=== PATIENT | male | born 1945 | race Hispanic/Latino ===

== ENCOUNTER 2018-10-08 04:47 | Inpatient (IN) | payer BC, MEDICARE ==
[2018-10-08 04:49] VITALS: BMI 39.1
[2018-10-08] MEDS ORDERED: Sodium Chloride 0.9% 500 ML IV ONE ×2 (05:16→05:42)
[2018-10-08 05:29] LABS: BASO # 0.1 K/uL (0.0-0.2); BASO % 0.6 % (0.0-2.0); EOS # 0.2 K/uL (0.0-0.7); EOS % 1.3 % (0.0-4.0); LYMPH # 0.9 K/uL (1.0-4.3); LYMPH % 7.1 % (20.0-40.0); MEAN CELL VOLUME 83.9 fL (80.0-94.0); MEAN CORPUSCULAR HEMOGLOBIN 28.3 pg (27.0-31.0); MEAN CORPUSCULAR HGB CONC 33.7 g/dL (33.0-37.0); MONO # 0.9 K/uL (0.0-0.8); MONO % 7.8 % (0.0-10.0); NEUT # 10.1 K/uL (1.8-7.0); NEUT % 83.2 % (50.0-75.0); PLATELET COUNT 192 K/uL (130-400); RBC 4.66 Mil/uL (4.40-5.90); RED CELL DISTRIBUTION WIDTH 13.7 % (11.5-14.5)
[2018-10-08 05:32] LABS: HEMOGLOBIN 13.2 g/dL (12.0-18.0); WHITE BLOOD COUNT 12.1 K/uL (4.8-10.8)
[2018-10-08 05:33] LABS: ABG ALLEN TEST POS; ARTERIAL BLOOD GAS O2 SAT 96.5 % (95-98); ARTERIAL BLOOD GAS PCO2 34 mm/Hg (35-45); ARTERIAL BLOOD GAS PH 7.43 (7.35-7.45); ARTERIAL BLOOD GAS PO2 67 mm/Hg (80-100); ARTERIAL BLOOD GAS TCO2 23.6 mmol/L (22-28)
[2018-10-08 05:36] LABS: INR 1.4; PROTHROMBIN TIME 15.1 SECONDS (9.7-12.2)
[2018-10-08] MEDS ORDERED: Sodium Chloride 0.9% 1,000 ML ONE (05:42)
[2018-10-08 05:44] LABS: ALB/GLOB RATIO 1.1 (1.0-2.1); ALBUMIN 3.7 g/dL (3.5-5.0); ALT/SGPT 9 U/L (21-72); AST/SGOT 24 U/L (17-59); BLOOD UREA NITROGEN 27 mg/dL (9-20); CALCIUM 8.6 mg/dl (8.6-10.4); GFR NON-AFRICAN AMERICAN > 60
[2018-10-08 05:44] LABS: SQUAMOUS EPITHIAL < 1 /hpf (0-5); URINE BACTERIA RARE (<OCC); URINE BILIRUBIN NEGATIVE (NEGATIVE); URINE BLOOD 2+ (NEGATIVE); URINE CLARITY Clear (Clear); URINE COLOR Yellow (YELLOW); URINE GLUCOSE (UA) 3+ mg/dL (Normal); URINE PROTEIN 2+ mg/dL (NEGATIVE); URINE UROBILINOGEN NORMAL mg/dL (0.2-1.0)
[2018-10-08 05:46] LABS: URINE LEUKOCYTE ESTERASE 2+ Leu/uL (Negative)
[2018-10-08 05:54] LABS: B-TYPE NATRIURETIC PEPTIDE 1100 pg/mL (0-900)
[2018-10-08 05:54] LABS: BARBITURATES, UR NEGATIVE (NEGATIVE); BENZODIAZEPINES, UR NEGATIVE (NEGATIVE); OPIATES, UR NEGATIVE (NEGATIVE); PHENCYCLIDINE, UR NEGATIVE (NEGATIVE)
[2018-10-08] MEDS ORDERED: Magnesium Sulfate 1 gm in D5W 1 GM/100 ML BAG IVPB ONE ×2 (06:02→06:39)
[2018-10-08] MEDS ORDERED: Piperacill/Tazo 4.5gm in Dex 4.5 GM/100 ML BAG IVPB STA (06:03)
[2018-10-08] MEDS: Sodium Chloride 0.9% 1,000 ML IV SCH ×2 (06:20→17:00)
--- NOTE | 2018-10-08 06:20 | C.PDOC ---
History Of Present Illness 73 year old male with PMHx of COPD, CHF, diabetes, chronic kidney disease and Afib presents to the ED BIBA status post fall last night. States he tripped and fell down two steps. Denies any LOC or head injury. Also complains of cough "for a while". Patient is getting treated with antibiotics for URI. Denies any fever, chest pain, shortness of breath, back pain, or any other symptoms. - HPI Time Seen by Provider: 10/08/18 04:55 Chief Complaint (Nursing): Trauma History Per: Patient, EMS History/Exam Limitations: no limitations Onset/Duration Of Symptoms: Hrs - Fall Fall:Prior To Injury: Tripped Past Medical History Reviewed: Historical Data, Nursing Documentation, Vital Signs Vital Signs: Last Vital Signs Temp 100.2 F H 10/08/18 05:00 Pulse 110 H 10/08/18 05:00 Resp 18 10/08/18 05:00 BP 143/76 10/08/18 05:00 Pulse Ox 96 10/08/18 05:00 - Medical History PMH: CHF, COPD, Diabetes, HTN, Kidney Stones (HX.), Chronic Kidney Disease (stage II) [facility]age 11[facility] BLADDER WITH DRAINAGE DEVICE, VIA OPENING (10/20/15) EXCISION OF DESCENDING COLON, ENDO, DIAGN (02/07/16) EXCISION OF STOMACH, ENDO, DIAGN (02/07/16) EXTIRPATION OF MATTER FROM BLADDER, ENDO (12/22/15) INSERTION OF INFUSION DEV INTO SUP VENA CAVA, PERC APPROACH (10/20/15) MEASUREMENT OF URINARY PRESSURE, VIA OPENING (10/20/15) PLAIN RADIOGRAPHY OF BLADDER (10/20/15) REMOVAL OF INFUSION DEV FROM GREAT VESSEL, GLASS BULB MACHINE ADJUSTER APPROACH (10/20/15) RESECTION OF PROSTATE, ENDO (12/22/15) TRANSFUSE NONAUT RED BLOOD CELLS IN PERIPH VEIN, PERC (02/07/16) Family History: States: No Known Family Hx - Social History Hx Alcohol Use: No Hx Substance Use: No - Immunization History Hx Tetanus Toxoid Vaccination: No Hx Influenza Vaccination: No Hx Pneumococcal Vaccination: No Review Of Systems Except As Marked, All Systems Reviewed And Found Negative. Constitutional: Negative for: Fever, Chills Cardiovascular: Negative for: Chest Pain Respiratory: Positive for: Cough. Negative for: Shortness of Breath Gastrointestinal: Negative for: Nausea, Vomiting, Abdominal Pain, Diarrhea Musculoskeletal: Negative for: Back Pain Physical Exam - Physical Exam Appears: Non-toxic, No Acute Distress Skin: Warm, Dry, No Rash Head: Atraumatic, Normacephalic Eye(s): bilateral: Normal Inspection, PERRL, EOMI Ear(s): Bilateral: Normal Nose: Normal Oral Mucosa: Dry, Other (pink) Lips: No Lesions, Other (dried blood on lips ) Neck: Trachea Midline, Supple Chest: Symmetrical Cardiovascular: Rhythm Irregular (irregularly irregular), Other (tachycardic ) Respiratory: Rales (B/L), Rhonchi (scatterred ), No Wheezing Gastrointestinal/Abdominal: Bowel Sounds (Active and normal ), Soft, No Tenderness, No Guarding, No Rebound, Other (Obese) Extremity: Normal ROM, No Pedal Edema, No Deformity, Other (chronic venous stasis B/L ) Extremity: Bilateral: Atraumatic Neurological/Psych: Oriented x3, Normal Speech Gait: Steady ED Course And Treatment - Laboratory Results Result Diagrams: 10/08/18 05:26 10/08/18 05:26 Lab Results: Puncture Site R rad 10/08/18 05:22 pCO2 34 mm/Hg (35-45) L 10/08/18 05:22 pO2 67 mm/Hg (80-100) L 10/08/18 05:22 HCO3 24.0 mmol/L (21-28) 10/08/18 05:22 ABG pH 7.43 (7.35-7.45) 10/08/18 05:22 ABG Total CO2 23.6 mmol/L (22-28) 10/08/18 05:22 ABG O2 Saturation 96.5 % (95-98) 10/08/18 05:22 ABG Base Excess -1.1 mmol/L (-2.0-3.0) 10/08/18 05:22 Paul Test Pos 10/08/18 05:22 ABG Potassium 3.5 mmol/L (3.6-5.2) L 10/08/18 05:22 Sodium 132.0 mmol/l (132-148) 10/08/18 05:22 Chloride 101.0 mmol/L (98-107) 10/08/18 05:22 Glucose 299 mg/dl (75-110) H 10/08/18 05:22 Lactate 1.7 mmol/L (0.7-2.1) 10/08/18 05:22 Liter Flow 4.0 10/08/18 05:22 PT 15.1 SECONDS (9.7-12.2) H 10/08/18 05:26 INR 1.4 10/08/18 05:26 APTT 32 SECONDS (21-34) 10/08/18 05:26 Troponin I 0.0180 ng/mL (0.00-0.120) 10/08/18 05:26 NT-Pro-B Natriuret Pep 1100 pg/mL (0-900) H 10/08/18 05:26 Total Bilirubin 1.0 mg/dL (0.2-1.3) 10/08/18 05:26 AST 24 U/L (17-59) 10/08/18 05:26 ALT 9 U/L (21-72) L D 10/08/18 05:26 Alkaline Phosphatase 101 U/L (38-126) 10/08/18 05:26 Total Protein 7.0 g/dL (6.3-8.3) 10/08/18 05:26 Albumin 3.7 g/dL (3.5-5.0) 10/08/18 05:26 Globulin 3.3 gm/dL (2.2-3.9) 10/08/18 05:26 Albumin/Globulin Ratio 1.1 (1.0-2.1) 10/08/18 05:26 Urine Color Yellow (YELLOW) 10/08/18 05:32 Urine Clarity Clear (Clear) 10/08/18 05:32 Urine pH 5.0 (5.0-8.0) 10/08/18 05:32 Ur Specific [place] 1.018 (1.003-1.030) 10/08/18 05:32 Urine Protein 2+ mg/dL (NEGATIVE) H 10/08/18 05:32 Urine Glucose (UA) 3+ mg/dL (Normal) H 10/08/18 05:32 Urine Ketones Negative mg/dL (NEGATIVE) 10/08/18 05:32 Urine Blood 2+ (NEGATIVE) H 10/08/18 05:32 Urine Nitrate Negative (NEGATIVE) 10/08/18 05:32 Urine Bilirubin Negative (NEGATIVE) 10/08/18 05:32 Urine Urobilinogen Normal mg/dL (0.2-1.0) 10/08/18 05:32 Ur Leukocyte Esterase 2+ Tan/uL (Negative) H 10/08/18 05:32 Urine WBC (Auto) 16 /hpf (0-5) H 10/08/18 05:32 Urine RBC (Auto) 6 /hpf (0-3) H 10/08/18 05:32 Ur Squamous Epith Cells < 1 /hpf (0-5) 10/08/18 05:32 Urine Bacteria Rare (<OCC) 10/08/18 05:32 ECG: Interpreted By Me, Viewed By Me ECG Rhythm: Sinus Rhythm, Atrial Fibrillation, R BBB, PVC ECG Interpretation: Abnormal Rate From EC O2 Sat by Pulse Oximetry: 96 (RA) Pulse Ox Interpretation: Normal - CT Scan/US CT head Other Rad Studies (CT/US): Read By Radiologist, Radiology Report Reviewed CT/US Interpretation: EXAM: CT Head without Intravenous Contrast. CLINICAL HISTORY: Head injury. s/p fall. TECHNIQUE: Axial computed tomography images of the head/brain without intravenous contrast. DLP 1211.40. COMPARISON: None provided. FINDINGS: BRAIN. No acute intraparenchymal hemorrhage. No mass lesion. No CT evidence for acute territorial infarct. No midline shift or extra- axial collections. VENTRICLES: No hydrocephalus. ORBITS: The orbits are unremarkable. SINUSES AND MASTOIDS: Mucosal thickening in the left maxillary sinus and ethmoid air cells. The mastoid air cells are clear. BONES: No fracture. SOFT TISSUES: Unremarkable. IMPRESSION: No acute intracranial abnormality. Medical Decision Making Medical Decision Making: Plan - CT head - EKG - Bloodwork - Tylenol 975mg PO - Lasix 20mg IVP - Magnesium sulfate - Piperacillin/Tazobactam IVPB Disposition - Disposition Disposition: HOSPITALIZED Disposition Time: 06:32 Condition: STABLE Forms: [facility] (Maori) - Clinical Impression Clinical Impression: CHF (congestive heart failure), Pneumonia, Atrial fibrillation with RVR, Dehydration, Fall - Scribe Statement The provider has reviewed the documentation as recorded by the Scribe Benita Ruiz All medical record entries made by the Scribe were at my direction and personally dictated by me. I have reviewed the chart and agree that the record accurately reflects my personal performance of the history, physical exam, medical decision making, and the department course for this patient. I have also personally directed, reviewed, and agree with the discharge instructions and disposition.
[2018-10-08] MEDS ORDERED: Piperacillin/Tazobact 3.375 gm 100 ML IVPB ONE (06:39)
[2018-10-08 06:43] LABS: BANDS 2 % (0-2); EOSINOPHIL 1 % (0-4); LYMPHOCYTE 6 % (20-40); MONOCYTE 4 % (0-10); NEUTROPHIL 86 % (50-75); PLATELET ESTIMATE NORMAL (NORMAL); REACTIVE LYMPHOCYTES 1 % (0-0); TOTAL CELLS COUNTED 100
[2018-10-08] MEDS ORDERED: PERCOCET PO PRN (08:57)
[2018-10-08] MEDS ORDERED: guaiFENesin DM 100 mg-10 mg/5 ml UD PO SCH (09:00)
--- NOTE | 2018-10-08 09:08 | RAD ---
Date of service: 10/08/2018 HISTORY: Sepsis Patient COMPARISON: Comparison chest 03/02/2016 FINDINGS: LUNGS: Poor inspiration with low lung volumes, crowded bronchovascular markings and mild bibasilar atelectasis. PLEURA: No significant pleural effusion identified, no pneumothorax apparent. CARDIOVASCULAR: Mild aortic atherosclerotic calcification present. Cardiomegaly. OSSEOUS STRUCTURES: No significant abnormalities. VISUALIZED UPPER ABDOMEN: Normal. OTHER FINDINGS: None. IMPRESSION: Poor inspiration with low lung volumes, crowded bronchovascular markings and mild bibasilar atelectasis.
[2018-10-08] MEDS ORDERED: Piperacillin/Tazobact 3.375 GM in Sodium Chloride 100 ML IVPB SCH (09:15)
[2018-10-08] MEDS ORDERED: guaiFENesin DM 100 mg-10 mg/5 ml UD ONE (09:19)
[2018-10-08] MEDS: guaiFENesin DM 100 mg-10 mg/5 ml UD PO PRN ×2 (09:28→20:42)
[2018-10-08] MEDS: Saccharomyces Boulardi 250 mg Cap PO SCH ×2 (10:55→17:25)
[2018-10-08] MEDS: (Novolog) Insulin Aspart, Recombinant 100 u/ml 10 ml vial SC SCH ×3 (12:25→22:12)
--- NOTE | 2018-10-08 12:52 | CT ---
Date of service: 10/08/2018 PROCEDURE: CT HEAD WITHOUT CONTRAST. HISTORY: falls COMPARISON: None available. TECHNIQUE: Axial computed tomography images were obtained through the head/brain without intravenous contrast. Radiation dose: Total exam DLP = 2422.75 mGy-cm. This CT exam was performed using one or more of the following dose reduction techniques: Automated exposure control, adjustment of the mA and/or kV according to patient size, and/or use of iterative reconstruction technique. FINDINGS: HEMORRHAGE: No intracranial hemorrhage. BRAIN: No mass effect or edema. Atrophy. Chronic microvascular ischemic changes. VENTRICLES: Unremarkable. No hydrocephalus. CALVARIUM: Unremarkable. PARANASAL SINUSES: Left maxillary sinus and ethmoid air cell opacification. MASTOID AIR CELLS: Unremarkable as visualized. No inflammatory changes. OTHER FINDINGS: None. IMPRESSION: Limited evaluation due to motion artifact. No acute intracranial pathology. Age-related changes. Left maxillary sinus and ethmoid air cell sinus disease.
[2018-10-08] MEDS: Piperacillin/Tazobact 3.375 GM in Sodium Chloride 100 ML IVPB SCH ×2 (14:03→19:55)
--- NOTE | 2018-10-08 16:56 | CP.PCM.CON ---
History of Present Illness - History of Present Illness History of Present Illness: 73 year old male with PMHx of COPD, CHF, diabetes, chronic kidney disease and Afib presents to the ED BIBA status post fall last night. States he tripped and fell down two steps. Has multiple bruises on arms legs and trunk Denies LOC or chest pain ID eval requested for antibiotic management - Medical History PMH: CHF, COPD, Diabetes, HTN, Kidney Stones (HX.), Chronic Kidney Disease (stage II) Surgical History: Appendectomy (age 11) - [facility] Procedures DRAINAGE OF BLADDER WITH DRAINAGE DEVICE, VIA OPENING (10/20/15) EXCISION OF DESCENDING COLON, ENDO, DIAGN (02/07/16) EXCISION OF STOMACH, ENDO, DIAGN (02/07/16) EXTIRPATION OF MATTER FROM BLADDER, ENDO (12/22/15) INSERTION OF INFUSION DEV INTO SUP VENA CAVA, PERC APPROACH (10/20/15) MEASUREMENT OF URINARY PRESSURE, VIA OPENING (10/20/15) PLAIN RADIOGRAPHY OF BLADDER (10/20/15) REMOVAL OF INFUSION DEV FROM GREAT VESSEL, LEHR OPERATOR APPROACH (10/20/15) RESECTION OF PROSTATE, ENDO (12/22/15) TRANSFUSE NONAUT RED BLOOD CELLS IN PERIPH VEIN, PERC (02/07/16) Review of Systems - Review of Systems All systems: reviewed and no additional remarkable complaints except - Constitutional Constitutional: As Per HPI - EENT Eyes: absent: As Per HPI, Blind Spots, Blurred Vision, Change in Vision, Decreased Night Vision, Diplopia, Discharge, Dry Eye, Exophthalmos, Floaters, Irritation, Itchy Eyes, Loss of Peripheral Vision, Pain, Photophobia, Requires Corrective Lenses, Sees Flashes, Spots in Vision, Tunnel Vision, Other Visual Disturbances, Loss of Vision, Other Ears: absent: As Per HPI, Decreased Hearing, Ear Discharge, Ear Pain, Tinnitus, Abnormal Hearing, Disequilibrium, Dizziness, Other Nose/Mouth/Throat: absent: As Per HPI, Epistaxis, Nasal Congestion, Nasal Discharge, Nasal Obstruction, Nasal Trauma, Nose Pain, Post Nasal Drip, Sinus Pain, Sinus Pressure, Bleeding Gums, Change in Voice, Dental Pain, Dry Mouth, Dysphagia, Halitosis, Hoarsness, Lip Swelling, Mouth Lesions, Mouth Pain, Odynophagia, Sore Throat, Throat Swelling, Tongue Swelling, Facial Pain, Neck Pain, Neck Mass, Other - Cardiovascular Cardiovascular: As Per HPI - Respiratory Respiratory: As Per HPI, Cough, Dyspnea - Gastrointestinal Gastrointestinal: absent: As Per HPI, Abdominal Pain, Belching, Bloating, Change in Bowel Habits, Change in Stool Character, Coffee Ground Emesis, Constipation, Cramping, Diarrhea, Dyspepsia, Dysphagia, Early Satiety, Excessive Flatus, Fecal Incontinence, Heartburn, Hematemesis, Hematochezia, Loose Stools, Melena, Nausea, Odynophagia, Temesmus, Vomiting, Other - Genitourinary Genitourinary: absent: As Per HPI, Change in Urinary Stream, Difficulty Urinating, Dysuria, Flank Pain, Hematuria, Pyuria, Nocturia, Urinary Incontinence, Urinary Frequency, Urinary Hesitance, Urinary Urgency, Voiding Freq/Small Amts, Freq UTI, Hx Renal/Bladder Calculi, Hx /Renal Surgery, Bladder Distension, Other - Musculoskeletal Musculoskeletal: As Per HPI - Integumentary Integumentary: As Per HPI - Neurological Neurological: As Per HPI - Psychiatric Psychiatric: absent: As Per HPI, Abnormal Sleep Pattern, Anhedonia, Anxiety, Auditory Hallucinations, Behavioral Changes, Change in Appetite, Change in Libido, Confusion, Depression, Difficulty Concentrating, Hallucinations, Homicidal Ideation, Hopelessness, Irritability, Memory Loss, Mood Swings, Panic Attacks, Paranoia, Suicidal Ideation, Visual Hallucinations, Tactile Hallucinations, Other - Endocrine Endocrine: absent: As Per HPI, Change in Body Appearance, Change in Libido, Cold Intolorance, Deepening of Voice, Excessive Sweating, Fatigue, Flushing, Heat Intolorance, Increase in Ring/Shoe/Hat Size, Palpitations, Polydipsia, Polyphagia, Polyuria, Other - Hematologic/Lymphatic Hematologic: absent: As Per HPI, Easy Bleeding, Easy Bruising, Lymphadenopathy, Other Past Patient History - Past Medical History & Family History Past Medical History?: Yes - Past Social History Smoking Status: Former Smoker - CARDIAC Hx Atrial Fibrillation: Yes Hx Congestive Heart Failure: Yes Hx Hypertension: Yes - PULMONARY Hx Chronic Obstructive Pulmonary Disease (COPD): Yes - NEUROLOGICAL Hx Neurological Disorder: No - HEENT Hx HEENT Problems: No - RENAL Hx Chronic Kidney Disease: Yes (stage II) Hx Kidney Stones: Yes (HX.) - ENDOCRINE/METABOLIC Hx Diabetes Mellitus Type 1: Yes - HEMATOLOGICAL/ONCOLOGICAL Hx Blood Disorders: No - INTEGUMENTARY Hx Dermatological Problems: Yes Other/Comment: non healing wound to rt. axillary region bilat buttocks breakdowns - MUSCULOSKELETAL/RHEUMATOLOGICAL Hx Musculoskeletal Disorders: Yes Hx Back Pain: Yes Hx Falls: Yes Hx Osteoarthritis: Yes Hx Unsteady Gait: Yes Other/Comment: rt. knee problem - GASTROINTESTINAL Hx Gastrointestinal Disorders: Yes Hx Gastroesophageal Reflux: Yes - GENITOURINARY/GYNECOLOGICAL Hx Genitourinary Disorders: Yes Hx Hematuria: Yes Hx Incontinence: Yes Other/Comment: Unspecified Hydronephrosis. PT. FOR SURGERY 12/22/15-DX: URINARY RETENTION - PSYCHIATRIC Hx Substance Use: No - SURGICAL HISTORY Hx Appendectomy: Yes (age 11) - ANESTHESIA Hx Anesthesia: Yes Hx Anesthesia Reactions: No Hx Malignant Hyperthermia: No Meds Allergies/Adverse Reactions: Allergies Allergy/AdvReac Type Severity Reaction Status Date / Time Sulfa (Sulfonamide Allergy Verified 10/08/18 05:06 Antibiotics) - Medications Medications: Current Medications Acetaminophen (Tylenol 325mg Tab) 975 mg PO ONCE PRN PRN Reason: Fever >100.4 F Last Admin: 10/08/18 06:19 Dose: 975 mg Carvedilol (Coreg) 12.5 mg PO BID [facility] Last Admin: 10/08/18 09:28 Dose: 12.5 mg Docusate Sodium (Colace) 100 mg PO BID [facility] Last Admin: 10/08/18 09:27 Dose: 100 mg Famotidine (Pepcid) 20 mg PO DAILY [facility] Last Admin: 10/08/18 09:29 Dose: 20 mg Fenofibrate (Tricor) 48 mg PO DAILY [facility] Last Admin: 10/08/18 10:55 Dose: 48 mg Furosemide (Lasix) 20 mg PO DAILY [facility] Last Admin: 10/08/18 09:38 Dose: 20 mg Guaifenesin/Dextromethorphan (Robitussin Dm) 5 ml PO Q6H PRN PRN Reason: Cough Last Admin: 10/08/18 09:28 Dose: 5 ml Sodium Chloride (Sodium Chloride 0.9%) 1,000 mls @ 100 mls/hr IV .Q10H [facility] Last Admin: 10/08/18 06:20 Dose: 100 mls/hr Piperacillin Sod/Tazobactam (Sod 3.375 gm/ Sodium Chloride) 100 mls @ 200 mls/hr IVPB Q6H [facility]; Protocol Last Admin: 10/08/18 14:03 Dose: 200 mls/hr Insulin Aspart (Novolog) 0 unit SC ACHS [facility]; Protocol Last Admin: 10/08/18 12:25 Dose: 4 units Insulin Glargine (Lantus) 25 unit SC HS [facility] Oseltamivir Phosphate (Tamiflu Cap) 75 mg PO BID [facility]; Protocol Stop: 10/13/18 09:07 Last Admin: 10/08/18 09:38 Dose: 75 mg Oxycodone/Acetaminophen (Percocet 5/325 Mg Tab) 1 tab PO Q4 PRN PRN Reason: Pain, moderate (4-7) Rivaroxaban (Xarelto) 15 mg PO DAILY [facility] Last Admin: 10/08/18 09:39 Dose: 15 mg Saccharomyces Boulardii (Florastor) 250 mg PO BID [facility] Last Admin: 10/08/18 10:55 Dose: 250 mg Tamsulosin HCl (Flomax) 0.4 mg PO BID [facility] Last Admin: 10/08/18 09:28 Dose: 0.4 mg Physical Exam - Constitutional Appears: Non-toxic, No Acute Distress, Chronically Ill - Head Exam Head Exam: ATRAUMATIC, NORMAL INSPECTION, NORMOCEPHALIC - Eye Exam Eye Exam: absent: Scleral icterus Pupil Exam: NORMAL ACCOMODATION - ENT Exam ENT Exam: Mucous Membranes Dry, Normal External Ear Exam, Normal Oropharynx - Neck Exam Neck exam: Negative for: Lymphadenopathy, Thyromegaly - Respiratory Exam Respiratory Exam: Decreased Breath Sounds, Prolonged Expiratory Phase, Rhonchi - Cardiovascular Exam Cardiovascular Exam: REGULAR RHYTHM, +S1, +S2 - GI/Abdominal Exam GI & Abdominal Exam: Diminished Bowel Sounds, Distended, Soft. absent: Tenderness - Rectal Exam Rectal Exam: Deferred - Exam Exam: NORMAL INSPECTION - Extremities Exam Extremities exam: Positive for: pedal edema, tenderness, pedal pulses present. Negative for: calf tenderness - Back Exam Back exam: absent: CVA tenderness (L), CVA tenderness (R) - Neurological Exam Neurological exam: Alert, CN II-XII Intact, Oriented x3, Reflexes Normal - Psychiatric Exam Psychiatric exam: Depressed - Skin Skin Exam: Dry, Erythema Additional comments: stasis changes both legs/ ankles pulses diminished Results - Vital Signs Recent Vital Signs: Last Vital Signs Temp 97.9 F 10/08/18 10:40 Pulse 90 10/08/18 16:34 Resp 20 10/08/18 10:40 BP 150/77 10/08/18 10:40 Pulse Ox 96 10/08/18 10:40 - Labs Result Diagrams: 10/08/18 05:26 10/08/18 05:26 Labs: Laboratory Results - last 24 hr 10/08/18 10/08/18 10/08/18 05:22 05:26 05:26 WBC 12.1 H D RBC 4.66 Hgb 13.2 D Hct 39.1 MCV 83.9 MCH 28.3 MCHC 33.7 RDW 13.7 Plt Count 192 MPV 9.0 Neut % (Auto) 83.2 H Lymph % (Auto) 7.1 L [place] % (Auto) 7.8 Eos % (Auto) 1.3 Baso % (Auto) 0.6 Neut # (Auto) 10.1 H Lymph # (Auto) 0.9 L [place] # (Auto) 0.9 H Eos # (Auto) 0.2 Baso # (Auto) 0.1 Neutrophils % (Manual) 86 H Band Neutrophils % 2 Lymphocytes % (Manual) 6 L Reactive Lymphs % 1 H Monocytes % (Manual) 4 Eosinophils % (Manual) 1 Platelet Estimate Normal PT 15.1 H INR 1.4 APTT 32 Puncture Site R rad pCO2 34 L pO2 67 L HCO3 24.0 ABG pH 7.43 ABG Total CO2 23.6 ABG O2 Saturation 96.5 ABG Base Excess -1.1 Paul Test Pos ABG Potassium 3.5 L Sodium 132.0 Chloride 101.0 Glucose 299 H Lactate 1.7 Liter Flow 4.0 Potassium Carbon Dioxide Anion Gap BUN Creatinine Est GFR ( Amer) Est GFR (Non-Af Amer) POC Glucose (mg/dL) Random Glucose Calcium Phosphorus Magnesium Total Bilirubin AST ALT Alkaline Phosphatase Troponin I NT-Pro-B Natriuret Pep Total Protein Albumin Globulin Albumin/Globulin Ratio Arterial Blood Potassium 3.5 L Urine Color Urine Clarity Urine pH Ur Specific [place] Urine Protein Urine Glucose (UA) Urine Ketones Urine Blood Urine Nitrate Urine Bilirubin Urine Urobilinogen Ur Leukocyte Esterase Urine WBC (Auto) Urine RBC (Auto) Ur Squamous Epith Cells Urine Bacteria Urine Opiates Screen Urine Methadone Screen Ur Barbiturates Screen Ur Phencyclidine Scrn Ur Amphetamines Screen U Benzodiazepines Scrn U Oth Cocaine Metabols U Cannabinoids Screen Alcohol, Quantitative 10/08/18 10/08/18 10/08/18 05:26 05:32 05:32 WBC RBC Hgb Hct MCV MCH MCHC RDW Plt Count MPV Neut % (Auto) Lymph % (Auto) [place] % (Auto) Eos % (Auto) Baso % (Auto) Neut # (Auto) Lymph # (Auto) [place] # (Auto) Eos # (Auto) Baso # (Auto) Neutrophils % (Manual) Band Neutrophils % Lymphocytes % (Manual) Reactive Lymphs % Monocytes % (Manual) Eosinophils % (Manual) Platelet Estimate PT INR APTT Puncture Site pCO2 pO2 HCO3 ABG pH ABG Total CO2 ABG O2 Saturation ABG Base Excess Paul Test ABG Potassium Sodium 131 L Chloride 97 L Glucose Lactate Liter Flow Potassium 3.9 Carbon Dioxide 22 Anion Gap 16 BUN 27 H Creatinine 1.1 Est GFR ( Amer) > 60 Est GFR (Non-Af Amer) > 60 POC Glucose (mg/dL) Random Glucose 316 H D Calcium 8.6 Phosphorus 3.2 Magnesium 1.4 L Total Bilirubin 1.0 AST 24 ALT 9 L D Alkaline Phosphatase 101 Troponin I 0.0180 NT-Pro-B Natriuret Pep 1100 H Total Protein 7.0 Albumin 3.7 Globulin 3.3 Albumin/Globulin Ratio 1.1 Arterial Blood Potassium Urine Color Yellow Urine Clarity Clear Urine pH 5.0 Ur Specific [place] 1.018 Urine Protein 2+ H Urine Glucose (UA) 3+ H Urine Ketones Negative Urine Blood 2+ H Urine Nitrate Negative Urine Bilirubin Negative Urine Urobilinogen Normal Ur Leukocyte Esterase 2+ H Urine WBC (Auto) 16 H Urine RBC (Auto) 6 H Ur Squamous Epith Cells < 1 Urine Bacteria Rare Urine Opiates Screen Negative Urine Methadone Screen Negative Ur Barbiturates Screen Negative Ur Phencyclidine Scrn Negative Ur Amphetamines Screen Negative U Benzodiazepines Scrn Negative U Oth Cocaine Metabols Negative U Cannabinoids Screen Negative Alcohol, Quantitative < 10 10/08/18 10/08/18 11:02 16:34 WBC RBC Hgb Hct MCV MCH MCHC RDW Plt Count MPV Neut % (Auto) Lymph % (Auto) [place] % (Auto) Eos % (Auto) Baso % (Auto) Neut # (Auto) Lymph # (Auto) [place] # (Auto) Eos # (Auto) Baso # (Auto) Neutrophils % (Manual) Band Neutrophils % Lymphocytes % (Manual) Reactive Lymphs % Monocytes % (Manual) Eosinophils % (Manual) Platelet Estimate PT INR APTT Puncture Site pCO2 pO2 HCO3 ABG pH ABG Total CO2 ABG O2 Saturation ABG Base Excess Paul Test ABG Potassium Sodium Chloride Glucose Lactate Liter Flow Potassium Carbon Dioxide Anion Gap BUN Creatinine Est GFR ( Amer) Est GFR (Non-Af Amer) POC Glucose (mg/dL) 328 H 199 H Random Glucose Calcium Phosphorus Magnesium Total Bilirubin AST ALT Alkaline Phosphatase Troponin I NT-Pro-B Natriuret Pep Total Protein Albumin Globulin Albumin/Globulin Ratio Arterial Blood Potassium Urine Color Urine Clarity Urine pH Ur Specific [place] Urine Protein Urine Glucose (UA) Urine Ketones Urine Blood Urine Nitrate Urine Bilirubin Urine Urobilinogen Ur Leukocyte Esterase Urine WBC (Auto) Urine RBC (Auto) Ur Squamous Epith Cells Urine Bacteria Urine Opiates Screen Urine Methadone Screen Ur Barbiturates Screen Ur Phencyclidine Scrn Ur Amphetamines Screen U Benzodiazepines Scrn U Oth Cocaine Metabols U Cannabinoids Screen Alcohol, Quantitative Assessment & Plan (1) CHF (congestive heart failure) Status: Acute (2) Dehydration Status: Acute (3) Fall Status: Acute (4) Pneumonia Status: Acute (5) COLUMBA (acute kidney injury) Status: Acute - Assessment and Plan (Free Text) Assessment: exac copd r/o poneumonia recurrent falls with bruises stasis dermatitis/ cellulitis legs DM deconditionind UTI await cultures cont antibiotics consider neuro eval/ gait training / JAVIER
[2018-10-08] MEDS: (Lantus) Insulin Glargine, Recombinant SC SCH (20:59)
[2018-10-09] MEDS: Piperacillin/Tazobact 3.375 GM in Sodium Chloride 100 ML IVPB SCH ×4 (00:34→18:02)
[2018-10-09] MEDS: Sodium Chloride 0.9% 1,000 ML IV SCH (01:30)
[2018-10-09] MEDS: guaiFENesin DM 100 mg-10 mg/5 ml UD PO PRN ×2 (06:02→14:18)
--- NOTE | 2018-10-09 07:24 | CP.PCM.PN ---
Subjective - Date & Time of Evaluation Date of Evaluation: 10/09/18 Time of Evaluation: 07:00 - Subjective Subjective: PGY2- Progress Note for Dr. Cisneros Patient seen and examined at bedside and in no acute distress. Patient still says he has a cough. Patient has some pain from his bruising s/p fall and says his left knee is bothering him. Patient denies any fevers, shortness of breath, chest pain, abdominal pain, N/V/C/D. Objective - Vital Signs/Intake and Output Vital Signs (last 24 hours): Temp Pulse Resp BP Pulse Ox 99.1 F 91 H 20 133/68 98 10/08/18 23:15 10/09/18 03:35 10/08/18 23:15 10/08/18 23:15 10/08/18 23:15 Intake and Output: 10/09/18 10/09/18 06:59 18:59 Intake Total 800 Output Total 800 Balance 0 - Medications Medications: Current Medications Acetaminophen (Tylenol 325mg Tab) 975 mg PO ONCE PRN PRN Reason: Fever >100.4 F Last Admin: 10/08/18 06:19 Dose: 975 mg Carvedilol (Coreg) 12.5 mg PO BID ON LICENSE OF [facility] Last Admin: 10/08/18 17:24 Dose: 12.5 mg Docusate Sodium (Colace) 100 mg PO BID ON LICENSE OF [facility] Last Admin: 10/08/18 17:25 Dose: 100 mg Famotidine (Pepcid) 20 mg PO DAILY ON [facility] OF [facility] Last Admin: 10/08/18 09:29 Dose: 20 mg Fenofibrate (Tricor) 48 mg PO DAILY ON [facility] OF [facility] Last Admin: 10/08/18 10:55 Dose: 48 mg Furosemide (Lasix) 20 mg PO DAILY ON [facility] Last Admin: 10/08/18 09:38 Dose: 20 mg Guaifenesin/Dextromethorphan (Robitussin Dm) 5 ml PO Q6H PRN PRN Reason: Cough Last Admin: 10/09/18 06:02 Dose: 5 ml Sodium Chloride (Sodium Chloride 0.9%) 1,000 mls @ 100 mls/hr IV .Q10H ON LICENSE OF [facility] Last Admin: 10/09/18 01:30 Dose: Not Given Piperacillin Sod/Tazobactam (Sod 3.375 gm/ Sodium Chloride) 100 mls @ 200 mls/hr IVPB Q6H ON LICENSE OF [facility]; Protocol Last Admin: 10/09/18 06:03 Dose: 200 mls/hr Insulin Aspart (Novolog) 0 unit SC ACHS ON LICENSE OF [facility]; Protocol Last Admin: 10/08/18 22:12 Dose: Not Given Insulin Glargine (Lantus) 25 unit SC HS ON LICENSE OF [facility] Last Admin: 10/08/18 20:59 Dose: 25 units Oseltamivir Phosphate (Tamiflu Cap) 75 mg PO BID ON LICENSE OF [facility]; Protocol Stop: 10/13/18 09:07 Last Admin: 10/08/18 17:25 Dose: 75 mg Oxycodone/Acetaminophen (Percocet 5/325 Mg Tab) 1 tab PO Q4 PRN PRN Reason: Pain, moderate (4-7) Rivaroxaban (Xarelto) 15 mg PO DAILY ON [facility] OF [facility] Last Admin: 10/08/18 09:39 Dose: 15 mg Saccharomyces Boulardii (Florastor) 250 mg PO BID ON LICENSE OF [facility] Last Admin: 10/08/18 17:25 Dose: 250 mg Tamsulosin HCl (Flomax) 0.4 mg PO BID ON LICENSE OF [facility] Last Admin: 10/08/18 17:24 Dose: 0.4 mg - Labs Labs: 10/08/18 05:26 10/08/18 05:26 PT 15.1 SECONDS (9.7-12.2) H 10/08/18 05:26 INR 1.4 10/08/18 05:26 APTT 32 SECONDS (21-34) 10/08/18 05:26 - Constitutional Appears: Non-toxic, No Acute Distress - Head Exam Head Exam: ATRAUMATIC, NORMAL INSPECTION, NORMOCEPHALIC - Eye Exam Eye Exam: EOMI, Normal appearance - ENT Exam ENT Exam: Mucous Membranes Moist - Respiratory Exam Respiratory Exam: Rales, NORMAL BREATHING PATTERN - Cardiovascular Exam Cardiovascular Exam: REGULAR RHYTHM, RRR, +S1, +S2 - GI/Abdominal Exam GI & Abdominal Exam: Soft, Normal Bowel Sounds. absent: Tenderness - Extremities Exam Extremities Exam: absent: Pedal Edema - Neurological Exam Neurological Exam: Alert, Awake, Oriented x3 - Psychiatric Exam Psychiatric exam: Normal Affect, Normal Mood - Skin Additional comments: ecchymosis throughout: b/l leg, knees, left elbow and forearm, right arm, left hip Assessment and Plan - Assessment and Plan (Free Text) Assessment: S/P Fall Head CT (10/08/18): limited eval due to motion artifact. no acute intracranial pathology. age related changes. left maxillary sinus and ethmoid air cell sinus disease. f/u knee and elbow xrays Percocet 1 tab po q4 prn URI vs Pneumonia Cxray (10/08/18): poor inspiration with low long volumes, crowded bronchovascular markings and mild bibasilar atelectasis Meds: Robitussin DM 5ml po q6h prn Tamiflu 75mg po BID (started on 10/08/18) Zosyn 3.375gm q6h (started on 10/08/18) Florastor 250mg po BID A Fib Xarelto 15mg po daily Coreg increased to 25mg po bid (from 12.5mg po BID)A fib DMII ISS accuchecks ACHS Insulin Glargine 25u sc HS HgA1C: 12.8 HTN Coreg increased to 25mg po bid (from 12.5mg po BID) HLD Tricor 48mg po daily BPH Tamsulosin .4mg po daily Prophylaxis Pepcid 20mg po daily Colace 100mg po BID SCDs, on Xarelto Patient seen and discussed with Dr. Cisneros
[2018-10-09 08:05] LABS: HEMOGLOBIN 12.1 g/dL (12.0-18.0); WHITE BLOOD COUNT 9.6 K/uL (4.8-10.8)
[2018-10-09 08:13] LABS: BASO # 0.1 K/uL (0.0-0.2); BASO % 0.8 % (0.0-2.0); EOS # 0.3 K/uL (0.0-0.7); EOS % 2.8 % (0.0-4.0); LYMPH # 1.2 K/uL (1.0-4.3); LYMPH % 12.1 % (20.0-40.0); MEAN CELL VOLUME 84.6 fL (80.0-94.0); MEAN CORPUSCULAR HEMOGLOBIN 28.2 pg (27.0-31.0); MEAN CORPUSCULAR HGB CONC 33.3 g/dL (33.0-37.0); MEAN PLATELET VOLUME 8.7 fL (7.2-11.7); MONO # 0.7 K/uL (0.0-0.8); MONO % 7.6 % (0.0-10.0); NEUT # 7.3 K/uL (1.8-7.0); NEUT % 76.7 % (50.0-75.0); RBC 4.31 Mil/uL (4.40-5.90); RED CELL DISTRIBUTION WIDTH 14.3 % (11.5-14.5)
[2018-10-09 08:22] LABS: ALBUMIN 3.1 g/dL (3.5-5.0); CALCIUM 7.9 mg/dl (8.6-10.4)
--- NOTE | 2018-10-09 08:27 | HP ---
HISTORY OF PRESENT ILLNESS: A 73-year-old male now complaining of multiple falls, fever, weakness, altered mental status. The patient came to the ER, evaluated. CAT scan of the head done was negative, advised admission. The patient has congestive heart failure, atrial fibrillation, diabetes, arthritis, status post knee surgery, status post multiple foot surgeries for diabetic foot ulcers. PHYSICAL EXAMINATION: GENERAL: The patient awake, alert, oriented. VITAL SIGNS: Temperature 98, pulse is 100 and regular, blood pressure 130/80. HEENT: Within normal limit. NECK: Supple. CHEST: Symmetrical. HEART: Regular. ABDOMEN: Soft. EXTREMITIES: No edema. There is hematoma of both knees and elbows. ASSESSMENT AND PLAN: The patient had multiple falls, fever, pneumonia, flu. Placed on bedrest, supportive care, antibiotics. X-rays . Adalberto Cisneros MD
[2018-10-09] MEDS: Saccharomyces Boulardi 250 mg Cap PO SCH ×2 (09:20→17:53)
[2018-10-09] MEDS: (Novolog) Insulin Aspart, Recombinant 100 u/ml 10 ml vial SC SCH ×4 (09:20→21:32)
[2018-10-09] MEDS: Petrolatum Oint Foilpak (5 gm) TOP PRN (14:18)
--- NOTE | 2018-10-09 15:25 | RAD ---
Date of service: 10/09/2018 PROCEDURE: Bilateral Knee Radiographs. HISTORY: pain s/p fall COMPARISON: None. FINDINGS: BONES: Right Knee: No periprosthetic lucency or fracture. Left Knee: No acute fracture. JOINTS: Right Knee: Prior arthroplasty. Left knee: Tricompartmental narrowing with degenerative spurring. SOFT TISSUES: Right Knee: Prepatellar tendon soft tissue swelling Left Knee: Superficial prepatellar soft tissue calcifications JOINT EFFUSION: Right Knee: None. Left Knee: Small joint effusion OTHER FINDINGS: Diffuse vascular calcifications. IMPRESSION: Prior total right knee arthroplasty without evidence of periprosthetic lucency or fracture. At least moderate left tricompartmental arthritic changes.
--- NOTE | 2018-10-09 15:26 | RAD ---
Date of service: 10/09/2018 PROCEDURE: Bilateral Elbow Radiographs. HISTORY: s/p fall, pain COMPARISON: None. FINDINGS: BONES: Right Elbow: No acute fracture. Left Elbow: No acute fracture. JOINTS: Right Elbow: Mild joint space narrowing. Left Elbow: Mild joint space narrowing. JOINT EFFUSION: Right Elbow: None. Left Elbow: None. SOFT TISSUES: Right Elbow: Normal. Left Elbow: Normal. OTHER FINDINGS: None. IMPRESSION: No demonstrated fracture or dislocation.
--- NOTE | 2018-10-09 15:54 | CP.PCM.PN ---
Subjective - Date & Time of Evaluation Date of Evaluation: 10/09/18 Time of Evaluation: 09:00 - Subjective Subjective: cuktures so far negative less SOB' denies chest pain or vcertigo 'HAS MULTIPLE ECCHYMOSES ON LIMBS Objective - Vital Signs/Intake and Output Vital Signs (last 24 hours): Temp Pulse Resp BP Pulse Ox 98.1 F 83 20 137/72 95 10/09/18 07:00 10/09/18 08:00 10/09/18 07:00 10/09/18 13:45 10/09/18 07:00 Intake and Output: 10/09/18 10/09/18 06:59 18:59 Intake Total 800 Output Total 800 Balance 0 - Medications Medications: Current Medications Acetaminophen (Tylenol 325mg Tab) 975 mg PO ONCE PRN PRN Reason: Fever >100.4 F Last Admin: 10/08/18 06:19 Dose: 975 mg Carvedilol (Coreg) 25 mg PO BID [facility] Docusate Sodium (Colace) 100 mg PO BID [facility] Last Admin: 10/09/18 09:20 Dose: 100 mg Emollient Ointment (Vaseline Oint) 5 gm TOP Q4H PRN PRN Reason: Dry skin Last Admin: 10/09/18 14:18 Dose: 5 gm Famotidine (Pepcid) 20 mg PO DAILY [facility] Last Admin: 10/09/18 09:20 Dose: 20 mg Fenofibrate (Tricor) 48 mg PO DAILY [facility] Last Admin: 10/09/18 10:44 Dose: 48 mg Furosemide (Lasix) 20 mg PO DAILY [facility] Last Admin: 10/09/18 09:21 Dose: 20 mg Guaifenesin/Dextromethorphan (Robitussin Dm) 5 ml PO Q6H PRN PRN Reason: Cough Last Admin: 10/09/18 14:18 Dose: 5 ml Piperacillin Sod/Tazobactam (Sod 3.375 gm/ Sodium Chloride) 100 mls @ 200 mls/hr IVPB Q6H [facility]; Protocol Last Admin: 10/09/18 14:14 Dose: 200 mls/hr Influenza Virus Vaccine (Flucelvax Quad [id number] Syr) 60 mcg IM .ONCE ONE Stop: 10/10/18 12:01 Insulin Aspart (Novolog) 0 unit SC ACHS [facility]; Protocol Last Admin: 10/09/18 12:21 Dose: 3 units Insulin Glargine (Lantus) 25 unit SC HS [facility] Last Admin: 10/08/18 20:59 Dose: 25 units Oseltamivir Phosphate (Tamiflu Cap) 75 mg PO BID [facility]; Protocol Stop: 10/13/18 09:07 Last Admin: 10/09/18 10:44 Dose: 75 mg Oxycodone/Acetaminophen (Percocet 5/325 Mg Tab) 1 tab PO Q4 PRN PRN Reason: Pain, moderate (4-7) Rivaroxaban (Xarelto) 15 mg PO DAILY [facility] Last Admin: 10/09/18 10:44 Dose: 15 mg Saccharomyces Boulardii (Florastor) 250 mg PO BID [facility] Last Admin: 10/09/18 09:20 Dose: 250 mg Tamsulosin HCl (Flomax) 0.4 mg PO BID [facility] Last Admin: 10/09/18 09:20 Dose: 0.4 mg - Labs Labs: 10/09/18 08:01 10/09/18 08:01 PT 15.1 SECONDS (9.7-12.2) H 10/08/18 05:26 INR 1.4 10/08/18 05:26 APTT 32 SECONDS (21-34) 10/08/18 05:26 - Constitutional Appears: Non-toxic, Chronically Ill - Head Exam Head Exam: NORMOCEPHALIC - Eye Exam Eye Exam: absent: Scleral icterus - ENT Exam ENT Exam: Mucous Membranes Dry - Neck Exam Neck Exam: absent: Lymphadenopathy - Respiratory Exam Respiratory Exam: Decreased Breath Sounds, Prolonged Expiratory Phase, Rales - Cardiovascular Exam Cardiovascular Exam: Irregular Rhythm, +S1, +S2 - GI/Abdominal Exam GI & Abdominal Exam: Distended, Soft. absent: Tenderness - Rectal Exam Rectal Exam: Deferred - Extremities Exam Extremities Exam: Pedal Edema - Back Exam Back Exam: absent: CVA tenderness (L), CVA tenderness (R) - Neurological Exam Neurological Exam: Alert, Awake, CN II-XII Intact, Oriented x3 - Psychiatric Exam Psychiatric exam: Depressed - Skin Skin Exam: Dry Assessment and Plan (1) CHF (congestive heart failure) Status: Acute (2) Dehydration Status: Acute (3) Fall Status: Acute (4) Pneumonia Status: Acute (5) COLUMBA (acute kidney injury) Status: Acute - Assessment and Plan (Free Text) Assessment: CONSIDER NEURO EVAL PT/OT CONT IV ANTIBIOTICS 'CHECK ECHO, HOLTER, MRI Plan: IV ANTIBIOTICS
--- NOTE | 2018-10-09 20:54 | CARD ---
APPROVED REPORT Date of service: 10/08/2018 EKG Measurement Heart [id number] <Conclusion> Sinus with 1st degree AV block with APC's and VPC'S Right bundle branch block Possible Lateral infarct, age undetermined Inferior infarct, age undetermined non specific ST abnormality, Abnormal ECG
[2018-10-09] MEDS: (Lantus) Insulin Glargine, Recombinant SC SCH (21:39)
[2018-10-10] MEDS: Piperacillin/Tazobact 3.375 GM in Sodium Chloride 100 ML IVPB SCH ×4 (01:15→18:03)
[2018-10-10] MEDS: (Novolog) Insulin Aspart, Recombinant 100 u/ml 10 ml vial SC SCH ×4 (08:21→21:27)
[2018-10-10 08:29] LABS: ALBUMIN 3.3 g/dL (3.5-5.0); ALT/SGPT 15 U/L (21-72); AST/SGOT 20 U/L (17-59); BLOOD UREA NITROGEN 19 mg/dL (9-20); CALCIUM 8.2 mg/dl (8.6-10.4); GFR NON-AFRICAN AMERICAN 54
[2018-10-10 08:30] LABS: BASO # 0.1 K/uL (0.0-0.2); BASO % 0.6 % (0.0-2.0); EOS # 0.3 K/uL (0.0-0.7); EOS % 3.6 % (0.0-4.0); LYMPH # 1.1 K/uL (1.0-4.3); MEAN CORPUSCULAR HEMOGLOBIN 28.6 pg (27.0-31.0); MEAN CORPUSCULAR HGB CONC 33.6 g/dL (33.0-37.0); MEAN PLATELET VOLUME 9.1 fL (7.2-11.7); MONO # 0.8 K/uL (0.0-0.8); MONO % 8.2 % (0.0-10.0); NEUT % 75.6 % (50.0-75.0); RBC 4.19 Mil/uL (4.40-5.90); WHITE BLOOD COUNT 9.3 K/uL (4.8-10.8)
[2018-10-10 08:58] LABS: HEPATITIS B SURFACE AG Negative (NEGATIVE)
[2018-10-10 09:05] LABS: HEPATITIS A IGM NEGATIVE (NEGATIVE); HEPATITIS B CORE AB NEGATIVE (NEGATIVE)
[2018-10-10 09:15] LABS: HEPATITIS C ANTIBODY NEGATIVE (NEGATIVE)
[2018-10-10] MEDS: Saccharomyces Boulardi 250 mg Cap PO SCH ×2 (09:30→17:48)
[2018-10-10] MEDS: guaiFENesin DM 100 mg-10 mg/5 ml UD PO PRN (09:30)
[2018-10-10] MEDS ORDERED: Pneumococcal 23-Valent Vaccine IM ONE ×2 (10:00→12:00)
--- NOTE | 2018-10-10 11:49 | CP.PCM.PN ---
Subjective - Date & Time of Evaluation Date of Evaluation: 10/10/18 Time of Evaluation: 09:00 - Subjective Subjective: c/o weakness no fever + cough Objective - Vital Signs/Intake and Output Vital Signs (last 24 hours): Temp Pulse Resp BP Pulse Ox 98.5 F 82 18 134/86 96 10/10/18 07:00 10/10/18 08:24 10/10/18 07:00 10/10/18 09:31 10/10/18 07:00 Intake and Output: 10/10/18 10/10/18 06:59 18:59 Intake Total 440 Output Total 275 Balance 165 - Medications Medications: Current Medications Acetaminophen (Tylenol 325mg Tab) 975 mg PO ONCE PRN PRN Reason: Fever >100.4 F Last Admin: 10/08/18 06:19 Dose: 975 mg Carvedilol (Coreg) 25 mg PO BID [facility] Last Admin: 10/10/18 09:29 Dose: 25 mg Docusate Sodium (Colace) 100 mg PO BID [facility] Last Admin: 10/10/18 09:31 Dose: 100 mg Emollient Ointment (Vaseline Oint) 5 gm TOP Q4H PRN PRN Reason: Dry skin Last Admin: 10/09/18 14:18 Dose: 5 gm Famotidine (Pepcid) 20 mg PO DAILY [facility] Last Admin: 10/10/18 09:31 Dose: 20 mg Fenofibrate (Tricor) 48 mg PO DAILY [facility] Last Admin: 10/10/18 09:31 Dose: 48 mg Furosemide (Lasix) 20 mg PO DAILY [facility] Last Admin: 10/10/18 09:31 Dose: 20 mg Guaifenesin/Dextromethorphan (Robitussin Dm) 5 ml PO Q6H PRN PRN Reason: Cough Last Admin: 10/10/18 09:30 Dose: 5 ml Piperacillin Sod/Tazobactam (Sod 3.375 gm/ Sodium Chloride) 100 mls @ 200 mls/hr IVPB Q6H [facility]; Protocol Last Admin: 10/10/18 06:24 Dose: 200 mls/hr Influenza Virus Vaccine (Flucelvax Quad [id number] Syr) 60 mcg IM .ONCE ONE Stop: 10/10/18 12:01 Insulin Aspart (Novolog) 0 unit SC ACHS [facility]; Protocol Last Admin: 10/10/18 11:43 Dose: 5 units Insulin Glargine (Lantus) 25 unit SC HS [facility] Last Admin: 10/09/18 21:39 Dose: 25 units Oseltamivir Phosphate (Tamiflu Cap) 75 mg PO BID [facility]; Protocol Stop: 10/13/18 09:07 Last Admin: 10/10/18 09:31 Dose: 75 mg Oxycodone/Acetaminophen (Percocet 5/325 Mg Tab) 1 tab PO Q4 PRN PRN Reason: Pain, moderate (4-7) Rivaroxaban (Xarelto) 15 mg PO DAILY [facility] Last Admin: 10/10/18 09:30 Dose: 15 mg Saccharomyces Boulardii (Florastor) 250 mg PO BID [facility] Last Admin: 10/10/18 09:30 Dose: 250 mg Tamsulosin HCl (Flomax) 0.4 mg PO BID [facility] Last Admin: 10/10/18 09:30 Dose: 0.4 mg - Labs Labs: 10/10/18 08:09 10/10/18 08:09 PT 15.1 SECONDS (9.7-12.2) H 10/08/18 05:26 INR 1.4 10/08/18 05:26 APTT 32 SECONDS (21-34) 10/08/18 05:26 - Constitutional Appears: No Acute Distress, Chronically Ill - Head Exam Head Exam: NORMOCEPHALIC - Eye Exam Eye Exam: absent: Scleral icterus - ENT Exam ENT Exam: Mucous Membranes Dry, Normal External Ear Exam - Neck Exam Neck Exam: absent: Lymphadenopathy - Respiratory Exam Respiratory Exam: Decreased Breath Sounds - Cardiovascular Exam Cardiovascular Exam: REGULAR RHYTHM - GI/Abdominal Exam GI & Abdominal Exam: Distended - Rectal Exam Rectal Exam: Deferred - Exam Exam: NORMAL INSPECTION - Extremities Exam Extremities Exam: absent: Pedal Edema - Back Exam Back Exam: absent: CVA tenderness (L), CVA tenderness (R) - Neurological Exam Neurological Exam: Alert, Awake, Oriented x3 - Psychiatric Exam Psychiatric exam: Depressed - Skin Skin Exam: Dry, Intact Assessment and Plan (1) CHF (congestive heart failure) Status: Acute (2) Dehydration Status: Acute (3) Fall Status: Acute (4) Pneumonia Status: Acute (5) COLUMBA (acute kidney injury) Status: Acute - Assessment and Plan (Free Text) Assessment: cont iv rx PT/OT podiatry eval
[2018-10-10] MEDS ORDERED: Influenza Vaccine 60 mcg/0.5 mL SYR (4YR UP) IM ONE (12:00)
--- NOTE | 2018-10-10 12:11 | CP.PCM.CON ---
History of Present Illness - History of Present Illness History of Present Illness: Podiatry Consult Note - Dr. Bud Knight 73 y/o male with PMHx of COPD, CHF, DM, CKD and atrial fibrillation seen at bedside with Dr. Bud Knight for consultation on diabetic foot neuropathy. Patient states he has pain to the right foot, specifically to the toes. He states they are sore to touch. Admits to a history of diabetes with occasional tingling and numbness in the feet. He states his sugars often run as high as the 300s. Denies any other pedal complaints. Denies pain or discomfort to the left lower extremity. Denies F/C/N/V at present. Admits he still has a cough which he had on admission, but states it has improved. PSHx: appendectomy All: sulfa drugs SocHx: former cigarette smoker Past Patient History - Past Medical History & Family History Past Medical History?: Yes - Past Social History Smoking Status: Former Smoker - CARDIAC Hx Congestive Heart Failure: Yes Hx Hypertension: Yes - PULMONARY Hx Chronic Obstructive Pulmonary Disease (COPD): Yes - NEUROLOGICAL Hx Neurological Disorder: No - HEENT Hx HEENT Problems: No - RENAL Hx Chronic Kidney Disease: Yes (stage II) Hx Kidney Stones: Yes (HX.) - ENDOCRINE/METABOLIC Hx Diabetes Mellitus Type 2: Yes - HEMATOLOGICAL/ONCOLOGICAL Hx Blood Disorders: No - INTEGUMENTARY Hx Dermatological Problems: Yes Other/Comment: non healing wound to rt. axillary region bilat buttocks breakdowns - MUSCULOSKELETAL/RHEUMATOLOGICAL Hx Musculoskeletal Disorders: Yes Hx Back Pain: Yes Hx Falls: Yes Hx Osteoarthritis: Yes Hx Unsteady Gait: Yes Other/Comment: rt. knee problem - GASTROINTESTINAL Hx Gastrointestinal Disorders: Yes Hx Gastroesophageal Reflux: Yes - GENITOURINARY/GYNECOLOGICAL Hx Genitourinary Disorders: Yes Hx Hematuria: Yes Hx Incontinence: Yes Other/Comment: Unspecified Hydronephrosis. PT. FOR SURGERY 12/22/15-DX: URINARY RETENTION - PSYCHIATRIC Hx Substance Use: No - SURGICAL HISTORY Hx Appendectomy: Yes (age 11) - ANESTHESIA Hx Anesthesia: Yes Hx Anesthesia Reactions: No Hx Malignant Hyperthermia: No Meds Allergies/Adverse Reactions: Allergies Allergy/AdvReac Type Severity Reaction Status Date / Time Sulfa (Sulfonamide Allergy Verified 10/08/18 05:06 Antibiotics) - Medications Medications: Current Medications Acetaminophen (Tylenol 325mg Tab) 975 mg PO ONCE PRN PRN Reason: Fever >100.4 F Last Admin: 10/08/18 06:19 Dose: 975 mg Carvedilol (Coreg) 25 mg PO BID [facility] Last Admin: 10/10/18 09:29 Dose: 25 mg Docusate Sodium (Colace) 100 mg PO BID [facility] Last Admin: 10/10/18 09:31 Dose: 100 mg Emollient Ointment (Vaseline Oint) 5 gm TOP Q4H PRN PRN Reason: Dry skin Last Admin: 10/09/18 14:18 Dose: 5 gm Famotidine (Pepcid) 20 mg PO DAILY [facility] Last Admin: 10/10/18 09:31 Dose: 20 mg Fenofibrate (Tricor) 48 mg PO DAILY [facility] Last Admin: 10/10/18 09:31 Dose: 48 mg Furosemide (Lasix) 20 mg PO DAILY [facility] Last Admin: 10/10/18 09:31 Dose: 20 mg Guaifenesin/Dextromethorphan (Robitussin Dm) 5 ml PO Q6H PRN PRN Reason: Cough Last Admin: 10/10/18 09:30 Dose: 5 ml Piperacillin Sod/Tazobactam (Sod 3.375 gm/ Sodium Chloride) 100 mls @ 200 mls/hr IVPB Q6H [facility]; Protocol Last Admin: 10/10/18 06:24 Dose: 200 mls/hr Insulin Aspart (Novolog) 0 unit SC [facility]; Protocol Last Admin: 10/10/18 11:43 Dose: 5 units Insulin Glargine (Lantus) 25 unit SC [facility] Last Admin: 10/09/18 21:39 Dose: 25 units Oseltamivir Phosphate (Tamiflu Cap) 75 mg PO BID [facility]; Protocol Stop: 10/13/18 09:07 Last Admin: 10/10/18 09:31 Dose: 75 mg Oxycodone/Acetaminophen (Percocet 5/325 Mg Tab) 1 tab PO Q4 PRN PRN Reason: Pain, moderate (4-7) Rivaroxaban (Xarelto) 15 mg PO DAILY [facility] Last Admin: 10/10/18 09:30 Dose: 15 mg Saccharomyces Boulardii (Florastor) 250 mg PO BID [facility] Last Admin: 10/10/18 09:30 Dose: 250 mg Tamsulosin HCl (Flomax) 0.4 mg PO BID [facility] Last Admin: 10/10/18 09:30 Dose: 0.4 mg Physical Exam - Constitutional Appears: Well, Non-toxic, No Acute Distress - Extremities Exam Additional comments: Lower extremity focused exam: Vasc: DP/PT pulses palpable 2/4. Temperature gradient warm to cool. CFT < 3 sec to all digits. +1 pitting edema noted to entirety of bilateral lower extremities. Mild bluish discoloration is noted to right foot lesser digits Derm: Diffuse hyperpigmentation with hemosiderin deposits noted from middle 1/3 of leg extending distally to digits B/L, consistent with venous stasis. Mild blue discoloration to lesser digits of right foot Neuro: protective and gross sensation slightly diminished Ortho: mild-moderate tenderness to palpation of all lesser digits of right foot - Neurological Exam Neurological exam: Alert, Oriented x3 - Psychiatric Exam Psychiatric exam: Normal Affect, Normal Mood Results - Vital Signs Recent Vital Signs: Last Vital Signs Temp 98.5 F 10/10/18 07:00 Pulse 82 10/10/18 08:24 Resp 18 10/10/18 07:00 BP 134/86 10/10/18 09:31 Pulse Ox 96 10/10/18 07:00 - Labs Result Diagrams: 10/10/18 08:09 10/10/18 08:09 Labs: Laboratory Results - last 24 hr 10/09/18 10/09/18 10/10/18 16:29 21:02 06:33 WBC RBC Hgb Hct MCV MCH MCHC RDW Plt Count MPV Neut % (Auto) Lymph % (Auto) Cobb % (Auto) Eos % (Auto) Baso % (Auto) Neut # (Auto) Lymph # (Auto) Cobb # (Auto) Eos # (Auto) Baso # (Auto) Sodium Potassium Chloride Carbon Dioxide Anion Gap BUN Creatinine Est GFR ( Amer) Est GFR (Non-Af Amer) POC Glucose (mg/dL) 290 H 325 H 269 H Random Glucose Calcium Phosphorus Magnesium Total Bilirubin AST ALT Alkaline Phosphatase Total Protein Albumin Globulin Albumin/Globulin Ratio Prostate Specific Ag Vitamin B12 25-OH Vitamin D Total Hepatitis A IgM Ab Hep Bs Antigen Hep B Core IgM Ab Hepatitis C Antibody HIV 1&2 Antibody Screen 10/10/18 10/10/18 10/10/18 08:09 08:09 08:09 WBC 9.3 RBC 4.19 L Hgb 12.0 Hct 35.6 MCV 85.0 MCH 28.6 MCHC 33.6 RDW 14.0 Plt Count 206 MPV 9.1 Neut % (Auto) 75.6 H Lymph % (Auto) 12.0 L Cobb % (Auto) 8.2 Eos % (Auto) 3.6 Baso % (Auto) 0.6 Neut # (Auto) 7.0 Lymph # (Auto) 1.1 Cobb # (Auto) 0.8 Eos # (Auto) 0.3 Baso # (Auto) 0.1 Sodium 131 L Potassium 3.9 Chloride 99 Carbon Dioxide 26 Anion Gap 10 BUN 19 Creatinine 1.3 Est GFR ( Amer) > 60 Est GFR (Non-Af Amer) 54 POC Glucose (mg/dL) Random Glucose 262 H Calcium 8.2 L Phosphorus 2.6 Magnesium 1.6 Total Bilirubin 0.7 AST 20 ALT 15 L Alkaline Phosphatase 84 Total Protein 6.5 Albumin 3.3 L Globulin 3.2 Albumin/Globulin Ratio 1.0 Prostate Specific Ag 3.74 Vitamin B12 634 25-OH Vitamin D Total 20.6 L Hepatitis A IgM Ab Hep Bs Antigen Hep B Core IgM Ab Hepatitis C Antibody HIV 1&2 Antibody Screen 10/10/18 10/10/18 10/10/18 08:09 08:09 11:08 WBC RBC Hgb Hct MCV MCH MCHC RDW Plt Count MPV Neut % (Auto) Lymph % (Auto) Cobb % (Auto) Eos % (Auto) Baso % (Auto) Neut # (Auto) Lymph # (Auto) Cobb # (Auto) Eos # (Auto) Baso # (Auto) Sodium Potassium Chloride Carbon Dioxide Anion Gap BUN Creatinine Est GFR ( Amer) Est GFR (Non-Af Amer) POC Glucose (mg/dL) 306 H Random Glucose Calcium Phosphorus Magnesium Total Bilirubin AST ALT Alkaline Phosphatase Total Protein Albumin Globulin Albumin/Globulin Ratio Prostate Specific Ag Vitamin B12 25-OH Vitamin D Total Hepatitis A IgM Ab Negative Hep Bs Antigen Negative Hep B Core IgM Ab Negative Hepatitis C Antibody Negative HIV 1&2 Antibody Screen Negative Assessment & Plan - Assessment and Plan (Free Text) Assessment: 73 y/o male with right foot pain to lesser digits, likely secondary to DM with neuropathy vs microvascular disease Plan Patient seen and evaluated with Dr. Knight Right foot xrays ordered - no acute osseous findings; arterial vascular calcifications noted Arterial duplex studies of lower extremities ordered Recommended patient employ stricter glucose control as this is directly correlated with neuropathy symptoms Will continue to follow patient while in house Thank you for this consult
--- NOTE | 2018-10-10 14:11 | CP.PCM.PN ---
Subjective - Date & Time of Evaluation Date of Evaluation: 10/10/18 Time of Evaluation: 09:50 - Subjective Subjective: Progress Note for Dr. Cisneros Patient see and examined at bedside. No acute events reported overnight. Patient reports his cough is improving and it only happens when he lies down. He still complains of knee and elbow pain but controlled well with percocet. Patient has right great toe pain would like to see podiatry for it. Otherwise he denies having fever, chills, headache, shortness of breath, chest pain, nausea, vomiting, or diarrhea. Objective - Vital Signs/Intake and Output Vital Signs (last 24 hours): Temp Pulse Resp BP Pulse Ox 98.5 F 82 18 134/86 96 10/10/18 07:00 10/10/18 08:24 10/10/18 07:00 10/10/18 09:31 10/10/18 07:00 Intake and Output: 10/10/18 10/10/18 06:59 18:59 Intake Total 440 Output Total 275 Balance 165 - Medications Medications: Current Medications Acetaminophen (Tylenol 325mg Tab) 975 mg PO ONCE PRN PRN Reason: Fever >100.4 F Last Admin: 10/08/18 06:19 Dose: 975 mg Carvedilol (Coreg) 25 mg PO BID [facility] Last Admin: 10/10/18 09:29 Dose: 25 mg Docusate Sodium (Colace) 100 mg PO BID [facility] Last Admin: 10/10/18 09:31 Dose: 100 mg Emollient Ointment (Vaseline Oint) 5 gm TOP Q4H PRN PRN Reason: Dry skin Last Admin: 10/09/18 14:18 Dose: 5 gm Famotidine (Pepcid) 20 mg PO DAILY [facility] Last Admin: 10/10/18 09:31 Dose: 20 mg Fenofibrate (Tricor) 48 mg PO DAILY [facility] Last Admin: 10/10/18 09:31 Dose: 48 mg Furosemide (Lasix) 20 mg PO DAILY [facility] Last Admin: 10/10/18 09:31 Dose: 20 mg Guaifenesin/Dextromethorphan (Robitussin Dm) 5 ml PO Q6H PRN PRN Reason: Cough Last Admin: 10/10/18 09:30 Dose: 5 ml Piperacillin Sod/Tazobactam (Sod 3.375 gm/ Sodium Chloride) 100 mls @ 200 mls/hr IVPB Q6H [facility]; Protocol Last Admin: 10/10/18 06:24 Dose: 200 mls/hr Insulin Aspart (Novolog) 0 unit SC ACHS [facility]; Protocol Last Admin: 10/10/18 11:43 Dose: 5 units Insulin Glargine (Lantus) 25 unit SC HS [facility] Last Admin: 10/09/18 21:39 Dose: 25 units Oseltamivir Phosphate (Tamiflu Cap) 75 mg PO BID [facility]; Protocol Stop: 10/13/18 09:07 Last Admin: 10/10/18 09:31 Dose: 75 mg Oxycodone/Acetaminophen (Percocet 5/325 Mg Tab) 1 tab PO Q4 PRN PRN Reason: Pain, moderate (4-7) Rivaroxaban (Xarelto) 15 mg PO DAILY [facility] Last Admin: 10/10/18 09:30 Dose: 15 mg Saccharomyces Boulardii (Florastor) 250 mg PO BID [facility] Last Admin: 10/10/18 09:30 Dose: 250 mg Tamsulosin HCl (Flomax) 0.4 mg PO BID [facility] Last Admin: 10/10/18 09:30 Dose: 0.4 mg - Labs Labs: 10/10/18 08:09 10/10/18 08:09 PT 15.1 SECONDS (9.7-12.2) H 10/08/18 05:26 INR 1.4 10/08/18 05:26 APTT 32 SECONDS (21-34) 10/08/18 05:26 - Additional Findings Additional findings: - Constitutional Appears: Non-toxic, No Acute Distress - Head Exam Head Exam: ATRAUMATIC, NORMAL INSPECTION, NORMOCEPHALIC - Eye Exam Eye Exam: EOMI, Normal appearance - ENT Exam ENT Exam: Mucous Membranes Moist - Respiratory Exam Respiratory Exam: Rales, NORMAL BREATHING PATTERN - Cardiovascular Exam Cardiovascular Exam: REGULAR RHYTHM, RRR, +S1, +S2 - GI/Abdominal Exam GI & Abdominal Exam: Soft, Normal Bowel Sounds. absent: Tenderness - Extremities Exam Extremities Exam: B/L DP and PT pulses present, no obvious deformity, absent: Pedal Edema - Neurological Exam Neurological Exam: Alert, Awake, Oriented x3 - Psychiatric Exam Psychiatric exam: Normal Affect, Normal Mood - Skin Additional comments: ecchymosis throughout: b/l leg, knees, left elbow and forearm, right arm, left hip Assessment and Plan - Assessment and Plan (Free Text) Assessment: Mechanical Fall Head CT (10/08/18): limited eval due to motion artifact. no acute intracranial pathology. age related changes. left maxillary sinus and ethmoid air cell sinus disease. Knee and elbow xrays show no acute fracture or dislocation Percocet 1 tab po q4 prn URI vs Pneumonia Cxray (10/08/18): poor inspiration with low long volumes, crowded bronchovascular markings and mild bibasilar atelectasis Meds: Robitussin DM 5ml po q6h prn Tamiflu 75mg po BID (started on 10/08/18) Zosyn 3.375gm q6h (started on 10/08/18) Florastor 250mg po BID Right foot pain Likely secondary to diabetic neuropathy vs trauma sustain from the recent fall Podiatry consulted Follow up foot xray A Fib Xarelto 15mg po daily Coreg increased to 25mg po bid (from 12.5mg po BID)A fib DMII ISS accuchecks ACHS Insulin Glargine 25u sc HS HgA1C: 12.8 HTN Coreg increased to 25mg po bid (from 12.5mg po BID) HLD Tricor 48mg po daily BPH Tamsulosin .4mg po daily Prophylaxis Pepcid 20mg po daily Colace 100mg po BID SCDs, on Xarelto Patient seen and discussed with Dr. Cisneros
--- NOTE | 2018-10-10 14:50 | RAD ---
Date of service: 10/10/2018 PROCEDURE: Right Foot Radiographs. HISTORY: right foot pain to lesser digits COMPARISON: None. FINDINGS: BONES: Diffuse osteopenia. No acute fracture. JOINTS: Diffuse joint space narrowing. SOFT TISSUES: Normal. OTHER FINDINGS: Arterial vascular calcifications. IMPRESSION: No demonstrated fracture or dislocation.
[2018-10-10] MEDS: (Lantus) Insulin Glargine, Recombinant SC SCH (21:53)
[2018-10-11] MEDS: Piperacillin/Tazobact 3.375 GM in Sodium Chloride 100 ML IVPB SCH ×4 (01:00→18:20)
[2018-10-11 07:33] LABS: BASO % 0.5 % (0.0-2.0); EOS # 0.3 K/uL (0.0-0.7); EOS % 4.3 % (0.0-4.0); HEMOGLOBIN 11.7 g/dL (12.0-18.0); LYMPH % 13.9 % (20.0-40.0); MEAN CELL VOLUME 84.2 fL (80.0-94.0); MEAN CORPUSCULAR HEMOGLOBIN 28.3 pg (27.0-31.0); MEAN CORPUSCULAR HGB CONC 33.7 g/dL (33.0-37.0); MEAN PLATELET VOLUME 8.9 fL (7.2-11.7); MONO # 0.7 K/uL (0.0-0.8); MONO % 9.8 % (0.0-10.0); NEUT # 5.2 K/uL (1.8-7.0); NEUT % 71.5 % (50.0-75.0); RBC 4.12 Mil/uL (4.40-5.90); RED CELL DISTRIBUTION WIDTH 13.9 % (11.5-14.5); WHITE BLOOD COUNT 7.2 K/uL (4.8-10.8)
[2018-10-11 07:43] LABS: ALT/SGPT 15 U/L (21-72); AST/SGOT 18 U/L (17-59); BLOOD UREA NITROGEN 18 mg/dL (9-20); GFR NON-AFRICAN AMERICAN 59
[2018-10-11] MEDS: (Novolog) Insulin Aspart, Recombinant 100 u/ml 10 ml vial SC SCH ×4 (08:06→22:00)
[2018-10-11] MEDS: Saccharomyces Boulardi 250 mg Cap PO SCH ×2 (09:22→18:19)
--- NOTE | 2018-10-11 14:15 | CP.PCM.PN ---
Subjective - Date & Time of Evaluation Date of Evaluation: 10/11/18 Time of Evaluation: 14:15 - Subjective Subjective: Podiatry progress note- Dr. Bud Knight 73 y/o male seen at bedside this afternoon with Dr. Knight for right foot toe pain. He states he has been walking around more with physical therapy and is starting to feel better after the fall he suffered a few days ago. Says toes are less tender today. States he had his xray done of the foot but is awaiting the blood test studies. Denies F/C/N/V/CP/SOB Objective - Vital Signs/Intake and Output Vital Signs (last 24 hours): Temp Pulse Resp BP Pulse Ox 99.1 F 78 20 145/76 96 10/11/18 07:07 10/11/18 11:28 10/11/18 07:07 10/11/18 09:23 10/11/18 07:07 Intake and Output: 10/11/18 10/11/18 06:59 18:59 Intake Total 680 Output Total 250 Balance 430 - Medications Medications: Current Medications Acetaminophen (Tylenol 325mg Tab) 975 mg PO ONCE PRN PRN Reason: Fever >100.4 F Last Admin: 10/08/18 06:19 Dose: 975 mg Carvedilol (Coreg) 25 mg PO BID [facility] Last Admin: 10/11/18 09:22 Dose: 25 mg Docusate Sodium (Colace) 100 mg PO BID [facility] Last Admin: 10/11/18 09:04 Dose: 100 mg Emollient Ointment (Vaseline Oint) 5 gm TOP Q4H PRN PRN Reason: Dry skin Last Admin: 10/09/18 14:18 Dose: 5 gm Famotidine (Pepcid) 20 mg PO DAILY [facility] Last Admin: 10/11/18 09:04 Dose: 20 mg Fenofibrate (Tricor) 48 mg PO DAILY [facility] Last Admin: 10/11/18 09:03 Dose: 48 mg Furosemide (Lasix) 20 mg PO DAILY [facility] Last Admin: 10/11/18 09:04 Dose: 20 mg Guaifenesin/Dextromethorphan (Robitussin Dm) 5 ml PO Q6H PRN PRN Reason: Cough Last Admin: 10/10/18 09:30 Dose: 5 ml Piperacillin Sod/Tazobactam (Sod 3.375 gm/ Sodium Chloride) 100 mls @ 200 mls/hr IVPB Q6H [facility]; Protocol Last Admin: 10/11/18 12:23 Dose: 200 mls/hr Insulin Aspart (Novolog) 0 unit SC ACHS [facility]; Protocol Last Admin: 10/11/18 11:30 Dose: 2 units Insulin Glargine (Lantus) 25 unit SC HS [facility] Last Admin: 10/10/18 21:53 Dose: 25 units Oseltamivir Phosphate (Tamiflu Cap) 75 mg PO BID [facility]; Protocol Stop: 10/13/18 09:07 Last Admin: 10/11/18 09:04 Dose: 75 mg Oxycodone/Acetaminophen (Percocet 5/325 Mg Tab) 1 tab PO Q4 PRN PRN Reason: Pain, moderate (4-7) Rivaroxaban (Xarelto) 15 mg PO DAILY [facility] Last Admin: 10/11/18 09:04 Dose: 15 mg Saccharomyces Boulardii (Florastor) 250 mg PO BID [facility] Last Admin: 10/11/18 09:22 Dose: 250 mg Tamsulosin HCl (Flomax) 0.4 mg PO BID [facility] Last Admin: 10/11/18 09:03 Dose: 0.4 mg - Labs Labs: 10/11/18 07:27 10/11/18 07:23 PT 15.1 SECONDS (9.7-12.2) H 10/08/18 05:26 INR 1.4 10/08/18 05:26 APTT 32 SECONDS (21-34) 10/08/18 05:26 - Constitutional Appears: Well, Non-toxic, No Acute Distress - Extremities Exam Additional comments: Lower extremity focused exam: Vasc: DP/PT pulses palpable 2/4. Temperature gradient warm to cool. CFT < 3 sec to all digits. +1 pitting edema noted to entirety of bilateral lower extremities. Mild bluish discoloration is noted to right foot lesser digits Derm: Diffuse hyperpigmentation with hemosiderin deposits noted from middle 1/3 of leg extending distally to digits B/L, consistent with venous stasis. Mild blue discoloration to lesser digits of right foot Neuro: protective and gross sensation slightly diminished Ortho: mild-moderate tenderness to palpation of all lesser digits of right foot - Neurological Exam Neurological Exam: Alert, Awake, Oriented x3 - Psychiatric Exam Psychiatric exam: Normal Affect, Normal Mood Assessment and Plan - Assessment and Plan (Free Text) Assessment: 73 y/o male with right foot pain to lesser digits, likely secondary to DM with neuropathy vs microvascular disease Plan Patient seen and evaluated with Dr. Knight Right foot xrays ordered - no acute osseous findings; arterial vascular calcifications noted Arterial duplex studies of lower extremities ordered, pending Recommended patient continue to employ stricter glucose control as this is directly correlated with neuropathy symptoms Will continue to follow patient while in house
--- NOTE | 2018-10-11 16:23 | CP.PCM.PN ---
Subjective - Date & Time of Evaluation Date of Evaluation: 10/11/18 Time of Evaluation: 07:00 - Subjective Subjective: PGY2- Progress Note for Dr. Cisneros Patient seen and examined at bedside and in no acute distress. Patient walked with physical therapy this morning. Patient still has some right foot and toe pain. Patient admits to persistent cough. Patient denies any chest pain, shortness of breath, abdominal pain, nausea, vomiting, constipation, or diarrhea. Objective - Vital Signs/Intake and Output Vital Signs (last 24 hours): Temp Pulse Resp BP Pulse Ox 99.1 F 82 20 145/76 96 10/11/18 07:07 10/11/18 15:40 10/11/18 07:07 10/11/18 09:23 10/11/18 07:07 Intake and Output: 10/11/18 10/11/18 06:59 18:59 Intake Total 680 500 Output Total 250 Balance 430 500 - Medications Medications: Current Medications Acetaminophen (Tylenol 325mg Tab) 975 mg PO ONCE PRN PRN Reason: Fever >100.4 F Last Admin: 10/08/18 06:19 Dose: 975 mg Carvedilol (Coreg) 25 mg PO BID [facility] Last Admin: 10/11/18 09:22 Dose: 25 mg Docusate Sodium (Colace) 100 mg PO BID [facility] Last Admin: 10/11/18 09:04 Dose: 100 mg Emollient Ointment (Vaseline Oint) 5 gm TOP Q4H PRN PRN Reason: Dry skin Last Admin: 10/09/18 14:18 Dose: 5 gm Famotidine (Pepcid) 20 mg PO DAILY [facility] Last Admin: 10/11/18 09:04 Dose: 20 mg Fenofibrate (Tricor) 48 mg PO DAILY [facility] Last Admin: 10/11/18 09:03 Dose: 48 mg Furosemide (Lasix) 20 mg PO DAILY [facility] Last Admin: 10/11/18 09:04 Dose: 20 mg Guaifenesin/Dextromethorphan (Robitussin Dm) 5 ml PO Q6H PRN PRN Reason: Cough Last Admin: 10/10/18 09:30 Dose: 5 ml Piperacillin Sod/Tazobactam (Sod 3.375 gm/ Sodium Chloride) 100 mls @ 200 mls/hr IVPB Q6H [facility]; Protocol Last Admin: 10/11/18 12:23 Dose: 200 mls/hr Insulin Aspart (Novolog) 0 unit SC ACHS [facility]; Protocol Last Admin: 10/11/18 11:30 Dose: 2 units Insulin Glargine (Lantus) 25 unit SC HS [facility] Last Admin: 10/10/18 21:53 Dose: 25 units Oseltamivir Phosphate (Tamiflu Cap) 75 mg PO BID [facility]; Protocol Stop: 10/13/18 09:07 Last Admin: 10/11/18 09:04 Dose: 75 mg Oxycodone/Acetaminophen (Percocet 5/325 Mg Tab) 1 tab PO Q4 PRN PRN Reason: Pain, moderate (4-7) Rivaroxaban (Xarelto) 15 mg PO DAILY [facility] Last Admin: 10/11/18 09:04 Dose: 15 mg Saccharomyces Boulardii (Florastor) 250 mg PO BID [facility] Last Admin: 10/11/18 09:22 Dose: 250 mg Tamsulosin HCl (Flomax) 0.4 mg PO BID [facility] Last Admin: 10/11/18 09:03 Dose: 0.4 mg - Labs Labs: 10/11/18 07:27 10/11/18 07:23 PT 15.1 SECONDS (9.7-12.2) H 10/08/18 05:26 INR 1.4 10/08/18 05:26 APTT 32 SECONDS (21-34) 10/08/18 05:26 - Extremities Exam Additional comments: - Constitutional Appears: Non-toxic, No Acute Distress - Head Exam Head Exam: ATRAUMATIC, NORMAL INSPECTION, NORMOCEPHALIC - Eye Exam Eye Exam: EOMI, Normal appearance - ENT Exam ENT Exam: Mucous Membranes Moist - Respiratory Exam Respiratory Exam: Rales, NORMAL BREATHING PATTERN - Cardiovascular Exam Cardiovascular Exam: REGULAR RHYTHM, RRR, +S1, +S2 - GI/Abdominal Exam GI & Abdominal Exam: Soft, Normal Bowel Sounds. absent: Tenderness - Extremities Exam Extremities Exam: B/L DP and PT pulses present, no obvious deformity, absent: Pedal Edema - Neurological Exam Neurological Exam: Alert, Awake, Oriented x3 - Psychiatric Exam Psychiatric exam: Normal Affect, Normal Mood - Skin Additional comments: LE chronic venous stasis ecchymosis throughout: b/l leg, knees, left elbow and forearm, right arm, left hip Assessment and Plan - Assessment and Plan (Free Text) Assessment: Mechanical Fall Head CT (10/08/18): limited eval due to motion artifact. no acute intracranial pathology. age related changes. left maxillary sinus and ethmoid air cell sinus disease. Knee and elbow xrays show no acute fracture or dislocation Percocet 1 tab po q4 prn Pneumonia Cxray (10/08/18): poor inspiration with low long volumes, crowded bronchovascular markings and mild bibasilar atelectasis Meds: Robitussin DM 5ml po q6h prn Tamiflu 75mg po BID (started on 10/08/18) Zosyn 3.375gm q6h (started on 10/08/18) Florastor 250mg po BID Right foot pain Likely secondary to diabetic neuropathy vs trauma sustain from the recent fall Podiatry consulted foot xray (10/10/18)- no demonstrated fracture or dislocation LE U/S- preliminary read negative A Fib Xarelto 15mg po daily Coreg increased to 25mg po bid (from 12.5mg po BID)A fib DMII ISS accuchecks ACHS Insulin Glargine 25u sc HS HgA1C: 12.8 HTN Coreg increased to 25mg po bid (from 12.5mg po BID) HLD Tricor 48mg po daily BPH Tamsulosin .4mg po daily Prophylaxis Pepcid 20mg po daily Colace 100mg po BID SCDs, on Xarelto PT, OT Dispo: Awaiting [facility] placement. Patient seen and discussed with Dr. Cisneros
[2018-10-11] MEDS: (Lantus) Insulin Glargine, Recombinant SC SCH (22:08)
[2018-10-12] MEDS: Piperacillin/Tazobact 3.375 GM in Sodium Chloride 100 ML IVPB SCH ×2 (00:47→06:18)
[2018-10-12 07:35] LABS: BASO % 0.7 % (0.0-2.0); EOS # 0.3 K/uL (0.0-0.7); EOS % 4.1 % (0.0-4.0); HEMOGLOBIN 11.8 g/dL (12.0-18.0); LYMPH # 1.1 K/uL (1.0-4.3); LYMPH % 15.5 % (20.0-40.0); MEAN CELL VOLUME 84.4 fL (80.0-94.0); MEAN CORPUSCULAR HEMOGLOBIN 27.8 pg (27.0-31.0); MEAN CORPUSCULAR HGB CONC 32.9 g/dL (33.0-37.0); MEAN PLATELET VOLUME 9.3 fL (7.2-11.7); MONO # 0.7 K/uL (0.0-0.8); MONO % 10.3 % (0.0-10.0); NEUT # 4.7 K/uL (1.8-7.0); NEUT % 69.4 % (50.0-75.0); RBC 4.24 Mil/uL (4.40-5.90); RED CELL DISTRIBUTION WIDTH 13.8 % (11.5-14.5); WHITE BLOOD COUNT 6.8 K/uL (4.8-10.8)
[2018-10-12 07:46] LABS: ALBUMIN 3.1 g/dL (3.5-5.0); ALT/SGPT 22 U/L (21-72); AST/SGOT 18 U/L (17-59); BLOOD UREA NITROGEN 17 mg/dL (9-20); CALCIUM 8.1 mg/dl (8.6-10.4); GFR NON-AFRICAN AMERICAN 59
[2018-10-12] MEDS: (Novolog) Insulin Aspart, Recombinant 100 u/ml 10 ml vial SC SCH ×4 (08:00→22:33)
[2018-10-12] MEDS: Saccharomyces Boulardi 250 mg Cap PO SCH ×2 (09:07→17:15)
[2018-10-12] MEDS: guaiFENesin DM 100 mg-10 mg/5 ml UD PO PRN (09:09)
[2018-10-12] MEDS: Petrolatum Oint Foilpak (5 gm) TOP PRN (09:09)
--- NOTE | 2018-10-12 10:36 | CP.PCM.PN ---
Subjective - Date & Time of Evaluation Date of Evaluation: 10/12/18 Time of Evaluation: 07:00 - Subjective Subjective: PGY2- Progress Note for Dr. Cisneros Patient seen and examined at bedside and in no acute distress. Patient admits to persistent cough, but otherwise says he is feeling better. Patient denies any chest pain, shortness of breath, abdominal pain, nausea, vomiting, constipation, or diarrhea. Objective - Vital Signs/Intake and Output Vital Signs (last 24 hours): Temp Pulse Resp BP Pulse Ox 98.7 F 77 20 160/98 H 98 10/12/18 07:00 10/12/18 07:15 10/12/18 07:00 10/12/18 09:07 10/12/18 07:00 Intake and Output: 10/12/18 10/12/18 06:59 18:59 Intake Total 100 Balance 100 - Medications Medications: Current Medications Acetaminophen (Tylenol 325mg Tab) 975 mg PO ONCE PRN PRN Reason: Fever >100.4 F Last Admin: 10/08/18 06:19 Dose: 975 mg Carvedilol (Coreg) 25 mg PO BID [facility] Last Admin: 10/12/18 09:07 Dose: 25 mg Docusate Sodium (Colace) 100 mg PO BID [facility] Last Admin: 10/12/18 09:07 Dose: 100 mg Emollient Ointment (Vaseline Oint) 5 gm TOP Q4H PRN PRN Reason: Dry skin Last Admin: 10/12/18 09:09 Dose: 5 gm Famotidine (Pepcid) 20 mg PO DAILY [facility] Last Admin: 10/12/18 09:07 Dose: 20 mg Fenofibrate (Tricor) 48 mg PO DAILY [facility] Last Admin: 10/12/18 09:16 Dose: 48 mg Furosemide (Lasix) 20 mg PO DAILY [facility] Last Admin: 10/12/18 09:07 Dose: 20 mg Guaifenesin/Dextromethorphan (Robitussin Dm) 5 ml PO Q6H PRN PRN Reason: Cough Last Admin: 10/12/18 09:09 Dose: 5 ml Piperacillin Sod/Tazobactam (Sod 3.375 gm/ Sodium Chloride) 100 mls @ 200 ml s/hr IVPB Q6H [facility]; Protocol Last Admin: 10/12/18 06:18 Dose: 200 mls/hr Insulin Aspart (Novolog) 0 unit SC ACHS [facility]; Protocol Last Admin: 10/12/18 08:00 Dose: 3 units Insulin Glargine (Lantus) 25 unit SC HS [facility] Last Admin: 10/11/18 22:08 Dose: 25 units Oseltamivir Phosphate (Tamiflu Cap) 75 mg PO BID [facility]; Protocol Stop: 10/13/18 09:07 Last Admin: 10/12/18 09:12 Dose: 75 mg Oxycodone/Acetaminophen (Percocet 5/325 Mg Tab) 1 tab PO Q4 PRN PRN Reason: Pain, moderate (4-7) Rivaroxaban (Xarelto) 15 mg PO DAILY [facility] Last Admin: 10/12/18 09:08 Dose: 15 mg Saccharomyces Boulardii (Florastor) 250 mg PO BID [facility] Last Admin: 10/12/18 09:07 Dose: 250 mg Tamsulosin HCl (Flomax) 0.4 mg PO BID [facility] Last Admin: 10/12/18 09:07 Dose: 0.4 mg - Labs Labs: 10/12/18 06:30 10/12/18 06:30 PT 15.1 SECONDS (9.7-12.2) H 10/08/18 05:26 INR 1.4 10/08/18 05:26 APTT 32 SECONDS (21-34) 10/08/18 05:26 - Additional Findings Additional findings: - Constitutional Appears: Non-toxic, No Acute Distress - Head Exam Head Exam: ATRAUMATIC, NORMAL INSPECTION, NORMOCEPHALIC - Eye Exam Eye Exam: EOMI, Normal appearance - ENT Exam ENT Exam: Mucous Membranes Moist - Respiratory Exam Respiratory Exam: Rales, NORMAL BREATHING PATTERN - Cardiovascular Exam Cardiovascular Exam: REGULAR RHYTHM, RRR, +S1, +S2 - GI/Abdominal Exam GI & Abdominal Exam: Soft, Normal Bowel Sounds. absent: Tenderness - Extremities Exam Extremities Exam: B/L DP and PT pulses present, no obvious deformity, absent: Pedal Edema - Neurological Exam Neurological Exam: Alert, Awake, Oriented x3 - Psychiatric Exam Psychiatric exam: Normal Affect, Normal Mood - Skin Additional comments: LE chronic venous stasis ecchymosis throughout: b/l leg, knees, left elbow and forearm, right arm, left hip Assessment and Plan - Assessment and Plan (Free Text) Assessment: Pneumonia Cxray (1/20/19): poor inspiration with low long volumes, crowded bronchovascular markings and mild bibasilar atelectasis -blood culture (10/08/18) negative -sputum culture on 10/10/18: Klebsiella Pneumoniae, placed on respiratory isolation -repeat sputum culture Meds: Merrem 500mg iv q8h (started on 10/12/18) d/c Zosyn 3.375gm q6h (started on 10/08/18- stopped on 10/12/18) Tamiflu 75mg po BID (started on 10/08/18- last done on 10/13/18) Robitussin DM 5ml po q6h prn Florastor 250mg po BID Mechanical Fall Head CT (10/08/18): limited eval due to motion artifact. no acute intracranial pathology. age related changes. left maxillary sinus and ethmoid air cell sinus disease. Knee and elbow xrays show no acute fracture or dislocation Percocet 1 tab po q4 prn Right foot pain Likely secondary to diabetic neuropathy vs trauma sustain from the recent fall Podiatry consulted foot xray (10/10/18)- no demonstrated fracture or dislocation LE U/S- preliminary read negative A Fib Xarelto 15mg po daily Coreg increased to 25mg po bid (from 12.5mg po BID)A fib DMII ISS accuchecks ACHS Insulin Glargine 25u sc HS HgA1C: 12.8 HTN Coreg increased to 25mg po bid (from 12.5mg po BID) HLD Tricor 48mg po daily BPH Tamsulosin .4mg po daily Prophylaxis Pepcid 20mg po daily Colace 100mg po BID SCDs, on Xarelto PT, OT Dispo: Awaiting [facility] placement. Patient seen and discussed with Dr. Cisneros
--- NOTE | 2018-10-12 12:49 | VASCLAB ---
Date of service: 10/11/2018 STUDY DESCRIPTION: Lower Extremity Arterial Exam (PVR). HISTORY: discoloration of digits PRIORS: None. TECHNIQUE: Pulse volume recording waveforms and segmental pressures of bilateral lower extremities at multiple levels were obtained. Ankle Brachial Indices (ABIs) were calculated. Report prepared by SHERLEY Gil, RVT RIGHT LOWER EXTREMITY: * Brachial artery: Pressure - 145 mmHg. * High thigh: Pressure - 220 mmHg: Ratio - NC: PVR waveform - Pulsatile * Low thigh: Pressure - 220 mmHg: Ratio - NC PVR waveform: Pulsatile * Calf: Pressure - 220 mmHg: Ratio - NC PVR waveform: Pulsatile * Posterior tibial Artery: Pressure - 220 mmHg: Ratio - NC PVR waveform: Pulsatile * Dorsalis pedis Artery: Pressure - 220 mmHg: Ratio - NC PVR waveform: Pulsatile * Great toe: Pressure - mmHg: Ratio - PVR waveform: Ankle brachial index (CHANDLER): NC LEFT LOWER EXTREMITY: * Brachial artery: Pressure - 151 mmHg. * High thigh: Pressure - 220 mmHg: Ratio - NC: PVR waveform - Pulsatile * Low thigh: Pressure - 220 mmHg: Ratio - NC PVR waveform: Pulsatile * Calf: Pressure - 220 mmHg: Ratio - NC PVR waveform: Pulsatile * Posterior tibial Artery: Pressure - 220 mmHg: Ratio - NC PVR waveform: Pulsatile * Dorsalis pedis Artery: Pressure - 220 mmHg: Ratio - NC PVR waveform: Pulsatile * Great toe: Pressure - mmHg: Ratio - PVR waveform: Ankle brachial index (CHANDLER): NC OTHER FINDINGS: Right: Left: IMPRESSION: Right: The ankle pressure index of the right lower extremity is non-diagnostic due to possible arterial wall calcifications. Left: The ankle pressure index of the left lower extremity is non-diagnostic due to possible arterial wall calcifications. Recommend CT angiogram
[2018-10-12] MEDS: Meropenem 500 MG in Sodium Chloride 0.9% 100 ML IVPB SCH ×2 (12:59→21:19)
--- NOTE | 2018-10-12 14:01 | RAD ---
Date of service: 10/12/2018 HISTORY: pneumonia COMPARISON: 10/08/2018 TECHNIQUE: Chest PA and lateral FINDINGS: LUNGS: Lung volumes shallow-as before. No consolidation appreciated. PLEURA: No significant pleural effusion identified. No pneumothorax apparent. CARDIOVASCULAR: There is presence of aortic atherosclerotic calcification on x-ray. Mild cardiomegaly suspect. Mild pulmonary venous congestion also suspect-also likely accentuated per crowding-shallow lung volumes OSSEOUS STRUCTURES: Thoracic spondylosis. VISUALIZED UPPER ABDOMEN: Normal. OTHER FINDINGS: None. IMPRESSION: No consolidative infiltrate to suggest pneumonia. Shallow lung volumes. Mild cardiomegaly and mild pulmonary venous congestion suspect. This pattern similar. No interval pathology noted.
--- NOTE | 2018-10-12 16:12 | CP.PCM.PN ---
Subjective - Date & Time of Evaluation Date of Evaluation: 10/12/18 Time of Evaluation: 16:12 - Subjective Subjective: Podiatry Progress Note- Dr. Bud Knight 73 y/o male seen at bedside today for right foot pain in digits. He admits to decreased pain to overall body since his fall, including his toes. States he had the duplex studies done and awaits the results. Has no new pedal complaints. Denies F/C/N/V/CP/SOB Objective - Vital Signs/Intake and Output Vital Signs (last 24 hours): Temp Pulse Resp BP Pulse Ox 98.7 F 78 20 160/98 H 98 10/12/18 07:00 10/12/18 13:30 10/12/18 07:00 10/12/18 09:07 10/12/18 07:00 Intake and Output: 10/12/18 10/12/18 06:59 18:59 Intake Total 100 550 Balance 100 550 - Medications Medications: Current Medications Acetaminophen (Tylenol 325mg Tab) 975 mg PO ONCE PRN PRN Reason: Fever >100.4 F Last Admin: 10/08/18 06:19 Dose: 975 mg Carvedilol (Coreg) 25 mg PO BID [facility] Last Admin: 10/12/18 09:07 Dose: 25 mg Docusate Sodium (Colace) 100 mg PO BID [facility] Last Admin: 10/12/18 09:07 Dose: 100 mg Emollient Ointment (Vaseline Oint) 5 gm TOP Q4H PRN PRN Reason: Dry skin Last Admin: 10/12/18 09:09 Dose: 5 gm Famotidine (Pepcid) 20 mg PO DAILY [facility] Last Admin: 10/12/18 09:07 Dose: 20 mg Fenofibrate (Tricor) 48 mg PO DAILY [facility] Last Admin: 10/12/18 09:16 Dose: 48 mg Furosemide (Lasix) 20 mg PO DAILY [facility] Last Admin: 10/12/18 09:07 Dose: 20 mg Guaifenesin/Dextromethorphan (Robitussin Dm) 5 ml PO Q6H PRN PRN Reason: Cough Last Admin: 10/12/18 09:09 Dose: 5 ml Meropenem 500 mg/ Sodium (Chloride) 100 mls @ 100 mls/hr IVPB Q8 [facility]; Protocol Last Admin: 10/12/18 12:59 Dose: 100 mls/hr Insulin Aspart (Novolog) 0 unit SC ACHS [facility]; Protocol Last Admin: 10/12/18 12:07 Dose: 3 units Insulin Glargine (Lantus) 25 unit SC HS [facility] Last Admin: 10/11/18 22:08 Dose: 25 units Oseltamivir Phosphate (Tamiflu Cap) 75 mg PO BID [facility]; Protocol Stop: 10/13/18 09:07 Last Admin: 10/12/18 09:12 Dose: 75 mg Oxycodone/Acetaminophen (Percocet 5/325 Mg Tab) 1 tab PO Q4 PRN PRN Reason: Pain, moderate (4-7) Rivaroxaban (Xarelto) 15 mg PO DAILY [facility] Last Admin: 10/12/18 09:08 Dose: 15 mg Saccharomyces Boulardii (Florastor) 250 mg PO BID [facility] Last Admin: 10/12/18 09:07 Dose: 250 mg Tamsulosin HCl (Flomax) 0.4 mg PO BID [facility] Last Admin: 10/12/18 09:07 Dose: 0.4 mg - Labs Labs: 10/12/18 06:30 10/12/18 06:30 PT 15.1 SECONDS (9.7-12.2) H 10/08/18 05:26 INR 1.4 10/08/18 05:26 APTT 32 SECONDS (21-34) 10/08/18 05:26 - Constitutional Appears: Well, Non-toxic, No Acute Distress - Extremities Exam Additional comments: Lower extremity focused exam: Vasc: DP/PT pulses palpable 2/4. Temperature gradient warm to cool. CFT < 3 sec to all digits. +1 pitting edema noted to entirety of bilateral lower extremit ies. Mild bluish discoloration is noted to right foot lesser digits Derm: Diffuse hyperpigmentation with hemosiderin deposits noted from middle 1/3 of leg extending distally to digits B/L, consistent with venous stasis. Mild blue discoloration to lesser digits of right foot Neuro: protective and gross sensation slightly diminished Ortho: mild-moderate tenderness to palpation of all lesser digits of right foot - Neurological Exam Neurological Exam: Alert, Awake, Oriented x3 - Psychiatric Exam Psychiatric exam: Normal Affect, Normal Mood Assessment and Plan - Assessment and Plan (Free Text) Assessment: 73 y/o male with right foot pain to lesser digits, likely secondary to DM with neuropathy vs microvascular disease Plan Patient seen and evaluated at bedside Discussed plan with Dr. Knight Right foot xrays ordered - no acute osseous findings; arterial vascular calcifications noted Arterial duplex studies of lower extremities nondiagnostic due to arterial wall calcifications Recommend CT angiogram as outpatient - patient stable at present, does not require inpatient intervention Recommended patient continue to employ stricter glucose control as this is directly correlated with neuropathy symptoms Will continue to follow patient while in house
[2018-10-12] MEDS: (Lantus) Insulin Glargine, Recombinant SC SCH (21:18)
[2018-10-13] MEDS: Oxycodone/Acetaminophen 5/325 mg Tab PO PRN (02:22)
[2018-10-13] MEDS: guaiFENesin DM 100 mg-10 mg/5 ml UD PO PRN (04:07)
[2018-10-13] MEDS: Meropenem 500 MG in Sodium Chloride 0.9% 100 ML IVPB SCH ×2 (06:00→13:42)
[2018-10-13] MEDS: (Novolog) Insulin Aspart, Recombinant 100 u/ml 10 ml vial SC SCH ×4 (07:41→21:31)
[2018-10-13 08:02] LABS: BASO % 0.7 % (0.0-2.0); EOS # 0.3 K/uL (0.0-0.7); EOS % 4.7 % (0.0-4.0); LYMPH # 1.2 K/uL (1.0-4.3); LYMPH % 20.1 % (20.0-40.0); MEAN CELL VOLUME 84.5 fL (80.0-94.0); MEAN CORPUSCULAR HEMOGLOBIN 28.5 pg (27.0-31.0); MEAN CORPUSCULAR HGB CONC 33.7 g/dL (33.0-37.0); MEAN PLATELET VOLUME 8.8 fL (7.2-11.7); MONO # 0.6 K/uL (0.0-0.8); MONO % 9.9 % (0.0-10.0); NEUT # 3.9 K/uL (1.8-7.0); NEUT % 64.6 % (50.0-75.0); RBC 3.85 Mil/uL (4.40-5.90); RED CELL DISTRIBUTION WIDTH 14.1 % (11.5-14.5); WHITE BLOOD COUNT 6.1 K/uL (4.8-10.8)
[2018-10-13 08:14] LABS: ALB/GLOB RATIO 1.1 (1.0-2.1); ALBUMIN 3.1 g/dL (3.5-5.0); ALT/SGPT 13 U/L (21-72); AST/SGOT 21 U/L (17-59); BLOOD UREA NITROGEN 20 mg/dL (9-20); CALCIUM 8.2 mg/dl (8.6-10.4); GFR NON-AFRICAN AMERICAN 54
[2018-10-13] MEDS: Saccharomyces Boulardi 250 mg Cap PO SCH ×2 (09:01→17:31)
[2018-10-13] MEDS: Petrolatum Oint Foilpak (5 gm) TOP PRN (09:04)
--- NOTE | 2018-10-13 10:22 | CP.PCM.PN ---
Subjective - Date & Time of Evaluation Date of Evaluation: 10/13/18 Time of Evaluation: 10:21 - Subjective Subjective: PGY2 Medicine Note for Dr. Cisneros Patient seen and examined this morning at bedside. Patient reports having difficulty sleeping last night secondary to a headache which was relieved by percocet. He is still coughing and having difficulty laying flat. He is coughing periodically while he is sitting upright but becomes more short of breath when he lays down. Denies fevers, chills, nausea, vomiting, diarrhea or constipation. Objective - Vital Signs/Intake and Output Vital Signs (last 24 hours): Temp Pulse Resp BP Pulse Ox 98.8 F 60 20 140/64 96 10/13/18 07:29 10/13/18 07:29 10/13/18 07:29 10/13/18 09:00 10/13/18 07:29 Intake and Output: 10/13/18 10/13/18 06:59 18:59 Intake Total 300 Balance 300 - Medications Medications: Current Medications Acetaminophen (Tylenol 325mg Tab) 975 mg PO ONCE PRN PRN Reason: Fever >100.4 F Last Admin: 10/08/18 06:19 Dose: 975 mg Carvedilol (Coreg) 25 mg PO BID [facility] Last Admin: 10/13/18 09:00 Dose: 25 mg Docusate Sodium (Colace) 100 mg PO BID [facility] Last Admin: 10/13/18 08:59 Dose: 100 mg Emollient Ointment (Vaseline Oint) 5 gm TOP Q4H PRN PRN Reason: Dry skin Last Admin: 10/13/18 09:04 Dose: 5 gm Famotidine (Pepcid) 20 mg PO DAILY [facility] Last Admin: 10/13/18 09:00 Dose: 20 mg Fenofibrate (Tricor) 48 mg PO DAILY [facility] Last Admin: 10/13/18 09:00 Dose: 48 mg Furosemide (Lasix) 20 mg PO DAILY [facility] Last Admin: 10/13/18 09:00 Dose: 20 mg Guaifenesin/Dextromethorphan (Robitussin Dm) 5 ml PO Q6H PRN PRN Reason: Cough Last Admin: 10/13/18 04:07 Dose: 5 ml Meropenem 500 mg/ Sodium (Chloride) 100 mls @ 100 mls/hr IVPB Q8 [facility]; Protocol Last Admin: 10/13/18 06:00 Dose: 100 mls/hr Insulin Aspart (Novolog) 0 unit SC ACHS [facility]; Protocol Last Admin: 10/13/18 07:41 Dose: 3 units Insulin Glargine (Lantus) 25 unit SC HS [facility] Last Admin: 10/12/18 21:18 Dose: 25 units Oxycodone/Acetaminophen (Percocet 5/325 Mg Tab) 1 tab PO Q4 PRN PRN Reason: Pain, moderate (4-7) Last Admin: 10/13/18 02:22 Dose: 1 tab Rivaroxaban (Xarelto) 15 mg PO DAILY [facility] Last Admin: 10/13/18 08:59 Dose: 15 mg Saccharomyces Boulardii (Florastor) 250 mg PO BID [facility] Last Admin: 10/13/18 09:01 Dose: 250 mg Tamsulosin HCl (Flomax) 0.4 mg PO BID [facility] Last Admin: 10/13/18 09:01 Dose: 0.4 mg - Labs Labs: 10/13/18 07:48 10/13/18 07:48 PT 15.1 SECONDS (9.7-12.2) H 10/08/18 05:26 INR 1.4 10/08/18 05:26 APTT 32 SECONDS (21-34) 10/08/18 05:26 - Constitutional Appears: Non-toxic, No Acute Distress - Head Exam Head Exam: NORMOCEPHALIC - Eye Exam Eye Exam: Normal appearance - ENT Exam ENT Exam: Mucous Membranes Moist - Neck Exam Neck Exam: absent: Lymphadenopathy - Respiratory Exam Respiratory Exam: Decreased Breath Sounds (throughout), NORMAL BREATHING PATTERN. absent: Accessory Muscle Use, Rhonchi, Wheezes, Respiratory Distress - Cardiovascular Exam Cardiovascular Exam: +S1 - GI/Abdominal Exam GI & Abdominal Exam: Soft. absent: Firm, Guarding, Tenderness - Extremities Exam Extremities Exam: absent: Calf Tenderness, Pedal Edema - Neurological Exam Neurological Exam: Alert, Awake, Oriented x3 - Psychiatric Exam Psychiatric exam: Normal Affect, Normal Mood - Skin Skin Exam: Dry, Warm Assessment and Plan - Assessment and Plan (Free Text) Plan: Pneumonia Cxray (10/08/18): poor inspiration with low long volumes, crowded bronchovascular markings and mild bibasilar atelectasis -blood culture (10/08/18) negative -sputum culture on 10/10/18: Klebsiella Pneumoniae, placed on respiratory isolation -repeat sputum culture Meds: Merrem 500mg iv q8h (started on 10/12/18) d/c Zosyn 3.375gm q6h (started on 10/08/18- stopped on 10/12/18) Tamiflu 75mg po BID (started on 10/08/18- last done on 10/13/18) Robitussin DM 5ml po q6h prn Florastor 250mg po BID Duoneb INH q6h Mechanical Fall Head CT (10/08/18): limited eval due to motion artifact. no acute intracranial pathology. age related changes. left maxillary sinus and ethmoid air cell sinus disease. Knee and elbow xrays show no acute fracture or dislocation Percocet 1 tab po q4 prn Right foot pain Likely secondary to diabetic neuropathy vs trauma sustain from the recent fall Podiatry consulted foot xray (10/10/18)- no demonstrated fracture or dislocation LE U/S- preliminary read negative A Fib Xarelto 15mg po daily Coreg increased to 25mg po bid (from 12.5mg po BID)A fib Uncontrolled DMII ISS accuchecks ACHS Insulin Glargine 25u sc HS HgA1C: 12.8 HTN Coreg increased to 25mg PO BID HLD Tricor 48mg PO daily BPH Tamsulosin .4mg PO daily Prophylaxis Pepcid 20mg PO daily Colace 100mg PO BID [facility], on Xarelto PT, OT Nasal [place] Dispo: Awaiting JAVIER placement. Case discussed with Dr. Blayne Felix Catrachito PGY2
--- NOTE | 2018-10-13 15:28 | CP.PCM.PN ---
Subjective - Date & Time of Evaluation Date of Evaluation: 10/13/18 Time of Evaluation: 15:28 - Subjective Subjective: Podiatry Progress Note- Dr. Bud Knight 73 y/o male seen at bedside today for management of right foot pain. He says the pain is fine today and less overall. Agrees to follow up as outpatient for diabetic foot care. Has no new pedal complaints. Denies F/C/N/V/CP/SOB Objective - Vital Signs/Intake and Output Vital Signs (last 24 hours): Temp Pulse Resp BP Pulse Ox 98.8 F 60 20 140/64 96 10/13/18 07:29 10/13/18 07:29 10/13/18 07:29 10/13/18 09:00 10/13/18 07:29 Intake and Output: 10/13/18 10/13/18 06:59 18:59 Intake Total 300 Balance 300 - Medications Medications: Current Medications Acetaminophen (Tylenol 325mg Tab) 975 mg PO ONCE PRN PRN Reason: Fever >100.4 F Last Admin: 10/08/18 06:19 Dose: 975 mg Albuterol/Ipratropium (Duoneb 3 Mg/0.5 Mg (3 Ml) Ud) 3 ml INH RQ6 [facility] Carvedilol (Coreg) 25 mg PO BID [facility] Last Admin: 10/13/18 09:00 Dose: 25 mg Docusate Sodium (Colace) 100 mg PO BID [facility] Last Admin: 10/13/18 08:59 Dose: 100 mg Emollient Ointment (Vaseline Oint) 5 gm TOP Q4H PRN PRN Reason: Dry skin Last Admin: 10/13/18 09:04 Dose: 5 gm Famotidine (Pepcid) 20 mg PO DAILY [facility] Last Admin: 10/13/18 09:00 Dose: 20 mg Fenofibrate (Tricor) 48 mg PO DAILY [facility] Last Admin: 10/13/18 09:00 Dose: 48 mg Furosemide (Lasix) 20 mg PO DAILY [facility] Last Admin: 10/13/18 09:00 Dose: 20 mg Guaifenesin/Dextromethorphan (Robitussin Dm) 5 ml PO Q6H PRN PRN Reason: Cough Last Admin: 10/13/18 04:07 Dose: 5 ml Meropenem 500 mg/ Sodium (Chloride) 100 mls @ 100 mls/hr IVPB Q8 [facility]; Protocol Last Admin: 10/13/18 13:42 Dose: 100 mls/hr Insulin Aspart (Novolog) 0 unit SC ACHS [facility]; Protocol Last Admin: 10/13/18 12:08 Dose: 1 units Insulin Glargine (Lantus) 25 unit SC HS [facility] Last Admin: 10/12/18 21:18 Dose: 25 units Oxycodone/Acetaminophen (Percocet 5/325 Mg Tab) 1 tab PO Q4 PRN PRN Reason: Pain, moderate (4-7) Last Admin: 10/13/18 02:22 Dose: 1 tab Rivaroxaban (Xarelto) 15 mg PO DAILY [facility] Last Admin: 10/13/18 08:59 Dose: 15 mg Saccharomyces Boulardii (Florastor) 250 mg PO BID [facility] Last Admin: 10/13/18 09:01 Dose: 250 mg Sodium Chloride ([place] Baby Saline 30 Ml) 1 ml GEORGE Q1H PRN PRN Reason: congestion Tamsulosin HCl (Flomax) 0.4 mg PO BID [facility] Last Admin: 10/13/18 09:01 Dose: 0.4 mg - Labs Labs: 10/13/18 07:48 10/13/18 07:48 PT 15.1 SECONDS (9.7-12.2) H 10/08/18 05:26 INR 1.4 10/08/18 05:26 APTT 32 SECONDS (21-34) 10/08/18 05:26 - Constitutional Appears: Well, Non-toxic, No Acute Distress - Extremities Exam Additional comments: Lower extremity focused exam: Vasc: DP/PT pulses palpable 2/4. Temperature gradient warm to cool. CFT < 3 sec to all digits. +1 pitting edema noted to entirety of bilateral lower extremities. Mild bluish discoloration is noted to right foot lesser digits Derm: Diffuse hyperpigmentation with hemosiderin deposits noted from middle 1/3 of leg extending distally to digits B/L, consistent with venous stasis. Mild blue discoloration to lesser digits of right foot Neuro: protective and gross sensation slightly diminished Ortho: mild-moderate tenderness to palpation of all lesser digits of right foot - Neurological Exam Neurological Exam: Alert, Awake, Oriented x3 - Psychiatric Exam Psychiatric exam: Normal Affect, Normal Mood Assessment and Plan - Assessment and Plan (Free Text) Assessment: 73 y/o male with right foot pain, likely secondary to DM with neuropathy vs microvascular disease Plan Patient seen and evaluated at bedside Discussed plan with Dr. Knight Right foot xrays ordered - no acute osseous findings; arterial vascular calcifications noted Arterial duplex studies of lower extremities nondiagnostic due to arterial wall calcifications Recommend CT angiogram as outpatient - patient stable at present, does not require inpatient intervention Recommended patient continue to employ stricter glucose control as this is directly correlated with neuropathy symptoms patient stable from podiatry standpoint, can f/u outpatient with Dr. Knight in his office Will continue to follow patient while in house
[2018-10-13] MEDS ORDERED: Sodium Chloride Nasal 0.65% Soln (30ml) NAS PRN (15:50)
[2018-10-13] MEDS: Albuterol-Ipratrop 3 mg / 0.5 (3 ml) UD INH SCH (19:07)
--- NOTE | 2018-10-13 20:24 | CP.PCM.PN ---
Subjective - Date & Time of Evaluation Date of Evaluation: 10/13/18 Time of Evaluation: 07:00 - Subjective Subjective: MDRO sputum CXR negative slow progress Objective - Vital Signs/Intake and Output Vital Signs (last 24 hours): Temp Pulse Resp BP Pulse Ox 98.3 F 82 20 140/74 98 10/13/18 15:15 10/13/18 15:15 10/13/18 15:15 10/13/18 17:31 10/13/18 15:15 - Medications Medications: Current Medications Acetaminophen (Tylenol 325mg Tab) 975 mg PO ONCE PRN PRN Reason: Fever >100.4 F Last Admin: 10/08/18 06:19 Dose: 975 mg Albuterol/Ipratropium (Duoneb 3 Mg/0.5 Mg (3 Ml) Ud) 3 ml INH RQ6 [facility] Last Admin: 10/13/18 19:07 Dose: 3 ml Carvedilol (Coreg) 25 mg PO BID [facility] Last Admin: 10/13/18 17:31 Dose: 25 mg Docusate Sodium (Colace) 100 mg PO BID [facility] Last Admin: 10/13/18 17:31 Dose: 100 mg Emollient Ointment (Vaseline Oint) 5 gm TOP Q4H PRN PRN Reason: Dry skin Last Admin: 10/13/18 09:04 Dose: 5 gm Famotidine (Pepcid) 20 mg PO DAILY [facility] Last Admin: 10/13/18 09:00 Dose: 20 mg Fenofibrate (Tricor) 48 mg PO DAILY [facility] Last Admin: 10/13/18 09:00 Dose: 48 mg Furosemide (Lasix) 20 mg PO DAILY [facility] Last Admin: 10/13/18 09:00 Dose: 20 mg Guaifenesin/Dextromethorphan (Robitussin Dm) 5 ml PO Q6H PRN PRN Reason: Cough Last Admin: 10/13/18 04:07 Dose: 5 ml Meropenem 500 mg/ Sodium (Chloride) 100 mls @ 100 mls/hr IVPB Q8 [facility]; Protocol Last Admin: 10/13/18 13:42 Dose: 100 mls/hr Insulin Aspart (Novolog) 0 unit SC ACHS [facility]; Protocol Last Admin: 10/13/18 17:32 Dose: 3 units Insulin Glargine (Lantus) 25 unit SC HS [facility] Last Admin: 10/12/18 21:18 Dose: 25 units Oxycodone/Acetaminophen (Percocet 5/325 Mg Tab) 1 tab PO Q4 PRN PRN Reason: Pain, moderate (4-7) Last Admin: 10/13/18 02:22 Dose: 1 tab Rivaroxaban (Xarelto) 15 mg PO DAILY [facility] Last Admin: 10/13/18 08:59 Dose: 15 mg Saccharomyces Boulardii (Florastor) 250 mg PO BID [facility] Last Admin: 10/13/18 17:31 Dose: 250 mg Sodium Chloride ([place] Baby Saline 30 Ml) 1 ml GEORGE Q1H PRN PRN Reason: congestion Tamsulosin HCl (Flomax) 0.4 mg PO BID [facility] Last Admin: 10/13/18 17:31 Dose: 0.4 mg - Labs Labs: 10/13/18 07:48 10/13/18 07:48 PT 15.1 SECONDS (9.7-12.2) H 10/08/18 05:26 INR 1.4 10/08/18 05:26 APTT 32 SECONDS (21-34) 10/08/18 05:26 - Constitutional Appears: Non-toxic, Chronically Ill - Head Exam Head Exam: NORMOCEPHALIC - Eye Exam Eye Exam: absent: Scleral icterus - ENT Exam ENT Exam: Mucous Membranes Dry - Neck Exam Neck Exam: absent: Lymphadenopathy - Respiratory Exam Respiratory Exam: Decreased Breath Sounds - Cardiovascular Exam Cardiovascular Exam: REGULAR RHYTHM - GI/Abdominal Exam GI & Abdominal Exam: Distended Assessment and Plan (1) CHF (congestive heart failure) Status: Acute (2) Dehydration Status: Acute (3) Fall Status: Acute (4) Pneumonia Status: Acute (5) COLUMBA (acute kidney injury) Status: Acute - Assessment and Plan (Free Text) Assessment: add avycaz CT chest isolation
[2018-10-13] MEDS: (Lantus) Insulin Glargine, Recombinant SC SCH ×2 (22:30→22:31)
[2018-10-14] MEDS: guaiFENesin DM 100 mg-10 mg/5 ml UD PO PRN ×3 (00:05→22:02)
[2018-10-14] MEDS: Albuterol-Ipratrop 3 mg / 0.5 (3 ml) UD INH SCH ×4 (02:00→19:40)
[2018-10-14 07:25] LABS: BASO % 0.7 % (0.0-2.0); EOS # 0.3 K/uL (0.0-0.7); EOS % 4.3 % (0.0-4.0); HEMOGLOBIN 11.3 g/dL (12.0-18.0); LYMPH # 0.9 K/uL (1.0-4.3); LYMPH % 13.5 % (20.0-40.0); MEAN CELL VOLUME 84.1 fL (80.0-94.0); MEAN CORPUSCULAR HEMOGLOBIN 28.3 pg (27.0-31.0); MEAN CORPUSCULAR HGB CONC 33.6 g/dL (33.0-37.0); MONO # 0.6 K/uL (0.0-0.8); MONO % 8.9 % (0.0-10.0); NEUT % 72.6 % (50.0-75.0); RBC 3.99 Mil/uL (4.40-5.90); RED CELL DISTRIBUTION WIDTH 13.9 % (11.5-14.5); WHITE BLOOD COUNT 6.9 K/uL (4.8-10.8)
[2018-10-14 07:39] LABS: ALB/GLOB RATIO 1.1 (1.0-2.1); ALBUMIN 3.2 g/dL (3.5-5.0); ALT/SGPT 15 U/L (21-72); AST/SGOT 20 U/L (17-59); BLOOD UREA NITROGEN 19 mg/dL (9-20); CALCIUM 8.4 mg/dl (8.6-10.4); GFR NON-AFRICAN AMERICAN 59
[2018-10-14] MEDS: (Novolog) Insulin Aspart, Recombinant 100 u/ml 10 ml vial SC SCH ×4 (08:05→21:59)
[2018-10-14] MEDS: Saccharomyces Boulardi 250 mg Cap PO SCH ×2 (09:21→18:32)
[2018-10-14] MEDS: Petrolatum Oint Foilpak (5 gm) TOP PRN (11:40)
[2018-10-14] MEDS ORDERED: Iodixanol 320 MG/ML 100 ML BOTTLE IV ONE (14:09)
--- NOTE | 2018-10-14 17:45 | CT ---
CT chest HISTORY: Pneumonia. COPD. Comparison: X-ray dated 10/12/2018 Technique: Multiple contiguous axial images were performed through the chest without the use of intravenous contrast. Subsequently, sagittal and coronal reformatted images were obtained. This CT exam was performed using one or more of the following dose reduction techniques: Automated exposure control, adjustment of the mA and/or kV according to patient size, and/or use of iterative reconstruction technique. Findings: Small right and trace left pleural effusion. Right lung: Emphysematous changes. Focal consolidation with air bronchograms seen within the right lower lobe. Left: Emphysematous changes. Scattered atelectasis within the lingula. Patchy consolidative changes seen within the left lower lobe. No significant axillary adenopathy. Markedly enlarged right thyroid nodule measuring 4.2 centimeters. Correlation with thyroid biopsy would be helpful if clinically indicated. Mediastinal lymph nodes including a 1.6 centimeter precarinal lymph node. Coronary calcifications and or stenting. Prominent ascending aorta measuring up to 4 centimeters. Atherosclerotic calcification and plaque within the aorta. Prominent liver. Contracted gallbladder which appears somewhat thick-walled and edematous. Clinical correlation. Fatty infiltration of the pancreas. Small hiatal hernia. Multiple right renal low-attenuation lesions some of which may represent cysts. Correlation with renal ultrasound may be helpful if clinically indicated to better delineate these lesions alternatively correlation with multiphasic CT may be helpful. Perinephric fat stranding. Partially imaged left renal cyst. Degenerative changes in the spine. Impression: 1. Small right pleural effusion with adjacent right basilar consolidation concerning for infiltrate. Additional milder consolidative change at the left lung base. Clinical correlation. 2. Markedly enlarged right thyroid nodule measuring up to 4.3 centimeters. Correlation with thyroid biopsy may be helpful if clinically indicated. 3. Contracted gallbladder which appears somewhat thick-walled and edematous. Clinical correlation. Additional findings as above.
[2018-10-14] MEDS: Oxycodone/Acetaminophen 5/325 mg Tab PO PRN (22:02)
[2018-10-14] MEDS: (Lantus) Insulin Glargine, Recombinant SC SCH (22:03)
[2018-10-15] MEDS: Albuterol-Ipratrop 3 mg / 0.5 (3 ml) UD INH SCH ×4 (01:03→19:57)
[2018-10-15] MEDS: guaiFENesin DM 100 mg-10 mg/5 ml UD PO PRN (05:30)
--- NOTE | 2018-10-15 08:54 | CP.PCM.PN ---
Subjective - Date & Time of Evaluation Date of Evaluation: 10/15/18 Time of Evaluation: 08:52 - Subjective Subjective: Podiatry Progress Note- Dr. Bud Knight 73 y/o male seen at bedside today for management of right foot pain. He says the pain is fine today and less overall. Agrees to follow up as outpatient for diabetic foot care. Has no new pedal complaints. Denies F/C/N/V/CP/SOB Objective - Vital Signs/Intake and Output Vital Signs (last 24 hours): Temp Pulse Resp BP Pulse Ox 97.8 F 65 20 185/95 H 97 10/15/18 06:00 10/15/18 06:00 10/15/18 06:00 10/15/18 06:00 10/15/18 06:00 Intake and Output: 10/15/18 10/15/18 06:59 18:59 Intake Total 510 Output Total 600 Balance -90 - Medications Medications: Current Medications Acetaminophen (Tylenol 325mg Tab) 975 mg PO ONCE PRN PRN Reason: Fever >100.4 F Last Admin: 10/08/18 06:19 Dose: 975 mg Albuterol/Ipratropium (Duoneb 3 Mg/0.5 Mg (3 Ml) Ud) 3 ml INH RQ6 EVON Last Admin: 10/15/18 08:21 Dose: 3 ml Carvedilol (Coreg) 25 mg PO BID [facility] Last Admin: 10/14/18 17:37 Dose: 25 mg Docusate Sodium (Colace) 100 mg PO BID [facility] Last Admin: 10/14/18 17:37 Dose: 100 mg Emollient Ointment (Vaseline Oint) 5 gm TOP Q4H PRN PRN Reason: Dry skin Last Admin: 10/14/18 11:40 Dose: 5 gm Famotidine (Pepcid) 20 mg PO DAILY [facility] Last Admin: 10/14/18 09:22 Dose: 20 mg Fenofibrate (Tricor) 48 mg PO DAILY [facility] Last Admin: 10/14/18 09:23 Dose: 48 mg Furosemide (Lasix) 20 mg PO DAILY [facility] Last Admin: 10/14/18 09:22 Dose: 20 mg Guaifenesin/Dextromethorphan (Robitussin Dm) 5 ml PO Q6H PRN PRN Reason: Cough Last Admin: 10/15/18 05:30 Dose: 5 ml Ceftazidime/Avibactam 2.5 gm/ (Sodium Chloride) 100 mls @ 50 mls/hr IV Q8H [facility]; Protocol Last Admin: 10/15/18 03:43 Dose: 50 mls/hr Insulin Aspart (Novolog) 0 unit SC ACHS [facility]; Protocol Last Admin: 10/14/18 21:59 Dose: Not Given Insulin Glargine (Lantus) 25 unit SC HS [facility] Last Admin: 10/14/18 22:03 Dose: 25 units Oxycodone/Acetaminophen (Percocet 5/325 Mg Tab) 1 tab PO Q4 PRN PRN Reason: Pain, moderate (4-7) Last Admin: 10/14/18 22:02 Dose: 1 tab Rivaroxaban (Xarelto) 15 mg PO DAILY [facility] Last Admin: 10/14/18 09:23 Dose: 15 mg Saccharomyces Boulardii (Florastor) 250 mg PO BID [facility] Last Admin: 10/14/18 18:32 Dose: 250 mg Sodium Chloride ([place] Baby Saline 30 Ml) 1 ml GEORGE Q1H PRN PRN Reason: congestion Tamsulosin HCl (Flomax) 0.4 mg PO BID [facility] Last Admin: 10/14/18 17:37 Dose: 0.4 mg - Labs Labs: 10/14/18 07:06 10/14/18 07:06 PT 15.1 SECONDS (9.7-12.2) H 10/08/18 05:26 INR 1.4 10/08/18 05:26 APTT 32 SECONDS (21-34) 10/08/18 05:26 - Constitutional Appears: Well, Non-toxic, No Acute Distress - Head Exam Head Exam: ATRAUMATIC, NORMOCEPHALIC - Extremities Exam Additional comments: Lower extremity focused exam: Vasc: DP/PT pulses palpable 2/4. Temperature gradient warm to cool. CFT < 3 sec to all digits. improving +1 pitting edema noted to entirety of bilateral lower extremities. Mild bluish discoloration is noted to right foot lesser digits Derm: Diffuse hyperpigmentation with hemosiderin deposits noted from middle 1/3 of leg extending distally to digits B/L, consistent with venous stasis. Mild blue discoloration to lesser digits of right foot Neuro: protective and gross sensation slightly diminished Ortho: mild-moderate tenderness to palpation of all lesser digits of right foot - Neurological Exam Neurological Exam: Alert, Awake, Oriented x3 - Psychiatric Exam Psychiatric exam: Normal Affect, Normal Mood Assessment and Plan - Assessment and Plan (Free Text) Assessment: 73 y/o male with right foot pain, likely secondary to DM with neuropathy vs microvascular disease Plan: Patient seen and evaluated at bedside Discussed plan with Dr. Knight Right foot xrays ordered - no acute osseous findings; arterial vascular calcifications noted Arterial duplex studies of lower extremities nondiagnostic due to arterial wall calcifications Recommend CT angiogram as outpatient - patient stable at present, does not require inpatient intervention Recommended patient continue to employ stricter glucose control as this is directly correlated with neuropathy symptoms patient stable from podiatry standpoint, can f/u outpatient with Dr. Knight in his office Will continue to follow patient while in house
[2018-10-15] MEDS: (Novolog) Insulin Aspart, Recombinant 100 u/ml 10 ml vial SC SCH ×4 (09:18→21:33)
[2018-10-15] MEDS: Saccharomyces Boulardi 250 mg Cap PO SCH ×2 (09:19→17:41)
--- NOTE | 2018-10-15 16:51 | CP.PCM.PN ---
Subjective - Date & Time of Evaluation Date of Evaluation: 10/15/18 Time of Evaluation: 09:00 - Subjective Subjective: MDRO sputum + pneumonia started Avycaz Objective - Vital Signs/Intake and Output Vital Signs (last 24 hours): Temp Pulse Resp BP Pulse Ox 98.5 F 72 20 142/63 95 10/15/18 16:00 10/15/18 16:00 10/15/18 16:00 10/15/18 16:00 10/15/18 16:00 Intake and Output: 10/15/18 10/15/18 06:59 18:59 Intake Total 510 600 Output Total 600 400 Balance -90 200 - Medications Medications: Current Medications Acetaminophen (Tylenol 325mg Tab) 975 mg PO ONCE PRN PRN Reason: Fever >100.4 F Last Admin: 10/08/18 06:19 Dose: 975 mg Albuterol/Ipratropium (Duoneb 3 Mg/0.5 Mg (3 Ml) Ud) 3 ml INH RQ6 EVON Last Admin: 10/15/18 14:08 Dose: 3 ml Carvedilol (Coreg) 25 mg PO BID [facility] Last Admin: 10/15/18 09:20 Dose: 25 mg Docusate Sodium (Colace) 100 mg PO BID [facility] Last Admin: 10/15/18 09:20 Dose: 100 mg Emollient Ointment (Vaseline Oint) 5 gm TOP Q4H PRN PRN Reason: Dry skin Last Admin: 10/14/18 11:40 Dose: 5 gm Famotidine (Pepcid) 20 mg PO DAILY [facility] Last Admin: 10/15/18 09:20 Dose: 20 mg Fenofibrate (Tricor) 48 mg PO DAILY [facility] Last Admin: 10/15/18 11:00 Dose: 48 mg Furosemide (Lasix) 20 mg PO DAILY [facility] Last Admin: 10/15/18 09:20 Dose: 20 mg Guaifenesin/Dextromethorphan (Robitussin Dm) 5 ml PO Q6H PRN PRN Reason: Cough Last Admin: 10/15/18 05:30 Dose: 5 ml Ceftazidime/Avibactam 2.5 gm/ (Sodium Chloride) 100 mls @ 50 mls/hr IV Q8H [facility]; Protocol Last Admin: 10/15/18 12:05 Dose: 50 mls/hr Insulin Aspart (Novolog) 0 unit SC ACHS [facility]; Protocol Last Admin: 10/15/18 12:08 Dose: 2 unit Insulin Glargine (Lantus) 25 unit SC HS [facility] Last Admin: 10/14/18 22:03 Dose: 25 units Oxycodone/Acetaminophen (Percocet 5/325 Mg Tab) 1 tab PO Q4 PRN PRN Reason: Pain, moderate (4-7) Last Admin: 10/14/18 22:02 Dose: 1 tab Rivaroxaban (Xarelto) 15 mg PO DAILY [facility] Last Admin: 10/15/18 11:00 Dose: 15 mg Saccharomyces Boulardii (Florastor) 250 mg PO BID [facility] Last Admin: 10/15/18 09:19 Dose: 250 mg Sodium Chloride ([place] Baby Saline 30 Ml) 1 ml GEORGE Q1H PRN PRN Reason: congestion Tamsulosin HCl (Flomax) 0.4 mg PO BID [facility] Last Admin: 10/15/18 09:21 Dose: 0.4 mg - Labs Labs: 10/14/18 07:06 10/14/18 07:06 PT 15.1 SECONDS (9.7-12.2) H 10/08/18 05:26 INR 1.4 10/08/18 05:26 APTT 32 SECONDS (21-34) 10/08/18 05:26 - Constitutional Appears: Non-toxic, Cachectic, Chronically Ill - Head Exam Head Exam: NORMOCEPHALIC - Eye Exam Eye Exam: absent: Scleral icterus - ENT Exam ENT Exam: Mucous Membranes Dry - Neck Exam Neck Exam: absent: Lymphadenopathy - Respiratory Exam Respiratory Exam: Decreased Breath Sounds - Cardiovascular Exam Cardiovascular Exam: REGULAR RHYTHM - GI/Abdominal Exam GI & Abdominal Exam: Distended, Soft - Rectal Exam Rectal Exam: Deferred - Exam Exam: NORMAL INSPECTION - Extremities Exam Extremities Exam: absent: Pedal Edema - Back Exam Back Exam: absent: CVA tenderness (L), CVA tenderness (R) - Neurological Exam Neurological Exam: Alert, Awake, Oriented x3 - Psychiatric Exam Psychiatric exam: Depressed Assessment and Plan (1) CHF (congestive heart failure) Status: Acute (2) Dehydration Status: Acute (3) Fall Status: Acute (4) Pneumonia Status: Acute (5) COLUMBA (acute kidney injury) Status: Acute - Assessment and Plan (Free Text) Assessment: cont rx Avycaz follow up CXR and or CT
--- NOTE | 2018-10-15 19:24 | PN ---
DATE: 10/15/2018 SUBJECTIVE: The patient complains of cough, shortness of breath, ____ fibrillation, IV meropenem. Adalberto Cisneros MD
[2018-10-15] MEDS: (Lantus) Insulin Glargine, Recombinant SC SCH (21:34)
[2018-10-16] MEDS: Petrolatum Oint Foilpak (5 gm) TOP PRN (01:24)
[2018-10-16] MEDS: guaiFENesin DM 100 mg-10 mg/5 ml UD PO PRN ×2 (01:24→10:38)
[2018-10-16] MEDS: Albuterol-Ipratrop 3 mg / 0.5 (3 ml) UD INH SCH ×4 (01:54→19:24)
[2018-10-16] MEDS: (Novolog) Insulin Aspart, Recombinant 100 u/ml 10 ml vial SC SCH ×4 (07:57→21:11)
[2018-10-16] MEDS: Saccharomyces Boulardi 250 mg Cap PO SCH ×2 (10:36→17:37)
[2018-10-16 11:38] LABS: BASO # 0.1 K/uL (0.0-0.2); BASO % 0.8 % (0.0-2.0); EOS # 0.3 K/uL (0.0-0.7); EOS % 4.5 % (0.0-4.0); HEMOGLOBIN 12.6 g/dL (12.0-18.0); LYMPH # 1.1 K/uL (1.0-4.3); LYMPH % 15.2 % (20.0-40.0); MEAN CELL VOLUME 84.3 fL (80.0-94.0); MEAN CORPUSCULAR HEMOGLOBIN 28.5 pg (27.0-31.0); MEAN CORPUSCULAR HGB CONC 33.8 g/dL (33.0-37.0); MEAN PLATELET VOLUME 8.7 fL (7.2-11.7); MONO # 0.6 K/uL (0.0-0.8); MONO % 8.4 % (0.0-10.0); NEUT % 71.1 % (50.0-75.0); NRBC % 0.1 % (0.0-2.0); RBC 4.41 Mil/uL (4.40-5.90)
[2018-10-16 11:57] LABS: ALB/GLOB RATIO 1.1 (1.0-2.1); ALBUMIN 3.7 g/dL (3.5-5.0); ALT/SGPT 15 U/L (21-72); AST/SGOT 21 U/L (17-59); BLOOD UREA NITROGEN 23 mg/dL (9-20); CALCIUM 8.8 mg/dl (8.6-10.4); GFR NON-AFRICAN AMERICAN 59
--- NOTE | 2018-10-16 14:40 | CP.PCM.PN ---
Subjective - Date & Time of Evaluation Date of Evaluation: 10/16/18 Time of Evaluation: 07:00 - Subjective Subjective: PGY2- Progress Note for Dr. Cisneros Patient seen and examined at bedside and in no acute distress. Patient says his cough is persistent and bothering him. Patient has some mild left sided rib pain with coughing. Patient denies any chest pain, shortness of breath, abdominal pain, nausea, vomiting, constipation, or diarrhea. Objective - Vital Signs/Intake and Output Vital Signs (last 24 hours): Temp Pulse Resp BP Pulse Ox 98.0 F 74 18 171/75 H 96 10/16/18 07:00 10/16/18 07:00 10/16/18 07:00 10/16/18 10:37 10/16/18 07:00 Intake and Output: 10/16/18 10/16/18 06:59 18:59 Intake Total 510 Output Total 1000 Balance -490 - Medications Medications: Current Medications Acetaminophen (Tylenol 325mg Tab) 975 mg PO ONCE PRN PRN Reason: Fever >100.4 F Last Admin: 10/08/18 06:19 Dose: 975 mg Albuterol/Ipratropium (Duoneb 3 Mg/0.5 Mg (3 Ml) Ud) 3 ml INH RQ6 EVON Last Admin: 10/16/18 13:29 Dose: 3 ml Carvedilol (Coreg) 25 mg PO BID [facility] Last Admin: 10/16/18 10:36 Dose: 25 mg Docusate Sodium (Colace) 100 mg PO BID [facility] Last Admin: 10/16/18 10:36 Dose: 100 mg Emollient Ointment (Vaseline Oint) 5 gm TOP Q4H PRN PRN Reason: Dry skin Last Admin: 10/16/18 01:24 Dose: 5 gm Famotidine (Pepcid) 20 mg PO DAILY [facility] Last Admin: 10/16/18 10:36 Dose: 20 mg Fenofibrate (Tricor) 48 mg PO DAILY [facility] Last Admin: 10/16/18 10:37 Dose: 48 mg Furosemide (Lasix) 20 mg PO DAILY [facility] Last Admin: 10/16/18 10:37 Dose: 20 mg Guaifenesin/Dextromethorphan (Robitussin Dm) 5 ml PO Q6H PRN PRN Reason: Cough Last Admin: 10/16/18 10:38 Dose: 5 ml Ceftazidime/Avibactam 2.5 gm/ (Sodium Chloride) 100 mls @ 50 mls/hr IV Q8H [facility]; Protocol Last Admin: 10/16/18 03:30 Dose: 50 mls/hr Insulin Aspart (Novolog) 0 unit SC ACHS [facility]; Protocol Last Admin: 10/16/18 11:55 Dose: 2 unit Insulin Glargine (Lantus) 25 unit SC HS [facility] Last Admin: 10/15/18 21:34 Dose: 25 units Oxycodone/Acetaminophen (Percocet 5/325 Mg Tab) 1 tab PO Q4 PRN PRN Reason: Pain, moderate (4-7) Last Admin: 10/14/18 22:02 Dose: 1 tab Rivaroxaban (Xarelto) 15 mg PO DAILY [facility] Last Admin: 10/16/18 10:38 Dose: 15 mg Saccharomyces Boulardii (Florastor) 250 mg PO BID [facility] Last Admin: 10/16/18 10:36 Dose: 250 mg Sodium Chloride ([place] Baby Saline 30 Ml) 1 ml GEORGE Q1H PRN PRN Reason: congestion Tamsulosin HCl (Flomax) 0.4 mg PO BID [facility] Last Admin: 10/16/18 10:36 Dose: 0.4 mg - Labs Labs: 10/16/18 11:18 10/16/18 11:18 PT 15.1 SECONDS (9.7-12.2) H 10/08/18 05:26 INR 1.4 10/08/18 05:26 APTT 32 SECONDS (21-34) 10/08/18 05:26 - Constitutional Appears: Non-toxic, No Acute Distress - Head Exam Head Exam: ATRAUMATIC, NORMAL INSPECTION, NORMOCEPHALIC - Eye Exam Eye Exam: EOMI, Normal appearance - ENT Exam ENT Exam: Mucous Membranes Moist - Respiratory Exam Respiratory Exam: Rales, NORMAL BREATHING PATTERN - Cardiovascular Exam Cardiovascular Exam: REGULAR RHYTHM, RRR, +S1, +S2 - GI/Abdominal Exam GI & Abdominal Exam: Soft, Normal Bowel Sounds. absent: Tenderness - Extremities Exam Extremities Exam: absent: Pedal Edema, Tenderness Additional comments: b/l chronic venous stasis - Neurological Exam Neurological Exam: Alert, Awake, Oriented x3 - Psychiatric Exam Psychiatric exam: Normal Affect, Normal Mood - Skin Skin Exam: Intact, Normal Color, Warm Assessment and Plan - Assessment and Plan (Free Text) Assessment: Pneumonia Cxray (10/08/18): poor inspiration with low long volumes, crowded bronchovascular markings and mild bibasilar atelectasis -blood culture (10/08/18) negative Chest CT 10/14/18: small right pleural effusion with adjacent right basilar consolidation concerning for infiltrate. additional milder consolidative change at the left lung base. markedly enlarged right thyroid nodule measuring up to 4.3cm. Correlation with thyroid biopsy may be helpful if clinically indicated. Contracted gallbladder which appears somewhat thick walled and edematous. -sputum culture on 10/10/18: Klebsiella Pneumoniae, placed on respiratory isolation -repeat sputum culture 10/12/18: Klebsiella Pneumoniae Meds: Ceftazidime/Avibactam 2.5 gm q8h (started on 10/13/18) Merrem 500mg iv q8h (started on 10/12/18, d/c on 10/12/18) d/c Zosyn 3.375gm q6h (started on 10/08/18- stopped on 10/12/18) Tamiflu 75mg po BID (started on 10/08/18- last done on 10/13/18) Robitussin DM 5ml po q6h prn Florastor 250mg po BID Duoneb INH q6h Mechanical Fall Head CT (10/08/18): limited eval due to motion artifact. no acute intracranial pathology. age related changes. left maxillary sinus and ethmoid air cell sinus disease. Knee and elbow xrays show no acute fracture or dislocation Percocet 1 tab po q4 prn Right foot pain Likely secondary to diabetic neuropathy vs trauma sustain from the recent fall Podiatry consulted foot xray (10/10/18)- no demonstrated fracture or dislocation LE U/S- preliminary read negative A Fib Xarelto 15mg po daily Coreg increased to 25mg po bid (from 12.5mg po BID)A fib Uncontrolled DMII ISS accuchecks ACHS Insulin Glargine 25u sc HS HgA1C: 12.8 HTN Coreg increased to 25mg PO BID elevated bp readings in 170s/70s Losartan 25mg po daily started on 10/16/18 HLD Tricor 48mg PO daily BPH Tamsulosin .4mg PO daily Prophylaxis Pepcid 20mg PO daily Colace 100mg PO BID SCDs, on Xarelto PT, OT Nasal Saline Mary D Dispo: Awaiting JAVIER placement. Case discussed and patient seen with Dr. Cisneros
--- NOTE | 2018-10-16 19:59 | CP.PCM.PN ---
Subjective - Date & Time of Evaluation Date of Evaluation: 10/16/18 Time of Evaluation: 13:55 - Subjective Subjective: Podiatry Progress Note- Dr. Bud Knight 73 y/o male seen at bedside today for management of right foot pain. He says the pain is fine today and less overall. Denies any acute overnight events. Agrees to follow up as outpatient for diabetic foot care. Has no new pedal complaints. Denies F/C/N/V/CP/SOB Objective - Vital Signs/Intake and Output Vital Signs (last 24 hours): Temp Pulse Resp BP Pulse Ox 98.9 F 73 20 132/70 93 L 10/16/18 16:00 10/16/18 16:00 10/16/18 16:00 10/16/18 17:37 10/16/18 16:00 Intake and Output: 10/16/18 10/17/18 18:59 06:59 Intake Total 300 Balance 300 - Medications Medications: Current Medications Acetaminophen (Tylenol 325mg Tab) 975 mg PO ONCE PRN PRN Reason: Fever >100.4 F Last Admin: 10/08/18 06:19 Dose: 975 mg Albuterol/Ipratropium (Duoneb 3 Mg/0.5 Mg (3 Ml) Ud) 3 ml INH RQ6 EVON Last Admin: 10/16/18 19:24 Dose: 3 ml Carvedilol (Coreg) 25 mg PO BID [facility] Last Admin: 10/16/18 17:37 Dose: 25 mg Docusate Sodium (Colace) 100 mg PO BID [facility] Last Admin: 10/16/18 17:37 Dose: 100 mg Emollient Ointment (Vaseline Oint) 5 gm TOP Q4H PRN PRN Reason: Dry skin Last Admin: 10/16/18 01:24 Dose: 5 gm Famotidine (Pepcid) 20 mg PO DAILY [facility] Last Admin: 10/16/18 10:36 Dose: 20 mg Fenofibrate (Tricor) 48 mg PO DAILY [facility] Last Admin: 10/16/18 10:37 Dose: 48 mg Furosemide (Lasix) 20 mg PO DAILY [facility] Last Admin: 10/16/18 10:37 Dose: 20 mg Guaifenesin/Dextromethorphan (Robitussin Dm) 5 ml PO Q6H PRN PRN Reason: Cough Last Admin: 10/16/18 10:38 Dose: 5 ml Ceftazidime/Avibactam 2.5 gm/ (Sodium Chloride) 100 mls @ 50 mls/hr IV Q8H [facility]; Protocol Last Admin: 10/16/18 15:00 Dose: 50 mls/hr Insulin Aspart (Novolog) 0 unit SC ACHS [facility]; Protocol Last Admin: 10/16/18 17:36 Dose: 5 unit Insulin Glargine (Lantus) 25 unit SC HS [facility] Last Admin: 10/15/18 21:34 Dose: 25 units Losartan Potassium (Cozaar) 25 mg PO DAILY [facility] Last Admin: 10/16/18 15:09 Dose: 25 mg Oxycodone/Acetaminophen (Percocet 5/325 Mg Tab) 1 tab PO Q4 PRN PRN Reason: Pain, moderate (4-7) Last Admin: 10/14/18 22:02 Dose: 1 tab Rivaroxaban (Xarelto) 15 mg PO DAILY [facility] Last Admin: 10/16/18 10:38 Dose: 15 mg Saccharomyces Boulardii (Florastor) 250 mg PO BID [facility] Last Admin: 10/16/18 17:37 Dose: 250 mg Sodium Chloride ([place] Baby Saline 30 Ml) 1 ml GEORGE Q1H PRN PRN Reason: congestion Tamsulosin HCl (Flomax) 0.4 mg PO BID [facility] Last Admin: 10/16/18 17:37 Dose: 0.4 mg - Labs Labs: 10/16/18 11:18 10/16/18 11:18 PT 15.1 SECONDS (9.7-12.2) H 10/08/18 05:26 INR 1.4 10/08/18 05:26 APTT 32 SECONDS (21-34) 10/08/18 05:26 - Constitutional Appears: Well, Non-toxic, No Acute Distress - Extremities Exam Additional comments: Lower extremity focused exam: Vasc: DP/PT pulses palpable 2/4. Temperature gradient warm to cool. CFT < 3 sec to all digits. improving +1 pitting edema noted to entirety of bilateral lower extremities. Mild bluish discoloration is noted to right foot lesser digits Derm: Diffuse hyperpigmentation with hemosiderin deposits noted from middle 1/3 of leg extending distally to digits B/L, consistent with venous stasis. Mild blue discoloration to lesser digits of right foot Neuro: protective and gross sensation slightly diminished Ortho: mild-moderate tenderness to palpation of all lesser digits of right foot - Neurological Exam Neurological Exam: Alert, Awake, Oriented x3 - Psychiatric Exam Psychiatric exam: Normal Affect, Normal Mood Assessment and Plan - Assessment and Plan (Free Text) Assessment: 73 y/o male seen at bedside today for management of right foot pain. Plan: Patient seen and evaluated Plan discussed with Dr. nKight No dressings applied to LE No plans for surgical intervention at this time Patient stable from podiatric standpoint Podiatry will continue to follow while patient in house
[2018-10-16] MEDS: (Lantus) Insulin Glargine, Recombinant SC SCH (21:15)
[2018-10-17] MEDS: guaiFENesin DM 100 mg-10 mg/5 ml UD PO PRN ×2 (00:21→09:45)
[2018-10-17] MEDS: Albuterol-Ipratrop 3 mg / 0.5 (3 ml) UD INH SCH ×4 (01:21→19:57)
[2018-10-17] MEDS: (Novolog) Insulin Aspart, Recombinant 100 u/ml 10 ml vial SC SCH ×4 (09:36→21:28)
[2018-10-17] MEDS: Saccharomyces Boulardi 250 mg Cap PO SCH ×2 (09:43→17:47)
[2018-10-17] MEDS ORDERED: Fluticasone Nasal 50 mcg/Spray NAS PRN (11:08)
--- NOTE | 2018-10-17 16:03 | CP.PCM.PN ---
Subjective - Date & Time of Evaluation Date of Evaluation: 10/17/18 Time of Evaluation: 10:10 - Subjective Subjective: Progress note for Dr. Cisneros Patient seen and examined at bedside. No acute events overnight. Patient still complains of cough and some nasal congestion. He has rib pain when he coughs, but the pain can be managed with hugging a pillow. Patient denies fever, chills, shortness of breath, chest pain, nausea, vomiting, or diarrhea. Objective - Vital Signs/Intake and Output Vital Signs (last 24 hours): Temp Pulse Resp BP Pulse Ox 98.1 F 65 20 163/85 H 95 10/17/18 07:25 10/17/18 07:25 10/17/18 07:25 10/17/18 09:43 10/17/18 07:25 Intake and Output: 10/17/18 10/17/18 06:59 18:59 Intake Total 810 900 Output Total 1000 Balance -190 900 - Medications Medications: Current Medications Acetaminophen (Tylenol 325mg Tab) 975 mg PO ONCE PRN PRN Reason: Fever >100.4 F Last Admin: 10/08/18 06:19 Dose: 975 mg Albuterol/Ipratropium (Duoneb 3 Mg/0.5 Mg (3 Ml) Ud) 3 ml INH RQ6 [facility] [place] Last Admin: 10/17/18 13:48 Dose: 3 ml Carvedilol (Coreg) 25 mg PO BID [facility] [place] Last Admin: 10/17/18 09:43 Dose: 25 mg Docusate Sodium (Colace) 100 mg PO BID [facility] [place] Last Admin: 10/17/18 09:43 Dose: 100 mg Emollient Ointment (Vaseline Oint) 5 gm TOP Q4H PRN PRN Reason: Dry skin Last Admin: 10/16/18 01:24 Dose: 5 gm Famotidine (Pepcid) 20 mg PO DAILY [facility] [place] Last Admin: 10/17/18 09:43 Dose: 20 mg Fenofibrate (Tricor) 48 mg PO DAILY [facility] [place] Last Admin: 10/17/18 09:44 Dose: 48 mg Fluticasone Propionate (Flonase) 1 spr GEORGE BID PRN PRN Reason: Nasal congestion Furosemide (Lasix) 20 mg PO DAILY [facility] [place] Last Admin: 10/17/18 09:43 Dose: 20 mg Guaifenesin/Dextromethorphan (Robitussin Dm) 5 ml PO Q6H PRN PRN Reason: Cough Last Admin: 10/17/18 09:45 Dose: 5 ml Ceftazidime/Avibactam 2.5 gm/ (Sodium Chloride) 100 mls @ 50 mls/hr IV Q8H [facility] [place]; Protocol Last Admin: 10/17/18 12:07 Dose: 50 mls/hr Insulin Aspart (Novolog) 0 unit SC ACHS [facility] [place]; Protocol Last Admin: 10/17/18 12:06 Dose: 3 unit Insulin Glargine (Lantus) 25 unit SC HS [facility] [place] Last Admin: 10/16/18 21:15 Dose: 25 units Losartan Potassium (Cozaar) 25 mg PO DAILY [facility] [place] Last Admin: 10/17/18 09:43 Dose: 25 mg Rivaroxaban (Xarelto) 15 mg PO DAILY [facility] [place] Last Admin: 10/17/18 09:44 Dose: 15 mg Saccharomyces Boulardii (Florastor) 250 mg PO BID [facility] [place] Last Admin: 10/17/18 09:43 Dose: 250 mg Sodium Chloride ([place] Baby Saline 30 Ml) 1 ml GEORGE Q1H PRN PRN Reason: congestion Tamsulosin HCl (Flomax) 0.4 mg PO BID [facility] [place] Last Admin: 10/17/18 09:43 Dose: 0.4 mg - Labs Labs: 10/16/18 11:18 10/16/18 11:18 PT 15.1 SECONDS (9.7-12.2) H 10/08/18 05:26 INR 1.4 10/08/18 05:26 APTT 32 SECONDS (21-34) 10/08/18 05:26 - Additional Findings Additional findings: - Constitutional Appears: Non-toxic, No Acute Distress - Head Exam Head Exam: ATRAUMATIC, NORMAL INSPECTION, NORMOCEPHALIC - Eye Exam Eye Exam: EOMI, Normal appearance - ENT Exam ENT Exam: Mucous Membranes Moist - Respiratory Exam Respiratory Exam: Rales, NORMAL BREATHING PATTERN - Cardiovascular Exam Cardiovascular Exam: REGULAR RHYTHM, RRR, +S1, +S2 - GI/Abdominal Exam GI & Abdominal Exam: Soft, Normal Bowel Sounds. absent: Tenderness - Extremities Exam Extremities Exam: absent: Pedal Edema, Tenderness Additional comments: b/l chronic venous stasis - Neurological Exam Neurological Exam: Alert, Awake, Oriented x3 - Psychiatric Exam Psychiatric exam: Normal Affect, Normal Mood - Skin Skin Exam: Intact, Normal Color, Warm Assessment and Plan - Assessment and Plan (Free Text) Assessment: Pneumonia, Cxray (10/08/18): poor inspiration with low long volumes, crowded bronchovascular markings and mild bibasilar atelectasis -blood culture (10/08/18) negative Chest CT 10/14/18: small right pleural effusion with adjacent right basilar consolidation concerning for infiltrate. additional milder consolidative change at the left lung base. markedly enlarged right thyroid nodule measuring up to 4.3cm. Correlation with thyroid biopsy may be helpful if clinically indicated. Contracted gallbladder which appears somewhat thick walled and edematous. -sputum culture on 10/10/18: Klebsiella Pneumoniae, placed on respiratory isolat ion -repeat sputum culture 10/12/18: Klebsiella Pneumoniae -Follow up 3rd sputum culture ID consulted for MDRO in sputum Meds: Ceftazidime/Avibactam 2.5 gm q8h (started on 10/13/18) Merrem 500mg iv q8h (started on 10/12/18, d/c on 10/12/18) d/c Zosyn 3.375gm q6h (started on 10/08/18- stopped on 10/12/18) Tamiflu 75mg po BID (started on 10/08/18- last done on 10/13/18) Robitussin DM 5ml po q6h prn Florastor 250mg po BID Duoneb INH q6h Flonase PRN Mechanical Fall Head CT (10/08/18): limited eval due to motion artifact. no acute intracranial pathology. age related changes. left maxillary sinus and ethmoid air cell sinus disease. Knee and elbow xrays show no acute fracture or dislocation Percocet 1 tab po q4 prn Right foot pain Likely secondary to diabetic neuropathy vs trauma sustain from the recent fall Podiatry consulted foot xray (10/10/18)- no demonstrated fracture or dislocation LE U/S- preliminary read negative A Fib Xarelto 15mg po daily Coreg increased to 25mg po bid (from 12.5mg po BID)A fib Uncontrolled DMII ISS accuchecks ACHS Insulin Glargine 25u sc HS HgA1C: 12.8 HTN Coreg increased to 25mg PO BID elevated bp readings in 170s/70s Losartan 25mg po daily started on 10/16/18 HLD Tricor 48mg PO daily BPH Tamsulosin .4mg PO daily Prophylaxis Pepcid 20mg PO daily Colace 100mg PO BID SCDs, on Xarelto PT, OT Nasal Saline [place] Case discussed and patient seen with Dr. Cisneros
[2018-10-17] MEDS: (Lantus) Insulin Glargine, Recombinant SC SCH (21:39)
[2018-10-18] MEDS: Albuterol-Ipratrop 3 mg / 0.5 (3 ml) UD INH SCH ×4 (01:45→19:19)
[2018-10-18 07:14] LABS: ALB/GLOB RATIO 1.1 (1.0-2.1); ALBUMIN 3.4 g/dL (3.5-5.0); ALT/SGPT 15 U/L (21-72); AST/SGOT 19 U/L (17-59); BLOOD UREA NITROGEN 26 mg/dL (9-20); CALCIUM 8.3 mg/dl (8.6-10.4); GFR NON-AFRICAN AMERICAN 54
[2018-10-18 07:19] LABS: BASO # 0.1 K/uL (0.0-0.2); BASO % 0.9 % (0.0-2.0); EOS # 0.4 K/uL (0.0-0.7); EOS % 5.6 % (0.0-4.0); HEMOGLOBIN 11.7 g/dL (12.0-18.0); LYMPH # 1.2 K/uL (1.0-4.3); LYMPH % 16.7 % (20.0-40.0); MEAN CELL VOLUME 84.5 fL (80.0-94.0); MEAN CORPUSCULAR HEMOGLOBIN 28.5 pg (27.0-31.0); MEAN CORPUSCULAR HGB CONC 33.7 g/dL (33.0-37.0); MEAN PLATELET VOLUME 8.8 fL (7.2-11.7); MONO # 0.7 K/uL (0.0-0.8); MONO % 10.4 % (0.0-10.0); NEUT # 4.7 K/uL (1.8-7.0); NEUT % 66.4 % (50.0-75.0); NRBC % 0.2 % (0.0-2.0); RBC 4.13 Mil/uL (4.40-5.90); WHITE BLOOD COUNT 7.1 K/uL (4.8-10.8)
[2018-10-18] MEDS: (Novolog) Insulin Aspart, Recombinant 100 u/ml 10 ml vial SC SCH ×4 (08:16→22:07)
[2018-10-18] MEDS: Saccharomyces Boulardi 250 mg Cap PO SCH ×2 (09:15→17:04)
[2018-10-18] MEDS: guaiFENesin DM 100 mg-10 mg/5 ml UD PO PRN (09:17)
[2018-10-18] MEDS: Petrolatum Oint Foilpak (5 gm) TOP PRN (09:18)
--- NOTE | 2018-10-18 11:50 | CP.PCM.PN ---
Subjective - Date & Time of Evaluation Date of Evaluation: 10/18/18 Time of Evaluation: 07:00 - Subjective Subjective: Progress note for Dr. Cisneros Patient seen and examined at bedside. No acute events overnight. Patient still complains of cough and some nasal congestion. He admits to some mild rib pain when he coughs. Patient denies fever, chills, shortness of breath, chest pain, nausea, vomiting, or diarrhea. Objective - Vital Signs/Intake and Output Vital Signs (last 24 hours): Temp Pulse Resp BP Pulse Ox 98.1 F 64 18 153/76 H 96 10/18/18 08:00 10/18/18 08:00 10/18/18 08:00 10/18/18 09:16 10/18/18 08:00 - Medications Medications: Current Medications Acetaminophen (Tylenol 325mg Tab) 975 mg PO ONCE PRN PRN Reason: Fever >100.4 F Last Admin: 10/18/18 00:21 Dose: 975 mg Albuterol/Ipratropium (Duoneb 3 Mg/0.5 Mg (3 Ml) Ud) 3 ml INH RQ6 [facility] [place] Last Admin: 10/18/18 07:20 Dose: 3 ml Carvedilol (Coreg) 25 mg PO BID [facility] [place] Last Admin: 10/18/18 09:16 Dose: 25 mg Docusate Sodium (Colace) 100 mg PO BID [facility] [place] Last Admin: 10/18/18 09:16 Dose: Not Given Emollient Ointment (Vaseline Oint) 5 gm TOP Q4H PRN PRN Reason: Dry skin Last Admin: 10/18/18 09:18 Dose: 5 gm Famotidine (Pepcid) 20 mg PO DAILY [facility] [place] Last Admin: 10/18/18 09:16 Dose: 20 mg Fenofibrate (Tricor) 48 mg PO DAILY [facility] [place] Last Admin: 10/18/18 09:17 Dose: 48 mg Fluticasone Propionate (Flonase) 1 spr GEORGE BID PRN PRN Reason: Nasal congestion Furosemide (Lasix) 20 mg PO DAILY [facility] [place] Last Admin: 10/18/18 09:16 Dose: 20 mg Guaifenesin/Dextromethorphan (Robitussin Dm) 5 ml PO Q6H PRN PRN Reason: Cough Last Admin: 10/18/18 09:17 Dose: 5 ml Ceftazidime/Avibactam 2.5 gm/ (Sodium Chloride) 100 mls @ 50 mls/hr IV Q8H [facility] [place]; Protocol Last Admin: 10/18/18 11:30 Dose: 50 mls/hr Insulin Aspart (Novolog) 0 unit SC ACHS [facility] [place]; Protocol Last Admin: 10/18/18 08:16 Dose: 2 unit Insulin Glargine (Lantus) 25 unit SC HS [facility] [place] Last Admin: 10/17/18 21:39 Dose: 25 units Losartan Potassium (Cozaar) 25 mg PO DAILY [facility] [place] Last Admin: 10/18/18 09:15 Dose: 25 mg Rivaroxaban (Xarelto) 15 mg PO DAILY [facility] [place] Last Admin: 10/18/18 09:17 Dose: 15 mg Saccharomyces Boulardii (Florastor) 250 mg PO BID [facility] [place] Last Admin: 10/18/18 09:15 Dose: 250 mg Sodium Chloride ([place] Baby Saline 30 Ml) 1 ml GEORGE Q1H PRN PRN Reason: congestion Tamsulosin HCl (Flomax) 0.4 mg PO BID [facility] [place] Last Admin: 10/18/18 09:15 Dose: 0.4 mg - Labs Labs: 10/18/18 06:50 10/18/18 06:50 PT 15.1 SECONDS (9.7-12.2) H 10/08/18 05:26 INR 1.4 10/08/18 05:26 APTT 32 SECONDS (21-34) 10/08/18 05:26 - Additional Findings Additional findings: - Constitutional Appears: Non-toxic, No Acute Distress - Head Exam Head Exam: ATRAUMATIC, NORMAL INSPECTION, NORMOCEPHALIC - Eye Exam Eye Exam: EOMI, Normal appearance - ENT Exam ENT Exam: Mucous Membranes Moist - Respiratory Exam Respiratory Exam: Rales, NORMAL BREATHING PATTERN - Cardiovascular Exam Cardiovascular Exam: REGULAR RHYTHM, RRR, +S1, +S2 - GI/Abdominal Exam GI & Abdominal Exam: Soft, Normal Bowel Sounds. absent: Tenderness - Extremities Exam Extremities Exam: absent: Pedal Edema, Tenderness Additional comments: b/l chronic venous stasis - Neurological Exam Neurological Exam: Alert, Awake, Oriented x3 - Psychiatric Exam Psychiatric exam: Normal Affect, Normal Mood - Skin Skin Exam: Intact, Normal Color, Warm Assessment and Plan - Assessment and Plan (Free Text) Assessment: Pneumonia Cxray (10/08/18): poor inspiration with low long volumes, crowded bronchovascular markings and mild bibasilar atelectasis -blood culture (10/08/18) negative Chest CT 10/14/18: small right pleural effusion with adjacent right basilar c onsolidation concerning for infiltrate. additional milder consolidative change at the left lung base. markedly enlarged right thyroid nodule measuring up to 4.3cm. Correlation with thyroid biopsy may be helpful if clinically indicated. Contracted gallbladder which appears somewhat thick walled and edematous. -sputum culture on 10/10/18: Klebsiella Pneumoniae, placed on respiratory isolation -repeat sputum culture 10/12/18: Klebsiella Pneumoniae -Follow up 3rd sputum culture ID consulted for MDRO in sputum Meds: Ceftazidime/Avibactam 2.5 gm q8h (started on 10/13/18) Merrem 500mg iv q8h (started on 10/12/18, d/c on 10/12/18) d/c Zosyn 3.375gm q6h (started on 10/08/18- stopped on 10/12/18) Tamiflu 75mg po BID (started on 10/08/18- last done on 10/13/18) Robitussin DM 5ml po q6h prn Florastor 250mg po BID Duoneb INH q6h Flonase PRN Mechanical Fall Head CT (10/08/18): limited eval due to motion artifact. no acute intracranial pathology. age related changes. left maxillary sinus and ethmoid air cell sinus disease. Knee and elbow xrays show no acute fracture or dislocation Percocet 1 tab po q4 prn Right foot pain Likely secondary to diabetic neuropathy vs trauma sustain from the recent fall Podiatry consulted foot xray (10/10/18)- no demonstrated fracture or dislocation LE U/S- preliminary read negative A Fib Xarelto 15mg po daily Coreg increased to 25mg po bid (from 12.5mg po BID)A fib Uncontrolled DMII ISS accuchecks ACHS Insulin Glargine 25u sc HS HgA1C: 12.8 HTN Coreg increased to 25mg PO BID elevated bp readings in 170s/70s Losartan 25mg po daily started on 10/16/18 HLD Tricor 48mg PO daily BPH Tamsulosin .4mg PO daily Prophylaxis Pepcid 20mg PO daily Colace 100mg PO BID SCDs, on Xarelto PT, OT Nasal Saline [place] Case discussed and patient seen with Dr. Cisneros Dispo: awaiting 3rd sputum culture
[2018-10-18] MEDS: (Lantus) Insulin Glargine, Recombinant SC SCH (21:25)
[2018-10-19] MEDS: Albuterol-Ipratrop 3 mg / 0.5 (3 ml) UD INH SCH ×3 (01:30→20:01)
[2018-10-19 06:54] LABS: BASO # 0.1 K/uL (0.0-0.2); BASO % 0.9 % (0.0-2.0); EOS # 0.4 K/uL (0.0-0.7); EOS % 5.8 % (0.0-4.0); HEMOGLOBIN 12.2 g/dL (12.0-18.0); LYMPH # 1.2 K/uL (1.0-4.3); LYMPH % 16.9 % (20.0-40.0); MEAN CELL VOLUME 84.3 fL (80.0-94.0); MEAN CORPUSCULAR HEMOGLOBIN 28.5 pg (27.0-31.0); MEAN CORPUSCULAR HGB CONC 33.9 g/dL (33.0-37.0); MEAN PLATELET VOLUME 8.5 fL (7.2-11.7); MONO # 0.6 K/uL (0.0-0.8); MONO % 8.1 % (0.0-10.0); NEUT # 4.8 K/uL (1.8-7.0); NEUT % 68.3 % (50.0-75.0); RBC 4.27 Mil/uL (4.40-5.90); RED CELL DISTRIBUTION WIDTH 14.2 % (11.5-14.5)
[2018-10-19 07:11] LABS: ALB/GLOB RATIO 1.2 (1.0-2.1); ALBUMIN 3.6 g/dL (3.5-5.0); ALT/SGPT 17 U/L (21-72); AST/SGOT 25 U/L (17-59); BLOOD UREA NITROGEN 28 mg/dL (9-20); CALCIUM 8.7 mg/dl (8.6-10.4); GFR NON-AFRICAN AMERICAN 54
[2018-10-19] MEDS: (Novolog) Insulin Aspart, Recombinant 100 u/ml 10 ml vial SC SCH ×4 (07:27→22:01)
[2018-10-19] MEDS: Saccharomyces Boulardi 250 mg Cap PO SCH ×2 (10:42→18:21)
--- NOTE | 2018-10-19 12:42 | CP.PCM.PN ---
Subjective - Date & Time of Evaluation Date of Evaluation: 10/19/18 Time of Evaluation: 07:00 - Subjective Subjective: PGY2- Progress Note for Dr. Cisneros Patient seen and examined at bedside and in no acute distress. Patient says his cough is persistent and bothering him. Patient has no other complaints. Patient denies any chest pain, shortness of breath, abdominal pain, nausea, vomiting, constipation, or diarrhea. Objective - Vital Signs/Intake and Output Vital Signs (last 24 hours): Temp Pulse Resp BP Pulse Ox 97.9 F 72 20 157/81 H 96 10/19/18 07:25 10/19/18 07:25 10/19/18 07:25 10/19/18 09:26 10/19/18 07:25 Intake and Output: 10/19/18 10/19/18 06:59 18:59 Intake Total 600 Balance 600 - Medications Medications: Current Medications Acetaminophen (Tylenol 325mg Tab) 975 mg PO ONCE PRN PRN Reason: Fever >100.4 F Last Admin: 10/18/18 00:21 Dose: 975 mg Albuterol/Ipratropium (Duoneb 3 Mg/0.5 Mg (3 Ml) Ud) 3 ml INH RQ6 [facility] Last Admin: 10/19/18 08:42 Dose: 3 ml Carvedilol (Coreg) 25 mg PO BID [facility] Last Admin: 10/19/18 09:26 Dose: 25 mg Docusate Sodium (Colace) 100 mg PO BID [facility] Last Admin: 10/19/18 09:27 Dose: Not Given Emollient Ointment (Vaseline Oint) 5 gm TOP Q4H PRN PRN Reason: Dry skin Last Admin: 10/18/18 09:18 Dose: 5 gm Famotidine (Pepcid) 20 mg PO DAILY [facility] Last Admin: 10/19/18 09:26 Dose: 20 mg Fenofibrate (Tricor) 48 mg PO DAILY [facility] Last Admin: 10/19/18 09:26 Dose: 48 mg Fluticasone Propionate (Flonase) 1 spr GEORGE BID PRN PRN Reason: Nasal congestion Furosemide (Lasix) 20 mg PO DAILY [facility] Last Admin: 10/19/18 09:26 Dose: 20 mg Guaifenesin/Dextromethorphan (Robitussin Dm) 5 ml PO Q6H PRN PRN Reason: Cough Last Admin: 10/18/18 09:17 Dose: 5 ml Ceftazidime/Avibactam 2.5 gm/ (Sodium Chloride) 100 mls @ 50 mls/hr IV Q8H [facility]; Protocol Last Admin: 10/19/18 11:53 Dose: 50 mls/hr Insulin Aspart (Novolog) 0 unit SC ACHS [facility]; Protocol Last Admin: 10/19/18 11:54 Dose: 3 unit Insulin Glargine (Lantus) 25 unit SC HS [facility] Last Admin: 10/18/18 21:25 Dose: 25 units Losartan Potassium (Cozaar) 25 mg PO BID [facility] Rivaroxaban (Xarelto) 15 mg PO DAILY [facility] Last Admin: 10/19/18 09:26 Dose: 15 mg Saccharomyces Boulardii (Florastor) 250 mg PO BID [facility] Last Admin: 10/19/18 10:42 Dose: 250 mg Sodium Chloride ([place] Baby Saline 30 Ml) 1 ml GEORGE Q1H PRN PRN Reason: congestion Tamsulosin HCl (Flomax) 0.4 mg PO BID [facility] Last Admin: 10/19/18 09:26 Dose: 0.4 mg - Labs Labs: 10/19/18 06:46 10/19/18 06:46 PT 15.1 SECONDS (9.7-12.2) H 10/08/18 05:26 INR 1.4 10/08/18 05:26 APTT 32 SECONDS (21-34) 10/08/18 05:26 - Additional Findings Additional findings: - Constitutional Appears: Non-toxic, No Acute Distress - Head Exam Head Exam: ATRAUMATIC, NORMAL INSPECTION, NORMOCEPHALIC - Eye Exam Eye Exam: EOMI, Normal appearance - ENT Exam ENT Exam: Mucous Membranes Moist - Respiratory Exam Respiratory Exam: Rales, NORMAL BREATHING PATTERN - Cardiovascular Exam Cardiovascular Exam: REGULAR RHYTHM, RRR, +S1, +S2 - GI/Abdominal Exam GI & Abdominal Exam: Soft, Normal Bowel Sounds. absent: Tenderness - Extremities Exam Extremities Exam: absent: Pedal Edema, Tenderness Additional comments: b/l chronic venous stasis - Neurological Exam Neurological Exam: Alert, Awake, Oriented x3 - Psychiatric Exam Psychiatric exam: Normal Affect, Normal Mood - Skin Skin Exam: Intact, Normal Color, Warm Assessment and Plan - Assessment and Plan (Free Text) Assessment: Pneumonia Cxray (10/08/18): poor inspiration with low long volumes, crowded bronchovascular markings and mild bibasilar atelectasis -blood culture (10/08/18) negative Chest CT 10/14/18: small right pleural effusion with adjacent right basilar consolidation concerning for infiltrate. additional milder consolidative change at the left lung base. markedly enlarged right thyroid nodule measuring up to 4.3cm. Correlation with thyroid biopsy may be helpful if clinically indicated. Contracted gallbladder which appears somewhat thick walled and edematous. -sputum culture on 10/10/18: Klebsiella Pneumoniae, placed on respiratory isol ation -repeat sputum culture 10/12/18: Klebsiella Pneumoniae -pending 3rd sputum culture Meds: Ceftazidime/Avibactam 2.5 gm q8h (started on 10/13/18) Merrem 500mg iv q8h (started on 10/12/18, d/c on 10/12/18) d/c Zosyn 3.375gm q6h (started on 10/08/18- stopped on 10/12/18) Tamiflu 75mg po BID (started on 10/08/18- stopped on 10/13/18) Robitussin DM 5ml po q6h prn Florastor 250mg po BID Duoneb INH q6h Mechanical Fall Head CT (10/08/18): limited eval due to motion artifact. no acute intracranial pathology. age related changes. left maxillary sinus and ethmoid air cell sinus disease. Knee and elbow xrays show no acute fracture or dislocation Right foot pain Likely secondary to diabetic neuropathy vs trauma sustain from the recent fall Podiatry consulted foot xray (10/10/18)- no demonstrated fracture or dislocation LE U/S- negative A Fib Xarelto 15mg po daily Coreg increased to 25mg po bid (from 12.5mg po BID)A fib Uncontrolled DMII ISS accuchecks ACHS Insulin Glargine 25u sc HS HgA1C: 12.8 HTN Coreg increased to 25mg PO BID elevated bp readings in 170s/70s Losartan 25mg increased to bid from daily on 10/19/18 HLD Tricor 48mg PO daily BPH Tamsulosin .4mg PO daily Prophylaxis Pepcid 20mg PO daily Colace 100mg PO BID SCDs, on Xarelto PT, OT Nasal Saline [place] Dispo: Pending 3rd sputum culture then [facility] Case discussed and patient seen with Dr. Cisneros
[2018-10-19] MEDS: guaiFENesin DM 100 mg-10 mg/5 ml UD PO PRN (18:25)
[2018-10-19] MEDS: Petrolatum Oint Foilpak (5 gm) TOP PRN (18:25)
--- NOTE | 2018-10-19 19:38 | CP.PCM.PN ---
Subjective - Date & Time of Evaluation Date of Evaluation: 10/19/18 Time of Evaluation: 08:00 - Subjective Subjective: improving less cough less sob Objective - Vital Signs/Intake and Output Vital Signs (last 24 hours): Temp Pulse Resp BP Pulse Ox 98.0 F 68 20 150/80 94 L 10/19/18 15:36 10/19/18 15:36 10/19/18 15:36 10/19/18 18:22 10/19/18 15:36 Intake and Output: 10/19/18 10/20/18 18:59 06:59 Intake Total 500 Balance 500 - Medications Medications: Current Medications Acetaminophen (Tylenol 325mg Tab) 975 mg PO ONCE PRN PRN Reason: Fever >100.4 F Last Admin: 10/18/18 00:21 Dose: 975 mg Albuterol/Ipratropium (Duoneb 3 Mg/0.5 Mg (3 Ml) Ud) 3 ml INH RQ6 [facility] Last Admin: 10/19/18 08:42 Dose: 3 ml Carvedilol (Coreg) 25 mg PO BID [facility] Last Admin: 10/19/18 18:22 Dose: 25 mg Docusate Sodium (Colace) 100 mg PO BID [facility] Last Admin: 10/19/18 18:22 Dose: 100 mg Emollient Ointment (Vaseline Oint) 5 gm TOP Q4H PRN PRN Reason: Dry skin Last Admin: 10/19/18 18:25 Dose: 5 gm Famotidine (Pepcid) 20 mg PO DAILY [facility] Last Admin: 10/19/18 09:26 Dose: 20 mg Fenofibrate (Tricor) 48 mg PO DAILY [facility] Last Admin: 10/19/18 09:26 Dose: 48 mg Fluticasone Propionate (Flonase) 1 spr GEOREG BID PRN PRN Reason: Nasal congestion Furosemide (Lasix) 20 mg PO DAILY [facility] Last Admin: 10/19/18 09:26 Dose: 20 mg Guaifenesin/Dextromethorphan (Robitussin Dm) 5 ml PO Q6H PRN PRN Reason: Cough Last Admin: 10/19/18 18:25 Dose: 5 ml Ceftazidime/Avibactam 2.5 gm/ (Sodium Chloride) 100 mls @ 50 mls/hr IV Q8H [facility]; Protocol Last Admin: 10/19/18 11:53 Dose: 50 mls/hr Insulin Aspart (Novolog) 0 unit SC ACHS [facility]; Protocol Last Admin: 10/19/18 17:30 Dose: 2 unit Insulin Glargine (Lantus) 25 unit SC HS [facility] Last Admin: 10/18/18 21:25 Dose: 25 units Losartan Potassium (Cozaar) 25 mg PO BID [facility] Last Admin: 10/19/18 18:22 Dose: 25 mg Rivaroxaban (Xarelto) 15 mg PO DAILY [facility] Last Admin: 10/19/18 09:26 Dose: 15 mg Saccharomyces Boulardii (Florastor) 250 mg PO BID [facility] Last Admin: 10/19/18 18:21 Dose: 250 mg Sodium Chloride ([place] Baby Saline 30 Ml) 1 ml GEORGE Q1H PRN PRN Reason: congestion Tamsulosin HCl (Flomax) 0.4 mg PO BID [facility] Last Admin: 10/19/18 18:21 Dose: 0.4 mg - Labs Labs: 10/19/18 06:46 10/19/18 06:46 PT 15.1 SECONDS (9.7-12.2) H 10/08/18 05:26 INR 1.4 10/08/18 05:26 APTT 32 SECONDS (21-34) 10/08/18 05:26 - Constitutional Appears: Non-toxic, No Acute Distress, Chronically Ill - Head Exam Head Exam: ATRAUMATIC, NORMAL INSPECTION, NORMOCEPHALIC - Eye Exam Eye Exam: EOMI, Normal appearance, PERRL Pupil Exam: NORMAL ACCOMODATION, PERRL - ENT Exam ENT Exam: Mucous Membranes Moist, Normal Exam - Neck Exam Neck Exam: Full ROM, Normal Inspection. absent: Lymphadenopathy - Respiratory Exam Respiratory Exam: Clear to Ausculation Bilateral, NORMAL BREATHING PATTERN - Cardiovascular Exam Cardiovascular Exam: REGULAR RHYTHM, +S1, +S2. absent: Murmur - GI/Abdominal Exam GI & Abdominal Exam: Soft, Normal Bowel Sounds. absent: Tenderness - Rectal Exam Rectal Exam: NORMAL INSPECTION - Extremities Exam Extremities Exam: Full ROM, Normal Capillary Refill, Normal Inspection. absent: Joint Swelling, Pedal Edema - Back Exam Back Exam: NORMAL INSPECTION - Neurological Exam Neurological Exam: Alert, Awake, CN II-XII Intact, Normal Gait, Oriented x3 - Psychiatric Exam Psychiatric exam: Normal Affect, Normal Mood - Skin Skin Exam: Dry, Intact, Normal Color, Warm Assessment and Plan (1) CHF (congestive heart failure) Status: Acute (2) Dehydration Status: Acute (3) Fall Status: Acute (4) Pneumonia Status: Acute (5) COLUMBA (acute kidney injury) Status: Acute - Assessment and Plan (Free Text) Assessment: MDRO sputum + Infiltrates on CT cont IV rx follow up CXR
[2018-10-19] MEDS: (Lantus) Insulin Glargine, Recombinant SC SCH (22:04)
[2018-10-20] MEDS: Albuterol-Ipratrop 3 mg / 0.5 (3 ml) UD INH SCH ×3 (01:00→19:18)
[2018-10-20 07:00] LABS: BASO # 0.1 K/uL (0.0-0.2); BASO % 0.8 % (0.0-2.0); EOS # 0.3 K/uL (0.0-0.7); HEMOGLOBIN 11.8 g/dL (12.0-18.0); LYMPH # 1.2 K/uL (1.0-4.3); LYMPH % 17.9 % (20.0-40.0); MEAN CELL VOLUME 84.4 fL (80.0-94.0); MEAN CORPUSCULAR HEMOGLOBIN 28.6 pg (27.0-31.0); MEAN CORPUSCULAR HGB CONC 33.9 g/dL (33.0-37.0); MEAN PLATELET VOLUME 8.5 fL (7.2-11.7); MONO # 0.6 K/uL (0.0-0.8); MONO % 8.3 % (0.0-10.0); NEUT # 4.6 K/uL (1.8-7.0); RBC 4.15 Mil/uL (4.40-5.90); RED CELL DISTRIBUTION WIDTH 14.6 % (11.5-14.5); WHITE BLOOD COUNT 6.8 K/uL (4.8-10.8)
[2018-10-20] MEDS: (Novolog) Insulin Aspart, Recombinant 100 u/ml 10 ml vial SC SCH ×4 (07:47→21:32)
[2018-10-20 07:51] LABS: ALB/GLOB RATIO 1.2 (1.0-2.1); ALBUMIN 3.5 g/dL (3.5-5.0); CALCIUM 8.7 mg/dl (8.6-10.4)
[2018-10-20] MEDS: Saccharomyces Boulardi 250 mg Cap PO SCH ×2 (09:30→17:10)
--- NOTE | 2018-10-20 11:13 | CP.PCM.PN ---
Subjective - Date & Time of Evaluation Date of Evaluation: 10/20/18 Time of Evaluation: 11:10 - Subjective Subjective: PGY2 Medicine Note for Dr. Cisneros Patient seen and examined this morning at bedside. No acute events overnight. Patient is still coughing but believes it is starting to improve. He is still congested but the nasal spray at bedside is helping. Denies fevers, chills, nausea or vomiting. He has no other complaints at this time. Objective - Vital Signs/Intake and Output Vital Signs (last 24 hours): Temp Pulse Resp BP Pulse Ox 98.2 F 87 20 152/79 H 95 10/20/18 07:00 10/20/18 07:00 10/20/18 07:00 10/20/18 09:31 10/20/18 07:00 Intake and Output: 10/20/18 10/20/18 06:59 18:59 Intake Total 800 Balance 800 - Medications Medications: Current Medications Acetaminophen (Tylenol 325mg Tab) 975 mg PO ONCE PRN PRN Reason: Fever >100.4 F Last Admin: 10/18/18 00:21 Dose: 975 mg Albuterol/Ipratropium (Duoneb 3 Mg/0.5 Mg (3 Ml) Ud) 3 ml INH RQ6 [facility] Last Admin: 10/20/18 01:00 Dose: 3 ml Carvedilol (Coreg) 25 mg PO BID [facility] Last Admin: 10/20/18 09:31 Dose: 25 mg Docusate Sodium (Colace) 100 mg PO BID [facility] Last Admin: 10/20/18 09:31 Dose: Not Given Emollient Ointment (Vaseline Oint) 5 gm TOP Q4H PRN PRN Reason: Dry skin Last Admin: 10/19/18 18:25 Dose: 5 gm Famotidine (Pepcid) 20 mg PO DAILY [facility] Last Admin: 10/20/18 09:30 Dose: 20 mg Fenofibrate (Tricor) 48 mg PO DAILY [facility] Last Admin: 10/20/18 09:30 Dose: 48 mg Fluticasone Propionate (Flonase) 1 spr GEORGE BID PRN PRN Reason: Nasal congestion Furosemide (Lasix) 20 mg PO DAILY [facility] Last Admin: 10/20/18 09:31 Dose: 20 mg Guaifenesin/Dextromethorphan (Robitussin Dm) 5 ml PO Q6H PRN PRN Reason: Cough Last Admin: 10/19/18 18:25 Dose: 5 ml Ceftazidime/Avibactam 2.5 gm/ (Sodium Chloride) 100 mls @ 50 mls/hr IV Q8H [facility]; Protocol Last Admin: 10/20/18 05:03 Dose: 50 mls/hr Insulin Aspart (Novolog) 0 unit SC ACHS [facility]; Protocol Last Admin: 10/20/18 07:47 Dose: 3 unit Insulin Glargine (Lantus) 25 unit SC HS [facility] Last Admin: 10/19/18 22:04 Dose: 25 units Losartan Potassium (Cozaar) 25 mg PO BID [facility] Last Admin: 10/20/18 09:30 Dose: 25 mg Rivaroxaban (Xarelto) 15 mg PO DAILY [facility] Last Admin: 10/20/18 09:30 Dose: 15 mg Saccharomyces Boulardii (Florastor) 250 mg PO BID [facility] Last Admin: 10/20/18 09:30 Dose: 250 mg Sodium Chloride ([place] Baby Saline 30 Ml) 1 ml GEORGE Q1H PRN PRN Reason: congestion Tamsulosin HCl (Flomax) 0.4 mg PO BID [facility] Last Admin: 10/20/18 09:31 Dose: 0.4 mg - Labs Labs: 10/20/18 06:51 10/20/18 06:51 PT 15.1 SECONDS (9.7-12.2) H 10/08/18 05:26 INR 1.4 10/08/18 05:26 APTT 32 SECONDS (21-34) 10/08/18 05:26 - Additional Findings Additional findings: - Constitutional Appears: Non-toxic, No Acute Distress - Head Exam Head Exam: ATRAUMATIC, NORMAL INSPECTION, NORMOCEPHALIC - Eye Exam Eye Exam: EOMI, Normal appearance - ENT Exam ENT Exam: Mucous Membranes Moist - Respiratory Exam Respiratory Exam: Rales, NORMAL BREATHING PATTERN - Cardiovascular Exam Cardiovascular Exam: REGULAR RHYTHM, RRR, +S1, +S2 - GI/Abdominal Exam GI & Abdominal Exam: Soft, Normal Bowel Sounds. absent: Tenderness - Extremities Exam Extremities Exam: absent: Pedal Edema, Tenderness Additional comments: b/l chronic venous stasis - Neurological Exam Neurological Exam: Alert, Awake, Oriented x3 - Psychiatric Exam Psychiatric exam: Normal Affect, Normal Mood - Skin Skin Exam: Intact, Normal Color, Warm Assessment and Plan - Assessment and Plan (Free Text) Plan: Pneumonia Cxray (10/08/18): poor inspiration with low long volumes, crowded bronchovascular markings and mild bibasilar atelectasis -blood culture (10/08/18) negative Chest CT 10/14/18: small right pleural effusion with adjacent right basilar consolidation concerning for infiltrate. additional milder consolidative change at the left lung base. markedly enlarged right thyroid nodule measuring up to 4.3cm. Correlation with thyroid biopsy may be helpful if clinically indicated. Contracted gallbladder which appears somewhat thick walled and edematous. -sputum culture on 10/10/18: Klebsiella Pneumoniae, placed on respiratory isolation -repeat sputum culture 10/12/18: Klebsiella Pneumoniae -pending 3rd sputum culture Meds: Ceftazidime/Avibactam 2.5 gm q8h (started on 10/13/18) Merrem 500mg iv q8h (started on 10/12/18, d/c on 10/12/18) d/c Zosyn 3.375gm q6h (started on 10/08/18- stopped on 10/12/18) Tamiflu 75mg po BID (started on 10/08/18- stopped on 10/13/18) Robitussin DM 5ml po q6h prn Florastor 250mg po BID Duoneb INH q6h Mechanical Fall Head CT (10/08/18): limited eval due to motion artifact. no acute intracranial pathology. age related changes. left maxillary sinus and ethmoid air cell sinus disease. Knee and elbow xrays show no acute fracture or dislocation Right foot pain Likely secondary to diabetic neuropathy vs trauma sustain from the recent fall Podiatry consulted foot xray (10/10/18)- no demonstrated fracture or dislocation LE U/S- negative A Fib Xarelto 15mg po daily Coreg increased to 25mg po bid (from 12.5mg po BID)A fib Uncontrolled DMII ISS accuchecks ACHS Insulin Glargine 25u sc HS HgA1C: 12.8 HTN Coreg increased to 25mg PO BID elevated bp readings in 170s/70s Losartan 25mg increased to bid from daily on 10/19/18 HLD Tricor 48mg PO daily BPH Tamsulosin .4mg PO daily Prophylaxis Pepcid 20mg PO daily Colace 100mg PO BID SCDs, on Xarelto PT, OT Nasal Saline [place] Dispo: Pending 3rd sputum culture then [facility] Case discussed and patient seen with Dr. Cisneros
--- NOTE | 2018-10-20 21:12 | CP.PCM.PN ---
Subjective - Date & Time of Evaluation Date of Evaluation: 10/20/18 Time of Evaluation: 14:00 - Subjective Subjective: 73 y/o male seen at bedside today for management of right foot pain. He says the pain is fine today and less overall. Denies any acute overnight events. Agrees to follow up as outpatient for diabetic foot care. Has no new pedal complaints. Denies F/C/N/V/CP/SOB Objective - Vital Signs/Intake and Output Vital Signs (last 24 hours): Temp Pulse Resp BP Pulse Ox 98.8 F 76 20 152/79 H 96 10/20/18 15:00 10/20/18 15:00 10/20/18 15:00 10/20/18 17:10 10/20/18 15:00 Intake and Output: 10/20/18 10/21/18 18:59 06:59 Intake Total 500 Output Total 750 Balance -250 - Medications Medications: Current Medications Acetaminophen (Tylenol 325mg Tab) 650 mg PO Q6 PRN PRN Reason: Fever >100.4 F Last Admin: 10/20/18 11:51 Dose: 650 mg Albuterol/Ipratropium (Duoneb 3 Mg/0.5 Mg (3 Ml) Ud) 3 ml INH RQ6 [facility] Last Admin: 10/20/18 19:18 Dose: 3 ml Carvedilol (Coreg) 25 mg PO BID [facility] Last Admin: 10/20/18 17:10 Dose: 25 mg Docusate Sodium (Colace) 100 mg PO BID [facility] Last Admin: 10/20/18 17:11 Dose: Not Given Emollient Ointment (Vaseline Oint) 5 gm TOP Q4H PRN PRN Reason: Dry skin Last Admin: 10/19/18 18:25 Dose: 5 gm Famotidine (Pepcid) 20 mg PO DAILY [facility] Last Admin: 10/20/18 09:30 Dose: 20 mg Fenofibrate (Tricor) 48 mg PO DAILY [facility] Last Admin: 10/20/18 09:30 Dose: 48 mg Fluticasone Propionate (Flonase) 1 spr GEORGE BID PRN PRN Reason: Nasal congestion Furosemide (Lasix) 20 mg PO DAILY [facility] Last Admin: 10/20/18 09:31 Dose: 20 mg Guaifenesin/Dextromethorphan (Robitussin Dm) 5 ml PO Q6H PRN PRN Reason: Cough Last Admin: 10/19/18 18:25 Dose: 5 ml Ceftazidime/Avibactam 2.5 gm/ (Sodium Chloride) 100 mls @ 50 mls/hr IV Q8H [facility]; Protocol Last Admin: 10/20/18 11:50 Dose: 50 mls/hr Insulin Aspart (Novolog) 0 unit SC ACHS [facility]; Protocol Last Admin: 10/20/18 17:09 Dose: 3 unit Insulin Glargine (Lantus) 25 unit SC HS [facility] Last Admin: 10/19/18 22:04 Dose: 25 units Losartan Potassium (Cozaar) 25 mg PO BID [facility] Last Admin: 10/20/18 17:10 Dose: 25 mg Rivaroxaban (Xarelto) 15 mg PO DAILY [facility] Last Admin: 10/20/18 09:30 Dose: 15 mg Saccharomyces Boulardii (Florastor) 250 mg PO BID [facility] Last Admin: 10/20/18 17:10 Dose: 250 mg Sodium Chloride ([place] Baby Saline 30 Ml) 1 ml GEORGE Q1H PRN PRN Reason: congestion Tamsulosin HCl (Flomax) 0.4 mg PO BID [facility] Last Admin: 10/20/18 17:10 Dose: 0.4 mg - Labs Labs: 10/20/18 06:51 10/20/18 06:51 PT 15.1 SECONDS (9.7-12.2) H 10/08/18 05:26 INR 1.4 10/08/18 05:26 APTT 32 SECONDS (21-34) 10/08/18 05:26 Assessment and Plan - Assessment and Plan (Free Text) Plan: Cont PT for now. Will cont to monitor while inhouse.
[2018-10-20] MEDS: (Lantus) Insulin Glargine, Recombinant SC SCH (21:36)
[2018-10-21] MEDS: Albuterol-Ipratrop 3 mg / 0.5 (3 ml) UD INH SCH ×4 (01:00→19:38)
[2018-10-21] MEDS: (Novolog) Insulin Aspart, Recombinant 100 u/ml 10 ml vial SC SCH ×4 (08:41→21:45)
[2018-10-21] MEDS: Saccharomyces Boulardi 250 mg Cap PO SCH ×2 (09:40→17:43)
[2018-10-21] MEDS: Petrolatum Oint Foilpak (5 gm) TOP PRN (09:40)
[2018-10-21] MEDS: guaiFENesin DM 100 mg-10 mg/5 ml UD PO PRN (09:40)
[2018-10-21] MEDS: (Lantus) Insulin Glargine, Recombinant SC SCH (21:43)
[2018-10-22] MEDS: Albuterol-Ipratrop 3 mg / 0.5 (3 ml) UD INH SCH ×4 (01:30→20:01)
[2018-10-22] MEDS: guaiFENesin DM 100 mg-10 mg/5 ml UD PO PRN ×2 (04:12→09:59)
[2018-10-22] MEDS: (Novolog) Insulin Aspart, Recombinant 100 u/ml 10 ml vial SC SCH ×4 (08:44→22:29)
[2018-10-22] MEDS: Saccharomyces Boulardi 250 mg Cap PO SCH ×2 (10:02→17:52)
--- NOTE | 2018-10-22 16:42 | CP.PCM.PN ---
Subjective - Date & Time of Evaluation Date of Evaluation: 10/22/18 Time of Evaluation: 09:00 - Subjective Subjective: still with cough and congestion IV antibiotoics renewed Objective - Vital Signs/Intake and Output Vital Signs (last 24 hours): Temp Pulse Resp BP Pulse Ox 98.1 F 78 18 137/86 96 10/22/18 07:00 10/22/18 07:00 10/22/18 07:00 10/22/18 10:01 10/22/18 07:00 - Medications Medications: Current Medications Acetaminophen (Tylenol 325mg Tab) 650 mg PO Q6 PRN PRN Reason: Fever >100.4 F Last Admin: 10/20/18 11:51 Dose: 650 mg Albuterol/Ipratropium (Duoneb 3 Mg/0.5 Mg (3 Ml) Ud) 3 ml INH RQ6 [facility] Last Admin: 10/22/18 13:44 Dose: 3 ml Carvedilol (Coreg) 25 mg PO BID [facility] Last Admin: 10/22/18 10:01 Dose: 25 mg Docusate Sodium (Colace) 100 mg PO BID [facility] Last Admin: 10/22/18 09:59 Dose: 100 mg Emollient Ointment (Vaseline Oint) 5 gm TOP Q4H PRN PRN Reason: Dry skin Last Admin: 10/21/18 09:40 Dose: 5 gm Famotidine (Pepcid) 20 mg PO DAILY [facility] Last Admin: 10/22/18 09:58 Dose: 20 mg Fenofibrate (Tricor) 48 mg PO DAILY [facility] Last Admin: 10/22/18 09:59 Dose: 48 mg Fluticasone Propionate (Flonase) 1 spr GEORGE BID PRN PRN Reason: Nasal congestion Last Admin: 10/21/18 13:01 Dose: 1 spr Furosemide (Lasix) 20 mg PO DAILY [facility] Last Admin: 10/22/18 09:58 Dose: 20 mg Guaifenesin/Dextromethorphan (Robitussin Dm) 5 ml PO Q6H PRN PRN Reason: Cough Last Admin: 10/22/18 09:59 Dose: 5 ml Ceftazidime/Avibactam 2.5 gm/ (Sodium Chloride) 100 mls @ 50 mls/hr IV Q8H [facility]; Protocol Last Admin: 10/22/18 12:45 Dose: 50 mls/hr Insulin Aspart (Novolog) 0 unit SC ACHS [facility]; Protocol Last Admin: 10/22/18 11:53 Dose: 1 unit Insulin Glargine (Lantus) 25 unit SC HS [facility] Last Admin: 10/21/18 21:43 Dose: 25 units Losartan Potassium (Cozaar) 25 mg PO BID [facility] Last Admin: 10/22/18 09:59 Dose: 25 mg Rivaroxaban (Xarelto) 15 mg PO DAILY [facility] Last Admin: 10/22/18 09:59 Dose: 15 mg Saccharomyces Boulardii (Florastor) 250 mg PO BID [facility] Last Admin: 10/22/18 10:02 Dose: 250 mg Sodium Chloride ([place] Baby Saline 30 Ml) 1 ml GEORGE Q1H PRN PRN Reason: congestion Tamsulosin HCl (Flomax) 0.4 mg PO BID [facility] Last Admin: 10/22/18 09:59 Dose: 0.4 mg - Labs Labs: 10/20/18 06:51 10/20/18 06:51 PT 15.1 SECONDS (9.7-12.2) H 10/08/18 05:26 INR 1.4 10/08/18 05:26 APTT 32 SECONDS (21-34) 10/08/18 05:26 - Constitutional Appears: Well - Head Exam Head Exam: ATRAUMATIC, NORMAL INSPECTION, NORMOCEPHALIC - Eye Exam Eye Exam: EOMI, Normal appearance, PERRL Pupil Exam: NORMAL ACCOMODATION, PERRL - ENT Exam ENT Exam: Mucous Membranes Moist, Normal Exam - Neck Exam Neck Exam: Full ROM, Normal Inspection. absent: Lymphadenopathy - Respiratory Exam Respiratory Exam: Clear to Ausculation Bilateral, NORMAL BREATHING PATTERN - Cardiovascular Exam Cardiovascular Exam: REGULAR RHYTHM, +S1, +S2. absent: Murmur - GI/Abdominal Exam GI & Abdominal Exam: Soft, Normal Bowel Sounds. absent: Tenderness - Rectal Exam Rectal Exam: NORMAL INSPECTION - Extremities Exam Extremities Exam: Full ROM, Normal Capillary Refill, Normal Inspection. absent: Joint Swelling, Pedal Edema - Back Exam Back Exam: NORMAL INSPECTION - Neurological Exam Neurological Exam: Alert, Awake, CN II-XII Intact, Normal Gait, Oriented x3 - Psychiatric Exam Psychiatric exam: Normal Affect, Normal Mood - Skin Skin Exam: Dry, Intact, Normal Color, Warm Assessment and Plan (1) CHF (congestive heart failure) Status: Acute (2) Dehydration Status: Acute (3) Fall Status: Acute (4) Pneumonia Status: Acute (5) COLUMBA (acute kidney injury) Status: Acute - Assessment and Plan (Free Text) Assessment: cont rxc MDRO sputum follow up CXR
[2018-10-22] MEDS: (Lantus) Insulin Glargine, Recombinant SC SCH (22:24)
[2018-10-23] MEDS: Albuterol-Ipratrop 3 mg / 0.5 (3 ml) UD INH SCH ×4 (02:00→19:45)
[2018-10-23] MEDS: (Novolog) Insulin Aspart, Recombinant 100 u/ml 10 ml vial SC SCH ×4 (07:52→21:28)
--- NOTE | 2018-10-23 09:10 | CP.PCM.PN ---
Subjective - Date & Time of Evaluation Date of Evaluation: 10/23/18 Time of Evaluation: 07:00 - Subjective Subjective: PGY2- Progress Note for Dr. Cisneros Patient seen and examined at bedside and in no acute distress. Patient says his cough is still bothering him and he did not get good sleep because of it last night. Otherwise patient has no complaints. Patient denies any shortness of breath, chest pain, abdominal pain, nausea, vomiting, constipation, or diarrhea. Objective - Vital Signs/Intake and Output Vital Signs (last 24 hours): Temp Pulse Resp BP Pulse Ox 98.3 F 71 20 150/90 96 10/22/18 23:20 10/22/18 23:20 10/22/18 23:20 10/22/18 23:20 10/22/18 23:20 - Medications Medications: Current Medications Acetaminophen (Tylenol 325mg Tab) 650 mg PO Q6 PRN PRN Reason: Fever >100.4 F Last Admin: 10/20/18 11:51 Dose: 650 mg Albuterol/Ipratropium (Duoneb 3 Mg/0.5 Mg (3 Ml) Ud) 3 ml INH RQ6 [facility] Last Admin: 10/23/18 02:00 Dose: Not Given Carvedilol (Coreg) 25 mg PO BID [facility] Last Admin: 10/22/18 17:53 Dose: 25 mg Docusate Sodium (Colace) 100 mg PO BID [facility] Last Admin: 10/22/18 17:52 Dose: 100 mg Emollient Ointment (Vaseline Oint) 5 gm TOP Q4H PRN PRN Reason: Dry skin Last Admin: 10/21/18 09:40 Dose: 5 gm Famotidine (Pepcid) 20 mg PO DAILY [facility] Last Admin: 10/22/18 09:58 Dose: 20 mg Fenofibrate (Tricor) 48 mg PO DAILY [facility] Last Admin: 10/22/18 09:59 Dose: 48 mg Fluticasone Propionate (Flonase) 1 spr GEORGE BID PRN PRN Reason: Nasal congestion Last Admin: 10/21/18 13:01 Dose: 1 spr Furosemide (Lasix) 20 mg PO DAILY [facility] Last Admin: 10/22/18 09:58 Dose: 20 mg Guaifenesin/Dextromethorphan (Robitussin Dm) 5 ml PO Q6H PRN PRN Reason: Cough Last Admin: 10/22/18 09:59 Dose: 5 ml Ceftazidime/Avibactam 2.5 gm/ (Sodium Chloride) 100 mls @ 50 mls/hr IV Q8H [facility]; Protocol Last Admin: 10/23/18 04:09 Dose: 50 mls/hr Insulin Aspart (Novolog) 0 unit SC ACHS [facility]; Protocol Last Admin: 10/23/18 07:52 Dose: 2 unit Insulin Glargine (Lantus) 25 unit SC HS [facility] Last Admin: 10/22/18 22:24 Dose: 25 units Losartan Potassium (Cozaar) 25 mg PO BID [facility] Last Admin: 10/22/18 17:52 Dose: 25 mg Rivaroxaban (Xarelto) 15 mg PO DAILY [facility] Last Admin: 10/22/18 09:59 Dose: 15 mg Saccharomyces Boulardii (Florastor) 250 mg PO BID [facility] Last Admin: 10/22/18 17:52 Dose: 250 mg Sodium Chloride ([place] Baby Saline 30 Ml) 1 ml GEORGE Q1H PRN PRN Reason: congestion Tamsulosin HCl (Flomax) 0.4 mg PO BID [facility] Last Admin: 10/22/18 17:52 Dose: 0.4 mg - Labs Labs: 10/20/18 06:51 10/20/18 06:51 PT 15.1 SECONDS (9.7-12.2) H 10/08/18 05:26 INR 1.4 10/08/18 05:26 APTT 32 SECONDS (21-34) 10/08/18 05:26 - Constitutional Appears: Non-toxic, No Acute Distress - Head Exam Head Exam: ATRAUMATIC, NORMAL INSPECTION, NORMOCEPHALIC - ENT Exam ENT Exam: Mucous Membranes Moist - Respiratory Exam Respiratory Exam: Clear to Ausculation Bilateral, NORMAL BREATHING PATTERN. absent: Rales, Rhonchi, Wheezes, Respiratory Distress, Stridor - Cardiovascular Exam Cardiovascular Exam: REGULAR RHYTHM, RRR, +S1, +S2 - GI/Abdominal Exam GI & Abdominal Exam: Soft, Normal Bowel Sounds. absent: Tenderness - Extremities Exam Extremities Exam: absent: Pedal Edema, Tenderness Additional comments: chronic venous stasis - Neurological Exam Neurological Exam: Alert, Awake, Oriented x3 - Psychiatric Exam Psychiatric exam: Normal Affect, Normal Mood - Skin Skin Exam: Dry, Warm Additional comments: chronic venous stasis Assessment and Plan - Assessment and Plan (Free Text) Assessment: Pneumonia Cxray (10/08/18): poor inspiration with low long volumes, crowded bronchovascular markings and mild bibasilar atelectasis -blood culture (10/08/18) negative Chest CT 10/14/18: small right pleural effusion with adjacent right basilar consolidation concerning for infiltrate. additional milder consolidative change at the left lung base. markedly enlarged right thyroid nodule measuring up to 4.3cm. Correlation with thyroid biopsy may be helpful if clinically indicated. Contracted gallbladder which appears somewhat thick walled and edematous. repeat cxray on 10/23: diffuse increased interstitial lung markings which may represent interstitial infiltrate. mild to moderate venous congestion. confluent consolidative changes at the left lung base. small left pleural effusion. right hilar prominence. biapical pleural thickening with upper lobe granulomatous changes. cardiomegaly. calcification at the aortic knob. soft tissue calcifications seen within the left neck. -sputum culture on 10/10/18: Klebsiella Pneumoniae, placed on respiratory isolation -repeat sputum culture 10/12/18: Klebsiella Pneumoniae -3rd sputum culture 10/18/18: normal oral jyoti Meds: Ceftazidime/Avibactam 2.5 gm q8h (started on 10/13/18) d/c Merrem 500mg iv q8h (started on 10/12/18, d/c on 10/12/18) d/c Zosyn 3.375gm q6h (started on 10/08/18- stopped on 10/12/18) Tamiflu 75mg po BID (started on 10/08/18- stopped on 10/13/18) Robitussin DM 5ml po q6h prn Florastor 250mg po BID Duoneb INH q6h Mechanical Fall Head CT (10/08/18): limited eval due to motion artifact. no acute intracranial pathology. age related changes. left maxillary sinus and ethmoid air cell sinus disease. Knee and elbow xrays show no acute fracture or dislocation Right foot pain Likely secondary to diabetic neuropathy vs trauma sustain from the recent fall Podiatry consulted foot xray (10/10/18)- no demonstrated fracture or dislocation LE U/S- negative A Fib Xarelto 15mg po daily Coreg increased to 25mg po bid (from 12.5mg po BID)A fib Uncontrolled DMII ISS accuchecks ACHS Insulin Glargine 25u sc HS HgA1C: 12.8 HTN Coreg increased to 25mg PO BID Losartan 25mg increased to bid from daily on 10/19/18 HLD Tricor 48mg PO daily BPH Tamsulosin .4mg PO daily Prophylaxis Pepcid 20mg PO daily Colace 100mg PO BID SCDs, on Xarelto PT, OT Nasal Saline [place] Case discussed and patient seen with Dr. Cisneros
[2018-10-23] MEDS: Saccharomyces Boulardi 250 mg Cap PO SCH ×2 (09:15→17:28)
[2018-10-23] MEDS: Petrolatum Oint Foilpak (5 gm) TOP PRN (09:16)
[2018-10-23] MEDS: guaiFENesin DM 100 mg-10 mg/5 ml UD PO PRN (09:17)
--- NOTE | 2018-10-23 09:58 | RAD ---
Chest x-ray single frontal view HISTORY: Pneumonia. COMPARISON: 10/12/2018 Findings: Diffuse increased interstitial lung markings which may represent interstitial infiltrate. Mild to moderate venous congestion. Confluent consolidative changes at the left base. Small left pleural effusion. Right hilar prominence. Biapical pleural thickening with upper lobe granulomatous changes. Cardiomegaly. Calcification at the aortic knob. Soft tissue calcifications seen within the left neck. Degenerative changes in the spine and shoulders. Impression: Diffuse increased interstitial lung markings which may represent interstitial infiltrate. Mild to moderate venous congestion. Confluent consolidative changes at the left lung base. Small left pleural effusion. Right hilar prominence. Biapical pleural thickening with upper lobe granulomatous changes. Cardiomegaly. Calcification at the aortic knob. Soft tissue calcifications seen within the left neck.
[2018-10-23 11:27] LABS: BASO # 0.1 K/uL (0.0-0.2); BASO % 0.7 % (0.0-2.0); EOS # 0.4 K/uL (0.0-0.7); EOS % 4.8 % (0.0-4.0); HEMOGLOBIN 12.3 g/dL (12.0-18.0); LYMPH # 1.1 K/uL (1.0-4.3); LYMPH % 14.2 % (20.0-40.0); MEAN CELL VOLUME 84.5 fL (80.0-94.0); MEAN CORPUSCULAR HGB CONC 34.3 g/dL (33.0-37.0); MEAN PLATELET VOLUME 8.7 fL (7.2-11.7); MONO # 0.6 K/uL (0.0-0.8); NEUT # 5.3 K/uL (1.8-7.0); NEUT % 72.3 % (50.0-75.0); RBC 4.24 Mil/uL (4.40-5.90); RED CELL DISTRIBUTION WIDTH 14.7 % (11.5-14.5); WHITE BLOOD COUNT 7.4 K/uL (4.8-10.8)
[2018-10-23 11:56] LABS: ALB/GLOB RATIO 1.2 (1.0-2.1); ALBUMIN 3.9 g/dL (3.5-5.0); ALT/SGPT 16 U/L (21-72); AST/SGOT 26 U/L (17-59); BLOOD UREA NITROGEN 29 mg/dL (9-20); CALCIUM 8.8 mg/dl (8.6-10.4); GFR NON-AFRICAN AMERICAN 54
--- NOTE | 2018-10-23 11:56 | CP.PCM.PN ---
Subjective - Date & Time of Evaluation Date of Evaluation: 10/23/18 Time of Evaluation: 09:00 - Subjective Subjective: CXR with infiltrates- likely resolving afeb latest cultures neg possible d/c Objective - Vital Signs/Intake and Output Vital Signs (last 24 hours): Temp Pulse Resp BP Pulse Ox 98 F 66 20 140/90 95 10/23/18 08:00 10/23/18 08:00 10/23/18 08:00 10/23/18 09:15 10/23/18 08:00 - Medications Medications: Current Medications Acetaminophen (Tylenol 325mg Tab) 650 mg PO Q6 PRN PRN Reason: Fever >100.4 F Last Admin: 10/20/18 11:51 Dose: 650 mg Albuterol/Ipratropium (Duoneb 3 Mg/0.5 Mg (3 Ml) Ud) 3 ml INH RQ6 [facility] Last Admin: 10/23/18 02:00 Dose: Not Given Carvedilol (Coreg) 25 mg PO BID [facility] Last Admin: 10/23/18 09:15 Dose: 25 mg Docusate Sodium (Colace) 100 mg PO BID [facility] Last Admin: 10/23/18 09:15 Dose: 100 mg Emollient Ointment (Vaseline Oint) 5 gm TOP Q4H PRN PRN Reason: Dry skin Last Admin: 10/23/18 09:16 Dose: 5 gm Famotidine (Pepcid) 20 mg PO DAILY [facility] Last Admin: 10/23/18 09:15 Dose: 20 mg Fenofibrate (Tricor) 48 mg PO DAILY [facility] Last Admin: 10/22/18 09:59 Dose: 48 mg Fluticasone Propionate (Flonase) 1 spr GEORGE BID PRN PRN Reason: Nasal congestion Last Admin: 10/21/18 13:01 Dose: 1 spr Furosemide (Lasix) 20 mg PO DAILY [facility] Last Admin: 10/23/18 09:15 Dose: 20 mg Guaifenesin/Dextromethorphan (Robitussin Dm) 5 ml PO Q6H PRN PRN Reason: Cough Last Admin: 10/23/18 09:17 Dose: 5 ml Ceftazidime/Avibactam 2.5 gm/ (Sodium Chloride) 100 mls @ 50 mls/hr IV Q8H [facility]; Protocol Last Admin: 10/23/18 04:09 Dose: 50 mls/hr Insulin Aspart (Novolog) 0 unit SC ACHS [facility]; Protocol Last Admin: 10/23/18 07:52 Dose: 2 unit Insulin Glargine (Lantus) 25 unit SC HS [facility] Last Admin: 10/22/18 22:24 Dose: 25 units Losartan Potassium (Cozaar) 25 mg PO BID [facility] Last Admin: 10/23/18 09:16 Dose: 25 mg Rivaroxaban (Xarelto) 15 mg PO DAILY [facility] Last Admin: 10/23/18 09:16 Dose: 15 mg Saccharomyces Boulardii (Florastor) 250 mg PO BID [facility] Last Admin: 10/23/18 09:15 Dose: 250 mg Sodium Chloride ([place] Baby Saline 30 Ml) 1 ml GEORGE Q1H PRN PRN Reason: congestion Tamsulosin HCl (Flomax) 0.4 mg PO BID [facility] Last Admin: 10/23/18 09:15 Dose: 0.4 mg - Labs Labs: 10/23/18 11:20 10/20/18 06:51 PT 15.1 SECONDS (9.7-12.2) H 10/08/18 05:26 INR 1.4 10/08/18 05:26 APTT 32 SECONDS (21-34) 10/08/18 05:26 - Constitutional Appears: Well - Head Exam Head Exam: ATRAUMATIC, NORMAL INSPECTION, NORMOCEPHALIC - Eye Exam Eye Exam: EOMI, Normal appearance, PERRL Pupil Exam: NORMAL ACCOMODATION, PERRL - ENT Exam ENT Exam: Mucous Membranes Moist, Normal Exam - Neck Exam Neck Exam: Full ROM, Normal Inspection. absent: Lymphadenopathy - Respiratory Exam Respiratory Exam: Clear to Ausculation Bilateral, NORMAL BREATHING PATTERN - Cardiovascular Exam Cardiovascular Exam: REGULAR RHYTHM, +S1, +S2. absent: Murmur - GI/Abdominal Exam GI & Abdominal Exam: Soft, Normal Bowel Sounds. absent: Tenderness - Rectal Exam Rectal Exam: NORMAL INSPECTION - Extremities Exam Extremities Exam: Full ROM, Normal Capillary Refill, Normal Inspection. absent: Joint Swelling, Pedal Edema - Back Exam Back Exam: NORMAL INSPECTION - Neurological Exam Neurological Exam: Alert, Awake, CN II-XII Intact, Normal Gait, Oriented x3 - Psychiatric Exam Psychiatric exam: Normal Affect, Normal Mood - Skin Skin Exam: Dry, Intact, Normal Color, Warm Assessment and Plan (1) CHF (congestive heart failure) Status: Acute (2) Dehydration Status: Acute (3) Fall Status: Acute (4) Pneumonia Status: Acute (5) [place]UM[place] (acute kidney injury) Status: Acute
[2018-10-23] MEDS: (Lantus) Insulin Glargine, Recombinant SC SCH (21:36)
[2018-10-24] MEDS: guaiFENesin DM 100 mg-10 mg/5 ml UD PO PRN ×2 (00:36→09:24)
[2018-10-24] MEDS: Petrolatum Oint Foilpak (5 gm) TOP PRN (00:36)
[2018-10-24] MEDS: Albuterol-Ipratrop 3 mg / 0.5 (3 ml) UD INH SCH ×3 (01:13→13:01)
[2018-10-24 06:35] LABS: BASO # 0.1 K/uL (0.0-0.2); EOS # 0.3 K/uL (0.0-0.7); EOS % 4.6 % (0.0-4.0); HEMOGLOBIN 12.1 g/dL (12.0-18.0); LYMPH # 1.3 K/uL (1.0-4.3); LYMPH % 17.9 % (20.0-40.0); MEAN CELL VOLUME 85.1 fL (80.0-94.0); MEAN CORPUSCULAR HEMOGLOBIN 28.5 pg (27.0-31.0); MEAN CORPUSCULAR HGB CONC 33.4 g/dL (33.0-37.0); MEAN PLATELET VOLUME 8.5 fL (7.2-11.7); MONO # 0.7 K/uL (0.0-0.8); MONO % 9.7 % (0.0-10.0); NEUT # 4.9 K/uL (1.8-7.0); NEUT % 66.8 % (50.0-75.0); RBC 4.24 Mil/uL (4.40-5.90); RED CELL DISTRIBUTION WIDTH 14.8 % (11.5-14.5); WHITE BLOOD COUNT 7.4 K/uL (4.8-10.8)
[2018-10-24 06:53] LABS: ALB/GLOB RATIO 1.2 (1.0-2.1); ALBUMIN 3.4 g/dL (3.5-5.0); CALCIUM 8.6 mg/dl (8.6-10.4)
--- NOTE | 2018-10-24 07:39 | CP.PCM.PN ---
Subjective - Date & Time of Evaluation Date of Evaluation: 10/24/18 Time of Evaluation: 07:37 - Subjective Subjective: Progress Note for Dr. Cisneros Patient seen and examined at bedside. No acute events reported overnight. Patient has coughs but it is manageable with medications. Patient denies any shortness of breath, chest pain, abdominal pain, nausea, vomiting, constipation, or diarrhea. Objective - Vital Signs/Intake and Output Vital Signs (last 24 hours): Temp Pulse Resp BP Pulse Ox 98.4 F 77 20 137/72 97 10/23/18 23:20 10/23/18 23:20 10/23/18 23:20 10/23/18 23:20 10/23/18 23:20 Intake and Output: 10/24/18 10/24/18 06:59 18:59 Intake Total 400 Balance 400 - Medications Medications: Current Medications Acetaminophen (Tylenol 325mg Tab) 650 mg PO Q6 PRN PRN Reason: Fever >100.4 F Last Admin: 10/23/18 20:58 Dose: 650 mg Albuterol/Ipratropium (Duoneb 3 Mg/0.5 Mg (3 Ml) Ud) 3 ml INH RQ6 [facility] Last Admin: 10/24/18 07:27 Dose: 3 ml Carvedilol (Coreg) 25 mg PO BID [facility] Last Admin: 10/23/18 18:00 Dose: 25 mg Docusate Sodium (Colace) 100 mg PO BID [facility] Last Admin: 10/23/18 17:28 Dose: 100 mg Emollient Ointment (Vaseline Oint) 5 gm TOP Q4H PRN PRN Reason: Dry skin Last Admin: 10/24/18 00:36 Dose: 5 gm Famotidine (Pepcid) 20 mg PO DAILY [facility] Last Admin: 10/23/18 09:15 Dose: 20 mg Fenofibrate (Tricor) 48 mg PO DAILY [facility] Last Admin: 10/23/18 11:00 Dose: 48 mg Fluticasone Propionate (Flonase) 1 spr GEORGE BID PRN PRN Reason: Nasal congestion Last Admin: 10/21/18 13:01 Dose: 1 spr Furosemide (Lasix) 20 mg PO DAILY [facility] Last Admin: 10/23/18 09:15 Dose: 20 mg Guaifenesin/Dextromethorphan (Robitussin Dm) 5 ml PO Q6H PRN PRN Reason: Cough Last Admin: 10/24/18 00:36 Dose: 5 ml Ceftazidime/Avibactam 2.5 gm/ (Sodium Chloride) 100 mls @ 50 mls/hr IV Q8H [facility]; Protocol Last Admin: 10/24/18 03:46 Dose: Not Given Insulin Aspart (Novolog) 0 unit SC ACHS [facility]; Protocol Last Admin: 10/23/18 21:28 Dose: Not Given Insulin Glargine (Lantus) 25 unit SC HS [facility] Last Admin: 10/23/18 21:36 Dose: 25 units Losartan Potassium (Cozaar) 25 mg PO BID [facility] Last Admin: 10/23/18 17:00 Dose: 25 mg Rivaroxaban (Xarelto) 15 mg PO DAILY [facility] Last Admin: 10/23/18 09:16 Dose: 15 mg Saccharomyces Boulardii (Florastor) 250 mg PO BID [facility] Last Admin: 10/23/18 17:28 Dose: 250 mg Sodium Chloride ([place] Baby Saline 30 Ml) 1 ml GEORGE Q1H PRN PRN Reason: congestion Tamsulosin HCl (Flomax) 0.4 mg PO BID [facility] Last Admin: 10/23/18 17:28 Dose: 0.4 mg - Labs Labs: 10/24/18 06:24 10/24/18 06:24 PT 15.1 SECONDS (9.7-12.2) H 10/08/18 05:26 INR 1.4 10/08/18 05:26 APTT 32 SECONDS (21-34) 10/08/18 05:26 - Additional Findings Additional findings: - Constitutional Appears: Non-toxic, No Acute Distress - Head Exam Head Exam: ATRAUMATIC, NORMAL INSPECTION, NORMOCEPHALIC - ENT Exam ENT Exam: Mucous Membranes Moist - Respiratory Exam Respiratory Exam: Clear to Ausculation Bilateral, NORMAL BREATHING PATTERN. absent: Rales, Rhonchi, Wheezes, Respiratory Distress, Stridor - Cardiovascular Exam Cardiovascular Exam: REGULAR RHYTHM, RRR, +S1, +S2 - GI/Abdominal Exam GI & Abdominal Exam: Soft, Normal Bowel Sounds. absent: Tenderness - Extremities Exam Extremities Exam: absent: Pedal Edema, Tenderness Additional comments: chronic venous stasis - Neurological Exam Neurological Exam: Alert, Awake, Oriented x3 - Psychiatric Exam Psychiatric exam: Normal Affect, Normal Mood - Skin Skin Exam: Dry, Warm Additional comments: chronic venous stasis Assessment and Plan - Assessment and Plan (Free Text) Assessment: Pneumonia Cxray (10/08/18): poor inspiration with low long volumes, crowded bronchovascular markings and mild bibasilar atelectasis -blood culture (10/08/18) negative Chest CT 10/14/18: small right pleural effusion with adjacent right basilar consolidation concerning for infiltrate. additional milder consolidative change at the left lung base. markedly enlarged right thyroid nodule measuring up to 4.3cm. Correlation with thyroid biopsy may be helpful if clinically indicated. Contracted gallbladder which appears somewhat thick walled and edematous. repeat cxray on 10/23: diffuse increased interstitial lung markings which may represent interstitial infiltrate. mild to moderate venous congestion. confluent consolidative changes at the left lung base. small left pleural effusion. right hilar prominence. biapical pleural thickening with upper lobe granulomatous changes. cardiomegaly. calcification at the aortic knob. soft tissue calcifications seen within the left neck. -sputum culture on 10/10/18: Klebsiella Pneumoniae, placed on respiratory isolation -repeat sputum culture 10/12/18: Klebsiella Pneumoniae -3rd sputum culture 10/18/18: normal oral jyoti Meds: Ceftazidime/Avibactam 2.5 gm q8h (started on 10/13/18) d/c Merrem 500mg iv q8h (started on 10/12/18, d/c on 10/12/18) d/c Zosyn 3.375gm q6h (started on 10/08/18- stopped on 10/12/18) Tamiflu 75mg po BID (started on 10/08/18- stopped on 10/13/18) Robitussin DM 5ml po q6h prn Florastor 250mg po BID Duoneb INH q6h Mechanical Fall Head CT (10/08/18): limited eval due to motion artifact. no acute intracranial pathology. age related changes. left maxillary sinus and ethmoid air cell sinus disease. Knee and elbow xrays show no acute fracture or dislocation Right foot pain Likely secondary to diabetic neuropathy vs trauma sustain from the recent fall Podiatry consulted foot xray (10/10/18)- no demonstrated fracture or dislocation LE U/S- negative A Fib Xarelto 15mg po daily Coreg increased to 25mg po bid (from 12.5mg po BID)A fib Uncontrolled DMII ISS accuchecks ACHS Insulin Glargine 25u sc HS HgA1C: 12.8 HTN Coreg increased to 25mg PO BID Losartan 25mg increased to bid from daily on 10/19/18 HLD Tricor 48mg PO daily BPH Tamsulosin .4mg PO daily Prophylaxis Pepcid 20mg PO daily Colace 100mg PO BID SCDs, on Xarelto PT, OT Nasal Saline [place] Patient is medically stable to be discharged home Patient will be discharged with the following medications Coreg 25mg BID Losartan 25mg BID Case discussed and patient seen with Dr. Cisneros
[2018-10-24] MEDS: (Novolog) Insulin Aspart, Recombinant 100 u/ml 10 ml vial SC SCH ×2 (07:46→11:48)
[2018-10-24] MEDS: Saccharomyces Boulardi 250 mg Cap PO SCH ×2 (09:22→17:46)
--- NOTE | 2018-10-24 11:48 | CP.PCM.PN ---
Subjective - Date & Time of Evaluation Date of Evaluation: 10/24/18 Time of Evaluation: 05:00 - Subjective Subjective: less cough no fever Objective - Vital Signs/Intake and Output Vital Signs (last 24 hours): Temp Pulse Resp BP Pulse Ox 98.5 F 73 18 170/88 H 97 10/24/18 07:00 10/24/18 07:00 10/24/18 07:00 10/24/18 09:23 10/24/18 07:00 Intake and Output: 10/24/18 10/24/18 06:59 18:59 Intake Total 400 Balance 400 - Medications Medications: Current Medications Acetaminophen (Tylenol 325mg Tab) 650 mg PO Q6 PRN PRN Reason: Fever >100.4 F Last Admin: 10/23/18 20:58 Dose: 650 mg Albuterol/Ipratropium (Duoneb 3 Mg/0.5 Mg (3 Ml) Ud) 3 ml INH RQ6 [facility] Last Admin: 10/24/18 07:27 Dose: 3 ml Carvedilol (Coreg) 25 mg PO BID [facility] Last Admin: 10/24/18 09:23 Dose: 25 mg Docusate Sodium (Colace) 100 mg PO BID [facility] Last Admin: 10/24/18 09:22 Dose: 100 mg Emollient Ointment (Vaseline Oint) 5 gm TOP Q4H PRN PRN Reason: Dry skin Last Admin: 10/24/18 00:36 Dose: 5 gm Famotidine (Pepcid) 20 mg PO DAILY [facility] Last Admin: 10/24/18 09:22 Dose: 20 mg Fenofibrate (Tricor) 48 mg PO DAILY [facility] Last Admin: 10/24/18 09:22 Dose: 48 mg Fluticasone Propionate (Flonase) 1 spr GEORGE BID PRN PRN Reason: Nasal congestion Last Admin: 10/21/18 13:01 Dose: 1 spr Furosemide (Lasix) 20 mg PO DAILY [facility] Last Admin: 10/24/18 09:23 Dose: 20 mg Guaifenesin/Dextromethorphan (Robitussin Dm) 5 ml PO Q6H PRN PRN Reason: Cough Last Admin: 10/24/18 09:24 Dose: 5 ml Ceftazidime/Avibactam 2.5 gm/ (Sodium Chloride) 100 mls @ 50 mls/hr IV Q8H [facility]; Protocol Last Admin: 10/24/18 11:38 Dose: 50 mls/hr Insulin Aspart (Novolog) 0 unit SC ACHS [facility]; Protocol Last Admin: 10/24/18 07:46 Dose: 2 units Insulin Glargine (Lantus) 25 unit SC HS [facility] Last Admin: 10/23/18 21:36 Dose: 25 units Losartan Potassium (Cozaar) 25 mg PO BID [facility] Last Admin: 10/24/18 09:23 Dose: 25 mg Rivaroxaban (Xarelto) 15 mg PO DAILY [facility] Last Admin: 10/24/18 09:22 Dose: 15 mg Saccharomyces Boulardii (Florastor) 250 mg PO BID [facility] Last Admin: 10/24/18 09:22 Dose: 250 mg Sodium Chloride ([place] Baby Saline 30 Ml) 1 ml GEORGE Q1H PRN PRN Reason: congestion Tamsulosin HCl (Flomax) 0.4 mg PO BID [facility] Last Admin: 10/24/18 09:22 Dose: 0.4 mg - Labs Labs: 10/24/18 06:24 10/24/18 06:24 PT 15.1 SECONDS (9.7-12.2) H 10/08/18 05:26 INR 1.4 10/08/18 05:26 APTT 32 SECONDS (21-34) 10/08/18 05:26 - Constitutional Appears: Well - Head Exam Head Exam: ATRAUMATIC, NORMAL INSPECTION, NORMOCEPHALIC - Eye Exam Eye Exam: EOMI, Normal appearance, PERRL Pupil Exam: NORMAL ACCOMODATION, PERRL - ENT Exam ENT Exam: Mucous Membranes Moist, Normal Exam - Neck Exam Neck Exam: Full ROM, Normal Inspection. absent: Lymphadenopathy - Respiratory Exam Respiratory Exam: Clear to Ausculation Bilateral, NORMAL BREATHING PATTERN - Cardiovascular Exam Cardiovascular Exam: REGULAR RHYTHM, +S1, +S2. absent: Murmur - GI/Abdominal Exam GI & Abdominal Exam: Soft, Normal Bowel Sounds. absent: Tenderness - Rectal Exam Rectal Exam: NORMAL INSPECTION - Extremities Exam Extremities Exam: Full ROM, Normal Capillary Refill, Normal Inspection. absent: Joint Swelling, Pedal Edema - Back Exam Back Exam: NORMAL INSPECTION - Neurological Exam Neurological Exam: Alert, Awake, CN II-XII Intact, Normal Gait, Oriented x3 - Psychiatric Exam Psychiatric exam: Normal Affect, Normal Mood - Skin Skin Exam: Dry, Intact, Normal Color, Warm Assessment and Plan (1) CHF (congestive heart failure) Status: Acute (2) Dehydration Status: Acute (3) Fall Status: Acute (4) Pneumonia Status: Acute (5) COLUMBA (acute kidney injury) Status: Acute - Assessment and Plan (Free Text) Assessment: MDRO pneumonia improved d/c home
--- NOTE | 2018-10-24 11:57 | CP.PCM.PN ---
Subjective - Date & Time of Evaluation Date of Evaluation: 10/24/18 Time of Evaluation: 11:52 - Subjective Subjective: Podiatry Progress Note for attending Dr. Bud Knight 73 y/o male seen and evaluated at bedside today for management of right foot pain. Patient states that the pain is improving and almost disappeared. Patient states that his LE swelling improved. He states that he got pair of compressive stockings to use for his LE swelling after being discharged from the hospital. Patient denies any acute overnight events. Patient denies any new pedal complaints. He denies F/C/N/V/CP/SOB. Objective - Vital Signs/Intake and Output Vital Signs (last 24 hours): Temp Pulse Resp BP Pulse Ox 98.5 F 73 18 170/88 H 97 10/24/18 07:00 10/24/18 07:00 10/24/18 07:00 10/24/18 09:23 10/24/18 07:00 Intake and Output: 10/24/18 10/24/18 06:59 18:59 Intake Total 400 Balance 400 - Medications Medications: Current Medications Acetaminophen (Tylenol 325mg Tab) 650 mg PO Q6 PRN PRN Reason: Fever >100.4 F Last Admin: 10/23/18 20:58 Dose: 650 mg Albuterol/Ipratropium (Duoneb 3 Mg/0.5 Mg (3 Ml) Ud) 3 ml INH RQ6 [facility] Last Admin: 10/24/18 07:27 Dose: 3 ml Carvedilol (Coreg) 25 mg PO BID [facility] Last Admin: 10/24/18 09:23 Dose: 25 mg Docusate Sodium (Colace) 100 mg PO BID [facility] Last Admin: 10/24/18 09:22 Dose: 100 mg Emollient Ointment (Vaseline Oint) 5 gm TOP Q4H PRN PRN Reason: Dry skin Last Admin: 10/24/18 00:36 Dose: 5 gm Famotidine (Pepcid) 20 mg PO DAILY [facility] Last Admin: 10/24/18 09:22 Dose: 20 mg Fenofibrate (Tricor) 48 mg PO DAILY [facility] Last Admin: 10/24/18 09:22 Dose: 48 mg Fluticasone Propionate (Flonase) 1 spr GEORGE BID PRN PRN Reason: Nasal congestion Last Admin: 10/21/18 13:01 Dose: 1 spr Furosemide (Lasix) 20 mg PO DAILY [facility] Last Admin: 10/24/18 09:23 Dose: 20 mg Guaifenesin/Dextromethorphan (Robitussin Dm) 5 ml PO Q6H PRN PRN Reason: Cough Last Admin: 10/24/18 09:24 Dose: 5 ml Ceftazidime/Avibactam 2.5 gm/ (Sodium Chloride) 100 mls @ 50 mls/hr IV Q8H [facility]; Protocol Last Admin: 10/24/18 11:38 Dose: 50 mls/hr Insulin Aspart (Novolog) 0 unit SC ACHS [facility]; Protocol Last Admin: 10/24/18 11:48 Dose: 2 units Insulin Glargine (Lantus) 25 unit SC HS [facility] Last Admin: 10/23/18 21:36 Dose: 25 units Losartan Potassium (Cozaar) 25 mg PO BID [facility] Last Admin: 10/24/18 09:23 Dose: 25 mg Rivaroxaban (Xarelto) 15 mg PO DAILY [facility] Last Admin: 10/24/18 09:22 Dose: 15 mg Saccharomyces Boulardii (Florastor) 250 mg PO BID [facility] Last Admin: 10/24/18 09:22 Dose: 250 mg Sodium Chloride ([place] Baby Saline 30 Ml) 1 ml GEORGE Q1H PRN PRN Reason: congestion Tamsulosin HCl (Flomax) 0.4 mg PO BID [facility] Last Admin: 10/24/18 09:22 Dose: 0.4 mg - Labs Labs: 10/24/18 06:24 10/24/18 06:24 PT 15.1 SECONDS (9.7-12.2) H 10/08/18 05:26 INR 1.4 10/08/18 05:26 APTT 32 SECONDS (21-34) 10/08/18 05:26 - Constitutional Appears: Well, Non-toxic, No Acute Distress - Head Exam Head Exam: ATRAUMATIC, NORMOCEPHALIC - Extremities Exam Additional comments: Lower extremity focused exam: Vasc: DP/PT pulses palpable 2/4. Temperature gradient warm to cool. CFT < 3 sec to all digits. improving less than +1 pitting edema noted to entirety of bilateral lower extremities. Mild bluish discoloration is noted to right foot lesser digits. Neuro: protective and gross sensation slightly diminished Derm: Diffuse hyperpigmentation with hemosiderin deposits noted from middle 1/3 of leg extending distally to digits B/L, consistent with venous stasis. Mild blue discoloration to lesser digits of right foot MSK: No tenderness to palpation of the foot b/l. Muscle power intact 5/5 to all groups - Neurological Exam Neurological Exam: Alert, Awake, Oriented x3 - Psychiatric Exam Psychiatric exam: Normal Affect, Normal Mood Assessment and Plan - Assessment and Plan (Free Text) Assessment: 73 y/o male seen at bedside for management of right foot pain. Plan: Patient seen and evaluated at the bedside. Plan discussed with Dr. Knight. Charts, labs and vitals reviewed; Afebrile, No leukocytosis. No dressings applied to LE. No plans for surgical intervention at this time. Patient stable from podiatric standpoint. Podiatry will continue to follow while patient in house.
[2018-10-24 16:54] VITALS: BP 147/78; PULSE 72; RESP 20; TEMP 98.2; O2SAT 94
--- NOTE | 2018-10-27 06:52 | DS ---
HISTORY OF PRESENT ILLNESS: Mr. Santana admitted to the hospital with chief complaint of cough, shortness of breath, wheezing, fatigue, and tiredness. The patient has a viral infection before admission became cough, fever. PHYSICAL EXAMINATION: GENERAL: The patient is awake, alert, and oriented. VITAL SIGNS: Temperature is 98, pulse 90. HEENT: Within normal limits. NECK: Supple. CHEST: Symmetrical. HEART: Regular. ABDOMEN: Soft. EXTREMITIES: No edema. The patient was placed on IV antibiotics, supportive care, bronchodilators. Patient sputum, started on meropenem. showed gradual improvement. Discharged to be followed as outpatient. FINAL DIAGNOSIS: pneumonia, syncopal episode, congestive heart failure, arthritis. Adalberto Cisneros MD
== END 2018-10-24 18:19 | disposition home or self-care (01) | DRG 291 ==
LOC: C.ER 04:47 → C.9E 06:35 → C.5S 09:39 → C.6T 22:07
PROVIDERS: ADMIT Internal Medicine Pulmonary Disease; ATTEND Internal Medicine Pulmonary Disease
DX: I13.0 Hypertensive heart and chronic kidney disease with heart failure and stage 1 through stage 4 chronic kidney disease, or unspecified chronic kidney disease (principal); J18.9 Pneumonia, unspecified organism; J98.11 Atelectasis; J44.0 Chronic obstructive pulmonary disease with (acute) lower respiratory infection; J44.1 Chronic obstructive pulmonary disease with (acute) exacerbation; N17.9 Acute kidney failure, unspecified; N39.0 Urinary tract infection, site not specified; L03.116 Cellulitis of left lower limb; L03.115 Cellulitis of right lower limb; E10.41 Type 1 diabetes mellitus with diabetic mononeuropathy; E78.5 Hyperlipidemia, unspecified; E86.0 Dehydration; I48.91 Unspecified atrial fibrillation; I50.9 Heart failure, unspecified; I87.2 Venous insufficiency (chronic) (peripheral); K21.9 Gastro-esophageal reflux disease without esophagitis; N18.2 Chronic kidney disease, stage 2 (mild); N40.0 Benign prostatic hyperplasia without lower urinary tract symptoms; R29.6 Repeated falls; Z79.4 Long term (current) use of insulin; Z87.891 Personal history of nicotine dependence; M19.90 Unspecified osteoarthritis, unspecified site; E10.22 Type 1 diabetes mellitus with diabetic chronic kidney disease

== ENCOUNTER 2018-11-02 10:42 | Observation (INO) | payer MEDICARE ==
[2018-11-02 10:44] VITALS: BMI 31.1
--- NOTE | 2018-11-02 10:58 | C.PDOC ---
History Of Present Illness 73 year old male presents to the ED for evaluation of dizziness which began upon waking up this morning. Patient reports recurrent dizziness, similar to an episode he had last month. 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 He states he feels unsteady. Otherwise, he denies fever, chills, nausea, vomiting, extremity numbness/weakness. Time Seen by Provider: 11/02/18 10:54 Chief Complaint (Nursing): Weakness/Neurological Deficit History Per: Patient History/Exam Limitations: no limitations Onset/Duration Of Symptoms: Hrs Current Symptoms Are (Timing): Still Present Past Medical History Reviewed: Historical Data, Nursing Documentation, Vital Signs Vital Signs: Last Vital Signs Temp Pulse 84 11/02/18 10:45 Resp 20 11/02/18 10:45 BP 130/84 11/02/18 10:45 Pulse Ox 96 11/02/18 10:45 - Medical History PMH: Atrial Fibrillation, CHF, COPD, Diabetes, HTN, Kidney Stones (HX.), Chronic Kidney Disease (stage II) Surgical History: Appendectomy (age 11) - [facility] Procedures DRAINAGE OF BLADDER WITH DRAINAGE DEVICE, VIA OPENING (10/20/15) EXCISION OF DESCENDING COLON, ENDO, DIAGN (02/07/16) EXCISION OF STOMACH, ENDO, DIAGN (02/07/16) EXTIRPATION OF MATTER FROM BLADDER, ENDO (12/22/15) INSERTION OF INFUSION DEV INTO SUP VENA CAVA, PERC APPROACH (10/20/15) MEASUREMENT OF URINARY PRESSURE, VIA OPENING (10/20/15) PLAIN RADIOGRAPHY OF BLADDER (10/20/15) REMOVAL OF INFUSION DEV FROM GREAT VESSEL, COMPLIANCE VICE PRESIDENT APPROACH (10/20/15) RESECTION OF PROSTATE, ENDO (12/22/15) TRANSFUSE NONAUT RED BLOOD CELLS IN PERIPH VEIN, PERC (02/07/16) Family History: States: Unknown Family Hx - Social History Hx Alcohol Use: No Hx Substance Use: No - Immunization History Hx Tetanus Toxoid Vaccination: No Hx Influenza Vaccination: No Hx Pneumococcal Vaccination: No Review Of Systems Cardiovascular: Negative for: Chest Pain Gastrointestinal: Negative for: Nausea, Vomiting Neurological: Positive for: Dizziness. Negative for: Weakness, Numbness Physical Exam - Physical Exam Appears: Non-toxic, No Acute Distress Skin: Normal Color, Warm, Dry Head: Atraumatic, Normacephalic Eye(s): right: Other (eye patch in place), left: Normal Inspection Oral Mucosa: Moist Neck: Supple Chest: Symmetrical, No Deformity, No Tenderness Cardiovascular: Rhythm Regular, No Murmur Respiratory: Normal Breath Sounds, No Rales, No Rhonchi, No Wheezing Extremity: Normal ROM, Capillary Refill (less than 2 seconds ) Neurological/Psych: Other (see NIH) ED Course And Treatment - Laboratory Results Result Diagrams: 11/02/18 11:07 11/02/18 11:08 ECG: Interpreted By Me, Viewed By Me ECG Rhythm: Atrial Fibrillation Rate From EC O2 Sat by Pulse Oximetry: 96 Progress Note: Bloodwork, urinalysis, CXR, CT Head, and EKG ordered and reviewed. IV Fluids given. NIHSS Stroke Scale 2 - Date/Time Evaluation Performed Date Performed: 11/02/18 Time Performed: 10:55 When Was NIHSS Performed: Code Stroke Re-evaluation - How Severe is the Stroke Level of Consciousness: 0=Alert LOC to Questions: 0=Both comments correct LOC to commands: 0=Obeys both correctly Best Gaze: 0=Normal Visual: 0=No visual loss (LIMITED DUE TO OPTHO CONDITION) Facial: 0=Normal Motor Arm - Left: 0=No drift Motor Arm - Right: 0=No drift Motor Leg - Left: 0=No drift Motor Leg - Right: 0=No drift Limb Ataxia: 0=Absent Sensory: 0=Normal Best Language: 0=No aphasia Dysarthia: 1=Mild to moderate slurring Extinction & Inattention (Neglect): 0=Normal, no object Score: 1 Progress - Re-Evaluation Re-evaluation Note: 11/02/18 11:11 D/W DR NUGENT, CT HEAD NEG UNCH PRIOR 11/02/18 12:11 PER PMD, IS AWAY AND TO ADMIT TO HOSP 11/02/18 12:35 D/W DR SHAY C/F PMD - Data Reviewed Data Reviewed: Lab, Diagnostic imaging, EKG, Old records rTPA Inclusion/Exclusion - Refusal of Treatment Patient Refused Treatment: No - Inclusion Criteria for Altepase Patient is 18 years or Older: Yes The Clinical Diagnosis of Ischemic Stroke That is Causing a Potentially Disa ani Neurological Deficit: Yes Time of Onset is Well Established to be Less Than 270 Minute Before Treatment Would Begin: No Risk/Benefit Discussed With Patient/Family Member Present: No - Exclusion Criteria for Altepase Uncontrolled Hypertension at Time of Treatment (Systolic BP above 185 or Diastolic BP above 110 mmHg): No Less Than 3 Months Had a Recent: Stroke Active Internal Bleeding: No Known Bleeding Diathesis Including but Not Limited to: Platelets Below 100,000/mm,PTT Above 40 sec After Heparin Use, Current Use of Oral Anitcoagulant With INR Greater Than 1.7 or PT Greater Than 15 secs: No Evidence of an Intracranial Hemorrhage: No Evidence of Major Acute Infarct With Signs Greater Than 1/3 MCA Territory: No Suspicion of Subarachnoid Hemorrhage on Pretreatment Evaluation Even if CT Head Negative For Hemorrhage: No - Warning to TPA With Conditions Following Conditions Weighed Against Anticipated Benefit: No Condition: Stroke Serevity Too Mild, Care Team Unable to Determine Eligibilty Disposition Counseled Patient/Family Regarding: Diagnosis - Disposition Disposition: HOSPITALIZED Disposition Time: 12:36 Condition: STABLE Forms: [facility] (Uzbek) - POA Present On Arrival: Falls Or Trauma - Clinical Impression Clinical Impression: Vertigo, Difficulty walking - Scribe Statement The provider has reviewed the documentation as recorded by the Scribe (Lili Jasmine) Provider Attestation: All medical record entries made by the Scribe were at my direction and personally dictated by me. I have reviewed the chart and agree that the record accurately reflects my personal performance of the history, physical exam, medical decision making, and the department course for this patient. I have also personally directed, reviewed, and agree with the discharge instructions and disposition. NIHSS Stroke Scale - Date/Time Evaluation Performed Date Performed: 11/02/18 Time Performed: 10:55 When Was NIHSS Performed: Code Stroke - How Severe is the Stroke Level of Consciousness: 0=Alert LOC to Questions: 0=Both comments correct LOC to commands: 0=Obeys both correctly Best Gaze: 0=Normal Visual: 0=No visual loss (LIMITED DUE TO OPTHO CONDITION) Facial: 0=Normal Motor Arm - Left: 0=No drift Motor Arm - Right: 0=No drift Motor Leg - Left: 0=No drift Motor Leg - Right: 0=No drift Limb Ataxia: 0=Absent Sensory: 0=Normal Best Language: 0=No aphasia Dysarthia: 1=Mild to moderate slurring Extinction & Inattention (Neglect): 0=Normal, no object Score: 1
[2018-11-02 11:07] LABS: BASO % 0.5 % (0.0-2.0); EOS # 0.1 K/uL (0.0-0.7); EOS % 1.1 % (0.0-4.0); LYMPH # 0.8 K/uL (1.0-4.3); LYMPH % 9.7 % (20.0-40.0); MEAN CELL VOLUME 85.6 fL (80.0-94.0); MEAN CORPUSCULAR HEMOGLOBIN 28.3 pg (27.0-31.0); MEAN PLATELET VOLUME 8.7 fL (7.2-11.7); MONO # 0.4 K/uL (0.0-0.8); MONO % 5.4 % (0.0-10.0); NEUT # 6.4 K/uL (1.8-7.0); NEUT % 83.3 % (50.0-75.0); NRBC % 0.2 % (0.0-2.0); PLATELET COUNT 198 K/uL (130-400); RBC 5.13 Mil/uL (4.40-5.90); RED CELL DISTRIBUTION WIDTH 15.5 % (11.5-14.5); WHITE BLOOD COUNT 7.8 K/uL (4.8-10.8)
[2018-11-02 11:08] LABS: HEMOGLOBIN 14.5 g/dL (12.0-18.0)
[2018-11-02 11:16] LABS: INR 1.2; PROTHROMBIN TIME 13.6 SECONDS (9.7-12.2)
--- NOTE | 2018-11-02 11:16 | CT ---
Date of service: 11/02/2018 PROCEDURE: CT HEAD WITHOUT CONTRAST. HISTORY: Code Stroke, possible CVA. COMPARISON: 10/08/2018. TECHNIQUE: Axial computed tomography images were obtained through the head/brain without intravenous contrast. Supplemental Coronal and Sagittal projections created and reviewed. Radiation dose: Total exam DLP = 1154.16 mGy-cm. This CT exam was performed using one or more of the following dose reduction techniques: Automated exposure control, adjustment of the mA and/or kV according to patient size, and/or use of iterative reconstruction technique. FINDINGS: HEMORRHAGE: No intracranial hemorrhage. BRAIN: No mass effect or edema. Cortical and cerebellar atrophy, periventricular small vessel disease. VENTRICLES: Unremarkable. No hydrocephalus. CALVARIUM: Unremarkable. PARANASAL SINUSES: Stable/chronic sinusitis. MASTOID AIR CELLS: Unremarkable as visualized. No inflammatory changes. OTHER FINDINGS: None. IMPRESSION: No acute intracranial abnormalities. No significant findings to account for the clinical presentation. No significant interval change compared to the prior examination(s). Code stroke protocol: Study completed 11:03 Radiologist notified 11:05 Results conveyed verbally at 11:09 Interpretation finalized and available for review 11:12.
[2018-11-02 11:30] LABS: ALB/GLOB RATIO 1.1 (1.0-2.1); ALBUMIN 4.2 g/dL (3.5-5.0); ALT/SGPT 10 U/L (21-72); AST/SGOT 25 U/L (17-59); BLOOD UREA NITROGEN 30 mg/dL (9-20); CALCIUM 8.8 mg/dl (8.6-10.4); GFR NON-AFRICAN AMERICAN > 60; HDL CHOLESTEROL 34 mg/dL (30-70)
[2018-11-02 11:38] LABS: LDL CHOLESTEROL 106 mg/dL (0-129)
[2018-11-02 11:49] LABS: BANDS 2 % (0-2); EOSINOPHIL 1 % (0-4); LYMPHOCYTE 8 % (20-40); MONOCYTE 5 % (0-10); NEUTROPHIL 84 % (50-75); TOTAL CELLS COUNTED 100
[2018-11-02 11:50] LABS: ANISOCYTOSIS SLIGHT; PLATELET ESTIMATE NORMAL (NORMAL)
[2018-11-02] MEDS: Sodium Chloride 0.9% 1,000 ML IV SCH ×2 (11:57→21:16)
[2018-11-02] MEDS ORDERED: Sodium Chloride 0.9% 1,000 ML ONE (11:58)
--- NOTE | 2018-11-02 13:10 | CP.PCM.CON ---
<Namita Jaimes - Last Filed: 11/02/18 14:23> History of Present Illness - History of Present Illness History of Present Illness: Neuro Consult Note for Dr. Pierson Patient is a 73 year old male with PMHx of COPD, CHF, CKD, a fib, and DMII who presents to the ER today for lightheadedness and slurred speech his noticed at 9:30am when he woke up. Patient had no weakness, numbness, or tingling. Currently patient is feeling better. He feels his speech and light headedness have improved. Of note patient just had cataract surgery of his left eye yesterday and has blurry vision out of that eye. PMD: Dr. Cisneros All: sulfa PMHx: COPD, CHF, CKD, a fib, and DMII Psurg: appendectomy, left eye cataract surgery (11/01/18) social: denies famhx: sister had MA in 60s Review of Systems - Constitutional Constitutional: absent: Chills, Fever - EENT Eyes: Blurred Vision (s/p left eye cataract surgery yesterday) - Cardiovascular Cardiovascular: absent: Chest Pain, Dyspnea, Pedal Edema - Respiratory Respiratory: absent: Wheezing - Gastrointestinal Gastrointestinal: absent: Abdominal Pain, Constipation, Diarrhea, Nausea, Vomiting - Genitourinary Genitourinary: absent: Dysuria - Musculoskeletal Musculoskeletal: absent: Numbness, Tingling - Integumentary Integumentary: absent: Rash - Neurological Neurological: Dizziness. absent: Numbness, Focal Weakness, Paresthesias, Tingling, Weakness Past Patient History - Past Medical History & Family History Past Medical History?: Yes - Past Social History Smoking Status: Former Smoker - CARDIAC Hx Atrial Fibrillation: Yes Hx Congestive Heart Failure: Yes Hx Hypertension: Yes - PULMONARY Hx Chronic Obstructive Pulmonary Disease (COPD): Yes - NEUROLOGICAL Hx Neurological Disorder: No - HEENT Hx HEENT Problems: No - RENAL Hx Chronic Kidney Disease: Yes (stage II) Hx Kidney Stones: Yes (HX.) - ENDOCRINE/METABOLIC Hx Diabetes Mellitus Type 2: Yes - HEMATOLOGICAL/ONCOLOGICAL Hx Blood Disorders: No - INTEGUMENTARY Hx Dermatological Problems: Yes Other/Comment: non healing wound to rt. axillary region bilat buttocks breakdowns - MUSCULOSKELETAL/RHEUMATOLOGICAL Hx Musculoskeletal Disorders: Yes Hx Back Pain: Yes Hx Falls: Yes Hx Osteoarthritis: Yes Hx Unsteady Gait: Yes Other/Comment: rt. knee problem - GASTROINTESTINAL Hx Gastrointestinal Disorders: Yes Hx Gastroesophageal Reflux: Yes - GENITOURINARY/GYNECOLOGICAL Hx Genitourinary Disorders: Yes Hx Hematuria: Yes Hx Incontinence: Yes Other/Comment: Unspecified Hydronephrosis. PT. FOR SURGERY 12/22/15-DX: URINARY RETENTION - PSYCHIATRIC Hx Substance Use: No - SURGICAL HISTORY Hx Appendectomy: Yes (age 11) - ANESTHESIA Hx Anesthesia: Yes Hx Anesthesia Reactions: No Hx Malignant Hyperthermia: No Meds Allergies/Adverse Reactions: Allergies Allergy/AdvReac Type Severity Reaction Status Date / Time Sulfa (Sulfonamide Allergy Verified 11/02/18 10:55 Antibiotics) - Medications Medications: Current Medications Sodium Chloride (Sodium Chloride 0.9%) 1,000 mls @ 100 mls/hr IV .Q10H EVON Last Admin: 11/02/18 11:57 Dose: 100 mls/hr Physical Exam - Constitutional Appears: Non-toxic, No Acute Distress - Head Exam Head Exam: ATRAUMATIC, NORMAL INSPECTION, NORMOCEPHALIC - Eye Exam Additional comments: left eye with patch s/p cataract surgery - ENT Exam ENT Exam: Mucous Membranes Moist - Respiratory Exam Respiratory Exam: Clear to Auscultation Bilateral, NORMAL BREATHING PATTERN - Cardiovascular Exam Cardiovascular Exam: Irregular Rhythm, +S1, +S2 - GI/Abdominal Exam GI & Abdominal Exam: Normal Bowel Sounds, Soft. absent: Tenderness - Extremities Exam Extremities exam: Negative for: tenderness Additional comments: chronic venous stasis changes. - Back Exam Back exam: NORMAL INSPECTION - Neurological Exam Neurological exam: Alert, CN II-XII Intact, Oriented x3 - Expanded Neurological Exam Expanded Patient oriented to: person, place, time Neuro motor strength exam: Left Upper Extremity: 5, Right Upper Extremity: 5, Left Lower Extremity: 5, Right Lower Extremity: 5 - Psychiatric Exam Psychiatric exam: Normal Affect, Normal Mood - Skin Skin Exam: Intact, Normal Color, Warm Results - Vital Signs Recent Vital Signs: Last Vital Signs Temp Pulse 89 11/02/18 11:58 Resp 20 11/02/18 11:58 BP 149/85 11/02/18 11:58 Pulse Ox 96 11/02/18 12:36 - Labs Result Diagrams: 11/02/18 11:07 11/02/18 11:08 Labs: Laboratory Results - last 24 hr 11/02/18 11/02/18 11/02/18 10:44 11:07 11:08 WBC 7.8 RBC 5.13 Hgb 14.5 D Hct 43.9 MCV 85.6 MCH 28.3 MCHC 33.0 RDW 15.5 H Plt Count 198 MPV 8.7 Neut % (Auto) 83.3 H Lymph % (Auto) 9.7 L [place] % (Auto) 5.4 Eos % (Auto) 1.1 Baso % (Auto) 0.5 Neut # (Auto) 6.4 Lymph # (Auto) 0.8 L [place] # (Auto) 0.4 Eos # (Auto) 0.1 Baso # (Auto) 0.0 Neutrophils % (Manual) 84 H Band Neutrophils % 2 Lymphocytes % (Manual) 8 L Monocytes % (Manual) 5 Eosinophils % (Manual) 1 Platelet Estimate Normal Anisocytosis (manual) Slight PT 13.6 H INR 1.2 APTT 36 H Sodium Potassium Chloride Carbon Dioxide Anion Gap BUN Creatinine Est GFR ( Amer) Est GFR (Non-Af Amer) POC Glucose (mg/dL) 87 Random Glucose Hemoglobin A1c Calcium Total Bilirubin AST ALT Alkaline Phosphatase Troponin I Total Protein Albumin Globulin Albumin/Globulin Ratio Triglycerides Cholesterol LDL Cholesterol Direct HDL Cholesterol Blood Type Antibody Screen 11/02/18 11/02/18 11/02/18 11:08 11:08 11:08 WBC RBC Hgb Hct MCV MCH MCHC RDW Plt Count MPV Neut % (Auto) Lymph % (Auto) Cloud % (Auto) Eos % (Auto) Baso % (Auto) Neut # (Auto) Lymph # (Auto) Cloud # (Auto) Eos # (Auto) Baso # (Auto) Neutrophils % (Manual) Band Neutrophils % Lymphocytes % (Manual) Monocytes % (Manual) Eosinophils % (Manual) Platelet Estimate Anisocytosis (manual) PT INR APTT Sodium 138 Potassium 4.4 Chloride 103 Carbon Dioxide 26 Anion Gap 14 BUN 30 H Creatinine 1.1 Est GFR ( Amer) > 60 Est GFR (Non-Af Amer) > 60 POC Glucose (mg/dL) Random Glucose 99 D Hemoglobin A1c 10.9 H Calcium 8.8 Total Bilirubin 1.2 AST 25 ALT 10 L Alkaline Phosphatase 101 Troponin I < 0.0120 Total Protein 8.0 Albumin 4.2 Globulin 3.8 Albumin/Globulin Ratio 1.1 Triglycerides 73 Cholesterol 161 LDL Cholesterol Direct 106 HDL Cholesterol 34 Blood Type O POSITIVE Antibody Screen Negative Assessment & Plan - Assessment and Plan (Free Text) Assessment: TIA vs CVA light headedness and slurred speech resolved upon admission NIHSS: 0 CT head (11/02/18): no acute intracranial abnormalities. No significant findings to account for the clinical presentation. No significant interval change compared to the prior exams f/u MRI, MRA head and neck f/u echo f/u HgA1C, lipid panel patient on xarelto--switch to Eliquis 5mg po q12h Please notify neuro of any acute changes in pt's condition or mental status Discussed with Dr. Dangelo Jaimes, PGY2 NIHSS Stroke Scale - Date/Time Evaluation Performed Date Performed: 11/02/18 Time Performed: 11:30 - How Severe is the Stoke Level of Consciousness: 0=Alert LOC to Questions: 0=Both comments correct LOC to commands: 0=Obeys both correctly Best Gaze: 0=Normal Visual: 0=No visual loss (LIMITED DUE TO OPTHO CONDITION) Facial: 0=Normal Motor Arm - Left: 0=No drift Motor Arm - Right: 0=No drift Motor Leg - Left: 0=No drift Motor Leg - Right: 0=No drift Limb Ataxia: 0=Absent Sensory: 0=Normal Best Language: 0=No aphasia Dysarthia: 0=Normal articulation Extinction & Inattention (Neglect): 0=Normal, no object Score: 0 <Pio Pierson - Last Filed: 11/06/18 15:50> Results - Vital Signs Recent Vital Signs: Last Vital Signs Temp 98.0 F 11/03/18 16:00 Pulse 70 11/03/18 16:00 Resp 20 11/03/18 16:00 BP 144/76 11/03/18 17:46 Pulse Ox 94 L 11/03/18 16:00 - Labs Result Diagrams: 11/03/18 07:23 11/03/18 07:23 Attending/Attestation - Attestation I have personally seen and examined this patient.: Yes I have fully participated in the care of the patient.: Yes I have reviewed all pertinent clinical information: Yes Notes (Text): I agree with the assessment and plan. Will continue TIA work-up and management.
--- NOTE | 2018-11-02 13:12 | CP.PCM.HP ---
<Merari EllerJosé - Last Filed: 11/02/18 15:58> History of Present Illness - History of Present Illness History of Present Illness: Patient is a 73 year old male with a past medical history of HTN, HLD, a fib, DMII, BPH, CHF who presents to the ER for slurred speech and feeling "woozy". The patient states his woke him up this morning at 9:30am and noticed he has slurred speech. The patient got out of bed to walk and that shwen the wooziness started. He says he only feels woozy when walking or with changes in position. He currently denies feeling woozy, dizzy, lighheaded or having slurred speech. He also denies weakness, numbness, and tingling. Of note patient just had cataract surgery of his left eye yesterday and has blurry vision out of that eye. He has not taken any of his medications since the night before his surgery on 10/31/18. PMD: Dr. Cisneros PMHx: HTN, HLD, a fib, DMII, BPH, CHF Surghx: appendectomy and tonsillectomy in childhood; left eye cataract surgery (11/01/18) SocialHx: denies tobacco, alcohol, and drug use; lives with (Geri) in . Retired. Famhx: sister- JEFFRY (in her 60s) Allergies: Sulfa (hives) Medications: Insulin 40units daily, Xarelto 15mg PO daily, Lasix 40mg PO daily, Tamsulosin 0.4mg PO daily, Coreg 25mg PO BID Present on Admission - Present on Admission Any Indicators Present on Admission: Yes History of DVT/PE: No History of Uncontrolled Diabetes: Yes Review of Systems - Constitutional Constitutional: absent: Headache, Weakness - EENT Eyes: Blurred Vision (left eye s/p cataract surgery ) Ears: absent: Dizziness Nose/Mouth/Throat: Post Nasal Drip - Cardiovascular Cardiovascular: Lightheadedness. absent: Chest Pain, Dyspnea, Leg Edema, Palpitations - Respiratory Respiratory: Cough. absent: Dyspnea - Gastrointestinal Gastrointestinal: absent: Abdominal Pain, Constipation, Diarrhea, Nausea, Vomiting - Genitourinary Genitourinary: absent: Change in Urinary Stream, Dysuria, Hematuria - Musculoskeletal Musculoskeletal: absent: Numbness, Tingling - Integumentary Integumentary: absent: Swelling - Neurological Neurological: absent: Dizziness ("woozy", lightheadedness), Headaches, Pare sthesias, Tingling, Weakness - Endocrine Endocrine: absent: Palpitations Past Patient History - Past Medical History & Family History Past Medical History?: Yes - Past Social History Smoking Status: Former Smoker - CARDIAC Hx Atrial Fibrillation: Yes Hx Congestive Heart Failure: Yes Hx Hypertension: Yes - PULMONARY Hx Chronic Obstructive Pulmonary Disease (COPD): Yes - NEUROLOGICAL Hx Neurological Disorder: No - HEENT Hx HEENT Problems: No - RENAL Hx Chronic Kidney Disease: Yes (stage II) Hx Kidney Stones: Yes (HX.) - ENDOCRINE/METABOLIC Hx Diabetes Mellitus Type 2: Yes - HEMATOLOGICAL/ONCOLOGICAL Hx Blood Disorders: No - INTEGUMENTARY Hx Dermatological Problems: Yes Other/Comment: non healing wound to rt. axillary region bilat buttocks breakdowns - MUSCULOSKELETAL/RHEUMATOLOGICAL Hx Musculoskeletal Disorders: Yes Hx Back Pain: Yes Hx Falls: Yes Hx Osteoarthritis: Yes Hx Unsteady Gait: Yes Other/Comment: rt. knee problem - GASTROINTESTINAL Hx Gastrointestinal Disorders: Yes Hx Gastroesophageal Reflux: Yes - GENITOURINARY/GYNECOLOGICAL Hx Genitourinary Disorders: Yes Hx Hematuria: Yes Hx Incontinence: Yes Other/Comment: Unspecified Hydronephrosis. PT. FOR SURGERY 12/22/15-DX: URINARY RETENTION - PSYCHIATRIC Hx Substance Use: No - SURGICAL HISTORY Hx Appendectomy: Yes (age 11) - ANESTHESIA Hx Anesthesia: Yes Hx Anesthesia Reactions: No Hx Malignant Hyperthermia: No Meds Allergies/Adverse Reactions: Allergies Allergy/AdvReac Type Severity Reaction Status Date / Time Sulfa (Sulfonamide Allergy Verified 11/02/18 10:55 Antibiotics) Physical Exam - Constitutional Appears: No Acute Distress - Head Exam Head Exam: NORMAL INSPECTION - Eye Exam Eye Exam: EOMI, Normal appearance (Right eye; left eye s/p cataract surgery) - ENT Exam ENT Exam: Mucous Membranes Moist - Respiratory Exam Respiratory Exam: NORMAL BREATHING PATTERN. absent: Accessory Muscle Use, Rales, Wheezes, Respiratory Distress - Cardiovascular Exam Cardiovascular Exam: Irregular Rhythm, +S1, +S2 - GI/Abdominal Exam GI & Abdominal Exam: Normal Bowel Sounds, Soft. absent: Distended, Firm, Guarding, Tenderness - Extremities Exam Extremities exam: Positive for: pedal pulses present. 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/l - Psychiatric Exam Psychiatric exam: Normal Affect, Normal Mood - Skin Skin Exam: Dry, Intact, Normal Color Results - Vital Signs Recent Vital Signs: Last Vital Signs Temp Pulse 89 11/02/18 11:58 Resp 20 11/02/18 11:58 BP 149/85 11/02/18 11:58 Pulse Ox 96 11/02/18 12:36 - Labs Result Diagrams: 11/02/18 11:07 11/02/18 11:08 Labs: Laboratory Results - last 24 hr 11/02/18 11/02/18 11/02/18 10:44 11:07 11:08 WBC 7.8 RBC 5.13 Hgb 14.5 D Hct 43.9 MCV 85.6 MCH 28.3 MCHC 33.0 RDW 15.5 H Plt Count 198 MPV 8.7 Neut % (Auto) 83.3 H Lymph % (Auto) 9.7 L [place] % (Auto) 5.4 Eos % (Auto) 1.1 Baso % (Auto) 0.5 Neut # (Auto) 6.4 Lymph # (Auto) 0.8 L [place] # (Auto) 0.4 Eos # (Auto) 0.1 Baso # (Auto) 0.0 Neutrophils % (Manual) 84 H Band Neutrophils % 2 Lymphocytes % (Manual) 8 L Monocytes % (Manual) 5 Eosinophils % (Manual) 1 Platelet Estimate Normal Anisocytosis (manual) Slight PT 13.6 H INR 1.2 APTT 36 H Sodium Potassium Chloride Carbon Dioxide Anion Gap BUN Creatinine Est GFR ( Amer) Est GFR (Non-Af Amer) POC Glucose (mg/dL) 87 Random Glucose Hemoglobin A1c Calcium Total Bilirubin AST ALT Alkaline Phosphatase Troponin I Total Protein Albumin Globulin Albumin/Globulin Ratio Triglycerides Cholesterol LDL Cholesterol Direct HDL Cholesterol Blood Type Antibody Screen 11/02/18 11/02/18 11/02/18 11:08 11:08 11:08 WBC RBC Hgb Hct MCV MCH MCHC RDW Plt Count MPV Neut % (Auto) Lymph % (Auto) [place] % (Auto) Eos % (Auto) Baso % (Auto) Neut # (Auto) Lymph # (Auto) [place] # (Auto) Eos # (Auto) Baso # (Auto) Neutrophils % (Manual) Band Neutrophils % Lymphocytes % (Manual) Monocytes % (Manual) Eosinophils % (Manual) Platelet Estimate Anisocytosis (manual) PT INR APTT Sodium 138 Potassium 4.4 Chloride 103 Carbon Dioxide 26 Anion Gap 14 BUN 30 H Creatinine 1.1 Est GFR ( Amer) > 60 Est GFR (Non-Af Amer) > 60 POC Glucose (mg/dL) Random Glucose 99 D Hemoglobin A1c 10.9 H Calcium 8.8 Total Bilirubin 1.2 AST 25 ALT 10 L Alkaline Phosphatase 101 Troponin I < 0.0120 Total Protein 8.0 Albumin 4.2 Globulin 3.8 Albumin/Globulin Ratio 1.1 Triglycerides 73 Cholesterol 161 LDL Cholesterol Direct 106 HDL Cholesterol 34 Blood Type O POSITIVE Antibody Screen Negative Assessment & Plan - Assessment and Plan (Free Text) Plan: 73 year old male with a past medical history of HTN, HLD, a fib, DMII, BPH, CHF who presents to the ER for slurred speech and feeling "woozy". TIA vs CVA - Symptoms resolved upon admission - Neuro consulted- Dr. Pierson - NIHSS 0 per neuro team - Neuro checks A4h - Per neuro team, Discontinued Xarelto and switched to Eliquis 5mg PO Q12h - Started Crestor 20mg PO HS Imaging: * CT head (11/02/18): no acute intracranial abnormalities. No significant findings to account for the clinical presentation. No significant interval change compared to the prior exams * Brain MRI: f/u * MRA head and neck: f/u * Echo: f/u Uncontrolled DMII - Accuchecks - Hypoglycemic protocol - ISS (medium) - A1c(11/02/18): 10.9 (A1c on 10/09/18- 12.8) HTN - Continue to monitor - Will start Losartan 25mg PO BID after imaging is complete (patient was discharged oin September 2018 with new RX Losartan 25mg PO BID, but never started it) - Will restart Coreg 25mg PO BID after imaging is complete HLD - Started Crestor 20mg PO HS - Lipid panel: TG 73, Chol 161, LDL 106, HDL 34 CHF - Continue home medication: Lasix 20mg PO daily - Started Crestor 20mg PO HS - Will start Losartan 25mg PO BID after imaging is complete (patient was d ischarged oin September 2018 with new RX Losartan 25mg PO BID, but never started it) - Will restart Coreg 25mg PO BID after imaging is complete AFib - Admitted to telemetry floor - EKG: afib, 82bpm - Per neuro, discontinued Xarelto and started Eliquis 5mg PO Q12h BPH - Continue home medication: Tamsulosin 0.4mg PO daily Prophylaxis - DVT: SCDs - GI: no indicated at this time - Heart healthy, low carb, low Na diet - Fall precautions - O2 via NC prn Case discussed with and patient seen with Dr. Haas (covering for Dr. Cisneros) Merari Bhagat, PGY2 <Bear Haas - Last Filed: 11/02/18 16:21> Results - Vital Signs Recent Vital Signs: Last Vital Signs Temp 96 F L 11/02/18 14:30 Pulse 92 H 11/02/18 14:30 Resp 22 11/02/18 14:30 BP 138/96 H 11/02/18 14:30 Pulse Ox 96 11/02/18 14:30 - Labs Result Diagrams: 11/02/18 11:07 11/02/18 11:08 Labs: Laboratory Results - last 24 hr 11/02/18 11/02/18 11/02/18 10:44 11:07 11:08 WBC 7.8 RBC 5.13 Hgb 14.5 D Hct 43.9 MCV 85.6 MCH 28.3 MCHC 33.0 RDW 15.5 H Plt Count 198 MPV 8.7 Neut % (Auto) 83.3 H Lymph % (Auto) 9.7 L [place] % (Auto) 5.4 Eos % (Auto) 1.1 Baso % (Auto) 0.5 Neut # (Auto) 6.4 Lymph # (Auto) 0.8 L [place] # (Auto) 0.4 Eos # (Auto) 0.1 Baso # (Auto) 0.0 Neutrophils % (Manual) 84 H Band Neutrophils % 2 Lymphocytes % (Manual) 8 L Monocytes % (Manual) 5 Eosinophils % (Manual) 1 Platelet Estimate Normal Anisocytosis (manual) Slight PT 13.6 H INR 1.2 APTT 36 H Sodium Potassium Chloride Carbon Dioxide Anion Gap BUN Creatinine Est GFR ( Amer) Est GFR (Non-Af Amer) POC Glucose (mg/dL) 87 Random Glucose Hemoglobin A1c Calcium Total Bilirubin AST ALT Alkaline Phosphatase Troponin I Total Protein Albumin Globulin Albumin/Globulin Ratio Triglycerides Cholesterol LDL Cholesterol Direct HDL Cholesterol Blood Type Antibody Screen 11/02/18 11/02/18 11/02/18 11:08 11:08 11:08 WBC RBC Hgb Hct MCV MCH MCHC RDW Plt Count MPV Neut % (Auto) Lymph % (Auto) [place] % (Auto) Eos % (Auto) Baso % (Auto) Neut # (Auto) Lymph # (Auto) [place] # (Auto) Eos # (Auto) Baso # (Auto) Neutrophils % (Manual) Band Neutrophils % Lymphocytes % (Manual) Monocytes % (Manual) Eosinophils % (Manual) Platelet Estimate Anisocytosis (manual) PT INR APTT Sodium 138 Potassium 4.4 Chloride 103 Carbon Dioxide 26 Anion Gap 14 BUN 30 H Creatinine 1.1 Est GFR ( Amer) > 60 Est GFR (Non-Af Amer) > 60 POC Glucose (mg/dL) Random Glucose 99 D Hemoglobin A1c 10.9 H Calcium 8.8 Total Bilirubin 1.2 AST 25 ALT 10 L Alkaline Phosphatase 101 Troponin I < 0.0120 Total Protein 8.0 Albumin 4.2 Globulin 3.8 Albumin/Globulin Ratio 1.1 Triglycerides 73 Cholesterol 161 LDL Cholesterol Direct 106 HDL Cholesterol 34 Blood Type O POSITIVE Antibody Screen Negative Attending/Attestation - Attestation I have personally seen and examined this patient.: Yes I have fully participated in the care of the patient.: Yes I have reviewed all pertinent clinical information: Yes
--- NOTE | 2018-11-02 13:31 | RAD ---
Date of service: 11/02/2018 HISTORY: Code Stroke COMPARISON: 10/23/2018. FINDINGS: LUNGS: No active pulmonary disease. PLEURA: No significant pleural effusion identified, no pneumothorax apparent. CARDIOVASCULAR: No atherosclerotic calcification present Cardiomegaly. No evidence of acute, significant cardiovascular disease. OSSEOUS STRUCTURES: No significant abnormalities. VISUALIZED UPPER ABDOMEN: Normal. OTHER FINDINGS: None. IMPRESSION: No active disease. No significant interval change compared to the prior examination(s).
--- NOTE | 2018-11-02 15:39 | MRI ---
Date of service: 11/02/2018 PROCEDURE: MR Angiography of the neck without contrast HISTORY: code stroke COMPARISON: None available. TECHNIQUE: 3D [id number] angiography of the neck was performed. Rotating maximum intensity projection images of the cervical carotid and vertebral arteries were generated. The origins of the common carotid arteries were not visualized, which is a limitation inherent to the non-contrast time of flight technique. The study is degraded by motion artifact. FINDINGS: RIGHT CAROTID ARTERIES: The right common carotid is not well visualized. However the internal carotid is patent and normal in appearance. There is motion artifact on the study LEFT CAROTID ARTERIES: Unremarkable VERTEBRAL ARTERIES: Right Vertebral Artery: Normal. Left Vertebral Artery: Normal. OTHER FINDINGS: None. IMPRESSION: Limited study. No evidence of occlusion or severe stenosis
--- NOTE | 2018-11-02 16:28 | MRI ---
Date of service: 11/02/2018 PROCEDURE: MRI BRAIN WITHOUT CONTRAST HISTORY: r/o CVA COMPARISON: None available. TECHNIQUE: Multiplanar, multisequence MR images of the brain were obtained without intravenous contrast enhancement. FINDINGS: Exam somewhat limited by motion artifact across most sequences. HEMORRHAGE: None DWI: No evidence of an acute or early subacute infarction. BRAIN PARENCHYMA: Good corticomedullary differentiation is seen. Reiterated diffuse cerebral atrophy and chronic microangiopathy. No suspicious extra-axial fluid collection is identified and the midline brain anatomy appears grossly nonfocal as imaged. No mass effect identified. VENTRICLES: Unremarkable. No hydrocephalus. CRANIUM: Unremarkable. ORBITS: Grossly unremarkable. PARANASAL SINUSES/MASTOIDS: Likely chronic left sinusitis reiterated with multifocal ethmoid sinusitis as well. Diffuse left mastoid effusion noted moderately. Limited right mastoid effusion in question as well. VASCULAR SYSTEM: Skull base flow voids intact. OTHER FINDINGS: None. IMPRESSION: Age-appropriate neuro degenerative findings are identified are reiterated grossly without acute changes. Motion artifacts limit the exam somewhat.
--- NOTE | 2018-11-02 16:32 | MRI ---
Date of service: 11/02/2018 PROCEDURE: Magnetic Resonance Angiography Brain HISTORY: code stroke COMPARISON: None available. TECHNIQUE: 3D time of flight MR angiography of the intracranial arteries was performed. Rotating maximum intensity projection images were generated. FINDINGS: INTERNAL CAROTID ARTERIES: Note is made of mild atherosclerosis of the bilateral cavernous internal carotid artery segments without significant stenosis. The skull base, petrous, and supraclinoid segments are bilaterally widely patent. ANTERIOR CEREBRAL ARTERIES: Unremarkable. A1 and A2 segments are widely patent. Smaller distal branches poorly characterized potentially due to motion artifacts. MIDDLE CEREBRAL ARTERIES: Unremarkable. M1 and M2 segments are widely patent. Smaller distal branches poorly characterized potentially due to motion artifacts. POSTERIOR CIRCULATION: Basilar Artery: Unremarkable. Distal Vertebral Arteries: Balance vertebrobasilar circulation. Posterior Cerebral Arteries: Unremarkable. Posterior Inferior Cerebellar Arteries: Unremarkable. ANEURYSM/ VASCULAR MALFORMATIONS: None. OTHER FINDINGS: None. IMPRESSION: Limited exam due to motion artifacts. Primary and secondary branches of the main [id number] arterial anatomy appear widely patent with tertiary branches limited due to motion artifact in part at least. Symmetric blood flows appreciated in the visualized [id number] anatomy. Limited bilateral cavernous ICA atherosclerosis. No significant stenosis appreciate the visualized internal carotid artery segments bilaterally. Widely patent vertebrobasilar circulation.
[2018-11-02 16:35] VITALS: RESP 20
[2018-11-02] MEDS: (Novolin R) Insulin Human Regular 100 units/ml vial SC SCH ×2 (17:17→21:16)
[2018-11-03 01:19] LABS: SQUAMOUS EPITHIAL < 1 /hpf (0-5); URINE BILIRUBIN NEGATIVE (NEGATIVE); URINE BLOOD 1+ (NEGATIVE); URINE CLARITY Hazy (Clear); URINE COLOR Yellow (YELLOW); URINE GLUCOSE (UA) 1+ mg/dL (Normal); URINE PROTEIN 2+ mg/dL (NEGATIVE); URINE UROBILINOGEN NORMAL mg/dL (0.2-1.0)
[2018-11-03 01:32] LABS: URINE LEUKOCYTE ESTERASE TRACE Leu/uL (Negative)
[2018-11-03] MEDS: Sodium Chloride 0.9% 1,000 ML IV SCH ×2 (03:35→08:19)
[2018-11-03 07:41] LABS: BASO % 0.6 % (0.0-2.0); EOS # 0.3 K/uL (0.0-0.7); LYMPH # 1.3 K/uL (1.0-4.3); LYMPH % 19.3 % (20.0-40.0); MEAN CELL VOLUME 84.2 fL (80.0-94.0); MEAN CORPUSCULAR HGB CONC 33.3 g/dL (33.0-37.0); MEAN PLATELET VOLUME 8.5 fL (7.2-11.7); MONO # 0.6 K/uL (0.0-0.8); NEUT # 4.5 K/uL (1.8-7.0); NEUT % 66.1 % (50.0-75.0); NRBC % 0.2 % (0.0-2.0); RBC 4.43 Mil/uL (4.40-5.90); RED CELL DISTRIBUTION WIDTH 15.3 % (11.5-14.5); WHITE BLOOD COUNT 6.8 K/uL (4.8-10.8)
[2018-11-03 07:42] LABS: HEMOGLOBIN 12.4 g/dL (12.0-18.0)
--- NOTE | 2018-11-03 07:45 | CP.PCM.PN ---
Subjective - Date & Time of Evaluation Date of Evaluation: 11/03/18 Time of Evaluation: 07:34 - Subjective Subjective: Progress note for Dr. Haas (Covering for Dr. Cisneros) Objective - Vital Signs/Intake and Output Vital Signs (last 24 hours): Temp Pulse Resp BP Pulse Ox 98.5 F 80 20 135/72 95 11/02/18 23:10 11/03/18 05:00 11/02/18 23:10 11/02/18 23:10 11/02/18 23:10 - Medications Medications: Current Medications Apixaban (Eliquis) 5 mg PO Q12H [facility] Last Admin: 11/02/18 21:32 Dose: 5 mg Sodium Chloride (Sodium Chloride 0.9%) 1,000 mls @ 100 mls/hr IV .Q10H [facility] Last Admin: 11/03/18 03:35 Dose: 100 mls/hr Influenza Virus Vaccine (Flucelvax Quad [id number] Syr) 60 mcg IM .ONCE ONE Stop: 11/04/18 10:01 Insulin Human Regular (Novolin R) 0 unit [facility]; Protocol Last Admin: 11/02/18 21:16 Dose: Not Given Pneumococcal Polyvalent Vaccine (Pneumovax 23 Vaccine) 0.5 ml IM .ONCE ONE Stop: 11/04/18 10:01 Rosuvastatin Calcium (Crestor) 20 mg PO [facility] Last Admin: 11/02/18 21:31 Dose: 20 mg - Labs Labs: 11/02/18 11:07 11/02/18 11:08 PT 13.6 SECONDS (9.7-12.2) H 11/02/18 11:08 INR 1.2 11/02/18 11:08 APTT 36 SECONDS (21-34) H 11/02/18 11:08 - Additional Findings Additional findings: - Constitutional Appears: No Acute Distress - Head Exam Head Exam: NORMAL INSPECTION - Eye Exam Eye Exam: EOMI, Normal appearance (Right eye; left eye s/p cataract surgery) - ENT Exam ENT Exam: Mucous Membranes Moist - Respiratory Exam Respiratory Exam: NORMAL BREATHING PATTERN. absent: Accessory Muscle Use, Rales, Wheezes, Respiratory Distress - Cardiovascular Exam Cardiovascular Exam: Irregular Rhythm, +S1, +S2 - GI/Abdominal Exam GI & Abdominal Exam: Normal Bowel Sounds, Soft. absent: Distended, Firm, Guarding, Tenderness - Extremities Exam Extremities exam: Positive for: pedal pulses present. Negative for: calf tende rness, pedal edema, tenderness Additional comments: Dry skin b/l LE - Neurological Exam Neurological exam: Alert, CN II-XII Intact, Oriented x3 Additional comments: 5/5 strength in room attendant, UE and LE b/l - Psychiatric Exam Psychiatric exam: Normal Affect, Normal Mood - Skin Skin Exam: Dry, Intact, Normal Color Assessment and Plan - Assessment and Plan (Free Text) Plan: 73 year old male with a past medical history of HTN, HLD, a fib, DMII, BPH, CHF who presents to the ER for slurred speech and feeling "woozy". TIA vs CVA - Symptoms resolved upon admission - Neuro consulted- Dr. Pierson - NIHSS 0 per neuro team - Neuro checks A4h - Per neuro team, Discontinued Xarelto and switched to Eliquis 5mg PO Q12h - Started Crestor 20mg PO HS Imaging: * CT head (11/02/18): no acute intracranial abnormalities. No significant findings to account for the clinical presentation. No significant interval change compared to the prior exams * Brain MRI: age appropriate neurodegenertive findings; no acute changes. * MRA head: limited b/l cavernous ICA atherosclerosis; no significant stenosis in internal carotids arteries b/l; [place] patent vertebrobasilar circulation; [place] widely patent * MRA neck: no evidence of occlusion or severe stenosis * Echo: f/u Uncontrolled DMII - Accuchecks - Hypoglycemic protocol - ISS (medium) - A1c(11/02/18): 10.9 (A1c on 10/09/18- 12.8) HTN - Continue to monitor - Started Losartan 25mg PO BID (patient was discharged in September 2018 with new RX Losartan 25mg PO BID, but never started it) - Continue Coreg 25mg PO BID HLD - Started Crestor 20mg PO HS - Lipid panel: TG 73, Chol 161, LDL 106, HDL 34 CHF - Continue home medication: Lasix 20mg PO daily - Started Crestor 20mg PO HS - Started Losartan 25mg PO BID (patient was discharged in September 2018 with new RX Losartan 25mg PO BID, but never started it) - Continue Coreg 25mg PO BID AFib - Admitted to telemetry floor - EKG: afib, 82bpm - Per neuro, discontinued Xarelto and started Eliquis 5mg PO Q12h BPH - Continue home medication: Tamsulosin 0.4mg PO daily Prophylaxis - DVT: SCDs - GI: no indicated at this time - Heart healthy, low carb, low Na diet - Fall precautions - O2 via NC prn Case discussed with and patient seen with Dr. Haas (covering for Dr. Cisneros) Merari Bhagat, PGY2
[2018-11-03 07:50] LABS: ALBUMIN 3.3 g/dL (3.5-5.0); ALT/SGPT 13 U/L (21-72); AST/SGOT 21 U/L (17-59); BLOOD UREA NITROGEN 32 mg/dL (9-20); CALCIUM 8.1 mg/dl (8.6-10.4); GFR NON-AFRICAN AMERICAN 54
[2018-11-03] MEDS: (Novolin R) Insulin Human Regular 100 units/ml vial SC SCH ×2 (08:07→12:22)
[2018-11-03] MEDS ORDERED: guaiFENesin 100 mg/5 ml Syrup UD PO PRN (09:38)
--- NOTE | 2018-11-03 10:48 | CARD ---
APPROVED REPORT Date of service: 11/02/2018 EKG Measurement Heart [id number] <Conclusion> Atrial fibrillation Right bundle branch block Abnormal ECG
--- NOTE | 2018-11-03 11:54 | CARD ---
APPROVED REPORT Date of service: 11/03/2018 EXAM: Two-dimensional and M-mode echocardiogram with Doppler and color Doppler. Other Information Quality : GoodRhythm : RISK FACTORS Hypertension Hyperlipidemia Diabetes 2D DIMENSIONS IVSd0.9 (0.7-1.1cm)LVDd4.8 (3.9-5.9cm) PWd1.0 (0.7-1.1cm)LA Yijiff47 (18-58mL) LVDs3.4 (2.5-4.0cm)FS (%) 28.5 % LVEF (%)54.9 (>50%)LVEF (Hardin's)51.12 % M-Mode DIMENSIONS Left Atrium (MM)4.45 (2.5-4.0cm)IVSd1.08 (0.7-1.1cm) Aortic Root3.91 (2.2-3.7cm)LVDd6.40 (4.0-5.6cm) Aortic Cusp Exc.2.33 (1.5-2.0cm)PWd0.83 (0.7-1.1cm) FS (%) 33 %LVDs4.27 (2.0-3.8cm) LVEF (%)61 (>50%) Mitral Valve MV E Fzeyiucb58.8cm/sMV A Jxdyasev43.5cm/sE/A ratio1.1 TDI Lateral E' Peak V8.09cm/sMedial E' Peak V6.42cm/sE/Lateral E'10.4 E/Medial E'13.1 Tricuspid Valve TR Peak Dicdhzqv068ho/sTR Peak Gr.[id number] LEFT VENTRICLE The Left Ventricle is moderately dilated. There is normal left ventricular wall thickness. The Ejection Fraction is 50-55%. There is normal LV segmental wall motion. Transmitral Doppler flow pattern is normal for age. RIGHT VENTRICLE The right ventricle is normal size. The right ventricular systolic function is normal. ATRIA The left atrium is moderately dilated. The right atrium size is normal. The interatrial septum is intact with no evidence for an atrial septal defect. AORTIC VALVE The aortic valve is mildly sclerotic. The aortic valve is trileaflet. No aortic regurgitation is present. MITRAL VALVE Mitral annular calcification is moderate. Mitral regurgitation is mild. TRICUSPID VALVE The tricuspid valve is normal in structure. There is mild tricuspid regurgitation. Right ventricular systolic pressure is estimated at 37 mmHg. There is mild pulmonary hypertension. PULMONIC VALVE The pulmonary valve is normal in structure. GREAT VESSELS The aortic root is normal size. The aortic root displays mild sclerocalcific changes of the aortic root. The IVC is mildly dilated.2.3 cm. PERICARDIAL EFFUSION There is no pericardial effusion. <Conclusion> The Left Ventricle is moderately dilated. The Ejection Fraction is 50-55%. Transmitral Doppler flow pattern is normal for age. The left atrium is moderately dilated. Mitral annular calcification is moderate. Mitral regurgitation is mild. There is mild tricuspid regurgitation. Right ventricular systolic pressure is estimated at 37 mmHg. There is mild pulmonary hypertension. The aortic root is normal size. The aortic root displays mild sclerocalcific changes of the aortic root. The IVC is mildly dilated.2.3 cm. There is no pericardial effusion.
--- NOTE | 2018-11-03 13:25 | CP.PCM.DIS ---
<Merari Eller - Last Filed: 11/03/18 13:42> Provider - Provider Date of Admission: 11/02/18 12:36 Attending physician: Larisa Sotelo DO Primary care physician: Dr. Cisneros Consults: 11/02/18 10:59 Stroke Team Consult Stat Comment: Consulting Provider: Neurohospitalist Consulting Physician: NEUROHOSP Neurohospitalist for Consult: Pio Pierson Neurohospitalist for Consult: Jose Rafael Tipton Reason for Consult: VERTIGO DIZZY Time Spent in preparation of Discharge (in minutes): 45 Hospital Course - Lab Results Lab Results: Most Recent Lab Values WBC 6.8 K/uL (4.8-10.8) 11/03/18 07:23 RBC 4.43 Mil/uL (4.40-5.90) 11/03/18 07:23 Hgb 12.4 g/dL (12.0-18.0) D 11/03/18 07:23 Hct 37.3 % (35.0-51.0) 11/03/18 07:23 MCV 84.2 fL (80.0-94.0) 11/03/18 07:23 MCH 28.0 pg (27.0-31.0) 11/03/18 07:23 MCHC 33.3 g/dL (33.0-37.0) 11/03/18 07:23 RDW 15.3 % (11.5-14.5) H 11/03/18 07:23 Plt Count 176 K/uL (130-400) 11/03/18 07:23 MPV 8.5 fL (7.2-11.7) 11/03/18 07:23 Neut % (Auto) 66.1 % (50.0-75.0) 11/03/18 07:23 Lymph % (Auto) 19.3 % (20.0-40.0) L 11/03/18 07:23 [place] % (Auto) 9.0 % (0.0-10.0) 11/03/18 07:23 Eos % (Auto) 5.0 % (0.0-4.0) H 11/03/18 07:23 Baso % (Auto) 0.6 % (0.0-2.0) 11/03/18 07:23 Neut # (Auto) 4.5 K/uL (1.8-7.0) 11/03/18 07:23 Lymph # (Auto) 1.3 K/uL (1.0-4.3) 11/03/18 07:23 [place] # (Auto) 0.6 K/uL (0.0-0.8) 11/03/18 07:23 Eos # (Auto) 0.3 K/uL (0.0-0.7) 11/03/18 07:23 Baso # (Auto) 0.0 K/uL (0.0-0.2) 11/03/18 07:23 Neutrophils % (Manual) 84 % (50-75) H 11/02/18 11:07 Band Neutrophils % 2 % (0-2) 11/02/18 11:07 Lymphocytes % (Manual) 8 % (20-40) L 11/02/18 11:07 Monocytes % (Manual) 5 % (0-10) 11/02/18 11:07 Eosinophils % (Manual) 1 % (0-4) 11/02/18 11:07 Platelet Estimate Normal (NORMAL) 11/02/18 11:07 Anisocytosis (manual) Slight 11/02/18 11:07 PT 13.6 SECONDS (9.7-12.2) H 11/02/18 11:08 INR 1.2 11/02/18 11:08 APTT 36 SECONDS (21-34) H 11/02/18 11:08 Sodium 135 mmol/L (132-148) 11/03/18 07:23 Potassium 3.8 mmol/L (3.6-5.2) 11/03/18 07:23 Chloride 102 mmol/L (98-107) 11/03/18 07:23 Carbon Dioxide 24 mmol/L (22-30) 11/03/18 07:23 Anion Gap 13 (10-20) 11/03/18 07:23 BUN 32 mg/dL (9-20) H 11/03/18 07:23 Creatinine 1.3 mg/dL (0.8-1.5) 11/03/18 07:23 Est GFR ( Amer) > 60 11/03/18 07:23 Est GFR (Non-Af Amer) 54 11/03/18 07:23 POC Glucose (mg/dL) 213 mg/dL (65-110) H 11/03/18 06:35 Random Glucose 193 mg/dL (75-110) H D 11/03/18 07:23 Hemoglobin A1c 10.9 % (4.2-6.5) H 11/02/18 11:08 Calcium 8.1 mg/dl (8.6-10.4) L 11/03/18 07:23 Total Bilirubin 0.9 mg/dL (0.2-1.3) 11/03/18 07:23 AST 21 U/L (17-59) 11/03/18 07:23 ALT 13 U/L (21-72) L D 11/03/18 07:23 Alkaline Phosphatase 79 U/L (38-126) 11/03/18 07:23 Troponin I < 0.0120 ng/mL (0.00-0.120) 11/02/18 11:08 Total Protein 6.5 g/dL (6.3-8.3) 11/03/18 07:23 Albumin 3.3 g/dL (3.5-5.0) L D 11/03/18 07:23 Globulin 3.2 gm/dL (2.2-3.9) 11/03/18 07:23 Albumin/Globulin Ratio 1.0 (1.0-2.1) 11/03/18 07:23 Triglycerides 73 mg/dL (0-149) 11/02/18 11:08 Cholesterol 161 mg/dL (0-199) 11/02/18 11:08 LDL Cholesterol Direct 106 mg/dL (0-129) 11/02/18 11:08 HDL Cholesterol 34 mg/dL (30-70) 11/02/18 11:08 Urine Color Yellow (YELLOW) 11/03/18 00:44 Urine Clarity Hazy (Clear) 11/03/18 00:44 Urine pH 5.0 (5.0-8.0) 11/03/18 00:44 Ur Specific [place] 1.017 (1.003-1.030) 11/03/18 00:44 Urine Protein 2+ mg/dL (NEGATIVE) H 11/03/18 00:44 Urine Glucose (UA) 1+ mg/dL (Normal) H 11/03/18 00:44 Urine Ketones Negative mg/dL (NEGATIVE) 11/03/18 00:44 Urine Blood 1+ (NEGATIVE) H 11/03/18 00:44 Urine Nitrate Negative (NEGATIVE) 11/03/18 00:44 Urine Bilirubin Negative (NEGATIVE) 11/03/18 00:44 Urine Urobilinogen Normal mg/dL (0.2-1.0) 11/03/18 00:44 Ur Leukocyte Esterase Trace Tan/uL (Negative) H 11/03/18 00:44 Urine WBC (Auto) 10 /hpf (0-5) H 11/03/18 00:44 Urine RBC (Auto) 1 /hpf (0-3) 11/03/18 00:44 Ur Squamous Epith Cells < 1 /hpf (0-5) 11/03/18 00:44 Blood Type O POSITIVE 11/02/18 11:08 Antibody Screen Negative 11/02/18 11:08 - Hospital Course Hospital Course: HPI: Patient is a 73 year old male with a past medical history of HTN, HLD, a fib, DMII, BPH, CHF who presents to the ER for slurred speech and feeling "woozy". The patient states his woke him up this morning at 9:30am and noticed he has slurred speech. The patient got out of bed to walk and thats when the wooziness started. He says he only feels woozy when walking or with changes in position. He currently denies feeling woozy, dizzy, lightheaded or having slurred speech. He also denies weakness, numbness, and tingling. Of note patient just had cataract surgery of his left eye yesterday and has blurry vision out of that eye. He has not taken any of his medications since the night before his surgery on 10/31/18. Hospital course: Patient was admitted on 11/02/18 for TIA vs vertigo. Code stroke was called. ER physician performed NIH stroke scale (score of 1). Neurologist, Dr Pierson, was consulted and saw the patient. Neurologists NIHSS was 0. Patient had a head CT done which was negative for acute abnormalities. Patient was asymptomatic while in the ER and throughout hospital course. Patient then had a brain MRI, MRA of the head and neck which were all negative for acute changes. Echocardiogram was performed to rule out clots/thrombi, which there were none noted on the echo. The patient's hypertension medications were adjusted. Patient was started on aspirin and crestor. Per neurology, xarelto was discontinued and patient was started on Eliquis 5mg PO BID. Patient is stable for discharge to home. Patient must take all medications as instructed both verbally and in disch arge instructions (medications were discussed at length with the patient and the patient understood). Patient must followup with PMD Dr Cisneros within one week of discharge. Imaging: * CT head (11/02/18): no acute intracranial abnormalities. No significant findings to account for the clinical presentation. No significant interval change compared to the prior exams * Brain MRI: age appropriate neurodegenertive findings; no acute changes. * MRA head: limited b/l cavernous ICA atherosclerosis; no significant stenosis in internal carotids arteries b/l; widely patent vertebrobasilar circulation; [place] widely patent * MRA neck: no evidence of occlusion or severe stenosis * Echo: EF 50-55%, LV/LA moderately dilated, mitral annular calcification is moderate; mild TR, mild pulm htn, aortic root displays mild sclerocalcific changed; IVC is mildly dilated 2.3cm; no pericardial effusion. Discharge instructions: Patient must continue the following medications: - Coreg 12.5mg PO BID- take 1 tablet every 12 hours (morning and evening) - Losartan 25mg PO daily- take 1 tablet in the morning - Aspirin 81mg PO daily- take 1 tablet in the morning - Crestor 20mg PO HS- take 1 tablet in the evening - Eliquis 5mg PO BID- take 1 tablet every 12 hours (morning and evening) - Lasix 20mg PO daily - Tamsulosin 0.4mg PO daily - Continue taking your Insulin as your PMD prescribed * Discontinue taking xarelto- you are now taking Eliquis instead of Xarelto. * Please take Coreg 12.5mg twice a day- not 25mg twice a day. Please make an appointment with your PMD, Dr. Cisneros, within one week of discharge. If symptoms worsen or reoccur, patient should return to the nearest ER. This is a brief summary of the hospital course. Please see EMR for more details. Discharge Exam - Additional Findings Additional findings: - Constitutional Appears: No Acute Distress - Head Exam Head Exam: NORMAL INSPECTION - Eye Exam Eye Exam: EOMI, Normal appearance (Right eye; left eye s/p cataract surgery) - ENT Exam ENT Exam: Mucous Membranes Moist - Respiratory Exam Respiratory Exam: NORMAL BREATHING PATTERN. absent: Accessory Muscle Use, Rales, Wheezes, Respiratory Distress - Cardiovascular Exam Cardiovascular Exam: Irregular Rhythm, +S1, +S2 - GI/Abdominal Exam GI & Abdominal Exam: Normal Bowel Sounds, Soft. absent: Distended, Firm, Guarding, Tenderness - Extremities Exam Extremities exam: Positive for: pedal pulses present. Negative for: calf tenderness, pedal edema, tenderness Additional comments: Dry skin b/l LE - Neurological Exam Neurological exam: Alert, CN II-XII Intact, Oriented x3 Additional comments: 5/5 strength in spot remover, UE and LE b/l - Psychiatric Exam Psychiatric exam: Normal Affect, Normal Mood - Skin Skin Exam: Dry, Intact, Normal Color Discharge Plan - Discharge Medications Prescriptions: RX: Apixaban [Eliquis] 5 mg PO Q12H #60 tab RX: Aspirin [Aspirin Chewable] 81 mg PO DAILY #30 chew Carvedilol [Coreg] 12.5 mg PO BID #60 tab RX: Furosemide [Lasix] 20 mg PO DAILY #30 tab RX: Losartan [Cozaar] 25 mg PO DAILY #30 tab RX: Rosuvastatin Calcium [Crestor] 20 mg PO HS #30 tab - Follow Up Plan Condition: STABLE Disposition: HOME/ ROUTINE Instructions: Heart Healthy Diet, Heart Failure, Adult (DC), Transient Ischemic Attack (DC), Dizziness, Nonvertigo, (DC), Apixaban, Carvedilol, Losartan, Rosuvastatin Additional Instructions: Patient is stable for discharge to home per Dr. Haas and Dr. Pierson. Patient must continue the following medications: - Coreg 12.5mg PO BID- take 1 tablet every 12 hours (morning and evening) - Losartan 25mg PO daily- take 1 tablet in the morning - Aspirin 81mg PO daily- take 1 tablet in the morning - Crestor 20mg PO HS- take 1 tablet in the evening - Eliquis 5mg PO BID- take 1 tablet every 12 hours (morning and evening) - Lasix 20mg PO daily - Tamsulosin 0.4mg PO daily - Continue taking your Insulin as your PMD prescribed * Discontinue taking xarelto- you are now taking Eliquis instead of Xarelto. * Please take COreg 12.5mg twice a day- not 25mg twice a day. Please make an appointment with your PMD, Dr. Cisneros, within one week of discharge. If symptoms worsen or reoccur, patient should return to the nearest ER. Referrals: Adalberto Cisneros MD [Staff Provider] - <Bear Haas - Last Filed: 11/03/18 17:22> Provider - Provider Date of Admission: 11/02/18 12:36 Attending physician: Larisa Sotelo DO Consults: 11/02/18 10:59 Stroke Team Consult Stat Comment: Consulting Provider: Neurohospitalist Consulting Physician: NEUROHOSP Neurohospitalist for Consult: Pio Pierson Neurohospitalist for Consult: Jose Rafael Tipton Reason for Consult: VERTIGO DIZZY 11/03/18 15:16 Case Management Referral Routine Comment: Physician Instructions: Reason For Exam: Reason for Referral: [facility] Course - Lab Results Lab Results: Most Recent Lab Values WBC 6.8 K/uL (4.8-10.8) 11/03/18 07:23 RBC 4.43 Mil/uL (4.40-5.90) 11/03/18 07:23 Hgb 12.4 g/dL (12.0-18.0) D 11/03/18 07:23 Hct 37.3 % (35.0-51.0) 11/03/18 07:23 MCV 84.2 fL (80.0-94.0) 11/03/18 07:23 MCH 28.0 pg (27.0-31.0) 11/03/18 07:23 MCHC 33.3 g/dL (33.0-37.0) 11/03/18 07:23 RDW 15.3 % (11.5-14.5) H 11/03/18 07:23 Plt Count 176 K/uL (130-400) 11/03/18 07:23 MPV 8.5 fL (7.2-11.7) 11/03/18 07:23 Neut % (Auto) 66.1 % (50.0-75.0) 11/03/18 07:23 Lymph % (Auto) 19.3 % (20.0-40.0) L 11/03/18 07:23 [place] % (Auto) 9.0 % (0.0-10.0) 11/03/18 07:23 Eos % (Auto) 5.0 % (0.0-4.0) H 11/03/18 07:23 Baso % (Auto) 0.6 % (0.0-2.0) 11/03/18 07:23 Neut # (Auto) 4.5 K/uL (1.8-7.0) 11/03/18 07:23 Lymph # (Auto) 1.3 K/uL (1.0-4.3) 11/03/18 07:23 [place] # (Auto) 0.6 K/uL (0.0-0.8) 11/03/18 07: Eos # (Auto) 0.3 K/uL (0.0-0.7) 11/03/18 07:23 Baso # (Auto) 0.0 K/uL (0.0-0.2) 11/03/18 07:23 Neutrophils % (Manual) 84 % (50-75) H 11/02/18 11:07 Band Neutrophils % 2 % (0-2) 11/02/18 11:07 Lymphocytes % (Manual) 8 % (20-40) L 11/02/18 11:07 Monocytes % (Manual) 5 % (0-10) 11/02/18 11:07 Eosinophils % (Manual) 1 % (0-4) 11/02/18 11:07 Platelet Estimate Normal (NORMAL) 11/02/18 11:07 Anisocytosis (manual) Slight 11/02/18 11:07 PT 13.6 SECONDS (9.7-12.2) H 11/02/18 11:08 INR 1.2 11/02/18 11:08 APTT 36 SECONDS (21-34) H 11/02/18 11:08 Sodium 135 mmol/L (132-148) 11/03/18 07:23 Potassium 3.8 mmol/L (3.6-5.2) 11/03/18 07:23 Chloride 102 mmol/L (98-107) 11/03/18 07:23 Carbon Dioxide 24 mmol/L (22-30) 11/03/18 07:23 Anion Gap 13 (10-20) 11/03/18 07:23 BUN 32 mg/dL (9-20) H 11/03/18 07:23 Creatinine 1.3 mg/dL (0.8-1.5) 11/03/18 07:23 Est GFR ( Amer) > 60 11/03/18 07:23 Est GFR (Non-Af Amer) 54 11/03/18 07:23 POC Glucose (mg/dL) 213 mg/dL (65-110) H 11/03/18 06:35 Random Glucose 193 mg/dL (75-110) H D 11/03/18 07:23 Hemoglobin A1c 10.9 % (4.2-6.5) H 11/02/18 11:08 Calcium 8.1 mg/dl (8.6-10.4) L 11/03/18 07:23 Total Bilirubin 0.9 mg/dL (0.2-1.3) 11/03/18 07:23 AST 21 U/L (17-59) 11/03/18 07:23 ALT 13 U/L (21-72) L D 11/03/18 07:23 Alkaline Phosphatase 79 U/L (38-126) 11/03/18 07:23 Troponin I < 0.0120 ng/mL (0.00-0.120) 11/02/18 11:08 Total Protein 6.5 g/dL (6.3-8.3) 11/03/18 07:23 Albumin 3.3 g/dL (3.5-5.0) L D 11/03/18 07:23 Globulin 3.2 gm/dL (2.2-3.9) 11/03/18 07:23 Albumin/Globulin Ratio 1.0 (1.0-2.1) 11/03/18 07:23 Triglycerides 73 mg/dL (0-149) 11/02/18 11:08 Cholesterol 161 mg/dL (0-199) 11/02/18 11:08 LDL Cholesterol Direct 106 mg/dL (0-129) 11/02/18 11:08 HDL Cholesterol 34 mg/dL (30-70) 11/02/18 11:08 Urine Color Yellow (YELLOW) 11/03/18 00:44 Urine Clarity Hazy (Clear) 11/03/18 00:44 Urine pH 5.0 (5.0-8.0) 11/03/18 00:44 Ur Specific [place] 1.017 (1.003-1.030) 11/03/18 00:44 Urine Protein 2+ mg/dL (NEGATIVE) H 11/03/18 00:44 Urine Glucose (UA) 1+ mg/dL (Normal) H 11/03/18 00:44 Urine Ketones Negative mg/dL (NEGATIVE) 11/03/18 00:44 Urine Blood 1+ (NEGATIVE) H 11/03/18 00:44 Urine Nitrate Negative (NEGATIVE) 11/03/18 00:44 Urine Bilirubin Negative (NEGATIVE) 11/03/18 00:44 Urine Urobilinogen Normal mg/dL (0.2-1.0) 11/03/18 00:44 Ur Leukocyte Esterase Trace Tan/uL (Negative) H 11/03/18 00:44 Urine WBC (Auto) 10 /hpf (0-5) H 11/03/18 00:44 Urine RBC (Auto) 1 /hpf (0-3) 11/03/18 00:44 Ur Squamous Epith Cells < 1 /hpf (0-5) 11/03/18 00:44 Blood Type O POSITIVE 11/02/18 11:08 Antibody Screen Negative 11/02/18 11:08 Attending/Attestation - Attestation I have personally seen and examined this patient.: Yes I have fully participated in the care of the patient.: Yes I have reviewed all pertinent clinical information, including history, physical exam and plan: Yes
[2018-11-03] MEDS ORDERED: Influenza Vaccine 60 mcg/0.5 mL SYR (4YR UP) IM ONE (14:04)
--- NOTE | 2018-11-03 14:57 | CP.PCM.PN ---
<Namita Jaimes - Last Filed: 11/03/18 14:52> Subjective - Date & Time of Evaluation Date of Evaluation: 11/03/18 Time of Evaluation: 11:00 - Subjective Subjective: PGY2- Neuro Progress Note for Dr. Pierson Patient seen and examined at bedside. Patient has no complaints. Patient denies any headache, dizziness, chest pain, shortness of breath, nausea, vomiting, constipation, or diarrhea. Objective - Vital Signs/Intake and Output Vital Signs (last 24 hours): Temp Pulse Resp BP Pulse Ox 98.3 F 92 H 20 143/75 95 11/03/18 07:00 11/03/18 07:36 11/03/18 07:00 11/03/18 10:08 11/03/18 08:44 - Medications Medications: Current Medications Apixaban (Eliquis) 5 mg PO Q12H [facility] Last Admin: 11/03/18 10:08 Dose: 5 mg Aspirin (Aspirin Chewable) 81 mg PO DAILY [facility] Carvedilol (Coreg) 25 mg PO BID [facility] Last Admin: 11/03/18 10:08 Dose: 25 mg Furosemide (Lasix) 20 mg PO DAILY [facility] Last Admin: 11/03/18 10:08 Dose: 20 mg Guaifenesin (Robitussin) 100 mg PO Q4H PRN PRN Reason: Cough Last Admin: 11/03/18 10:08 Dose: 100 mg Sodium Chloride (Sodium Chloride 0.9%) 1,000 mls @ 100 mls/hr IV .Q10H [facility] Last Admin: 11/03/18 08:19 Dose: Not Given Insulin Human Regular (Novolin R) 0 unit SC [facility]; Protocol Last Admin: 11/03/18 12:22 Dose: 3 u Pneumococcal Polyvalent Vaccine (Pneumovax 23 Vaccine) 0.5 ml IM .ONCE ONE Stop: 11/04/18 10:01 Rosuvastatin Calcium (Crestor) 20 mg PO [facility] Last Admin: 11/02/18 21:31 Dose: 20 mg - Labs Labs: 11/03/18 07:23 11/03/18 07:23 PT 13.6 SECONDS (9.7-12.2) H 11/02/18 11:08 INR 1.2 11/02/18 11:08 APTT 36 SECONDS (21-34) H 11/02/18 11:08 - Additional Findings Additional findings: - Constitutional Appears: Non-toxic, No Acute Distress - Head Exam Head Exam: ATRAUMATIC, NORMAL INSPECTION, NORMOCEPHALIC - Eye Exam Additional comments: left eye with patch s/p cataract surgery - ENT Exam ENT Exam: Mucous Membranes Moist - Respiratory Exam Respiratory Exam: Clear to Auscultation Bilateral, NORMAL BREATHING PATTERN - Cardiovascular Exam Cardiovascular Exam: Irregular Rhythm, +S1, +S2 - GI/Abdominal Exam GI & Abdominal Exam: Normal Bowel Sounds, Soft. absent: Tenderness - Extremities Exam Extremities exam: Negative for: tenderness Additional comments: chronic venous stasis changes. - Back Exam Back exam: NORMAL INSPECTION - Neurological Exam Neurological exam: Alert, CN II-XII Intact, Oriented x3 - Expanded Neurological Exam Expanded Patient oriented to: person, place, time Neuro motor strength exam: Left Upper Extremity: 5, Right Upper Extremity: 5, Left Lower Extremity: 5, Right Lower Extremity: 5 - Psychiatric Exam Psychiatric exam: Normal Affect, Normal Mood - Skin Skin Exam: Intact, Normal Color, Warm Assessment and Plan - Assessment and Plan (Free Text) Assessment: TIA vs Vertigo light headedness and slurred speech resolved upon admission NIHSS: 0 CT head (11/02/18): no acute intracranial abnormalities. No significant findings to account for the clinical presentation. No significant interval change compared to the prior exams brain MRI (11/02/18): age appropriate neuro degenerative findings are identified are reiterated grossly without acute changes. motion artifacts limit exam somewhat head MRA (11/02/18): limited exam due to motion artifacts. primary and secondary branches of the main [facility] arterial anatomy appear widely patent with tertiary branches limited due to motion artifact in part at least. symmetric blood flows appreciated in the visualized [facility] anatomy. limited bilateral cavernous ICA atherosclerosis. No significant stenosis appreciate the visualized internal carotid artery segments bilaterally. Widely patent verteb robasilar circulation. neck MRA (11/02/18):limited study. no evidence of occlusion or severe stenosis. echo (11/02/18) EF 50-55%, Left Ventricle is moderately dilated. mitral regurg is mild, mild tricuspid regurg. mild pulm htn, ivc is mildly dilated 2.3cm. no pericardial effusion. HgA1C: 10.9 lipid panel: Triglycerides: 73, Cholesterol 161, LDL 106, HDL 34 patient on xarelto--switch to Eliquis 5mg po q12h Please re-consult neuro of any acute changes in pt's condition or mental status Discussed with Dr. Dangelo Jaimes, PGY2 <Pio Pierson - Last Filed: 11/06/18 14:14> Objective - Vital Signs/Intake and Output Vital Signs (last 24 hours): Temp Pulse Resp BP Pulse Ox 98.0 F 70 20 144/76 94 L 11/03/18 16:00 11/03/18 16:00 11/03/18 16:00 11/03/18 17:46 11/03/18 16:00 - Labs Labs: 11/03/18 07:23 11/03/18 07:23 PT 13.6 SECONDS (9.7-12.2) H 11/02/18 11:08 INR 1.2 11/02/18 11:08 APTT 36 SECONDS (21-34) H 11/02/18 11:08 Attending/Attestation - Attestation I have personally seen and examined this patient.: Yes I have fully participated in the care of the patient.: Yes I have reviewed all pertinent clinical information, including history, physical exam and plan: Yes Notes (Text): I agree with the assessment and plan. The patient was symptomatic on Xarelto, will switch to Eliquis.
[2018-11-03 17:46] VITALS: BP 144/76
[2018-11-03 18:08] VITALS: PULSE 70; TEMP 98; O2SAT 94
[2018-11-04] MEDS ORDERED: Influenza Vaccine 60 mcg/0.5 mL SYR (4YR UP) IM ONE (10:00)
[2018-11-04] MEDS ORDERED: Pneumococcal 23-Valent Vaccine IM ONE (10:00)
== END 2018-11-03 21:13 | disposition home or self-care (01) ==
LOC: C.ER 10:42 → C.9E 12:36 → C.6T 12:57
PROVIDERS: ADMIT Hospitalist; ATTEND Hospitalist
DX: R53.1 Weakness (principal); E78.5 Hyperlipidemia, unspecified; I13.0 Hypertensive heart and chronic kidney disease with heart failure and stage 1 through stage 4 chronic kidney disease, or unspecified chronic kidney disease; I48.91 Unspecified atrial fibrillation; I50.9 Heart failure, unspecified; J44.9 Chronic obstructive pulmonary disease, unspecified; N18.2 Chronic kidney disease, stage 2 (mild); R29.701 NIHSS score 1; Z87.891 Personal history of nicotine dependence; I27.20 Pulmonary hypertension, unspecified; E11.22 Type 2 diabetes mellitus with diabetic chronic kidney disease
CPT/HCPCS: 36415; 70450; 70544; 70547; 70551; 71045; 80053; 80061; 81001; 82948; 83036; 84484; 85025; 85610; 85730; 86850; 86900; 90674; 93005; 93306; 97116; 97162; 97165; 97530; 99285; G0008; G0378; G8978; G8979; G8987; G8988; G8989; J7030

== ENCOUNTER 2018-11-22 18:16 | Observation (INO) | payer MEDICARE ==
[2018-11-22 18:16] VITALS: BMI 31.1
--- NOTE | 2018-11-22 18:39 | C.PDOC ---
History Of Present Illness 73 year old male brought to ED by EMS following a syncopal episode. Patient was at his doctors office for pain management after having a fall with complaint of lower back pain and lightheadedness. Patient's suddenly passed out. He was found to have a blood sugar of 46 and was given oral glucose. Patient' s heart rhythm was noted to be in the 40s. When EMS arrived they put him on the monitor and found he had a first degree heart block. Multiple EKG's were performed and the patient fluctuated from left axis deviation to a right axis deviation. Patient's heart rhythm is now in the 60s. Patient was previously admitted last month for possible TIA. He had a complete neuro evaluation and had no stroke or TIA. CT and MRI of the head and neck unremarkable. Patient denies chest pain, SOB, and lightheadedness. Time Seen by Provider: 11/22/18 18:23 Chief Complaint (Nursing): Syncope History Per: Patient, EMS History/Exam Limitations: no limitations Onset/Duration Of Symptoms: Hrs Current Symptoms Are (Timing): Still Present Activity At Onset Of Symptoms: Standing Associated Symptoms Preceding Syncopal Episode: Lightheadedness Seizure Or Post-ictal Symptoms: None Fall Associated With With Symptoms: No Severity: None Past Medical History Reviewed: Historical Data, Nursing Documentation, Vital Signs Vital Signs: Last Vital Signs Temp Pulse 56 L 11/22/18 18:19 Resp 20 11/22/18 18:19 BP 181/88 H 11/22/18 18:19 Pulse Ox 99 11/22/18 18:19 - Medical History PMH: Atrial Fibrillation, CHF, COPD, Diabetes, HTN, Kidney Stones (HX.), Chronic Kidney Disease (stage II) Surgical History: Appendectomy (age 11) - [facility] Procedures DRAINAGE OF BLADDER WITH DRAINAGE DEVICE, VIA OPENING (10/20/15) EXCISION OF DESCENDING COLON, ENDO, DIAGN (02/07/16) EXCISION OF STOMACH, ENDO, DIAGN (02/07/16) EXTIRPATION OF MATTER FROM BLADDER, ENDO (12/22/15) INSERTION OF INFUSION DEV INTO SUP VENA CAVA, PERC APPROACH (10/20/15) MEASUREMENT OF URINARY PRESSURE, VIA OPENING (10/20/15) PLAIN RADIOGRAPHY OF BLADDER (10/20/15) REMOVAL OF INFUSION DEV FROM GREAT VESSEL, 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 OPERATOR APPROACH (10/20/15) RESECTION OF PROSTATE, ENDO (12/22/15) TRANSFUSE NONAUT RED BLOOD CELLS IN PERIPH VEIN, PERC (02/07/16) Family History: States: Unknown Family Hx - Social History Hx Alcohol Use: No Hx Substance Use: No - Immunization History Hx Tetanus Toxoid Vaccination: No Hx Influenza Vaccination: No Hx Pneumococcal Vaccination: No Review Of Systems Constitutional: Negative for: Fever, Chills, Weakness Cardiovascular: Negative for: Chest Pain, Palpitations Respiratory: Negative for: Shortness of Breath Gastrointestinal: Negative for: Nausea, Vomiting Neurological: Negative for: Weakness, Numbness, Dizziness Physical Exam - Physical Exam Appears: Non-toxic, No Acute Distress Skin: Normal Color, Warm, Dry Head: Atraumatic, Normacephalic Neck: Normal ROM, Supple Chest: Symmetrical, No Deformity Cardiovascular: Other (Bradycardic) Respiratory: No Rales, Rhonchi (bilaterally at the base, more prominant in the left than the right), No Wheezing Gastrointestinal/Abdominal: Soft, No Tenderness Extremity: Capillary Refill (<2 seconds) Neurological/Psych: Oriented x3, Normal Speech, Normal Cognition ED Course And Treatment - Laboratory Results Result Diagrams: 11/22/18 18:41 11/22/18 18:41 Lab Interpretation: Abnormal (BUN 26, K+ 3.4, glucose 51.) ECG: Interpreted By Me ECG Rhythm: Sinus Bradycardia, 1st Degree HB, R BBB O2 Sat by Pulse Oximetry: 99 (in RA) Pulse Ox Interpretation: Normal - Radiology CXR: Interpreted by Me CXR Interpretation: Yes: Cardiomegaly (with vascular congestion) - Physician Consult Information Outcome Of Conversation: Case discussed with Dr Cisneros. He knows the patient well and will admit for observation. Medical Decision Making Medical Decision Making: Impression: 73 year old male following syncopal episode Plan: EKG and CXR ordered for patient Labs ordered with troponin and UA 1850: Spoke with Dr. Cisneros regarding case. Agreed to admission. Disposition - Disposition Disposition: HOSPITALIZED Disposition Time: 00:31 Condition: STABLE - Clinical Impression Clinical Impression: Hypoglycemia, Syncope, Bradycardia - Scribe Statement The provider has reviewed the documentation as recorded by the Scribe (Renea Giron) All medical record entries made by the Scribe were at my direction and personally dictated by me. I have reviewed the chart and agree that the record accurately reflects my personal performance of the history, physical exam, medical decision making, and the department course for this patient. I have also personally directed, reviewed, and agree with the discharge instructions and disposition.
[2018-11-22 18:46] LABS: BASO # 0.1 K/uL (0.0-0.2); BASO % 0.9 % (0.0-2.0); EOS # 0.5 K/uL (0.0-0.7); EOS % 4.4 % (0.0-4.0); HEMOGLOBIN 13.3 g/dL (12.0-18.0); LYMPH # 1.1 K/uL (1.0-4.3); LYMPH % 10.3 % (20.0-40.0); MEAN CORPUSCULAR HEMOGLOBIN 27.6 pg (27.0-31.0); MEAN CORPUSCULAR HGB CONC 33.3 g/dL (33.0-37.0); MEAN PLATELET VOLUME 8.1 fL (7.2-11.7); MONO # 0.7 K/uL (0.0-0.8); MONO % 6.6 % (0.0-10.0); NEUT # 8.3 K/uL (1.8-7.0); NEUT % 77.8 % (50.0-75.0); RBC 4.8 Mil/uL (4.40-5.90); RED CELL DISTRIBUTION WIDTH 15.3 % (11.5-14.5); WHITE BLOOD COUNT 10.6 K/uL (4.8-10.8)
[2018-11-22 18:54] LABS: INR 1.9; PROTHROMBIN TIME 20.8 SECONDS (9.7-12.2)
[2018-11-22 18:59] LABS: ALB/GLOB RATIO 1.2 (1.0-2.1); ALBUMIN 3.9 g/dL (3.5-5.0); ALT/SGPT 15 U/L (21-72); AST/SGOT 22 U/L (17-59); BLOOD UREA NITROGEN 26 mg/dL (9-20); CALCIUM 8.7 mg/dl (8.6-10.4); GFR NON-AFRICAN AMERICAN > 60
[2018-11-22 20:11] LABS: SQUAMOUS EPITHIAL < 1 /hpf (0-5); URINE BILIRUBIN NEGATIVE (NEGATIVE); URINE BLOOD 1+ (NEGATIVE); URINE CLARITY Clear (Clear); URINE COLOR Yellow (YELLOW); URINE GLUCOSE (UA) NORMAL (Normal); URINE HYALINE CAST 0-2 /lpf (0-2); URINE LEUKOCYTE ESTERASE NEG Leu/uL (Negative); URINE PROTEIN 2+ mg/dL (NEGATIVE); URINE UROBILINOGEN NORMAL mg/dL (0.2-1.0)
[2018-11-22] MEDS ORDERED: Dextrose 50% SYRINGE Inj (50 ml) IV PRN (20:13)
[2018-11-22] MEDS ORDERED: Glucagon Recombinant 1 mg Inj IM PRN (20:13)
[2018-11-22] MEDS: (Novolog) Insulin Aspart, Recombinant 100 u/ml 10 ml vial SC SCH (21:55)
[2018-11-23 00:38] VITALS: RESP 20
[2018-11-23 04:53] LABS: BLOOD UREA NITROGEN 27 mg/dL (9-20)
[2018-11-23 04:54] LABS: GFR NON-AFRICAN AMERICAN > 60
[2018-11-23 04:55] LABS: CALCIUM 8.2 mg/dl (8.6-10.4); CK-MB 2.89 ng/mL (0.0-3.38)
--- NOTE | 2018-11-23 07:23 | RAD ---
Date of service: 11/22/2018 PROCEDURE: CHEST RADIOGRAPH, 1 VIEW HISTORY: AMS COMPARISON: 11/02/2018 FINDINGS: LUNGS: Lung volumes slightly shallow. No consolidation appreciated PLEURA: No pneumothorax. Probable small left pleural effusion. CARDIOVASCULAR: No aortic atherosclerotic calcification present. Mild cardiomegaly. OSSEOUS STRUCTURES: No significant abnormalities. VISUALIZED UPPER ABDOMEN: Normal. OTHER FINDINGS: Prominent right paratracheal soft tissue fullness stable appearance likely thyroid related. No tracheal airway compression IMPRESSION: Small left pleural effusion probable. No consolidation noted. Lung volumes shallow accentuating pulmonary vasculature. Prominent right paratracheal soft tissues-enlarged thyroid lobe inferred stable appearing
--- NOTE | 2018-11-23 07:50 | CP.PCM.PN ---
Subjective - Date & Time of Evaluation Date of Evaluation: 11/23/18 Time of Evaluation: 07:50 - Subjective Subjective: Progress note for Dr. Cisneros Patient is a 73 year old male with a past medical history of HTN, HLD, a fib, DMII, BPH, CHF who presents to the hospital due to hypoglycemia. The patient woke up yesterday morning, injected his insulin, ate a brownie, and then went to his pain management doctor's office for an appointment. He says he arrived there, sat down, and passed out. The next thing he remembers was EMS surrounding him. The patient's glucose was checked on the field and was 36. The patient was seen and examined at bedside today in no acute distress. The patient states he fell down 4 stairs on Tuesday and hurt his lower back. He also complains of a chronic cough and post nasal drip. He denies having chest pain, palpitations, dyspnea, nausea, vomiting, fevers, diarrhea, constipation, dysuria, headaches, vision, changes, dizziness. PMD: Dr. Cisneros PMHx: HTN, HLD, a fib, DMII, BPH, CHF Surghx: appendectomy and tonsillectomy in childhood; left eye cataract surgery (11/01/18) SocialHx: denies tobacco, alcohol, and drug use; lives with (Geri) in . Retired. Famhx: sister- [place] (in her 60s) Allergies: Sulfa (hives) Medications: Insulin 40units daily, Xarelto 15mg PO daily, Lasix 40mg PO daily, Tamsulosin 0.4mg PO daily, Coreg 25mg PO BID Objective - Vital Signs/Intake and Output Vital Signs (last 24 hours): Temp Pulse Resp BP Pulse Ox 97.6 F 76 20 154/67 H 95 11/22/18 23:10 11/23/18 05:54 11/23/18 05:54 11/23/18 05:54 11/23/18 05:54 Intake and Output: 11/23/18 11/23/18 06:59 18:59 Intake Total 480 Output Total 800 Balance -320 - Medications Medications: Current Medications Apixaban (Eliquis) 5 mg PO Q12H [facility] Last Admin: 11/22/18 21:54 Dose: 5 mg Aspirin (Aspirin Chewable) 81 mg PO DAILY [facility] Dextrose (Dextrose 50% Inj) 0 ml IV STAT PRN; Protocol PRN Reason: Hypoglycemia Protocol Dextrose (Glutose 15) 0 gm PO ONCE PRN; Protocol PRN Reason: Hypoglycemia Protocol Furosemide (Lasix) 20 mg PO DAILY [facility] Glucagon (Glucagen Diagnostic Kit) 0 mg IM STAT PRN; Protocol PRN Reason: Hypoglycemia Protocol Dextrose (Dextrose 5% In Water 1000 Ml) 1,000 mls @ 60 mls/hr IV .[id number] [facility] Stop: 11/25/18 20:16 Last Admin: 11/22/18 22:04 Dose: 60 mls/hr Dextrose (Dextrose 5% In Water 1000 Ml) 1,000 mls @ 0 mls/hr IV .Q0M PRN; Protocol PRN Reason: Hypoglycemia Protocol Insulin Aspart (Novolog) 0 unit SC ACHS [facility]; Protocol Last Admin: 11/22/18 21:55 Dose: Not Given Losartan Potassium (Cozaar) 25 mg PO DAILY [facility] Oxycodone/Acetaminophen (Percocet 5/325 Mg Tab) 1 tab PO Q6H PRN PRN Reason: pain Stop: 11/25/18 20:22 Rosuvastatin Calcium (Crestor) 20 mg PO HS [facility] Last Admin: 11/22/18 21:54 Dose: 20 mg Tamsulosin HCl (Flomax) 0.4 mg PO BID [facility] - Labs Labs: 11/22/18 18:41 11/23/18 03:14 PT 20.8 SECONDS (9.7-12.2) H 11/22/18 18:41 INR 1.9 11/22/18 18:41 APTT 40 SECONDS (21-34) H 11/22/18 18:41 - Constitutional Appears: No Acute Distress - Head Exam Head Exam: ATRAUMATIC, NORMAL INSPECTION - Eye Exam Eye Exam: EOMI - ENT Exam ENT Exam: Mucous Membranes Moist - Respiratory Exam Respiratory Exam: Clear to Ausculation Bilateral, NORMAL BREATHING PATTERN. absent: Rales, Rhonchi, Wheezes, Respiratory Distress - Cardiovascular Exam Cardiovascular Exam: +S1, +S2 - GI/Abdominal Exam GI & Abdominal Exam: Soft, Normal Bowel Sounds. absent: Distended, Firm, Guarding, Tenderness - Extremities Exam Extremities Exam: absent: Pedal Edema, Tenderness Additional comments: chronic skin changes due to venous insufficiency - Back Exam Additional comments: Tenderness to palpation of the lumbar region, no ecchymosis, erythema, lacerations, or abrasions noted - Neurological Exam Neurological Exam: Alert, Awake, Oriented x3 - Psychiatric Exam Psychiatric exam: Normal Affect, Normal Mood - Skin Skin Exam: Dry, Normal Color, Warm Assessment and Plan - Assessment and Plan (Free Text) Plan: 73 year old male with a past medical history of HTN, HLD, a fib, DMII, BPH, CHF who presents to the hospital due to hypoglycemia. Hypoglycemia Uncontrolled DMII - Hypoglycemia resolved, will continue to monitor - Due to taking insulin without eating all day - Accuchecks, hypoglycemic protocol prn - ISS (medium) - A1c (11/02/18): 10.9 (A1c on 10/09/18- 12.8) - When restarting home medication, will decrease Lantus to 35units daily and Novolog to 5 units with meals Abnormal EKG - EKG (11/22/18): sinus eugenia (58bpm) w/first degree av block with PVCs; RBBB - Previous admissions: EKG (11/02/18): Afib, RBBB; EKG (10/08/18): sinus w/1st degree AV block w/ APCs, VPCs; RBBB - Hold Coreg due to bradycardia - Cardiology consulted, Dr. Dykes. help appreciated AFib - Admitted to telemetry floor, continue to monitor - EKG (11/22/18): sinus eugenia (58bpm) w/first degree av block with PVCs; RBBB - Continue home medication: Eliquis 5mg PO Q12h Back Pain s/p fall - patient states he fell at home on Tuesday (slid down 4 stairs) - Ordered lumbar spine xray: f/u HTN - Continue to monitor - Continue home medication: Lasix 20mg PO daily, Losartan 25mg PO Daily, Crestor 20mg PO HS HLD - Continue home medication: Crestor 20mg PO HS - Lipid panel: TG 73, Chol 161, LDL 106, HDL 34 CHF - Continue home medication: Lasix 20mg PO daily - Continue home medication: Losartan 25mg PO Daily, Crestor 20mg PO HS BPH - Continue home medication: Tamsulosin 0.4mg PO daily Chronic cough/ PND - Continue Nasocort Prophylaxis - DVT: SCDs - GI: no indicated at this time - Low carb diet - O2 via NC prn Case discussed with and patient seen with Dr. Cisneros. Merari Bhagat, PGY2
[2018-11-23] MEDS: (Novolog) Insulin Aspart, Recombinant 100 u/ml 10 ml vial SC SCH ×4 (08:19→21:32)
[2018-11-23] MEDS: Oxycodone/Acetaminophen 5/325 mg Tab PO PRN ×2 (08:22→17:34)
[2018-11-23 11:57] LABS: CK-MB 1.88 ng/mL (0.0-3.38)
[2018-11-23 15:07] LABS: CK-MB 1.55 ng/mL (0.0-3.38)
--- NOTE | 2018-11-23 18:43 | CP.PCM.CON ---
History of Present Illness - History of Present Illness History of Present Illness: I was asked to see patient by Dr Cisneros. Patient seen 11/23/181838 Patient is a 73 year old male with HTN, DM, PAF on Eliquis who presents with near syncope. Pativiri felt dizzy in the am, and was found a FS 30. he was brought to [facility] and found to have bradyardia with irregularity. His heart rate has improved without management. Review of Systems - Constitutional Constitutional: absent: As Per HPI, Anorexia, Chills, Daytime Sleepiness, Excessive Sweating, Fatigue, Fever, Frequent Falls, Headache, Increased Appetite, Lethargy, Malaise, Night Sweats, Snoring, Sleep Apnea, Weight Gain, Weight Loss, Weakness, Other - EENT Eyes: absent: As Per HPI, Blind Spots, Blurred Vision, Change in Vision, Decreased Night Vision, Diplopia, Discharge, Dry Eye, Exophthalmos, Floaters, Irritation, Itchy Eyes, Loss of Peripheral Vision, Pain, Photophobia, Requires Corrective Lenses, Sees Flashes, Spots in Vision, Tunnel Vision, Other Visual Disturbances, Loss of Vision, Other Ears: absent: As Per HPI, Decreased Hearing, Ear Discharge, Ear Pain, Tinnitus, Abnormal Hearing, Disequilibrium, Dizziness, Other Nose/Mouth/Throat: absent: As Per HPI, Epistaxis, Nasal Congestion, Nasal Discharge, Nasal Obstruction, Nasal Trauma, Nose Pain, Post Nasal Drip, Sinus Pain, Sinus Pressure, Bleeding Gums, Change in Voice, Dental Pain, Dry Mouth, Dysphagia, Halitosis, Hoarsness, Lip Swelling, Mouth Lesions, Mouth Pain, Odynophagia, Sore Throat, Throat Swelling, Tongue Swelling, Facial Pain, Neck Pain, Neck Mass, Other - Cardiovascular Cardiovascular: Slow Heart Rate, Syncope - Respiratory Respiratory: absent: As Per HPI, Cough, Dyspnea, Hemoptysis, Dyspnea on Exertion, Wheezing, Snoring, Stridor, Pain on Inspiration, Chest Congestion, Excessive Mucous Production, Change in Mucous Color, Pain with Coughing, Other - Gastrointestinal Gastrointestinal: absent: As Per HPI, Abdominal Pain, Belching, Bloating, Change in Bowel Habits, Change in Stool Character, Coffee Ground Emesis, Constipation, Cramping, Diarrhea, Dyspepsia, Dysphagia, Early Satiety, Excessive Flatus, Fecal Incontinence, Heartburn, Hematemesis, Hematochezia, Loose Stools, Melena, Nausea , Odynophagia, Temesmus, Vomiting, Other - Genitourinary Genitourinary: absent: As Per HPI, Change in Urinary Stream, Difficulty Urinating, Dysuria, Flank Pain, Hematuria, Pyuria, Nocturia, Urinary Incontinence, Urinary Frequency, Urinary Hesitance, Urinary Urgency, Voiding Freq/Small Amts, Freq UTI, Hx Renal/Bladder Calculi, Hx /Renal Surgery, Bladder Distension, Other - Musculoskeletal Musculoskeletal: absent: As Per HPI, Abnormal Gait, Arthralgias, Atrophy, Back Pain, Deformity, Joint Swelling, Limited Range of Motion, Loss of Height, Muscle Cramps, Muscle Weakness, Myalgias, Neck Pain, Numbness, Radiating Pain into Limb, Stiffness, Tingling, Other - Integumentary Integumentary: absent: As Per HPI, Acne, Alopecia, Bleeding Lesions, Change in Hair, Change in Nails, Change in Pigmentation, Changing Lesions, Dry Skin, Erythema, Furuncle, Hirsutism, Lesions, New Lesions, Non-Healing Lesions, Photosensitivity, Pruritus, Rash, Skin Pain, Skin Ulcer, Sores, Striae, Swell ing, Unusual Bruising, Wounds, Jaundice, Other - Neurological Neurological: absent: As Per HPI, Abnormal Gait, Abnormal Hearing, Abnormal Movements, Abnormal Speech, Behavioral Changes, Burning Sensations, Confusion, Convulsions, Disequilibrium, Dizziness, Numbness, Focal Weakness, Frequent Falls, Headaches, Lack of Coordination, Loss of Vision, Memory Loss, Paresthesias, Radicular Pain, Restless Legs, Sensory Deficit, Syncope, Tingling, Tremor, Vertigo, Weakness, Other Visual Disturbances, Other - Psychiatric Psychiatric: absent: As Per HPI, Abnormal Sleep Pattern, Anhedonia, Anxiety, Auditory Hallucinations, Behavioral Changes, Change in Appetite, Change in Libido, Confusion, Depression, Difficulty Concentrating, Hallucinations, Homicidal Ideation, Hopelessness, Irritability, Memory Loss, Mood Swings, Panic Attacks, Paranoia, Suicidal Ideation, Visual Hallucinations, Tactile Hallucinations, Other - Endocrine Endocrine: absent: As Per HPI, Change in Body Appearance, Change in Libido, Cold Intolorance, Deepening of Voice, Excessive Sweating, Fatigue, Flushing, Heat I ntolorance, Increase in Ring/Shoe/Hat Size, Palpitations, Polydipsia, Polyphagia, Polyuria, Other - Hematologic/Lymphatic Hematologic: absent: As Per HPI, Easy Bleeding, Easy Bruising, Lymphadenopathy, Other Past Patient History - Past Medical History & Family History Past Medical History?: Yes - Past Social History Smoking Status: Former Smoker - CARDIAC Hx Congestive Heart Failure: Yes Hx Hypertension: Yes - PULMONARY Hx Chronic Obstructive Pulmonary Disease (COPD): Yes - NEUROLOGICAL Hx Neurological Disorder: No - HEENT Hx HEENT Problems: No - RENAL Hx Chronic Kidney Disease: Yes (stage II) Hx Kidney Stones: Yes (HX.) - ENDOCRINE/METABOLIC Hx Diabetes Mellitus Type 2: Yes - HEMATOLOGICAL/ONCOLOGICAL Hx Blood Disorders: No - INTEGUMENTARY Hx Dermatological Problems: Yes Other/Comment: non healing wound to rt. axillary region bilat buttocks breakdowns - MUSCULOSKELETAL/RHEUMATOLOGICAL Hx Musculoskeletal Disorders: Yes Hx Back Pain: Yes Hx Falls: Yes Hx Osteoarthritis: Yes Hx Unsteady Gait: Yes Other/Comment: rt. knee problem - GASTROINTESTINAL Hx Gastrointestinal Disorders: Yes Hx Gastroesophageal Reflux: Yes - GENITOURINARY/GYNECOLOGICAL Hx Genitourinary Disorders: Yes Hx Hematuria: Yes Hx Incontinence: Yes Other/Comment: Unspecified Hydronephrosis. PT. FOR SURGERY 12/22/15-DX: URINARY RETENTION - PSYCHIATRIC Hx Substance Use: No - SURGICAL HISTORY Hx Appendectomy: Yes (age 11) - ANESTHESIA Hx Anesthesia: Yes Hx Anesthesia Reactions: No Hx Malignant Hyperthermia: No Meds Home Medications: Home Medication List Medication Instructions Recorded Confirmed Type Carvedilol [Coreg] 12.5 mg PO DAILY #60 tab 11/23/18 11/22/18 Rx Insulin Aspart, Recombinant 5 unit SC TID #0 11/23/18 11/22/18 Rx [Novolog] Insulin Glargine, Recombina 35 unit SC DAILY #0 11/23/18 11/22/18 Rx [Lantus] Allergies/Adverse Reactions: Allergies Allergy/AdvReac Type Severity Reaction Status Date / Time Sulfa (Sulfonamide Allergy Verified 11/02/18 10:55 Antibiotics) - Medications Medications: Current Medications Apixaban (Eliquis) 5 mg PO Q12H [facility] Last Admin: 11/23/18 08:20 Dose: 5 mg Aspirin (Aspirin Chewable) 81 mg PO DAILY [facility] Last Admin: 11/23/18 09:41 Dose: 81 mg Dextrose (Dextrose 50% Inj) 0 ml IV STAT PRN; Protocol PRN Reason: Hypoglycemia Protocol Dextrose (Glutose 15) 0 gm PO ONCE PRN; Protocol PRN Reason: Hypoglycemia Protocol Fluticasone Propionate (Flonase) 1 spr GEORGE RQD [facility] Furosemide (Lasix) 20 mg PO DAILY [facility] Last Admin: 11/23/18 09:40 Dose: 20 mg Glucagon (Glucagen Diagnostic Kit) 0 mg IM STAT PRN; Protocol PRN Reason: Hypoglycemia Protocol Dextrose (Dextrose 5% In Water 1000 Ml) 1,000 mls @ 60 mls/hr IV .[id number] [facility] Stop: 11/25/18 20:16 Last Admin: 11/22/18 22:04 Dose: 60 mls/hr Dextrose (Dextrose 5% In Water 1000 Ml) 1,000 mls @ 0 mls/hr IV .Q0M PRN; P rotocol PRN Reason: Hypoglycemia Protocol Insulin Aspart (Novolog) 0 unit SC ACHS [facility]; Protocol Last Admin: 11/23/18 18:14 Dose: 2 u Losartan Potassium (Cozaar) 25 mg PO DAILY [facility] Last Admin: 11/23/18 09:40 Dose: 25 mg Oxycodone/Acetaminophen (Percocet 5/325 Mg Tab) 1 tab PO Q6H PRN PRN Reason: pain Stop: 11/25/18 20:22 Last Admin: 11/23/18 17:34 Dose: 1 tab Rosuvastatin Calcium (Crestor) 20 mg PO HS [facility] Last Admin: 11/22/18 21:54 Dose: 20 mg Tamsulosin HCl (Flomax) 0.4 mg PO BID [facility] Last Admin: 11/23/18 17:34 Dose: 0.4 mg Physical Exam - Head Exam Head Exam: NORMAL INSPECTION - Eye Exam Eye Exam: Normal appearance - ENT Exam ENT Exam: Mucous Membranes Moist - Neck Exam Neck exam: Positive for: Full Rom - Respiratory Exam Respiratory Exam: Decreased Breath Sounds - Cardiovascular Exam Cardiovascular Exam: REGULAR RHYTHM - GI/Abdominal Exam GI & Abdominal Exam: Normal Bowel Sounds - Rectal Exam Rectal Exam: Deferred - Extremities Exam Extremities exam: Positive for: pedal edema - Back Exam Back exam: NORMAL INSPECTION - Neurological Exam Neurological exam: Alert, Oriented x3 - Psychiatric Exam Psychiatric exam: Normal Affect - Skin Skin Exam: Normal Color Results - Vital Signs Recent Vital Signs: Last Vital Signs Temp 99.1 F 11/23/18 15:05 Pulse 71 11/23/18 15:05 Resp 20 11/23/18 15:05 BP 147/87 11/23/18 15:05 Pulse Ox 94 L 11/23/18 15:05 - Labs Result Diagrams: 11/22/18 18:41 11/23/18 03:14 Labs: Laboratory Results - last 24 hr 11/22/18 11/22/18 11/22/18 18:22 18:41 18:41 WBC 10.6 D RBC 4.80 Hgb 13.3 Hct 39.9 MCV 83.0 MCH 27.6 MCHC 33.3 RDW 15.3 H Plt Count 165 MPV 8.1 Neut % (Auto) 77.8 H Lymph % (Auto) 10.3 L Osborne % (Auto) 6.6 Eos % (Auto) 4.4 H Baso % (Auto) 0.9 Neut # (Auto) 8.3 H Lymph # (Auto) 1.1 Osborne # (Auto) 0.7 Eos # (Auto) 0.5 Baso # (Auto) 0.1 PT 20.8 H INR 1.9 APTT 40 H Sodium Potassium Chloride Carbon Dioxide Anion Gap BUN Creatinine Est GFR ( Amer) Est GFR (Non-Af Amer) POC Glucose (mg/dL) 63 L Random Glucose Calcium Total Bilirubin AST ALT Alkaline Phosphatase Total Creatine Kinase CK-MB (Mass) Troponin I Total Protein Albumin Globulin Albumin/Globulin Ratio Urine Color Urine Clarity Urine pH Ur Specific Marlow Urine Protein Urine Glucose (UA) Urine Ketones Urine Blood Urine Nitrate Urine Bilirubin Urine Urobilinogen Ur Leukocyte Esterase Urine WBC (Auto) Urine RBC (Auto) Ur Squamous Epith Cells Hyaline Casts 11/22/18 11/22/18 11/22/18 18:41 19:40 19:47 WBC RBC Hgb Hct MCV MCH MCHC RDW Plt Count MPV Neut % (Auto) Lymph % (Auto) Osborne % (Auto) Eos % (Auto) Baso % (Auto) Neut # (Auto) Lymph # (Auto) Osborne # (Auto) Eos # (Auto) Baso # (Auto) PT INR APTT Sodium 136 Potassium 3.4 L Chloride 104 Carbon Dioxide 25 Anion Gap 10 BUN 26 H Creatinine 1.0 Est GFR ( Amer) > 60 Est GFR (Non-Af Amer) > 60 POC Glucose (mg/dL) 85 Random Glucose 51 L D Calcium 8.7 Total Bilirubin 1.0 AST 22 ALT 15 L Alkaline Phosphatase 93 Total Creatine Kinase CK-MB (Mass) Troponin I < 0.0120 Total Protein 7.2 Albumin 3.9 Globulin 3.3 Albumin/Globulin Ratio 1.2 Urine Color Yellow Urine Clarity Clear Urine pH 6.0 Ur Specific Marlow 1.011 Urine Protein 2+ H Urine Glucose (UA) Normal Urine Ketones Negative Urine Blood 1+ H Urine Nitrate Negative Urine Bilirubin Negative Urine Urobilinogen Normal Ur Leukocyte Esterase Neg Urine WBC (Auto) 2 Urine RBC (Auto) 4 H Ur Squamous Epith Cells < 1 Hyaline Casts 0-2 11/22/18 11/23/18 11/23/18 21:01 02:15 03:14 WBC RBC Hgb Hct MCV MCH MCHC RDW Plt Count MPV Neut % (Auto) Lymph % (Auto) Osborne % (Auto) Eos % (Auto) Baso % (Auto) Neut # (Auto) Lymph # (Auto) Osborne # (Auto) Eos # (Auto) Baso # (Auto) PT INR APTT Sodium 135 Potassium 4.0 Chloride 101 Carbon Dioxide 26 Anion Gap 12 BUN 27 H Creatinine 1.0 Est GFR ( Amer) > 60 Est GFR (Non-Af Amer) > 60 POC Glucose (mg/dL) 129 H 213 H Random Glucose 212 H D Calcium 8.2 L Total Bilirubin AST ALT Alkaline Phosphatase Total Creatine Kinase 53 L CK-MB (Mass) 2.89 Troponin I < 0.0120 Total Protein Albumin Globulin Albumin/Globulin Ratio Urine Color Urine Clarity Urine pH Ur Specific Marlow Urine Protein Urine Glucose (UA) Urine Ketones Urine Blood Urine Nitrate Urine Bilirubin Urine Urobilinogen Ur Leukocyte Esterase Urine WBC (Auto) Urine RBC (Auto) Ur Squamous Epith Cells Hyaline Casts 11/23/18 11/23/18 11/23/18 06:20 11:19 14:01 WBC RBC Hgb Hct MCV MCH MCHC RDW Plt Count MPV Neut % (Auto) Lymph % (Auto) Osborne % (Auto) Eos % (Auto) Baso % (Auto) Neut # (Auto) Lymph # (Auto) Osborne # (Auto) Eos # (Auto) Baso # (Auto) PT INR APTT Sodium Potassium Chloride Carbon Dioxide Anion Gap BUN Creatinine Est GFR ( Amer) Est GFR (Non-Af Amer) POC Glucose (mg/dL) 227 H Random Glucose Calcium Total Bilirubin AST ALT Alkaline Phosphatase Total Creatine Kinase 42 L 46 L CK-MB (Mass) 1.88 1.55 Troponin I < 0.0120 < 0.0120 Total Protein Albumin Globulin Albumin/Globulin Ratio Urine Color Urine Clarity Urine pH Ur Specific Marlow Urine Protein Urine Glucose (UA) Urine Ketones Urine Blood Urine Nitrate Urine Bilirubin Urine Urobilinogen Ur Leukocyte Esterase Urine WBC (Auto) Urine RBC (Auto) Ur Squamous Epith Cells Hyaline Casts - EKG Data EKG Interpreted by: Myself Assessment & Plan (1) Syncope Assessment and Plan: likely due to hypoglycemia. will cont current mgmt. can place outpatinet holter monitor. Status: Acute (2) Atrial fibrillation Assessment and Plan: rate controlled. continue Eliquis Status: Acute (3) Diabetes mellitus Assessment and Plan: glucose control Status: Acute
--- NOTE | 2018-11-23 18:53 | RAD ---
Date of service: 11/23/2018 PROCEDURE: Radiographs of the Lumbar Spine. HISTORY: pain, s/p fall COMPARISON: None available. FINDINGS: Mild scoliosis. Diffuse osseous demineralization limits evaluation for acute fracture lines. Extensive multilevel degenerative changes including osteophyte formation, intervertebral disc space narrowing, and vacuum disc phenomenon at multiple levels. Facet hypertrophy. No acute displaced fracture or subluxation identified. IMPRESSION: Osseous demineralization. Extensive degenerative changes. Mild scoliosis. If high clinical index of suspicion for acute fracture, recommend further evaluation with MRI.
[2018-11-23] MEDS: Fluticasone Nasal 50 mcg/Spray NAS SCH (19:38)
--- NOTE | 2018-11-23 19:44 | CARD ---
APPROVED REPORT Date of service: 11/22/2018 EKG Measurement Heart [id number] <Conclusion> Sinus bradycardia with 1st degree AV block with premature supraventricular complexes and with occasional premature ventricula Right bundle branch block Abnormal ECG
[2018-11-24] MEDS: Oxycodone/Acetaminophen 5/325 mg Tab PO PRN ×2 (00:17→16:27)
[2018-11-24] MEDS ORDERED: Oxymetazoline 0.05% Nasal Spray (30 ml) NS ONE (00:46)
[2018-11-24 06:55] LABS: BASO # 0.1 K/uL (0.0-0.2); BASO % 0.9 % (0.0-2.0); EOS # 0.4 K/uL (0.0-0.7); EOS % 5.6 % (0.0-4.0); HEMOGLOBIN 11.3 g/dL (12.0-18.0); LYMPH # 1.3 K/uL (1.0-4.3); MEAN CELL VOLUME 82.8 fL (80.0-94.0); MEAN CORPUSCULAR HEMOGLOBIN 27.5 pg (27.0-31.0); MEAN CORPUSCULAR HGB CONC 33.2 g/dL (33.0-37.0); MEAN PLATELET VOLUME 7.9 fL (7.2-11.7); MONO # 0.6 K/uL (0.0-0.8); MONO % 9.2 % (0.0-10.0); NEUT # 4.3 K/uL (1.8-7.0); NEUT % 65.3 % (50.0-75.0); RBC 4.11 Mil/uL (4.40-5.90); RED CELL DISTRIBUTION WIDTH 15.5 % (11.5-14.5); WHITE BLOOD COUNT 6.7 K/uL (4.8-10.8)
--- NOTE | 2018-11-24 07:25 | CP.PCM.PN ---
Subjective - Date & Time of Evaluation Date of Evaluation: 11/24/18 Time of Evaluation: 07:23 - Subjective Subjective: Progress note for Dr. Cisneros Patient was seen and examined at bedside in no acute distress. Patient still complains of a chronic cough and post nasal drip. He denies having chest pain, palpitations, dyspnea, nausea, vomiting, fevers, diarrhea, constipation, dysuria, headaches, vision, changes, dizziness. Objective - Vital Signs/Intake and Output Vital Signs (last 24 hours): Temp Pulse Resp BP Pulse Ox 98.9 F 80 20 139/84 96 11/23/18 23:05 11/24/18 03:55 11/23/18 23:05 11/23/18 23:05 11/23/18 23:05 Intake and Output: 11/24/18 11/24/18 06:59 18:59 Intake Total 450 Output Total 500 Balance -50 - Medications Medications: Current Medications Apixaban (Eliquis) 5 mg PO Q12H [facility] Last Admin: 11/23/18 20:30 Dose: 5 mg Aspirin (Aspirin Chewable) 81 mg PO DAILY [facility] Last Admin: 11/23/18 09:41 Dose: 81 mg Dextrose (Dextrose 50% Inj) 0 ml IV STAT PRN; Protocol PRN Reason: Hypoglycemia Protocol Dextrose (Glutose 15) 0 gm PO ONCE PRN; Protocol PRN Reason: Hypoglycemia Protocol Fluticasone Propionate (Flonase) 1 spr GEORGE RQD [facility] Last Admin: 11/23/18 19:38 Dose: 1 spr Furosemide (Lasix) 20 mg PO DAILY [facility] Last Admin: 11/23/18 09:40 Dose: 20 mg Glucagon (Glucagen Diagnostic Kit) 0 mg IM STAT PRN; Protocol PRN Reason: Hypoglycemia Protocol Dextrose (Dextrose 5% In Water 1000 Ml) 1,000 mls @ 60 mls/hr IV .[id number] [facility] Stop: 11/25/18 20:16 Last Admin: 11/22/18 22:04 Dose: 60 mls/hr Dextrose (Dextrose 5% In Water 1000 Ml) 1,000 mls @ 0 mls/hr IV .Q0M PRN; Protocol PRN Reason: Hypoglycemia Protocol Insulin Aspart (Novolog) 0 unit SC ACHS [facility]; Protocol Last Admin: 11/23/18 21:32 Dose: Not Given Losartan Potassium (Cozaar) 25 mg PO DAILY [facility] Last Admin: 11/23/18 09:40 Dose: 25 mg Oxycodone/Acetaminophen (Percocet 5/325 Mg Tab) 1 tab PO Q6H PRN PRN Reason: pain Stop: 11/25/18 20:22 Last Admin: 11/24/18 00:17 Dose: 1 tab Rosuvastatin Calcium (Crestor) 20 mg PO HS [facility] Last Admin: 11/23/18 21:36 Dose: 20 mg Tamsulosin HCl (Flomax) 0.4 mg PO BID [facility] Last Admin: 11/23/18 17:34 Dose: 0.4 mg - Labs Labs: 11/24/18 06:48 11/23/18 03:14 PT 20.8 SECONDS (9.7-12.2) H 11/22/18 18:41 INR 1.9 11/22/18 18:41 APTT 40 SECONDS (21-34) H 11/22/18 18:41 - Additional Findings Additional findings: - Constitutional Appears: No Acute Distress - Head Exam Head Exam: ATRAUMATIC, NORMAL INSPECTION - Eye Exam Eye Exam: EOMI - ENT Exam ENT Exam: Mucous Membranes Moist - Respiratory Exam Respiratory Exam: Clear to Ausculation Bilateral, NORMAL BREATHING PATTERN. a bsent: Rales, Rhonchi, Wheezes, Respiratory Distress - Cardiovascular Exam Cardiovascular Exam: +S1, +S2 - GI/Abdominal Exam GI & Abdominal Exam: Soft, Normal Bowel Sounds. absent: Distended, Firm, Guarding, Tenderness - Extremities Exam Extremities Exam: absent: Pedal Edema, Tenderness Additional comments: chronic skin changes due to venous insufficiency - Back Exam Additional comments: Tenderness to palpation of the lumbar region, no ecchymosis, erythema, lacerations, or abrasions noted - Neurological Exam Neurological Exam: Alert, Awake, Oriented x3 - Psychiatric Exam Psychiatric exam: Normal Affect, Normal Mood - Skin Skin Exam: Dry, Normal Color, Warm Assessment and Plan - Assessment and Plan (Free Text) Plan: 73 year old male with a past medical history of HTN, HLD, a fib, DMII, BPH, CHF who presents to the hospital due to hypoglycemia. Hypoglycemia Uncontrolled DMII - Hypoglycemia resolved, will continue to monitor - Due to taking insulin without eating all day - Accuchecks, hypoglycemic protocol prn - ISS (medium) - A1c (11/02/18): 10.9 (A1c on 10/09/18- 12.8) - When restarting home medication, will decrease Lantus to 35units daily and Novolog to 5 units with meals Abnormal EKG - EKG (11/22/18): sinus eugenia (58bpm) w/first degree av block with PVCs; RBBB - Previous admissions: EKG (11/02/18): Afib, RBBB; EKG (10/08/18): sinus w/1st degree AV block w/ APCs, VPCs; RBBB - Hold Coreg due to bradycardia - Cardiology consulted, Dr. Dykes. help appreciated AFib - Admitted to telemetry floor, continue to monitor - EKG (11/22/18): sinus eugenia (58bpm) w/first degree av block with PVCs; RBBB - Continue home medication: Eliquis 5mg PO Q12h Back Pain s/p fall - patient states he fell at home on Tuesday (slid down 4 stairs) - Lumbar spine xray: Osseous demineralization. Extensive degenerative changes. Mild scoliosis. No fractures. HTN - Continue to monitor - Continue home medication: Lasix 20mg PO daily, Losartan 25mg PO Daily, Crestor 20mg PO HS HLD - Continue home medication: Crestor 20mg PO HS - Lipid panel: TG 73, Chol 161, LDL 106, HDL 34 CHF - Continue home medication: Lasix 20mg PO daily - Continue home medication: Losartan 25mg PO Daily, Crestor 20mg PO HS BPH - Continue home medication: Tamsulosin 0.4mg PO daily Chronic cough/ PND - Continue Nasocort Prophylaxis - DVT: SCDs - GI: no indicated at this time - Low carb diet - O2 via NC prn Patient is stable for discharge to home per Dr. Cisneros and Dr. Dykes. Patient must follow up with PMD, Dr. Cisneros, within 1 week of discharge. Patient must also follow up with cotton ginner helper, Dr. Dykes within 1-2 wees of discharge. Patient must continue all home medications. Please decreased your Lantus to 35units daily and Novolog to 5 units with meals and take Coreg 12.5mg ONCE a day until you follow up with Dr. Cisneros. Please eat when taking insulin and check blood sugar at home three times a day. If symptoms reoccur or worsen, patient should return to the nearest emergency room. Case discussed with and patient seen with Dr. Cisneros. Merari Bhagat, PGY2
[2018-11-24 07:48] LABS: ALB/GLOB RATIO 1.1 (1.0-2.1); ALT/SGPT 18 U/L (21-72); AST/SGOT 17 U/L (17-59); BLOOD UREA NITROGEN 24 mg/dL (9-20); CALCIUM 7.9 mg/dl (8.6-10.4); GFR NON-AFRICAN AMERICAN 59
[2018-11-24] MEDS: (Novolog) Insulin Aspart, Recombinant 100 u/ml 10 ml vial SC SCH ×3 (07:56→17:11)
--- NOTE | 2018-11-24 07:57 | HP ---
HISTORY OF PRESENT ILLNESS: The patient is a 33-year-old male with chief complaint of syncopal episode. The patient is found to be hypoglycemic. The patient had taken insulin eating enough breakfast . PHYSICAL EXAMINATION: GENERAL: The patient is awake, alert, oriented. VITAL SIGNS: Temperature 98, pulse 90. HEENT: Within normal limits. NECK: Supple. CHEST: Symmetrical. HEART: Regular. ABDOMEN: Soft. EXTREMITIES: No edema. IMPRESSION AND PLAN: The patient with syncopal episode, hypoglycemia. The patient is to get blood sugar monitoring, diabetic education. Adalberto Cisneros MD
[2018-11-24 08:16] VITALS: TEMP 98.1
[2018-11-24 08:32] VITALS: PULSE 85
[2018-11-24] MEDS: Fluticasone Nasal 50 mcg/Spray NAS SCH (08:44)
[2018-11-24] MEDS ORDERED: Pneumococcal 23-Valent Vaccine IM ONE (10:00)
[2018-11-24 11:12] VITALS: O2SAT 96
[2018-11-24] MEDS ORDERED: Benzocaine/Menthol (Cepacol) Lozenge MT PRN (13:47)
[2018-11-24 17:06] VITALS: BP 161/85
== END 2018-11-24 19:05 | disposition home or self-care (01) ==
LOC: C.ER 18:16 → C.6T 18:50
PROVIDERS: ADMIT Internal Medicine Pulmonary Disease; ATTEND Internal Medicine Pulmonary Disease
DX: R55 Syncope and collapse (principal); E11.649 Type 2 diabetes mellitus with hypoglycemia without coma; I13.0 Hypertensive heart and chronic kidney disease with heart failure and stage 1 through stage 4 chronic kidney disease, or unspecified chronic kidney disease; E11.22 Type 2 diabetes mellitus with diabetic chronic kidney disease; I50.9 Heart failure, unspecified; I48.0 Paroxysmal atrial fibrillation; J44.9 Chronic obstructive pulmonary disease, unspecified; E78.5 Hyperlipidemia, unspecified; K21.9 Gastro-esophageal reflux disease without esophagitis; I44.0 Atrioventricular block, first degree; N18.2 Chronic kidney disease, stage 2 (mild); N40.0 Benign prostatic hyperplasia without lower urinary tract symptoms; Z79.01 Long term (current) use of anticoagulants; Z79.899 Other long term (current) drug therapy; Z87.442 Personal history of urinary calculi; Z87.891 Personal history of nicotine dependence; Z90.49 Acquired absence of other specified parts of digestive tract
CPT/HCPCS: 36415; 71045; 72100; 80048; 80053; 81001; 82948; 84484; 85025; 85610; 85730; 93005; 97116; 97162; 99285; G0378; G8978; G8979; J7070

== ENCOUNTER 2018-12-01 05:41 | Inpatient (IN) | payer MEDICARE ==
[2018-12-01 05:41] VITALS: BMI 31.1
--- NOTE | 2018-12-01 06:25 | C.PDOC ---
History Of Present Illness 73 year old male presents to the ED for evaluation after sustaining a fall. Patient reports he trip and feel going to the bathroom, hurt his left great toe with partial nail avulsion. Patient also c/o back pain which he says it is nothing new. Patient was recently admitted on 11/22 for a syncopal episodes. Patient denies LOC, headache, visual changes, nausea, vomit, weakness, numbness. Time Seen by Provider: 12/01/18 06:24 Chief Complaint (Nursing): Back Pain History Per: Patient History/Exam Limitations: no limitations Onset/Duration Of Symptoms: Hrs Current Symptoms Are (Timing): Still Present Quality Of Discomfort: "Pain" Previous Symptoms: Back Pain Recent travel outside of the [place]: No Additional History Per: Patient Past Medical History Reviewed: Historical Data, Nursing Documentation, Vital Signs Vital Signs: Last Vital Signs Temp 102.3 F H 12/01/18 05:54 Pulse 116 H 12/01/18 05:54 Resp 20 12/01/18 05:54 BP 148/80 12/01/18 05:54 Pulse Ox 92 L 12/01/18 05:54 - Medical History PMH: Atrial Fibrillation, CHF, COPD, Diabetes, HTN, Kidney Stones (HX.), Chronic Kidney Disease (stage II) Surgical History: Appendectomy (age 11) - [facility] Procedures DRAINAGE OF BLADDER WITH DRAINAGE DEVICE, VIA OPENING (10/20/15) EXCISION OF DESCENDING COLON, ENDO, DIAGN (02/07/16) EXCISION OF STOMACH, ENDO, DIAGN (02/07/16) EXTIRPATION OF MATTER FROM BLADDER, ENDO (12/22/15) INSERTION OF INFUSION DEV INTO SUP VENA CAVA, PERC APPROACH (10/20/15) MEASUREMENT OF URINARY PRESSURE, VIA OPENING (10/20/15) PLAIN RADIOGRAPHY OF BLADDER (10/20/15) REMOVAL OF INFUSION DEV FROM GREAT VESSEL, PRICING/SIGNAGE TEAM MEMBER APPROACH (10/20/15) RESECTION OF PROSTATE, ENDO (12/22/15) TRANSFUSE NONAUT RED BLOOD CELLS IN PERIPH VEIN, PERC (02/07/16) Family History: States: Unknown Family Hx - Social History Hx Alcohol Use: No Hx Substance Use: No - Immunization History Hx Tetanus Toxoid Vaccination: No Hx Influenza Vaccination: No Hx Pneumococcal Vaccination: No Review Of Systems Constitutional: Negative for: Fever, Chills Eyes: Negative for: Vision Change Cardiovascular: Negative for: Chest Pain Respiratory: Negative for: Shortness of Breath Gastrointestinal: Negative for: Nausea, Vomiting, Abdominal Pain Musculoskeletal: Positive for: Back Pain, Leg Pain Skin: Negative for: Rash Neurological: Negative for: Weakness, Numbness, Headache, Dizziness Physical Exam - Physical Exam Appears: Non-toxic, No Acute Distress Skin: Warm, Dry Head: Normacephalic Eye(s): bilateral: Normal Inspection, PERRL, EOMI Oral Mucosa: Moist Neck: Supple Chest: Symmetrical Cardiovascular: Rhythm Regular Respiratory: No Rales, Rhonchi (Right > left), No Wheezing Gastrointestinal/Abdominal: Soft, No Tenderness, No Guarding, No Rebound, Other (morbidly obese) Back: No Vertebral Tenderness, Paraspinal Tenderness Extremity: Capillary Refill (< 2 seconds) Extremity: Left: Other (great toe nail partially avulsed, no active bleeding), B ilateral: Atraumatic, Normal Color And Temperature, Normal ROM Pulses: Left Dorsalis Pedis: Normal, Right Dorsalis Pedis: Normal Neurological/Psych: Oriented x3, Normal Speech, Normal Cognition Gait: Steady ED Course And Treatment O2 Sat by Pulse Oximetry: 92 Progress Note: Plan: - VBG. - Labs. - CXR. - Left foot X-Ray. - IV fluids. - Blood culture. - UA Disposition Counseled Patient/Family Regarding: Studies Performed, Diagnosis - Disposition Disposition Time: 06:25 Condition: FAIR Forms: [facility] (Chinese) - Clinical Impression Clinical Impression: Low back pain, Fever, Fall, Nail avulsion of toe - Scribe Statement The provider has reviewed the documentation as recorded by the Scribstacey Rios All medical record entries made by the Scribe were at my direction and personally dictated by me. I have reviewed the chart and agree that the record accurately reflects my personal performance of the history, physical exam, medical decision making, and the department course for this patient. I have also personally directed, reviewed, and agree with the discharge instructions and disposition. Physician Patient Turnover Patient Signed Over To: Lizet Ham Handoff Comments: Pendindg X-Rays, labs and dispo
[2018-12-01 06:46] LABS: BASO % 0.3 % (0.0-2.0); EOS # 0.4 K/uL (0.0-0.7); EOS % 2.9 % (0.0-4.0); LYMPH # 0.6 K/uL (1.0-4.3); LYMPH % 4.5 % (20.0-40.0); MEAN CELL VOLUME 83.7 fL (80.0-94.0); MEAN CORPUSCULAR HEMOGLOBIN 27.1 pg (27.0-31.0); MEAN CORPUSCULAR HGB CONC 32.4 g/dL (33.0-37.0); MEAN PLATELET VOLUME 8.8 fL (7.2-11.7); MONO # 0.7 K/uL (0.0-0.8); MONO % 5.9 % (0.0-10.0); NEUT # 10.6 K/uL (1.8-7.0); NEUT % 86.4 % (50.0-75.0); PLATELET COUNT 188 K/uL (130-400); RBC 4.41 Mil/uL (4.40-5.90); RED CELL DISTRIBUTION WIDTH 15.8 % (11.5-14.5); WHITE BLOOD COUNT 12.3 K/uL (4.8-10.8)
[2018-12-01 06:56] LABS: VENOUS BLOOD GAS PCO2 37 mmHg (40-60); VENOUS BLOOD GAS PO2 29 mm/Hg (30-55); VENOUS BLOOD PH 7.31 (7.32-7.43)
[2018-12-01 06:57] LABS: INR 1.8; PROTHROMBIN TIME 19.5 SECONDS (9.7-12.2)
[2018-12-01] MEDS ORDERED: Piperacill/Tazo 3.375gm in Dex 3.375 GM/50 ML BAG IVPB STA (07:29)
[2018-12-01] MEDS ORDERED: Sodium Chloride 0.9% 1,000 ML IV ONE (07:37)
[2018-12-01 07:46] LABS: ALB/GLOB RATIO 1.1 (1.0-2.1); ALBUMIN 3.9 g/dL (3.5-5.0)
[2018-12-01 07:53] LABS: EOSINOPHIL 1 % (0-4); LYMPHOCYTE 9 % (20-40); MONOCYTE 7 % (0-10); NEUTROPHIL 83 % (50-75); TOTAL CELLS COUNTED 100
[2018-12-01 07:55] LABS: PLATELET ESTIMATE NORMAL (NORMAL)
[2018-12-01 08:37] LABS: SQUAMOUS EPITHIAL < 1 /hpf (0-5); URINE BILIRUBIN NEGATIVE (NEGATIVE); URINE BLOOD 2+ (NEGATIVE); URINE CLARITY Clear (Clear); URINE COLOR Yellow (YELLOW); URINE GLUCOSE (UA) NORMAL (Normal); URINE LEUKOCYTE ESTERASE NEG Leu/uL (Negative); URINE PROTEIN 2+ mg/dL (NEGATIVE); URINE UROBILINOGEN NORMAL mg/dL (0.2-1.0)
--- NOTE | 2018-12-01 08:38 | RAD ---
Chest x-ray single frontal view HISTORY: Shortness of breath. COMPARISON: 11/22/2018 Findings: Mild venous congestion. Confluent increased markings in the right infrahilar region and lung base. Right hilar prominence. Cardiomegaly. Right central venous catheter tip extending to the cavoatrial junction. Degenerative changes in the spine and shoulders. Impression: Mild venous congestion. Confluent increased markings in the right infrahilar region and lung base. Right hilar prominence. Cardiomegaly. Right central venous catheter tip extending to the cavoatrial junction. Degenerative changes in the spine and shoulders.
--- NOTE | 2018-12-01 08:46 | RAD ---
Chest x-ray single frontal view HISTORY: Sepsis. COMPARISON: 12/01/2018 Findings: Moderate venous congestion. Patchy consolidative opacification at the left lung base with small left pleural effusion. Patchy consolidative opacification in the right infrahilar region. Cardiomegaly. Degenerative changes in the spine and shoulders. Impression: Moderate venous congestion. Patchy consolidative opacification at the left lung base with small left pleural effusion. Patchy consolidative opacification in the right infrahilar region. Cardiomegaly.
[2018-12-01 09:16] LABS: VENOUS BLOOD GAS BASE EXCESS -3.8 mmol/L (0.0-2.0); VENOUS BLOOD GAS PCO2 39 mmHg (40-60); VENOUS BLOOD GAS PO2 48 mm/Hg (30-55); VENOUS BLOOD PH 7.35 (7.32-7.43)
--- NOTE | 2018-12-01 11:27 | CP.PCM.CON ---
Past Patient History - Past Medical History & Family History Past Medical History?: Yes - Past Social History Smoking Status: Former Smoker - CARDIAC Hx Atrial Fibrillation: Yes Hx Congestive Heart Failure: Yes Hx Hypertension: Yes - PULMONARY Hx Chronic Obstructive Pulmonary Disease (COPD): Yes - NEUROLOGICAL Hx Neurological Disorder: No - HEENT Hx HEENT Problems: No - RENAL Hx Chronic Kidney Disease: Yes (stage II) Hx Kidney Stones: Yes (HX.) - ENDOCRINE/METABOLIC Hx Diabetes Mellitus Type 2: Yes - HEMATOLOGICAL/ONCOLOGICAL Hx Blood Disorders: No - INTEGUMENTARY Hx Dermatological Problems: Yes Other/Comment: non healing wound to rt. axillary region bilat buttocks breakdowns - MUSCULOSKELETAL/RHEUMATOLOGICAL Hx Musculoskeletal Disorders: Yes Hx Back Pain: Yes Hx Falls: Yes Hx Osteoarthritis: Yes Hx Unsteady Gait: Yes Other/Comment: rt. knee problem - GASTROINTESTINAL Hx Gastrointestinal Disorders: Yes Hx Gastroesophageal Reflux: Yes - GENITOURINARY/GYNECOLOGICAL Hx Genitourinary Disorders: Yes Hx Hematuria: Yes Hx Incontinence: Yes Other/Comment: Unspecified Hydronephrosis. PT. FOR SURGERY 12/22/15-DX: URINARY RETENTION - PSYCHIATRIC Hx Substance Use: No - SURGICAL HISTORY Hx Appendectomy: Yes (age 11) - ANESTHESIA Hx Anesthesia: Yes Hx Anesthesia Reactions: No Hx Malignant Hyperthermia: No Meds Allergies/Adverse Reactions: Allergies Allergy/AdvReac Type Severity Reaction Status Date / Time Sulfa (Sulfonamide Allergy Verified 11/02/18 10:55 Antibiotics) - Medications Medications: Current Medications Sodium Chloride (Sodium Chloride 0.9%) 1,000 mls @ 100 mls/hr IV .Q10H EVON Results - Vital Signs Recent Vital Signs: Last Vital Signs Temp 100.8 F H 12/01/18 09:18 Pulse 105 H 12/01/18 09:18 Resp 16 12/01/18 09:18 BP 123/69 12/01/18 09:18 Pulse Ox 94 L 12/01/18 09:18 - Labs Result Diagrams: 12/01/18 06:43 12/01/18 06:43 Labs: Laboratory Results - last 24 hr 12/01/18 12/01/18 12/01/18 06:43 06:43 06:43 WBC 12.3 H D RBC 4.41 Hgb 12.0 Hct 36.9 MCV 83.7 MCH 27.1 MCHC 32.4 L RDW 15.8 H Plt Count 188 MPV 8.8 Neut % (Auto) 86.4 H Lymph % (Auto) 4.5 L [place] % (Auto) 5.9 Eos % (Auto) 2.9 Baso % (Auto) 0.3 Neut # (Auto) 10.6 H Lymph # (Auto) 0.6 L [place] # (Auto) 0.7 Eos # (Auto) 0.4 Baso # (Auto) 0.0 Neutrophils % (Manual) 83 H Lymphocytes % (Manual) 9 L Monocytes % (Manual) 7 Eosinophils % (Manual) 1 Platelet Estimate Normal RBC Morphology Normal PT 19.5 H INR 1.8 APTT 36 H pO2 VBG pH VBG pCO2 VBG HCO3 VBG Total CO2 VBG O2 Sat (Calc) VBG Base Excess VBG Potassium Glucose Lactate Crit Value Called To Crit Value Called By Crit Value Read Back Blood Gas Notified Time Sodium 134 Potassium 5.0 Chloride 100 Carbon Dioxide 21 L Anion Gap 18 BUN 28 H Creatinine 1.5 Est GFR ( Amer) 55 Est GFR (Non-Af Amer) 46 Random Glucose 169 H D Calcium 9.0 Phosphorus 3.3 Magnesium 1.6 Total Bilirubin 1.9 H AST 23 ALT 19 L Alkaline Phosphatase 111 NT-Pro-B Natriuret Pep 529 Total Protein 7.5 Albumin 3.9 Globulin 3.5 Albumin/Globulin Ratio 1.1 Venous Blood Potassium Urine Color Urine Clarity Urine pH Ur Specific [place] Urine Protein Urine Glucose (UA) Urine Ketones Urine Blood Urine Nitrate Urine Bilirubin Urine Urobilinogen Ur Leukocyte Esterase Urine WBC (Auto) Urine RBC (Auto) Ur Squamous Epith Cells 12/01/18 12/01/18 12/01/18 06:50 08:22 09:13 WBC RBC Hgb Hct MCV MCH MCHC RDW Plt Count MPV Neut % (Auto) Lymph % (Auto) [place] % (Auto) Eos % (Auto) Baso % (Auto) Neut # (Auto) Lymph # (Auto) [place] # (Auto) Eos # (Auto) Baso # (Auto) Neutrophils % (Manual) Lymphocytes % (Manual) Monocytes % (Manual) Eosinophils % (Manual) Platelet Estimate RBC Morphology PT INR APTT pO2 29 L 48 VBG pH 7.31 L 7.35 VBG pCO2 37 L 39 L VBG HCO3 18.1 21.5 VBG Total CO2 19.7 L 22.7 VBG O2 Sat (Calc) 87.3 H VBG Base Excess -7.0 L -3.8 L VBG Potassium 5.2 3.9 Glucose 160 H 194 H Lactate 5.0 H* 1.0 Crit Value Called To Dr jara Crit Value Called By Joe victor/rt Crit Value Read Back Y Blood Gas Notified Time 700 Sodium 136.0 137.0 Potassium Chloride 97.0 L 106.0 Carbon Dioxide Anion Gap BUN Creatinine Est GFR ( Amer) Est GFR (Non-Af Amer) Random Glucose Calcium Phosphorus Magnesium Total Bilirubin AST ALT Alkaline Phosphatase NT-Pro-B Natriuret Pep Total Protein Albumin Globulin Albumin/Globulin Ratio Venous Blood Potassium 5.2 3.9 Urine Color Yellow Urine Clarity Clear Urine pH 5.0 Ur Specific [place] 1.017 Urine Protein 2+ H Urine Glucose (UA) Normal Urine Ketones Negative Urine Blood 2+ H Urine Nitrate Negative Urine Bilirubin Negative Urine Urobilinogen Normal Ur Leukocyte Esterase Neg Urine WBC (Auto) 5 Urine RBC (Auto) 13 H Ur Squamous Epith Cells < 1
[2018-12-01] MEDS ORDERED: Albuterol-Ipratrop 3 mg / 0.5 (3 ml) UD INH PRN (12:06)
--- NOTE | 2018-12-01 12:11 | CP.PCM.PN ---
"Subjective - Date & Time of Evaluation Date of Evaluation: 12/01/18 Time of Evaluation: 11:45 - Subjective Subjective: H&P For Dr. Cisneros's Medicine Service. Mr. Santana is a 73 year old male with a PMHx HTN, HLD, A-fib (ON xarelto), DMII, chronic low back pain and BPH who presented to the E.D for evaluation of a left toe injury after a mechanical fall. Patient states he tripped and fell while going to the bathroom and injured is left 1st toe. Patient denies any head trauma but states he did hit his left knee as well. He denies any dizziness, lightheadedness, or loss of consciousness. In the E.R patient was found to have a fever with elevated lactate and WBC. Patient denies feeling a fever or short of breath. He also denies any headache, chest pain, abdominal pain, nausea, vomiting, or changes in bowel habits. He does have urinary freq uency which he states is a result of his medication. He denies any dysuria. ROS also positive for back pain that is chronic ROS: As stated above PMHx: As stated above, but patient denies CHF history PSHx: Appendectomy, Tonsillectomy, Left eye Cataract Surgery, Right Knee Surgery Allergies: Sulf SocialHx: Denies tobacco, EtoH, or illicit Drug Use Hos: 10/2018 for Dizzines (TIA vs Vertigo vs Hypoglycemia) FamHx: Sister (Alive) - IN Meds: Per NOV. Objective - Vital Signs/Intake and Output Vital Signs (last 24 hours): Temp Pulse Resp BP Pulse Ox 99.4 F 95 H 19 128/68 93 L 12/01/18 11:30 12/01/18 11:30 12/01/18 11:30 12/01/18 11:30 12/01/18 11:30 - Medications Medications: Current Medications Sodium Chloride (Sodium Chloride 0.9%) 1,000 mls @ 100 mls/hr IV .Q10H EVON - Labs Labs: 12/01/18 06:43 12/01/18 06:43 PT 19.5 SECONDS (9.7-12.2) H 12/01/18 06:43 INR 1.8 12/01/18 06:43 APTT 36 SECONDS (21-34) H 12/01/18 06:43 - Constitutional Appears: Well, Non-toxic, No Acute Distress - Head Exam Head Exam: ATRAUMATIC, NORMAL INSPECTION, NORMOCEPHALIC - Eye Exam Eye Exam: EOMI, Normal appearance - ENT Exam ENT Exam: Mucous Membranes Moist - Neck Exam Neck Exam: Lymphadenopathy (Anterior CErvical (Non-Tender) ) - Respiratory Exam Respiratory Exam: Clear to Ausculation Bilateral, NORMAL BREATHING PATTERN. absent: Accessory Muscle Use, Rales, Rhonchi, Wheezes, Respiratory Distress, Stridor - Cardiovascular Exam Cardiovascular Exam: Tachycardia, +S1, +S2. absent: JVD, Murmur - GI/Abdominal Exam GI & Abdominal Exam: Soft, Normal Bowel Sounds. absent: Tenderness - Extremities Exam Extremities Exam: Normal Capillary Refill. absent: Pedal Edema Additional comments: Avulsed Left Great Big Toe w/ bleeding Hyperpigmentation on b/l ankles Hyperpigmentation on Left midfoot Tinea Pedis Onchymycosis B/L. Dry - Neurological Exam Neurological Exam: Alert, Awake, Oriented x3 - Psychiatric Exam Psychiatric exam: Normal Affect, Normal Mood - Skin Skin Exam: Dry, Warm Assessment and Plan - Assessment and Plan (Free Text) Assessment: 73 year old male with a PMHx HTN, HLD, A-fib (ON xarelto), DMII, chronic low back pain and BPH who presented to the E.D for evaluation of a left toe injury after a mechanical fall. Patient found to meet SIRS criteria. Patient was febrile with elevated lactate/WBC. Repeat lactate was normal. Patient admitted for evaluation and treatment of Sepsis (Unknown Source), and L great toe nail admission. Plan: SIRS Source Unknown: Pulmonary vs Urinary Lactate elevated at 5, repeat WNL @1, Elevated White Count, Tachycardic, Febrile Blood Culture (Adm) - PENDING | Urine Culture (Adm): - PENDING| Urine Culture (Adm): - PENDING CXR (Admission): Moderate venous congestion. Patchy consolidative opacification at the left lung base with small left pleural effusion. Patchy consolidative opacification in the right infrahilar region. Cardiomegaly. --Will Consider Cardiology Consult Mgmt: Zosyn 3.376 Q6H EVON (Started on Admission) Home Methenamine 1gram Daily (UTI proph) Tylenol PRN NS @ 100mls/hr Robitussin DM PRN for cough w/ productive sputum DuoNEb PRN for SOB. L Great Toe Nail Avulsion (Acute) Consults: Podiatry (Dr. Knight), Recs Appreciated, Nursing Wound Care Mgmt: Tylenol PRN for Pain Hx of A-fib | Abnormal EKG w/ changes: EKG (Admission): Sinus tachycardia, Pulmonary disease pattern, Right bundle branch block, Left anterior fascicular block, Consults: Cardiology (Dr. Dykes), Recs Appreciated. --Will Repeat EKG in the AM Mgmt: Home Coreg 12.5mg PO BID Home ASA 81mg PO Daily Home Eliquis 5mg PO BID Elevated T.Bili --Will Monitor --Direct Bilirubin Ordered Hypertension (Chronic) Consults: Cardiology (Dr. Dykes), Recs Appreciated. Mgmt: Home Losartan 25mg PO Daily Home Lasix 20mg PO Daily HLD (Chronic) Mgmt: Home Crestor 20 HS DM II (Chronic) Mgmt: Home Lantus 35 Units SC HS Home Novolog 5 Units TID (Held) Regular Insulin Sliding Scale (medium) Hypoglycemia Protocol BPH (Chronic) Mgmt: Home Flomax 0.4mg PO Daily Proph SCD No indication for GI Proph Eliquis NS @ 100 | Heart Healthy Diet. Patient discussed with Attending Galindo Kelly, PGY-2"
--- NOTE | 2018-12-01 12:13 | RAD ---
Date of service: 12/01/2018 PROCEDURE: Left Foot Radiographs. HISTORY: Fall COMPARISON: None. FINDINGS: BONES: There is an acute transverse nondisplaced fracture at the base of the distal phalanx of the great toe. There is diffuse bone demineralization. Bone alignment is normal. JOINTS: The joint spaces are preserved. SOFT TISSUES: There is severe dorsal soft tissue swelling. OTHER FINDINGS: There are atherosclerotic vascular calcifications. IMPRESSION: Acute transverse nondisplaced fracture at the base of the distal phalanx of the great toe and severe dorsal soft tissue swelling.
--- NOTE | 2018-12-01 13:05 | PCM.SEPTIC ---
Sepsis Progress Note - Reassessment Type Date of Evaluation: 12/01/18 Time of Evaluation: 13:03 Reassessment Type: Non-invasive reassessment - Non Invasive Reassessment Were the most recent vital sign reviewed: Yes Vital Sign (Latest): Temp Pulse Resp BP Pulse Ox 99.4 F 95 H 19 128/68 93 L 12/01/18 11:30 12/01/18 11:30 12/01/18 11:30 12/01/18 11:30 12/01/18 11:30 Cardiovascular: Yes: Tachycardia. No: Chest Non Tender, Murmur, Bradycardia Respiratory: Yes: Normal Breath Sounds Capillary Refill: Normal (Less than 2 sec) Pulses: Normal Radial, Normal Dorsalis Pedis, Normal Posterior Tibialis Skin: Normal Color, Warm
[2018-12-01] MEDS: Piperacillin/Tazobact 3.375 GM in Sodium Chloride 100 ML IVPB SCH ×2 (14:23→19:14)
[2018-12-01] MEDS ORDERED: Piperacillin/Tazobact 3.375 gm 100 ML IVPB ONE (14:24)
[2018-12-01] MEDS ORDERED: Dextrose 50% SYRINGE Inj (50 ml) IV PRN (14:28)
[2018-12-01] MEDS ORDERED: (Novolog) Insulin Aspart, Recombinant 100 u/ml 10 ml vial SC SCH (16:30)
[2018-12-01] MEDS: (Novolin R) Insulin Human Regular 100 units/ml vial SC SCH ×2 (17:30→22:19)
[2018-12-01] MEDS: Sodium Chloride 0.9% 1,000 ML IV SCH (18:21)
[2018-12-01] MEDS: (Lantus) Insulin Glargine, Recombinant SC SCH (22:18)
[2018-12-02] MEDS: Piperacillin/Tazobact 3.375 GM in Sodium Chloride 100 ML IVPB SCH ×4 (02:19→19:04)
[2018-12-02] MEDS: guaiFENesin DM 200 mg-20 mg/10 ml UD PO PRN ×2 (06:06→12:17)
[2018-12-02] MEDS: Sodium Chloride 0.9% 1,000 ML IV SCH ×2 (06:07→06:08)
[2018-12-02 08:39] LABS: BASO % 0.5 % (0.0-2.0); EOS # 0.4 K/uL (0.0-0.7); EOS % 4.7 % (0.0-4.0); HEMOGLOBIN 10.6 g/dL (12.0-18.0); LYMPH # 0.9 K/uL (1.0-4.3); LYMPH % 11.2 % (20.0-40.0); MEAN CELL VOLUME 83.1 fL (80.0-94.0); MEAN CORPUSCULAR HEMOGLOBIN 28.6 pg (27.0-31.0); MEAN CORPUSCULAR HGB CONC 34.5 g/dL (33.0-37.0); MEAN PLATELET VOLUME 8.4 fL (7.2-11.7); MONO # 0.6 K/uL (0.0-0.8); MONO % 7.6 % (0.0-10.0); NEUT # 5.9 K/uL (1.8-7.0); RBC 3.71 Mil/uL (4.40-5.90); RED CELL DISTRIBUTION WIDTH 15.9 % (11.5-14.5); WHITE BLOOD COUNT 7.8 K/uL (4.8-10.8)
[2018-12-02] MEDS: (Novolin R) Insulin Human Regular 100 units/ml vial SC SCH ×3 (08:46→16:30)
[2018-12-02 08:52] LABS: ALB/GLOB RATIO 1.1 (1.0-2.1); CALCIUM 8.3 mg/dl (8.6-10.4)
--- NOTE | 2018-12-02 11:31 | CP.PCM.CON ---
Past Patient History - Past Medical History & Family History Past Medical History?: Yes - Past Social History Smoking Status: Never Smoked - CARDIAC Hx Atrial Fibrillation: Yes Hx Congestive Heart Failure: Yes Hx Hypertension: Yes - PULMONARY Hx Chronic Obstructive Pulmonary Disease (COPD): Yes - NEUROLOGICAL Hx Neurological Disorder: No - HEENT Hx HEENT Problems: No - RENAL Hx Chronic Kidney Disease: Yes (stage II) Hx Kidney Stones: Yes (HX.) - ENDOCRINE/METABOLIC Hx Diabetes Mellitus Type 2: Yes - HEMATOLOGICAL/ONCOLOGICAL Hx Blood Disorders: No - INTEGUMENTARY Hx Dermatological Problems: Yes Other/Comment: non healing wound to rt. axillary region bilat buttocks breakdowns - MUSCULOSKELETAL/RHEUMATOLOGICAL Hx Musculoskeletal Disorders: Yes Hx Back Pain: Yes Hx Falls: No Hx Osteoarthritis: Yes Hx Unsteady Gait: Yes Other/Comment: rt. knee problem - GASTROINTESTINAL Hx Gastrointestinal Disorders: Yes Hx Gastroesophageal Reflux: Yes - GENITOURINARY/GYNECOLOGICAL Hx Genitourinary Disorders: Yes Hx Hematuria: Yes Hx Incontinence: Yes Other/Comment: Unspecified Hydronephrosis. PT. FOR SURGERY 12/22/15-DX: URINARY RETENTION - PSYCHIATRIC Hx Substance Use: No - SURGICAL HISTORY Hx Appendectomy: Yes (age 11) - ANESTHESIA Hx Anesthesia: Yes Hx Anesthesia Reactions: No Hx Malignant Hyperthermia: No Has any member of the family had a problem w/ anesthesia?: No Meds Allergies/Adverse Reactions: Allergies Allergy/AdvReac Type Severity Reaction Status Date / Time Sulfa (Sulfonamide Allergy Verified 11/02/18 10:55 Antibiotics) - Medications Medications: Current Medications Acetaminophen (Tylenol 325mg Tab) 650 mg PO Q6 PRN PRN Reason: Fever >100.4 F or Pain (1-10) Last Admin: 12/02/18 06:00 Dose: 650 mg Albuterol/Ipratropium (Duoneb 3 Mg/0.5 Mg (3 Ml) Ud) 3 ml INH RQ6 PRN PRN Reason: Shortness of Breath Apixaban (Eliquis) 5 mg PO Q12H [facility] Last Admin: 12/02/18 00:14 Dose: 5 mg Aspirin (Aspirin Chewable) 81 mg PO DAILY [facility] Last Admin: 12/02/18 11:00 Dose: 81 mg Carvedilol (Coreg) 12.5 mg PO BID [facility] Last Admin: 12/02/18 11:00 Dose: 12.5 mg Dextrose (Dextrose 50% Inj) 0 ml IV STAT PRN; Protocol PRN Reason: Hypoglycemia Protocol Dextrose (Glutose 15) 0 gm PO ONCE PRN; Protocol PRN Reason: Hypoglycemia Protocol Furosemide (Lasix) 20 mg PO DAILY [facility] Last Admin: 12/02/18 11:00 Dose: 20 mg Guaifenesin/Dextromethorphan (Robitussin Dm) 10 ml PO Q4H PRN PRN Reason: Cough and congestion Last Admin: 12/02/18 06:06 Dose: 10 ml Sodium Chloride (Sodium Chloride 0.9%) 1,000 mls @ 100 mls/hr IV .Q10H EVON Last Admin: 12/02/18 06:08 Dose: Not Given Piperacillin Sod/Tazobactam (Sod 3.375 gm/ Sodium Chloride) 100 mls @ 200 mls/hr IVPB Q6H EVON; Protocol Last Admin: 12/02/18 09:00 Dose: 200 mls/hr Insulin Glargine (Lantus) 35 unit SC [facility] Last Admin: 12/01/18 22:18 Dose: 35 units Insulin Human Regular (Novolin R) 0 unit SC [facility]; Protocol Last Admin: 12/02/18 08:46 Dose: Not Given Losartan Potassium (Cozaar) 25 mg PO DAILY [facility] Last Admin: 12/02/18 11:00 Dose: 25 mg Methenamine Hippurate (Hiprex) 1 gm PO DAILY [facility]; Protocol Last Admin: 12/02/18 11:00 Dose: 1 gm Rosuvastatin Calcium (Crestor) 20 mg PO [facility] Last Admin: 12/01/18 22:18 Dose: 20 mg Tamsulosin HCl (Flomax) 0.4 mg PO DAILY [facility] Last Admin: 12/02/18 11:00 Dose: 0.4 mg Results - Vital Signs Recent Vital Signs: Last Vital Signs Temp 99.4 F 12/02/18 07:52 Pulse 76 12/02/18 11:00 Resp 20 12/02/18 07:52 BP 168/74 H 12/02/18 11:00 Pulse Ox 94 L 12/02/18 07:52 - Labs Result Diagrams: 12/02/18 08:26 12/02/18 08:26 Labs: Laboratory Results - last 24 hr 12/01/18 12/01/18 12/02/18 17:34 17:52 08:26 WBC 7.8 RBC 3.71 L Hgb 10.6 L Hct 30.9 L MCV 83.1 MCH 28.6 MCHC 34.5 RDW 15.9 H Plt Count 166 MPV 8.4 Neut % (Auto) 76.0 H Lymph % (Auto) 11.2 L [place] % (Auto) 7.6 Eos % (Auto) 4.7 H Baso % (Auto) 0.5 Neut # (Auto) 5.9 Lymph # (Auto) 0.9 L [place] # (Auto) 0.6 Eos # (Auto) 0.4 Baso # (Auto) 0.0 Sodium Potassium Chloride Carbon Dioxide Anion Gap BUN Creatinine Est GFR ( Amer) Est GFR (Non-Af Amer) POC Glucose (mg/dL) 183 H Random Glucose Calcium Total Bilirubin Direct Bilirubin 0.2 AST ALT Alkaline Phosphatase Total Protein Albumin Globulin Albumin/Globulin Ratio 12/02/18 08:26 WBC RBC Hgb Hct MCV MCH MCHC RDW Plt Count MPV Neut % (Auto) Lymph % (Auto) [place] % (Auto) Eos % (Auto) Baso % (Auto) Neut # (Auto) Lymph # (Auto) [place] # (Auto) Eos # (Auto) Baso # (Auto) Sodium 135 Potassium 3.9 Chloride 105 Carbon Dioxide 24 Anion Gap 10 BUN 23 H Creatinine 1.5 Est GFR ( Amer) 55 Est GFR (Non-Af Amer) 46 POC Glucose (mg/dL) Random Glucose 117 H D Calcium 8.3 L Total Bilirubin 1.2 Direct Bilirubin AST 100 H D ALT 19 L Alkaline Phosphatase 87 Total Protein 5.9 L Albumin 3.0 L D Globulin 2.9 Albumin/Globulin Ratio 1.1
--- NOTE | 2018-12-02 11:33 | CP.PCM.PN ---
Subjective - Date & Time of Evaluation Date of Evaluation: 12/02/18 Time of Evaluation: 14:20 - Subjective Subjective: Podiatry Consult Note - Dr. Bud Knight 73 y/o male with PMHx of COPD, CHF, DM, CKD and atrial fibrillation seen at bedside with Dr. Bud Knight for left nail avulsion, s/p 1 day. Patient states he fell yesterday and came to the ED due to right knee pain. Secondarily patient avulsed his left nail. Patient's nail was removed in the ED yesterday. patient complains of minimal pain at this time. Patient seen ambulating to heel with physical therapy Strike through noted to the dressing Objective - Vital Signs/Intake and Output Vital Signs (last 24 hours): Temp Pulse Resp BP Pulse Ox 99.4 F 76 20 168/74 H 94 L 12/02/18 07:52 12/02/18 11:00 12/02/18 07:52 12/02/18 11:00 12/02/18 07:52 Intake and Output: 12/02/18 12/02/18 06:59 18:59 Intake Total 900 Balance 900 - Medications Medications: Current Medications Acetaminophen (Tylenol 325mg Tab) 650 mg PO Q6 PRN PRN Reason: Fever >100.4 F or Pain (1-10) Last Admin: 12/02/18 06:00 Dose: 650 mg Albuterol/Ipratropium (Duoneb 3 Mg/0.5 Mg (3 Ml) Ud) 3 ml INH RQ6 PRN PRN Reason: Shortness of Breath Apixaban (Eliquis) 5 mg PO Q12H [facility] Last Admin: 12/02/18 00:14 Dose: 5 mg Aspirin (Aspirin Chewable) 81 mg PO DAILY [facility] Last Admin: 12/02/18 11:00 Dose: 81 mg Carvedilol (Coreg) 12.5 mg PO BID [facility] Last Admin: 12/02/18 11:00 Dose: 12.5 mg Dextrose (Dextrose 50% Inj) 0 ml IV STAT PRN; Protocol PRN Reason: Hypoglycemia Protocol Dextrose (Glutose 15) 0 gm PO ONCE PRN; Protocol PRN Reason: Hypoglycemia Protocol Furosemide (Lasix) 20 mg PO DAILY [facility] Last Admin: 12/02/18 11:00 Dose: 20 mg Guaifenesin/Dextromethorphan (Robitussin Dm) 10 ml PO Q4H PRN PRN Reason: Cough and congestion Last Admin: 12/02/18 06:06 Dose: 10 ml Sodium Chloride (Sodium Chloride 0.9%) 1,000 mls @ 100 mls/hr IV .Q10H [facility] Last Admin: 12/02/18 06:08 Dose: Not Given Piperacillin Sod/Tazobactam (Sod 3.375 gm/ Sodium Chloride) 100 mls @ 200 mls/hr IVPB Q6H [facility]; Protocol Last Admin: 12/02/18 09:00 Dose: 200 mls/hr Insulin Glargine (Lantus) 35 unit SC [facility] Last Admin: 12/01/18 22:18 Dose: 35 units Insulin Human Regular (Novolin R) 0 unit SC [facility]; Protocol Last Admin: 12/02/18 08:46 Dose: Not Given Losartan Potassium (Cozaar) 25 mg PO DAILY [facility] Last Admin: 12/02/18 11:00 Dose: 25 mg Methenamine Hippurate (Hiprex) 1 gm PO DAILY [facility]; Protocol Last Admin: 12/02/18 11:00 Dose: 1 gm Rosuvastatin Calcium (Crestor) 20 mg PO [facility] Last Admin: 12/01/18 22:18 Dose: 20 mg Tamsulosin HCl (Flomax) 0.4 mg PO DAILY [facility] Last Admin: 12/02/18 11:00 Dose: 0.4 mg - Labs Labs: 12/02/18 08:26 12/02/18 08:26 PT 19.5 SECONDS (9.7-12.2) H 12/01/18 06:43 INR 1.8 12/01/18 06:43 APTT 36 SECONDS (21-34) H 12/01/18 06:43 - Constitutional Appears: Well, Non-toxic, No Acute Distress - Head Exam Head Exam: ATRAUMATIC, NORMOCEPHALIC - Extremities Exam Additional comments: Lower extremity focused exam: Vasc: DP/PT pulses palpable 2/4. Temperature gradient warm to cool. CFT < 3 sec to all digits. improving +1 pitting edema noted to entirety of bilateral lower extremities. Mild bluish discoloration is noted to right foot lesser digits Derm: nail bed with positive bleeding noted to the left hallux, no malodor, minimal edema and erythema, no signs of infection Neuro: protective and gross sensation diminished Ortho: mild-moderate tenderness to palpation of all lesser digits of right foot - Neurological Exam Neurological Exam: Alert, Awake, Oriented x3 - Psychiatric Exam Psychiatric exam: Normal Affect, Normal Mood Assessment and Plan - Assessment and Plan (Free Text) Assessment: 73 y/o male with s/p left nail avulsion Plan: Patient seen and evaluated at bedside with dr. Knight Discussed plan with Dr. Knight Left foot xrays ordered - as per report, non-displaced fracture of the proximal phalanx Left Hallux dressed with xerform, DSD Bactroban ordered for future dressing changes patient stable from podiatry standpoint, can f/u outpatient with Dr. Knight in his office Will continue to follow patient while in house
--- NOTE | 2018-12-02 14:23 | CP.PCM.CON ---
History of Present Illness - History of Present Illness History of Present Illness: I was asked to evaluate patient by Blayne Patient was seen 12/02/18 [id number] Patient is a 73 year old male with HTn, CAD, paroxysmal atrail fibrillation who presents with fall. Patent states he was at home when he fell on his knee. he has pain and swelling of the right knee. He denies chest pain or dyspnea. Review of Systems - Constitutional Constitutional: absent: As Per HPI, Anorexia, Chills, Daytime Sleepiness, Excessive Sweating, Fatigue, Fever, Frequent Falls, Headache, Increased Appetite, Lethargy, Malaise, Night Sweats, Snoring, Sleep Apnea, Weight Gain, W eight Loss, Weakness, Other - EENT Eyes: absent: As Per HPI, Blind Spots, Blurred Vision, Change in Vision, Decreased Night Vision, Diplopia, Discharge, Dry Eye, Exophthalmos, Floaters, Irritation, Itchy Eyes, Loss of Peripheral Vision, Pain, Photophobia, Requires Corrective Lenses, Sees Flashes, Spots in Vision, Tunnel Vision, Other Visual Disturbances, Loss of Vision, Other Ears: absent: As Per HPI, Decreased Hearing, Ear Discharge, Ear Pain, Tinnitus, Abnormal Hearing, Disequilibrium, Dizziness, Other Nose/Mouth/Throat: absent: As Per HPI, Epistaxis, Nasal Congestion, Nasal Discharge, Nasal Obstruction, Nasal Trauma, Nose Pain, Post Nasal Drip, Sinus Pain, Sinus Pressure, Bleeding Gums, Change in Voice, Dental Pain, Dry Mouth, Dysphagia, Halitosis, Hoarsness, Lip Swelling, Mouth Lesions, Mouth Pain, Odynophagia, Sore Throat, Throat Swelling, Tongue Swelling, Facial Pain, Neck Pain, Neck Mass, Other - Cardiovascular Cardiovascular: absent: As Per HPI, Acrocyanosis, Chest Pain, Chest Pain at Rest, Chest Pain with Activity, Claudication, Diaphoresis, Dyspnea, Dyspnea on Exertion, Edema, Irregular Heart Rhythm, Pain Radiating to Arm/Neck/Jaw, Leg Edema, Leg Ulcers, Lightheadedness, Orthopnea, Palpitations, Paroxysmal Nocturnal Dyspnea, Pedal Edema, Radiating Pain, Rapid Heart Rate, Slow Heart Rate, Syncope, Other - Respiratory Respiratory: absent: As Per HPI, Cough, Dyspnea, Hemoptysis, Dyspnea on Exertion, Wheezing, Snoring, Stridor, Pain on Inspiration, Chest Congestion, Excessive Mucous Production, Change in Mucous Color, Pain with Coughing, Other - Gastrointestinal Gastrointestinal: absent: As Per HPI, Abdominal Pain, Belching, Bloating, Change in Bowel Habits, Change in Stool Character, Coffee Ground Emesis, Constipation, Cramping, Diarrhea, Dyspepsia, Dysphagia, Early Satiety, Excessive Flatus, Fecal Incontinence, Heartburn, Hematemesis, Hematochezia, Loose Stools, Melena, Nausea, Odynophagia, Temesmus, Vomiting, Other - Genitourinary Genitourinary: absent: As Per HPI, Change in Urinary Stream, Difficulty Urinating, Dysuria, Flank Pain, Hematuria, Pyuria, Nocturia, Urinary Incontinence, Urinary Frequency, Urinary Hesitance, Urinary Urgency, Voiding Freq/Small Amts, Freq UTI, Hx Renal/Bladder Calculi, Hx /Renal Surgery, Bladder Distension, Other - Musculoskeletal Musculoskeletal: Limited Range of Motion - Integumentary Integumentary: absent: As Per HPI, Acne, Alopecia, Bleeding Lesions, Change in Hair, Change in Nails, Change in Pigmentation, Changing Lesions, Dry Skin, Erythema, Furuncle, Hirsutism, Lesions, New Lesions, Non-Healing Lesions, Photosensitivity, Pruritus, Rash, Skin Pain, Skin Ulcer, Sores, Striae, Swelling, Unusual Bruising, Wounds, Jaundice, Other - Neurological Neurological: absent: As Per HPI, Abnormal Gait, Abnormal Hearing, Abnormal Movements, Abnormal Speech, Behavioral Changes, Burning Sensations, Confusion, Convulsions, Disequilibrium, Dizziness, Numbness, Focal Weakness, Frequent Falls, Headaches, Lack of Coordination, Loss of Vision, Memory Loss, Pares thesias, Radicular Pain, Restless Legs, Sensory Deficit, Syncope, Tingling, Tremor, Vertigo, Weakness, Other Visual Disturbances, Other - Psychiatric Psychiatric: absent: As Per HPI, Abnormal Sleep Pattern, Anhedonia, Anxiety, Auditory Hallucinations, Behavioral Changes, Change in Appetite, Change in Libido, Confusion, Depression, Difficulty Concentrating, Hallucinations, Homicidal Ideation, Hopelessness, Irritability, Memory Loss, Mood Swings, Panic Attacks, Paranoia, Suicidal Ideation, Visual Hallucinations, Tactile Hallucinations, Other - Endocrine Endocrine: absent: As Per HPI, Change in Body Appearance, Change in Libido, Cold Intolorance, Deepening of Voice, Excessive Sweating, Fatigue, Flushing, Heat Intolorance, Increase in Ring/Shoe/Hat Size, Palpitations, Polydipsia, Polyphagia, Polyuria, Other - Hematologic/Lymphatic Hematologic: absent: As Per HPI, Easy Bleeding, Easy Bruising, Lymphadenopathy, Other Past Patient History - Past Medical History & Family History Past Medical History?: Yes - Past Social History Smoking Status: Never Smoked - CARDIAC Hx Atrial Fibrillation: Yes Hx Congestive Heart Failure: Yes Hx Hypertension: Yes - PULMONARY Hx Chronic Obstructive Pulmonary Disease (COPD): Yes - NEUROLOGICAL Hx Neurological Disorder: No - HEENT Hx HEENT Problems: No - RENAL Hx Chronic Kidney Disease: Yes (stage II) Hx Kidney Stones: Yes (HX.) - ENDOCRINE/METABOLIC Hx Diabetes Mellitus Type 2: Yes - HEMATOLOGICAL/ONCOLOGICAL Hx Blood Disorders: No - INTEGUMENTARY Hx Dermatological Problems: Yes Other/Comment: non healing wound to rt. axillary region bilat buttocks breakdowns - MUSCULOSKELETAL/RHEUMATOLOGICAL Hx Musculoskeletal Disorders: Yes Hx Back Pain: Yes Hx Falls: Yes Hx Osteoarthritis: Yes Hx Unsteady Gait: Yes Other/Comment: rt. knee problem - GASTROINTESTINAL Hx Gastrointestinal Disorders: Yes Hx Gastroesophageal Reflux: Yes - GENITOURINARY/GYNECOLOGICAL Hx Genitourinary Disorders: Yes Hx Hematuria: Yes Hx Incontinence: Yes Other/Comment: Unspecified Hydronephrosis. PT. FOR SURGERY 12/22/15-DX: URINARY RETENTION - PSYCHIATRIC Hx Substance Use: No - SURGICAL HISTORY Hx Appendectomy: Yes (age 11) - ANESTHESIA Hx Anesthesia: Yes Hx Anesthesia Reactions: No Hx Malignant Hyperthermia: No Has any member of the family had a problem w/ anesthesia?: No Meds Allergies/Adverse Reactions: Allergies Allergy/AdvReac Type Severity Reaction Status Date / Time Sulfa (Sulfonamide Allergy Verified 11/02/18 10:55 Antibiotics) - Medications Medications: Current Medications Acetaminophen (Tylenol 325mg Tab) 650 mg PO Q6 PRN PRN Reason: Fever >100.4 F or Pain (1-10) Last Admin: 12/02/18 12:16 Dose: 650 mg Albuterol/Ipratropium (Duoneb 3 Mg/0.5 Mg (3 Ml) Ud) 3 ml INH RQ6 PRN PRN Reason: Shortness of Breath Apixaban (Eliquis) 5 mg PO Q12H [facility] Last Admin: 12/02/18 12:17 Dose: 5 mg Aspirin (Aspirin Chewable) 81 mg PO DAILY [facility] Last Admin: 12/02/18 11:00 Dose: 81 mg Benzocaine/Menthol (Cepacol Sore Throat) 1 philip MT Q6 PRN PRN Reason: Sore Throat Carvedilol (Coreg) 12.5 mg PO BID [facility] Last Admin: 12/02/18 11:00 Dose: 12.5 mg Dextrose (Dextrose 50% Inj) 0 ml IV STAT PRN; Protocol PRN Reason: Hypoglycemia Protocol Dextrose (Glutose 15) 0 gm PO ONCE PRN; Protocol PRN Reason: Hypoglycemia Protocol Furosemide (Lasix) 20 mg PO DAILY [facility] Last Admin: 12/02/18 11:00 Dose: 20 mg Guaifenesin/Dextromethorphan (Robitussin Dm) 10 ml PO Q4H PRN PRN Reason: Cough and congestion Last Admin: 12/02/18 12:17 Dose: 10 ml Piperacillin Sod/Tazobactam (Sod 3.375 gm/ Sodium Chloride) 100 mls @ 200 mls/hr IVPB Q6H [facility]; Protocol Last Admin: 12/02/18 09:00 Dose: 200 mls/hr Insulin Glargine (Lantus) 35 unit SC [facility] Last Admin: 12/01/18 22:18 Dose: 35 units Insulin Human Regular (Novolin R) 0 unit SC [facility]; Protocol Last Admin: 12/02/18 12:17 Dose: 2 units Losartan Potassium (Cozaar) 25 mg PO DAILY [facility] Last Admin: 12/02/18 11:00 Dose: 25 mg Methenamine Hippurate (Hiprex) 1 gm PO DAILY [facility]; Protocol Last Admin: 12/02/18 11:00 Dose: 1 gm Mupirocin (Bactroban Ointment) 0 gm TOP DAILY [facility] Rosuvastatin Calcium (Crestor) 20 mg PO HS [facility] Last Admin: 12/01/18 22:18 Dose: 20 mg Tamsulosin HCl (Flomax) 0.4 mg PO DAILY [facility] Last Admin: 12/02/18 11:00 Dose: 0.4 mg Physical Exam - Constitutional Appears: Non-toxic - Head Exam Head Exam: NORMAL INSPECTION - Eye Exam Eye Exam: Normal appearance - ENT Exam ENT Exam: Mucous Membranes Moist - Neck Exam Neck exam: Positive for: Normal Inspection. Negative for: Lymphadenopathy, Tenderness, Thyromegaly - Respiratory Exam Respiratory Exam: Clear to Auscultation Bilateral, NORMAL BREATHING PATTERN. absent: Rales, Rhonchi, Wheezes - Cardiovascular Exam Cardiovascular Exam: REGULAR RHYTHM - GI/Abdominal Exam GI & Abdominal Exam: Normal Bowel Sounds, Soft. absent: Organomegaly, Rebound - Rectal Exam Rectal Exam: Deferred - Extremities Exam Extremities exam: Positive for: normal inspection, pedal pulses present. Negative for: pedal edema, tenderness - Back Exam Back exam: NORMAL INSPECTION - Neurological Exam Neurological exam: Alert, Oriented x3 - Psychiatric Exam Psychiatric exam: Normal Affect - Skin Skin Exam: Normal Color Results - Vital Signs Recent Vital Signs: Last Vital Signs Temp 99.4 F 12/02/18 07:52 Pulse 76 12/02/18 11:00 Resp 20 12/02/18 07:52 BP 168/74 H 12/02/18 11:00 Pulse Ox 94 L 12/02/18 07:52 - Labs Result Diagrams: 12/02/18 08:26 12/02/18 08:26 Labs: Laboratory Results - last 24 hr 12/01/18 12/01/18 12/02/18 17:34 17:52 08:26 WBC 7.8 RBC 3.71 L Hgb 10.6 L Hct 30.9 L MCV 83.1 MCH 28.6 MCHC 34.5 RDW 15.9 H Plt Count 166 MPV 8.4 Neut % (Auto) 76.0 H Lymph % (Auto) 11.2 L [place] % (Auto) 7.6 Eos % (Auto) 4.7 H Baso % (Auto) 0.5 Neut # (Auto) 5.9 Lymph # (Auto) 0.9 L [place] # (Auto) 0.6 Eos # (Auto) 0.4 Baso # (Auto) 0.0 Sodium Potassium Chloride Carbon Dioxide Anion Gap BUN Creatinine Est GFR ( Amer) Est GFR (Non-Af Amer) POC Glucose (mg/dL) 183 H Random Glucose Calcium Total Bilirubin Direct Bilirubin 0.2 AST ALT Alkaline Phosphatase Total Protein Albumin Globulin Albumin/Globulin Ratio 12/02/18 08:26 WBC RBC Hgb Hct MCV MCH MCHC RDW Plt Count MPV Neut % (Auto) Lymph % (Auto) [place] % (Auto) Eos % (Auto) Baso % (Auto) Neut # (Auto) Lymph # (Auto) [place] # (Auto) Eos # (Auto) Baso # (Auto) Sodium 135 Potassium 3.9 Chloride 105 Carbon Dioxide 24 Anion Gap 10 BUN 23 H Creatinine 1.5 Est GFR ( Amer) 55 Est GFR (Non-Af Amer) 46 POC Glucose (mg/dL) Random Glucose 117 H D Calcium 8.3 L Total Bilirubin 1.2 Direct Bilirubin AST 100 H D ALT 19 L Alkaline Phosphatase 87 Total Protein 5.9 L Albumin 3.0 L D Globulin 2.9 Albumin/Globulin Ratio 1.1 - EKG Data EKG Interpreted by: Myself EKG shows normal: Sinus rhythm Assessment & Plan - Assessment and Plan (Free Text) Assessment: HTN medical therapy CAD no current angina atrial fibrillation paroxysmal. currently in sinus rhythm. ideally would benefit from anticoagulation but will have to weigh the risks and benefits.
[2018-12-02] MEDS: Benzocaine/Menthol (Cepacol) Lozenge MT PRN ×2 (14:35→21:57)
[2018-12-02] MEDS: (Lantus) Insulin Glargine, Recombinant SC SCH (21:50)
[2018-12-03] MEDS: Piperacillin/Tazobact 3.375 GM in Sodium Chloride 100 ML IVPB SCH ×4 (01:11→21:00)
[2018-12-03] MEDS: (Novolin R) Insulin Human Regular 100 units/ml vial SC SCH ×4 (07:06→21:16)
[2018-12-03] MEDS: guaiFENesin DM 200 mg-20 mg/10 ml UD PO PRN ×3 (07:29→23:56)
[2018-12-03] MEDS: Benzocaine/Menthol (Cepacol) Lozenge MT PRN ×3 (07:38→23:55)
--- NOTE | 2018-12-03 08:50 | CP.PCM.PN ---
Subjective - Date & Time of Evaluation Date of Evaluation: 12/03/18 Time of Evaluation: 08:00 - Subjective Subjective: no new chest pain or dyspnea Objective - Vital Signs/Intake and Output Vital Signs (last 24 hours): Temp Pulse Resp BP Pulse Ox 98.8 F 82 20 176/91 H 95 12/03/18 00:05 12/03/18 08:00 12/03/18 00:05 12/03/18 01:16 12/03/18 00:05 Intake and Output: 12/03/18 12/03/18 06:59 18:59 Intake Total 500 Output Total 1300 Balance -800 - Medications Medications: Current Medications Acetaminophen (Tylenol 325mg Tab) 650 mg PO Q6 PRN PRN Reason: Fever >100.4 F or Pain (1-10) Last Admin: 12/03/18 07:25 Dose: 650 mg Albuterol/Ipratropium (Duoneb 3 Mg/0.5 Mg (3 Ml) Ud) 3 ml INH RQ6 PRN PRN Reason: Shortness of Breath Apixaban (Eliquis) 5 mg PO Q12H [facility] Last Admin: 12/03/18 03:39 Dose: 5 mg Aspirin (Aspirin Chewable) 81 mg PO DAILY [facility] Last Admin: 12/02/18 11:00 Dose: 81 mg Benzocaine/Menthol (Cepacol Sore Throat) 1 philip MT Q6 PRN PRN Reason: Sore Throat Last Admin: 12/03/18 07:38 Dose: 1 philip Carvedilol (Coreg) 12.5 mg PO BID [facility] Last Admin: 12/02/18 17:08 Dose: 12.5 mg Dextrose (Dextrose 50% Inj) 0 ml IV STAT PRN; Protocol PRN Reason: Hypoglycemia Protocol Dextrose (Glutose 15) 0 gm PO ONCE PRN; Protocol PRN Reason: Hypoglycemia Protocol Furosemide (Lasix) 20 mg PO DAILY [facility] Last Admin: 12/02/18 11:00 Dose: 20 mg Guaifenesin/Dextromethorphan (Robitussin Dm) 10 ml PO Q4H PRN PRN Reason: Cough and congestion Last Admin: 12/03/18 07:29 Dose: 10 ml Piperacillin Sod/Tazobactam (Sod 3.375 gm/ Sodium Chloride) 100 mls @ 200 mls /hr IVPB Q6H [facility]; Protocol Last Admin: 12/03/18 07:38 Dose: 200 mls/hr Insulin Glargine (Lantus) 35 unit SC HS [facility] Last Admin: 12/02/18 21:50 Dose: 35 units Insulin Human Regular (Novolin R) [address] [facility]; Protocol Last Admin: 12/03/18 07:06 Dose: Not Given Losartan Potassium (Cozaar) 25 mg PO DAILY [facility] Last Admin: 12/02/18 11:00 Dose: 25 mg Methenamine Hippurate (Hiprex) 1 gm PO DAILY [facility]; Protocol Last Admin: 12/02/18 11:00 Dose: 1 gm Mupirocin (Bactroban Ointment) 0 gm TOP DAILY [facility] Rosuvastatin Calcium (Crestor) 20 mg PO HS [facility] Last Admin: 12/02/18 21:51 Dose: 20 mg Tamsulosin HCl (Flomax) 0.4 mg PO DAILY [facility] Last Admin: 12/02/18 11:00 Dose: 0.4 mg - Labs Labs: 12/02/18 08:26 12/02/18 08:26 PT 19.5 SECONDS (9.7-12.2) H 12/01/18 06:43 INR 1.8 12/01/18 06:43 APTT 36 SECONDS (21-34) H 12/01/18 06:43 - Constitutional Appears: Non-toxic - Head Exam Head Exam: NORMAL INSPECTION - Eye Exam Eye Exam: Normal appearance - ENT Exam ENT Exam: Mucous Membranes Moist - Neck Exam Neck Exam: Full ROM - Respiratory Exam Respiratory Exam: NORMAL BREATHING PATTERN. absent: Rales, Respiratory Distress - Cardiovascular Exam Cardiovascular Exam: REGULAR RHYTHM - GI/Abdominal Exam GI & Abdominal Exam: Normal Bowel Sounds - Rectal Exam Rectal Exam: Deferred - Extremities Exam Extremities Exam: absent: Pedal Edema - Back Exam Back Exam: NORMAL INSPECTION - Neurological Exam Neurological Exam: Alert - Psychiatric Exam Psychiatric exam: Normal Affect - Skin Skin Exam: Normal Color Assessment and Plan (1) Atrial fibrillation Assessment & Plan: rate controlled conitnue Eliquis Status: Acute (2) Hypertension Assessment & Plan: increase Coreg Status: Acute
[2018-12-03 09:18] LABS: HEMOGLOBIN 10.9 g/dL (12.0-18.0); MEAN CELL VOLUME 82.6 fL (80.0-94.0); MEAN CORPUSCULAR HEMOGLOBIN 28.4 pg (27.0-31.0); MEAN CORPUSCULAR HGB CONC 34.4 g/dL (33.0-37.0); MEAN PLATELET VOLUME 8.6 fL (7.2-11.7); RBC 3.85 Mil/uL (4.40-5.90); RED CELL DISTRIBUTION WIDTH 15.6 % (11.5-14.5); WHITE BLOOD COUNT 7.2 K/uL (4.8-10.8)
[2018-12-03 09:38] LABS: ALBUMIN 3.1 g/dL (3.5-5.0); ALT/SGPT 23 U/L (21-72); AST/SGOT 95 U/L (17-59); BLOOD UREA NITROGEN 16 mg/dL (9-20); CALCIUM 8.4 mg/dl (8.6-10.4); GFR NON-AFRICAN AMERICAN 59
--- NOTE | 2018-12-03 11:00 | CP.PCM.PN ---
Subjective - Date & Time of Evaluation Date of Evaluation: 12/03/18 Time of Evaluation: 10:58 - Subjective Subjective: Podiatry Consult Note - Dr. Bud Knight 73 y/o male with PMHx of COPD, CHF, DM, CKD and atrial fibrillation seen at bedside for left nail avulsion, s/p 2 days. Patient states he fell yesterday and came to the ED due to right knee pain. Secondarily patient avulsed his left nail. Patient's nail was removed in the ED yesterday. patient complains of minimal pain at this time. Patient seen ambulating to heel with physical therapy Strike through noted to the dressing Objective - Vital Signs/Intake and Output Vital Signs (last 24 hours): Temp Pulse Resp BP Pulse Ox 98.4 F 82 20 180/66 H 95 12/03/18 07:10 12/03/18 08:00 12/03/18 07:10 12/03/18 09:54 12/03/18 07:10 Intake and Output: 12/03/18 12/03/18 06:59 18:59 Intake Total 500 Output Total 1300 Balance -800 - Medications Medications: Current Medications Acetaminophen (Tylenol 325mg Tab) 650 mg PO Q6 PRN PRN Reason: Fever >100.4 F or Pain (1-10) Last Admin: 12/03/18 07:25 Dose: 650 mg Albuterol/Ipratropium (Duoneb 3 Mg/0.5 Mg (3 Ml) Ud) 3 ml INH RQ6 PRN PRN Reason: Shortness of Breath Apixaban (Eliquis) 5 mg PO Q12H [facility] Last Admin: 12/03/18 03:39 Dose: 5 mg Aspirin (Aspirin Chewable) 81 mg PO DAILY [facility] Last Admin: 12/03/18 09:51 Dose: 81 mg Benzocaine/Menthol (Cepacol Sore Throat) 1 philip MT Q6 PRN PRN Reason: Sore Throat Last Admin: 12/03/18 07:38 Dose: 1 philip Carvedilol (Coreg) 25 mg PO BID [facility] Last Admin: 12/03/18 09:54 Dose: 25 mg Dextrose (Dextrose 50% Inj) 0 ml IV STAT PRN; Protocol PRN Reason: Hypoglycemia Protocol Dextrose (Glutose 15) 0 gm PO ONCE PRN; Protocol PRN Reason: Hypoglycemia Protocol Furosemide (Lasix) 20 mg PO DAILY [facility] Last Admin: 12/03/18 09:51 Dose: 20 mg Guaifenesin/Dextromethorphan (Robitussin Dm) 10 ml PO Q4H PRN PRN Reason: Cough and congestion Last Admin: 12/03/18 07:29 Dose: 10 ml Piperacillin Sod/Tazobactam (Sod 3.375 gm/ Sodium Chloride) 100 mls @ 200 mls/hr IVPB Q6H [facility]; Protocol Last Admin: 12/03/18 07:38 Dose: 200 mls/hr Insulin Glargine (Lantus) 35 unit SC HS [facility] Last Admin: 12/02/18 21:50 Dose: 35 units Insulin Human Regular (Novolin R) 0 unit SC [facility]; Protocol Last Admin: 12/03/18 07:06 Dose: Not Given Losartan Potassium (Cozaar) 25 mg PO DAILY [facility] Last Admin: 12/03/18 09:51 Dose: 25 mg Mupirocin (Bactroban Ointment) 0 gm TOP DAILY [facility] Rosuvastatin Calcium (Crestor) 20 mg PO HS [facility] Last Admin: 12/02/18 21:51 Dose: 20 mg Tamsulosin HCl (Flomax) 0.4 mg PO DAILY [facility] Last Admin: 12/03/18 09:51 Dose: 0.4 mg - Labs Labs: 12/03/18 09:08 12/03/18 09:08 PT 19.5 SECONDS (9.7-12.2) H 12/01/18 06:43 INR 1.8 12/01/18 06:43 APTT 36 SECONDS (21-34) H 12/01/18 06:43 - Constitutional Appears: Well, Non-toxic, No Acute Distress - Head Exam Head Exam: ATRAUMATIC, NORMOCEPHALIC - Extremities Exam Additional comments: Lower extremity focused exam: Vasc: DP/PT pulses palpable 2/4. Temperature gradient warm to cool. CFT < 3 sec to all digits. improving +1 pitting edema noted to entirety of bilateral lower extremities. Mild bluish discoloration is noted to right foot lesser digits Derm: nail bed with positive bleeding noted to the left hallux, no malodor, minimal edema and erythema, no signs of infection Neuro: protective and gross sensation diminished Ortho: mild-moderate tenderness to palpation of all lesser digits of right foot - Neurological Exam Neurological Exam: Alert, Awake, Normal Gait, Oriented x3 - Psychiatric Exam Psychiatric exam: Normal Affect, Normal Mood Assessment and Plan - Assessment and Plan (Free Text) Assessment: 73 y/o male with s/p left nail avulsion Plan: Patient seen and evaluated at bedside Discussed plan with Dr. Knight Left foot xrays ordered - as per report, non-displaced fracture of the proximal phalanx Left Hallux dressed with xeroform, DSD Bactroban ordered for future dressing changes patient stable from podiatry standpoint, can f/u outpatient with Dr. Knight in his office Will continue to follow patient while in house
[2018-12-03 11:47] LABS: BASO # 0.1 K/uL (0.0-0.2); EOS # 0.7 K/uL (0.0-0.7); LYMPH # 0.7 K/uL (1.0-4.3); MONO # 0.6 K/uL (0.0-0.8); NEUT # 5.1 K/uL (1.8-7.0)
[2018-12-03] MEDS: (Lantus) Insulin Glargine, Recombinant SC SCH (21:41)
[2018-12-04] MEDS: Piperacillin/Tazobact 3.375 GM in Sodium Chloride 100 ML IVPB SCH ×3 (04:20→13:47)
--- NOTE | 2018-12-04 06:49 | HP ---
HISTORY OF PRESENT ILLNESS: A 73 year-old male, chief complaint weakness, hypertension and COPD, admitted to hospital with complaint of weakness, fatigue, tiredness. Patient found to have pneumonia ____. The patient came to the ER, advised admission. PHYSICAL EXAMINATION: GENERAL: The patient is awake, weak. VITAL SIGNS: Temperature 98, pulse 90. HEENT: Within normal limits. NECK: Supple. CHEST: Symmetrical. HEART: Regular. ABDOMEN: Soft. EXTREMITIES: There is traumatic injury to the left foot, partial avulsion of toe. IMPRESSION: The patient suffers from pneumonia, sepsis. Patient getting IV antibiotics, supportive care. Adalberto Cisneros MD
[2018-12-04 07:41] LABS: BASO % 0.6 % (0.0-2.0); EOS # 0.4 K/uL (0.0-0.7); EOS % 6.3 % (0.0-4.0); HEMOGLOBIN 10.7 g/dL (12.0-18.0); LYMPH # 1.1 K/uL (1.0-4.3); LYMPH % 16.2 % (20.0-40.0); MEAN CELL VOLUME 82.7 fL (80.0-94.0); MEAN CORPUSCULAR HEMOGLOBIN 28.7 pg (27.0-31.0); MEAN CORPUSCULAR HGB CONC 34.7 g/dL (33.0-37.0); MEAN PLATELET VOLUME 8.9 fL (7.2-11.7); MONO # 0.6 K/uL (0.0-0.8); MONO % 9.1 % (0.0-10.0); NEUT # 4.4 K/uL (1.8-7.0); NEUT % 67.8 % (50.0-75.0); RBC 3.74 Mil/uL (4.40-5.90); RED CELL DISTRIBUTION WIDTH 15.6 % (11.5-14.5); WHITE BLOOD COUNT 6.5 K/uL (4.8-10.8)
[2018-12-04 08:19] LABS: ALBUMIN 3.2 g/dL (3.5-5.0); CALCIUM 8.4 mg/dl (8.6-10.4)
[2018-12-04] MEDS: (Novolin R) Insulin Human Regular 100 units/ml vial SC SCH ×4 (08:33→22:47)
--- NOTE | 2018-12-04 14:40 | CP.PCM.PN ---
"Subjective - Date & Time of Evaluation Date of Evaluation: 12/04/18 Time of Evaluation: 14:37 - Subjective Subjective: Medicine Progress Note - Dr Cisneros's service Patient seen and examined at bedside. Per nursing no acute events overnight. Patient reports having pain is the low back. Requesting pain medication. He states that he has difficulty with transferring and ambulation. He would like a walker at the bedside. Offers no other complaints at this time. Objective - Vital Signs/Intake and Output Vital Signs (last 24 hours): Temp Pulse Resp BP Pulse Ox 99 F 72 20 156/70 H 95 12/03/18 23:10 12/04/18 07:00 12/03/18 23:10 12/04/18 11:06 12/03/18 23:10 - Medications Medications: Current Medications Acetaminophen (Tylenol 325mg Tab) 650 mg PO Q6 PRN PRN Reason: Fever >100.4 F or Pain (1-10) Last Admin: 12/04/18 11:05 Dose: 650 mg Albuterol/Ipratropium (Duoneb 3 Mg/0.5 Mg (3 Ml) Ud) 3 ml INH RQ6 PRN PRN Reason: Shortness of Breath Apixaban (Eliquis) 5 mg PO Q12H [facility] Last Admin: 12/04/18 12:57 Dose: 5 mg Aspirin (Aspirin Chewable) 81 mg PO DAILY [facility] Last Admin: 12/04/18 10:58 Dose: 81 mg Benzocaine/Menthol (Cepacol Sore Throat) 1 philip MT Q6 PRN PRN Reason: Sore Throat Last Admin: 12/03/18 23:55 Dose: 1 philip Carvedilol (Coreg) 25 mg PO BID [facility] Last Admin: 12/04/18 11:06 Dose: 25 mg Dextrose (Dextrose 50% Inj) 0 ml IV STAT PRN; Protocol PRN Reason: Hypoglycemia Protocol Dextrose (Glutose 15) 0 gm PO ONCE PRN; Protocol PRN Reason: Hypoglycemia Protocol Fluticasone Propionate (Flonase) 2 spr GEORGE BID [facility] Furosemide (Lasix) 20 mg PO DAILY [facility] Last Admin: 12/04/18 10:58 Dose: 20 mg Guaifenesin/Dextromethorphan (Robitussin Dm) 10 ml PO Q4H PRN PRN Reason: Cough and congestion Last Admin: 12/03/18 23:56 Dose: 10 ml Insulin Glargine (Lantus) 35 unit SC [facility] Last Admin: 12/03/18 21:41 Dose: 35 units Insulin Human Regular (Novolin R) 0 unit SC [facility]; Protocol Last Admin: 12/04/18 12:57 Dose: 4 units Losartan Potassium (Cozaar) 50 mg PO DAILY [facility] Mupirocin (Bactroban Ointment) 0 gm TOP DAILY [facility] Last Admin: 12/04/18 11:00 Dose: Not Given Rosuvastatin Calcium (Crestor) 20 mg PO HS [facility] Last Admin: 12/03/18 21:55 Dose: 20 mg Tamsulosin HCl (Flomax) 0.4 mg PO DAILY [facility] Last Admin: 12/04/18 10:58 Dose: 0.4 mg - Labs Labs: 12/04/18 07:26 12/04/18 07:26 PT 19.5 SECONDS (9.7-12.2) H 12/01/18 06:43 INR 1.8 12/01/18 06:43 APTT 36 SECONDS (21-34) H 12/01/18 06:43 - Constitutional Appears: Non-toxic, No Acute Distress, Older Than Stated Age, Chronically Ill - Head Exam Head Exam: ATRAUMATIC, NORMAL INSPECTION, NORMOCEPHALIC - Eye Exam Eye Exam: EOMI, Normal appearance - ENT Exam ENT Exam: Mucous Membranes Moist - Respiratory Exam Respiratory Exam: Decreased Breath Sounds, NORMAL BREATHING PATTERN. absent: Rales, Rhonchi, Wheezes - Cardiovascular Exam Cardiovascular Exam: Irregular Rhythm, +S1, +S2 - GI/Abdominal Exam GI & Abdominal Exam: Soft. absent: Guarding, Rigid, Tenderness - Extremities Exam Extremities Exam: absent: Calf Tenderness Additional comments: +ortho shoe on the left foot Venous stasis skin changes bilaterally Pedal pulses intact bilaterally - Back Exam Additional comments: Ecchymosis over the left hip Assessment and Plan - Assessment and Plan (Free Text) Assessment: 73 year old male with a PMHx HTN, HLD, A-fib (ON xarelto), DMII, chronic low back pain and BPH who presented to the E.D for evaluation of a left toe injury after a mechanical fall. Patient found to meet SIRS criteria. Patient was febrile with elevated lactate/WBC. Repeat lactate was normal. Patient admitted for evaluation and treatment of Sepsis (Unknown Source), and L great toe nail admission. Plan: SIRS (resolved) -Stable, afebrile, leukocytosis resolved -Antibiotics: Zosyn 3.376 Q6H EVON (discontinued) -CXR showed Moderate venous congestion. Patchy consolidative opacification at the left lung base with small left pleural effusion. Patchy consolidative opacification in the right infrahilar region. Cardiomegaly. -Urine cultures, blood cultures negative to date; sputum cultures are pending -Lactate normalized -Robitussin DM PRN for cough w/ productive sputum -Duonebs prn shortness of breath L Great Toe Nail Avulsion (Acute) -Tylenol prn pain -Foot x ray: Acute transverse nondisplaced fracture at the base of the distal phalanx of the great toe and severe dorsal soft tissue swelling -Podiatry on consult, Dr. Knight, help Appreciated, -Nursing Wound Care Hx of A-fib | Abnormal EKG w/ change -EKG on admission showed Sinus tachycardia, Pulmonary disease pattern, Right bundle branch block, Left anterior fascicular block, -Cardiology (Dr. Dykes), Recs Appreciated. -Coreg increased to 25mg PO BID -Continue Home ASA 81mg PO Daily, Home Eliquis 5mg PO BID Elevated T.Bili (resolved) -Will Monitor Hypertension (Chronic) -Blood pressure readings have been elevated -Increased Losartan to 50mg PO daily -Cardiology (Dr. Dykes), help appreciated Appreciated. -Continue home Lasix 20mg PO Daily Hyperlipidemia -Home Crestor 20 HS Diabetes Mellitus Type II (Chronic) -Continue Lantus 35 Units SC HS -Regular Insulin Sliding Scale (medium) -Hypoglycemia Protocol BPH (Chronic) -Home Flomax 0.4mg PO Daily GI/DVT ppx: SCD Eliquis 5mg PO Q12H Plan discussed with Dr Blayne Ackerman DO PGY-2"
[2018-12-04 17:13] VITALS: RESP 20
--- NOTE | 2018-12-04 17:25 | CARD ---
APPROVED REPORT Date of service: 12/02/2018 EKG Measurement Heart [id number] <Conclusion> Sinus rhythm with 1st degree AV block with premature atrial complexes Left axis deviation Right bundle branch block Abnormal ECG
--- NOTE | 2018-12-04 21:20 | CP.PCM.PN ---
Subjective - Date & Time of Evaluation Date of Evaluation: 12/04/18 Time of Evaluation: 09:00 - Subjective Subjective: Podiatry Progress- Dr. Bud Knight 73 y/o male with PMHx of COPD, CHF, DM, CKD and atrial fibrillation seen at bedside for 3 days s/p left nail avulsion and left 2nd digit ulceration secondary to trauma. Patient reports substained at fall which caused the injury. Patient reports no pain to the left foot. Reports has been walking well with surgical shoe. Reprots has noticed some bleeding through the dressing. Patient denies nausea, fever, shortness of breath, chest pains or chills. No other pedal complaints. Objective - Vital Signs/Intake and Output Vital Signs (last 24 hours): Temp Pulse Resp BP Pulse Ox 98.0 F 66 20 162/91 H 95 12/04/18 16:00 12/04/18 16:00 12/04/18 16:00 12/04/18 18:17 12/04/18 16:00 - Medications Medications: Current Medications Acetaminophen (Tylenol 325mg Tab) 650 mg PO Q6 PRN PRN Reason: Fever >100.4 F or Pain (1-10) Last Admin: 12/04/18 11:05 Dose: 650 mg Albuterol/Ipratropium (Duoneb 3 Mg/0.5 Mg (3 Ml) Ud) 3 ml INH RQ6 PRN PRN Reason: Shortness of Breath Apixaban (Eliquis) 5 mg PO Q12H [facility] Last Admin: 12/04/18 12:57 Dose: 5 mg Aspirin (Aspirin Chewable) 81 mg PO DAILY [facility] Last Admin: 12/04/18 10:58 Dose: 81 mg Benzocaine/Menthol (Cepacol Sore Throat) 1 philip MT Q6 PRN PRN Reason: Sore Throat Last Admin: 12/03/18 23:55 Dose: 1 philip Carvedilol (Coreg) 25 mg PO BID [facility] Last Admin: 12/04/18 18:17 Dose: 25 mg Dextrose (Dextrose 50% Inj) 0 ml IV STAT PRN; Protocol PRN Reason: Hypoglycemia Protocol Dextrose (Glutose 15) 0 gm PO ONCE PRN; Protocol PRN Reason: Hypoglycemia Protocol Fluticasone Propionate (Flonase) 2 spr GEORGE BID [facility] Furosemide (Lasix) 20 mg PO DAILY [facility] Last Admin: 12/04/18 10:58 Dose: 20 mg Guaifenesin/Dextromethorphan (Robitussin Dm) 10 ml PO Q4H PRN PRN Reason: Cough and congestion Last Admin: 12/03/18 23:56 Dose: 10 ml Insulin Glargine (Lantus) 35 unit SC [facility] Last Admin: 12/03/18 21:41 Dose: 35 units Insulin Human Regular (Novolin R) 0 unit SC [facility]; Protocol Last Admin: 12/04/18 18:14 Dose: 3 units Losartan Potassium (Cozaar) 50 mg PO DAILY [facility] Last Admin: 12/04/18 15:11 Dose: 50 mg Mupirocin (Bactroban Ointment) 0 gm TOP DAILY [facility] Last Admin: 12/04/18 11:00 Dose: Not Given Rosuvastatin Calcium (Crestor) 20 mg PO HS [facility] Last Admin: 12/03/18 21:55 Dose: 20 mg Tamsulosin HCl (Flomax) 0.4 mg PO DAILY [facility] Last Admin: 12/04/18 10:58 Dose: 0.4 mg - Labs Labs: 12/04/18 07:26 12/04/18 07:26 PT 19.5 SECONDS (9.7-12.2) H 12/01/18 06:43 INR 1.8 12/01/18 06:43 APTT 36 SECONDS (21-34) H 12/01/18 06:43 - Constitutional Appears: Well, Non-toxic, No Acute Distress - Extremities Exam Additional comments: Lower extremity focused exam: Vasc: DP/PT pulses palpable 2/4. Temperature gradient warm to cool. CFT < 3 sec to all digits. improving +1 pitting edema noted to entirety of bilateral lower extremities. Mild bluish discoloration is noted to right foot lesser digits Derm: nail bed with positive bleeding noted to the left hallux, maceration noted to the proximal nail folds of the hallux, no malodor, minimal edema and erythema, no signs of infection. superfical ulceration noted to the dorsal medial aspect of the 2nd digit at the level of the PIPJ. No clinical signs of infection Neuro: protective and gross sensation diminished Ortho: mild-moderate tenderness to palpation of all lesser digits of right foot - Neurological Exam Neurological Exam: Alert, Awake - Psychiatric Exam Psychiatric exam: Normal Affect, Normal Mood Assessment and Plan - Assessment and Plan (Free Text) Assessment: 73 y/o male with s/p left nail avulsion secondary to trauma and left superficial 2nd digit ulceration- stable Plan: Patient seen and evaluated at bedside Discussed plan with Dr. Knight Left foot xrays ordered - as per report, non-displaced fracture of the proximal phalanx Left Hallux dressed with xeroform, DSD Can change to bactroban in next encounter May WBAT in surgical shoe patient stable from podiatry standpoint, can f/u outpatient with Dr. Knight in his office Will continue to follow patient while in house
[2018-12-04] MEDS: (Lantus) Insulin Glargine, Recombinant SC SCH (22:49)
[2018-12-04] MEDS: Fluticasone Nasal 50 mcg/Spray NAS SCH (22:50)
[2018-12-05] MEDS: guaiFENesin DM 200 mg-20 mg/10 ml UD PO PRN ×3 (00:05→22:23)
[2018-12-05] MEDS: Benzocaine/Menthol (Cepacol) Lozenge MT PRN ×2 (00:50→06:12)
[2018-12-05 07:05] LABS: BASO % 0.6 % (0.0-2.0); EOS # 0.4 K/uL (0.0-0.7); EOS % 6.1 % (0.0-4.0); LYMPH # 1.1 K/uL (1.0-4.3); LYMPH % 17.8 % (20.0-40.0); MEAN CELL VOLUME 82.5 fL (80.0-94.0); MEAN CORPUSCULAR HEMOGLOBIN 27.9 pg (27.0-31.0); MEAN CORPUSCULAR HGB CONC 33.8 g/dL (33.0-37.0); MEAN PLATELET VOLUME 8.5 fL (7.2-11.7); MONO # 0.5 K/uL (0.0-0.8); MONO % 8.8 % (0.0-10.0); NEUT # 4.1 K/uL (1.8-7.0); NEUT % 66.7 % (50.0-75.0); NRBC % 0.1 % (0.0-2.0); RBC 3.93 Mil/uL (4.40-5.90); RED CELL DISTRIBUTION WIDTH 15.4 % (11.5-14.5); WHITE BLOOD COUNT 6.1 K/uL (4.8-10.8)
[2018-12-05 08:11] LABS: ALB/GLOB RATIO 1.1 (1.0-2.1); ALBUMIN 3.4 g/dL (3.5-5.0); ALT/SGPT 23 U/L (21-72); AST/SGOT 55 U/L (17-59); BLOOD UREA NITROGEN 13 mg/dL (9-20); CALCIUM 8.6 mg/dl (8.6-10.4); GFR NON-AFRICAN AMERICAN 59
[2018-12-05] MEDS: (Novolin R) Insulin Human Regular 100 units/ml vial SC SCH ×4 (08:45→21:56)
[2018-12-05] MEDS: (Novolog) Insulin Aspart, Recombinant 100 u/ml 10 ml vial SC SCH ×3 (08:52→18:00)
--- NOTE | 2018-12-05 09:11 | CP.PCM.PN ---
"Subjective - Date & Time of Evaluation Date of Evaluation: 12/05/18 Time of Evaluation: 09:11 - Subjective Subjective: Medicine Progress Note - Dr Cisneros's service Patient seen and evaluated at bedside. Per nursing no acute events overnight. Patient reports having left sided chest discomfort that is constant. Denies any headaches, dizziness, palpitations, sob, abdominal pain. Objective - Vital Signs/Intake and Output Vital Signs (last 24 hours): Temp Pulse Resp BP Pulse Ox 98.9 F 70 20 162/77 H 95 12/05/18 07:00 12/05/18 07:00 12/05/18 07:00 12/05/18 07:00 12/05/18 07:00 Intake and Output: 12/05/18 12/05/18 06:59 18:59 Intake Total 400 Output Total 400 Balance 0 - Medications Medications: Current Medications Acetaminophen (Tylenol 325mg Tab) 650 mg PO Q6 PRN PRN Reason: Fever >100.4 F or Pain (1-10) Last Admin: 12/05/18 06:11 Dose: 650 mg Albuterol/Ipratropium (Duoneb 3 Mg/0.5 Mg (3 Ml) Ud) 3 ml INH RQ6 PRN PRN Reason: Shortness of Breath Apixaban (Eliquis) 5 mg PO Q12H [facility] Last Admin: 12/05/18 00:04 Dose: 5 mg Aspirin (Aspirin Chewable) 81 mg PO DAILY [facility] Last Admin: 12/04/18 10:58 Dose: 81 mg Benzocaine/Menthol (Cepacol Sore Throat) 1 philip MT Q6 PRN PRN Reason: Sore Throat Last Admin: 12/05/18 06:12 Dose: 1 philip Carvedilol (Coreg) 25 mg PO BID [facility] Last Admin: 12/04/18 18:17 Dose: 25 mg Dextrose (Dextrose 50% Inj) 0 ml IV STAT PRN; Protocol PRN Reason: Hypoglycemia Protocol Dextrose (Glutose 15) 0 gm PO ONCE PRN; Protocol PRN Reason: Hypoglycemia Protocol Fluticasone Propionate (Flonase) 2 spr GEORGE BID [facility] Last Admin: 12/04/18 22:50 Dose: 2 spray Furosemide (Lasix) 20 mg PO DAILY [facility] Last Admin: 12/04/18 10:58 Dose: 20 mg Guaifenesin/Dextromethorphan (Robitussin Dm) 10 ml PO Q4H PRN PRN Reason: Cough and congestion Last Admin: 12/05/18 06:11 Dose: 10 ml Insulin Aspart (Novolog) 5 unit SC TIDCC [facility] Last Admin: 12/05/18 08:52 Dose: 5 units Insulin Glargine (Lantus) 35 unit SC HS [facility] Last Admin: 12/04/18 22:49 Dose: 35 units Insulin Human Regular (Novolin R) 0 unit SC [facility]; Protocol Last Admin: 12/05/18 08:45 Dose: 3 units Losartan Potassium (Cozaar) 50 mg PO DAILY [facility] Mupirocin (Bactroban Ointment) 0 gm TOP DAILY [facility] Last Admin: 12/04/18 11:00 Dose: Not Given Rosuvastatin Calcium (Crestor) 20 mg PO HS [facility] Last Admin: 12/04/18 22:50 Dose: 20 mg Tamsulosin HCl (Flomax) 0.4 mg PO DAILY [facility] Last Admin: 12/04/18 10:58 Dose: 0.4 mg - Labs Labs: 12/05/18 06:58 12/05/18 06:58 PT 19.5 SECONDS (9.7-12.2) H 12/01/18 06:43 INR 1.8 12/01/18 06:43 APTT 36 SECONDS (21-34) H 12/01/18 06:43 - Additional Findings Additional findings: - Constitutional Appears: Non-toxic, No Acute Distress, Older Than Stated Age, Chronically Ill - Head Exam Head Exam: ATRAUMATIC, NORMAL INSPECTION, NORMOCEPHALIC - Eye Exam Eye Exam: EOMI, Normal appearance - ENT Exam ENT Exam: Mucous Membranes Moist - Respiratory Exam Respiratory Exam: Decreased Breath Sounds, NORMAL BREATHING PATTERN. absent: Rales, Rhonchi, Wheezes - Cardiovascular Exam Cardiovascular Exam: Irregular Rhythm, +S1, +S2, chest discomfort non- reproducible on palpation - GI/Abdominal Exam GI & Abdominal Exam: Soft. absent: Guarding, Rigid, Tenderness - Extremities Exam Extremities Exam: absent: Calf Tenderness Additional comments: +ortho shoe on the left foot Venous stasis skin changes bilaterally Pedal pulses intact bilaterally - Back Exam Additional comments: Ecchymosis over the left hip Assessment and Plan - Assessment and Plan (Free Text) Assessment: 73 year old male with a PMHx HTN, HLD, A-fib (ON xarelto), DMII, chronic low back pain and BPH who presented to the E.D for evaluation of a left toe injury after a mechanical fall. Patient found to meet SIRS criteria. Patient was febrile with elevated lactate/WBC. Repeat lactate was normal. Patient admitted for evaluation and treatment of Sepsis (Unknown Source), and L great toe nail admission. Plan: SIRS (resolved) -Stable, afebrile, leukocytosis resolved -Antibiotics: Zosyn 3.376 Q6H EVON (discontinued) -CXR showed Moderate venous congestion. Patchy consolidative opacification at the left lung base with small left pleural effusion. Patchy consolidative opacification in the right infrahilar region. Cardiomegaly. -Urine cultures, blood cultures negative to date; sputum cultures are negative -Lactate normalized -Robitussin DM PRN for cough w/ productive sputum -Duonebs prn shortness of breath L Great Toe Nail Avulsion (Acute) -Tylenol prn pain -Foot x ray: Acute transverse nondisplaced fracture at the base of the distal phalanx of the great toe and severe dorsal soft tissue swelling -Podiatry on consult, Dr. Knight, help Appreciated, -Nursing Wound Care Hx of A-fib | Abnormal EKG w/ change -STA EKG ordered -EKG on admission showed Sinus tachycardia, Pulmonary disease pattern, Right bundle branch block, Left anterior fascicular block, -Cardiology (Dr. Dykes), Recs Appreciated. -Coreg increased to 25mg PO BID -Continue Home ASA 81mg PO Daily, Home Eliquis 5mg PO BID Elevated T.Bili (resolved) -Will Monitor Hypertension (Chronic) -Blood pressure readings have been elevated, SBP range 162-184 -Increased Losartan to 100mg PO daily -Cardiology (Dr. Dykes), help appreciated Appreciated. -Continue home Lasix 20mg PO Daily Hyperlipidemia -Home Crestor 20 HS Diabetes Mellitus Type II (Chronic) -Continue Lantus 35 Units SC HS -Regular Insulin Sliding Scale (medium) -Hypoglycemia Protocol BPH (Chronic) -Home Flomax 0.4mg PO Daily GI/DVT ppx: SCD Eliquis 5mg PO Q12H Plan discussed with Dr Blayne Ackerman DO PGY-2"
[2018-12-05] MEDS: Fluticasone Nasal 50 mcg/Spray NAS SCH ×2 (09:32→18:34)
[2018-12-05] MEDS ORDERED: Calcium Carbonate 500 mg Chewable Antacid Tab PO ONE (14:19)
[2018-12-05] MEDS: Oxycodone/Acetaminophen 5/325 mg Tab PO PRN ×2 (14:52→22:23)
--- NOTE | 2018-12-05 18:18 | CP.PCM.PN ---
Subjective - Date & Time of Evaluation Date of Evaluation: 12/05/18 Time of Evaluation: 15:00 - Subjective Subjective: Podiatry Progress- Dr. Bud Knight 73 y/o male with PMHx of COPD, CHF, DM, CKD and atrial fibrillation seen at bedside for 4 days s/p left nail avulsion and left 2nd digit ulceration secondary to trauma. Patient reports no pain to the left foot. Reports has been walking well with surgical shoe. Denies noticing bleeding through dressing . Patient denies nausea, fever, shortness of breath, chest pains or chills. No other pedal complaints. Objective - Vital Signs/Intake and Output Vital Signs (last 24 hours): Temp Pulse Resp BP Pulse Ox 99.1 F 73 20 159/76 H 95 12/05/18 15:18 12/05/18 15:18 12/05/18 15:18 12/05/18 15:18 12/05/18 15:18 Intake and Output: 12/05/18 12/05/18 06:59 18:59 Intake Total 400 300 Output Total 400 0 Balance 0 300 - Medications Medications: Current Medications Acetaminophen (Tylenol 325mg Tab) 650 mg PO Q6 PRN PRN Reason: Fever >100.4 F or Pain (1-10) Last Admin: 12/05/18 06:11 Dose: 650 mg Albuterol/Ipratropium (Duoneb 3 Mg/0.5 Mg (3 Ml) Ud) 3 ml INH RQ6 PRN PRN Reason: Shortness of Breath Apixaban (Eliquis) 5 mg PO Q12H [facility] Last Admin: 12/05/18 12:41 Dose: 5 mg Aspirin (Aspirin Chewable) 81 mg PO DAILY [facility] Last Admin: 12/05/18 09:32 Dose: 81 mg Benzocaine/Menthol (Cepacol Sore Throat) 1 philip MT Q6 PRN PRN Reason: Sore Throat Last Admin: 12/05/18 06:12 Dose: 1 philip Carvedilol (Coreg) 25 mg PO BID [facility] Last Admin: 12/05/18 09:31 Dose: 25 mg Dextrose (Dextrose 50% Inj) 0 ml IV STAT PRN; Protocol PRN Reason: Hypoglycemia Protocol Dextrose (Glutose 15) 0 gm PO ONCE PRN; Protocol PRN Reason: Hypoglycemia Protocol Fluticasone Propionate (Flonase) 2 spr GEORGE BID [facility] Last Admin: 12/05/18 09:32 Dose: 1 spray Furosemide (Lasix) 20 mg PO DAILY [facility] Last Admin: 12/05/18 09:32 Dose: 20 mg Guaifenesin/Dextromethorphan (Robitussin Dm) 10 ml PO Q4H PRN PRN Reason: Cough and congestion Last Admin: 12/05/18 06:11 Dose: 10 ml Insulin Aspart (Novolog) 5 unit SC TIDCC [facility] Last Admin: 12/05/18 12:42 Dose: 5 units Insulin Glargine (Lantus) 35 unit SC [facility] Last Admin: 12/04/18 22:49 Dose: 35 units Insulin Human Regular (Novolin R) 0 unit SC [facility]; Protocol Last Admin: 12/05/18 16:44 Dose: Not Given Losartan Potassium (Cozaar) 100 mg PO DAILY [facility] Last Admin: 12/05/18 12:45 Dose: Not Given Mupirocin (Bactroban Ointment) 0 gm TOP DAILY [facility] Last Admin: 12/05/18 09:35 Dose: Not Given Mupirocin (Bactroban Ointment) 1 gm TOP DAILY [facility] Oxycodone/Acetaminophen (Percocet 5/325 Mg Tab) 2 tab PO Q6H PRN PRN Reason: Pain, severe (8-10) Stop: 12/08/18 09:36 Last Admin: 12/05/18 14:52 Dose: 2 tab Rosuvastatin Calcium (Crestor) 20 mg PO [facility] Last Admin: 12/04/18 22:50 Dose: 20 mg Tamsulosin HCl (Flomax) 0.4 mg PO DAILY [facility] Last Admin: 12/05/18 09:31 Dose: 0.4 mg - Labs Labs: 12/05/18 06:58 12/05/18 06:58 PT 19.5 SECONDS (9.7-12.2) H 12/01/18 06:43 INR 1.8 12/01/18 06:43 APTT 36 SECONDS (21-34) H 12/01/18 06:43 - Constitutional Appears: Well, Non-toxic, No Acute Distress - Extremities Exam Extremities Exam: absent: Calf Tenderness Additional comments: 73 y/o male with s/p left nail avulsion secondary to trauma and left superficial 2nd digit ulceration- stableLower extremity focused exam: Vasc: DP/PT pulses palpable 2/4. Temperature gradient warm to cool. CFT < 3 sec to all digits. improving +1 pitting edema noted to entirety of bilateral lower extremities. Mild bluish discoloration is noted to right foot lesser digits Derm: nail bed with resolved bleeding noted to the left hallux, maceration noted to the proximal nail folds of the hallux (less macerated today) , no malodor, minimal edema and erythema, no signs of infection. superficial ulceration noted to the dorsal medial aspect of the 2nd digit at the level of the PIPJ. No clinical signs of infection Neuro: protective and gross sensation diminished Ortho: mild-moderate tenderness to palpation of all lesser digits of right foot - Neurological Exam Neurological Exam: Alert, Awake, Oriented x3 - Psychiatric Exam Psychiatric exam: Normal Affect, Normal Mood Assessment and Plan - Assessment and Plan (Free Text) Assessment: 73 y/o male with s/p left nail avulsion secondary to trauma and left superficial 2nd digit ulceration- stable Plan: Patient seen and evaluated at bedside Afebrile, absent leukocytosis Discussed plan with Dr. Knight Left foot xrays ordered - as per report, non-displaced fracture of the proximal phalanx Nursing communication ordered for today- to cleanse left foot with saline solution and put a dry dsd and cling Podiatry will order Bactroban. To be applied in the next encounter by podiatry May WBAT in surgical shoe No surgical intervention Patient stable from podiatry standpoint Will continue to follow patient while in house for local wound care Patient to f/u outpatient with Dr. Knight in his office within 1 week Discharge instructions from podiatry: Patient to cleanse site daily with soap and water, pat dry, and apply thin layer of Bactroban to big toe and 2nd toe Cover big toe and 2nd toe with gauze and cling Keep dressing clean, dry and intact Follow up with Dr. Knight in his office within 1 week Call his office for an appointment
[2018-12-05] MEDS: (Lantus) Insulin Glargine, Recombinant SC SCH (22:24)
[2018-12-06 04:50] VITALS: TEMP 97.8; O2SAT 97
--- NOTE | 2018-12-06 07:17 | CP.PCM.PN ---
"Subjective - Date & Time of Evaluation Date of Evaluation: 12/06/18 Time of Evaluation: 07:17 - Subjective Subjective: Medicine Progress Note - Dr Cisneros's service Patient seen and examined at bedside. Per nursing no acute events overnight. Patient noted to have elevated blood pressure readings this morning. Given Cozaar and Coreg early. He is comfortable and ambulating with Physical therapy. Offers no other complaints at this time. Objective - Vital Signs/Intake and Output Vital Signs (last 24 hours): Temp Pulse Resp BP Pulse Ox 97.8 F 60 20 174/96 H 97 12/06/18 04:50 12/06/18 04:50 12/06/18 04:50 12/06/18 04:50 12/06/18 04:50 Intake and Output: 12/06/18 12/06/18 06:59 18:59 Intake Total 400 Balance 400 - Medications Medications: Current Medications Acetaminophen (Tylenol 325mg Tab) 650 mg PO Q6 PRN PRN Reason: Fever >100.4 F or Pain (1-10) Last Admin: 12/05/18 06:11 Dose: 650 mg Albuterol/Ipratropium (Duoneb 3 Mg/0.5 Mg (3 Ml) Ud) 3 ml INH RQ6 PRN PRN Reason: Shortness of Breath Apixaban (Eliquis) 5 mg PO Q12H [facility] Last Admin: 12/06/18 00:27 Dose: 5 mg Aspirin (Aspirin Chewable) 81 mg PO DAILY [facility] Last Admin: 12/05/18 09:32 Dose: 81 mg Benzocaine/Menthol (Cepacol Sore Throat) 1 philip MT Q6 PRN PRN Reason: Sore Throat Last Admin: 12/05/18 06:12 Dose: 1 philip Carvedilol (Coreg) 25 mg PO BID [facility] Last Admin: 12/05/18 18:30 Dose: 25 mg Dextrose (Dextrose 50% Inj) 0 ml IV STAT PRN; Protocol PRN Reason: Hypoglycemia Protocol Dextrose (Glutose 15) 0 gm PO ONCE PRN; Protocol PRN Reason: Hypoglycemia Protocol Fluticasone Propionate (Flonase) 2 spr GEORGE BID [facility] Last Admin: 12/05/18 18:34 Dose: 2 spray Furosemide (Lasix) 20 mg PO DAILY [facility] Last Admin: 12/05/18 09:32 Dose: 20 mg Guaifenesin/Dextromethorphan (Robitussin Dm) 10 ml PO Q4H PRN PRN Reason: Cough and congestion Last Admin: 12/05/18 22:23 Dose: 10 ml Insulin Aspart (Novolog) 5 unit SC TIDCC [facility] Last Admin: 12/05/18 18:00 Dose: 5 units Insulin Glargine (Lantus) 35 unit SC HS [facility] Last Admin: 12/05/18 22:24 Dose: 40 units Losartan Potassium (Cozaar) 100 mg PO DAILY [facility] Last Admin: 12/05/18 12:45 Dose: Not Given Mupirocin (Bactroban Ointment) 0 gm TOP DAILY [facility] Last Admin: 12/05/18 09:35 Dose: Not Given Mupirocin (Bactroban Ointment) 1 gm TOP DAILY [facility] Last Admin: 12/05/18 18:29 Dose: 1 applic Oxycodone/Acetaminophen (Percocet 5/325 Mg Tab) 2 tab PO Q6H PRN PRN Reason: Pain, severe (8-10) Stop: 12/08/18 09:36 Last Admin: 12/05/18 22:23 Dose: 2 tab Rosuvastatin Calcium (Crestor) 20 mg PO [facility] Last Admin: 12/05/18 22:23 Dose: 20 mg Tamsulosin HCl (Flomax) 0.4 mg PO DAILY [facility] Last Admin: 12/05/18 09:31 Dose: 0.4 mg - Labs Labs: 12/05/18 06:58 12/05/18 06:58 PT 19.5 SECONDS (9.7-12.2) H 12/01/18 06:43 INR 1.8 12/01/18 06:43 APTT 36 SECONDS (21-34) H 12/01/18 06:43 - Additional Findings Additional findings: - Constitutional Appears: Non-toxic, No Acute Distress, Older Than Stated Age, Chronically Ill - Head Exam Head Exam: ATRAUMATIC, NORMAL INSPECTION, NORMOCEPHALIC - Eye Exam Eye Exam: EOMI, Normal appearance - ENT Exam ENT Exam: Mucous Membranes Moist - Respiratory Exam Respiratory Exam: Decreased Breath Sounds, NORMAL BREATHING PATTERN. absent: Rales, Rhonchi, Wheezes - Cardiovascular Exam Cardiovascular Exam: Irregular Rhythm, +S1, +S2, chest discomfort non- reproducible on palpation - GI/Abdominal Exam GI & Abdominal Exam: Soft. absent: Guarding, Rigid, Tenderness - Extremities Exam Extremities Exam: absent: Calf Tenderness Additional comments: +ortho shoe on the left foot Venous stasis skin changes bilaterally Pedal pulses intact bilaterally - Back Exam Additional comments: Ecchymosis over the left hip Assessment and Plan - Assessment and Plan (Free Text) Assessment: 73 year old male with a PMHx HTN, HLD, A-fib (ON xarelto), DMII, chronic low back pain and BPH who presented to the [facility] for evaluation of a left toe injury after a mechanical fall. Patient found to meet SIRS criteria. Patient was febrile with elevated lactate/WBC. Repeat lactate was normal. Patient admitted for evaluation and treatment of Sepsis (Unknown Source), and L great toe nail admission. Plan: SIRS (resolved) -Stable, afebrile, leukocytosis resolved -Antibiotics: Zosyn 3.376 Q6H EVON (discontinued) -CXR showed Moderate venous congestion. Patchy consolidative opacification at the left lung base with small left pleural effusion. Patchy consolidative opacification in the right infrahilar region. Cardiomegaly. -Urine cultures, blood cultures negative to date; sputum cultures are negative -Lactate normalized -Robitussin DM PRN for cough w/ productive sputum -Duonebs prn shortness of breath L Great Toe Nail Avulsion (Acute) -Tylenol prn pain -Foot x ray: Acute transverse nondisplaced fracture at the base of the distal phalanx of the great toe and severe dorsal soft tissue swelling -Podiatry on consult, Dr. Knight, help Appreciated, -Nursing Wound Care Hx of A-fib | Abnormal EKG w/ change -STA EKG ordered -EKG on admission showed Sinus tachycardia, Pulmonary disease pattern, Right bundle branch block, Left anterior fascicular block, -Cardiology (Dr. Dykes), Recs Appreciated. -Coreg increased to 25mg PO BID -Continue Home ASA 81mg PO Daily, Home Eliquis 5mg PO BID Elevated T.Bili (resolved) -Will Monitor Hypertension (Chronic) -Blood pressure readings have been elevated -Increased Losartan to 100mg PO daily -Cardiology (Dr. Dykes), help appreciated Appreciated. -Continue home Lasix 20mg PO Daily Hyperlipidemia -Home Crestor 20 HS Diabetes Mellitus Type II (Chronic) -Continue Lantus 35 Units SC HS -Regular Insulin Sliding Scale (medium) -Hypoglycemia Protocol BPH (Chronic) -Home Flomax 0.4mg PO Daily GI/DVT ppx: SCD Eliquis 5mg PO Q12H DISPO: Patient accepted to [facility]. BPs have improved. We will discharge as he is medically stable at this time. Plan discussed with Dr Blayne Ackerman DO PGY-2"
[2018-12-06 07:25] LABS: BASO % 0.8 % (0.0-2.0); EOS # 0.4 K/uL (0.0-0.7); EOS % 7.3 % (0.0-4.0); HEMOGLOBIN 11.3 g/dL (12.0-18.0); LYMPH # 1.4 K/uL (1.0-4.3); LYMPH % 22.6 % (20.0-40.0); MEAN CELL VOLUME 82.1 fL (80.0-94.0); MEAN CORPUSCULAR HEMOGLOBIN 28.4 pg (27.0-31.0); MEAN CORPUSCULAR HGB CONC 34.5 g/dL (33.0-37.0); MEAN PLATELET VOLUME 8.2 fL (7.2-11.7); MONO # 0.5 K/uL (0.0-0.8); MONO % 8.6 % (0.0-10.0); NEUT # 3.6 K/uL (1.8-7.0); NEUT % 60.7 % (50.0-75.0); NRBC % 0.1 % (0.0-2.0); RBC 3.98 Mil/uL (4.40-5.90); RED CELL DISTRIBUTION WIDTH 15.9 % (11.5-14.5)
[2018-12-06 07:49] VITALS: PULSE 63
[2018-12-06 07:51] LABS: ALBUMIN 3.3 g/dL (3.5-5.0); ALT/SGPT 21 U/L (21-72); AST/SGOT 43 U/L (17-59); BLOOD UREA NITROGEN 13 mg/dL (9-20); CALCIUM 8.7 mg/dl (8.6-10.4); GFR NON-AFRICAN AMERICAN 59
[2018-12-06] MEDS: (Novolog) Insulin Aspart, Recombinant 100 u/ml 10 ml vial SC SCH ×3 (08:20→18:28)
[2018-12-06] MEDS: Fluticasone Nasal 50 mcg/Spray NAS SCH ×2 (09:50→18:30)
[2018-12-06] MEDS: Benzocaine/Menthol (Cepacol) Lozenge MT PRN (09:51)
--- NOTE | 2018-12-06 15:59 | CP.PCM.PN ---
Subjective - Date & Time of Evaluation Date of Evaluation: 12/06/18 Time of Evaluation: 14:00 - Subjective Subjective: Podiatry Progress- Dr. Bud Knight 73 y/o male with PMHx of COPD, CHF, DM, CKD and atrial fibrillation seen at bedside for 5 days s/p left nail avulsion and left 2nd digit ulceration secondary to trauma. Patient reports no pain to the left foot. Reports has been walking well with surgical shoe. Patient reports needs another surgical shoe for balance while walking. Patient denies nausea, fever, shortness of breath, chest pains or chills. No other pedal complaints. Objective - Vital Signs/Intake and Output Vital Signs (last 24 hours): Temp Pulse Resp BP Pulse Ox 97.8 F 63 20 122/76 97 12/06/18 07:00 12/06/18 07:00 12/06/18 07:00 12/06/18 09:50 12/06/18 07:00 Intake and Output: 12/06/18 12/06/18 06:59 18:59 Intake Total 400 Balance 400 - Medications Medications: Current Medications Acetaminophen (Tylenol 325mg Tab) 650 mg PO Q6 PRN PRN Reason: Fever >100.4 F or Pain (1-10) Last Admin: 12/05/18 06:11 Dose: 650 mg Apixaban (Eliquis) 5 mg PO Q12H [facility] Last Admin: 12/06/18 13:57 Dose: 5 mg Aspirin (Aspirin Chewable) 81 mg PO DAILY [facility] Last Admin: 12/06/18 09:50 Dose: 81 mg Benzocaine/Menthol (Cepacol Sore Throat) 1 philip MT Q6 PRN PRN Reason: Sore Throat Last Admin: 12/06/18 09:51 Dose: 1 philip Carvedilol (Coreg) 25 mg PO BID [facility] Last Admin: 12/06/18 07:50 Dose: 25 mg Dextrose (Dextrose 50% Inj) 0 ml IV STAT PRN; Protocol PRN Reason: Hypoglycemia Protocol Dextrose (Glutose 15) 0 gm PO ONCE PRN; Protocol PRN Reason: Hypoglycemia Protocol Fluticasone Propionate (Flonase) 2 spr GEORGE BID [facility] Last Admin: 12/06/18 09:50 Dose: 1 spray Furosemide (Lasix) 20 mg PO DAILY [facility] Last Admin: 12/06/18 09:50 Dose: 20 mg Guaifenesin/Dextromethorphan (Robitussin Dm) 10 ml PO Q4H PRN PRN Reason: Cough and congestion Last Admin: 12/05/18 22:23 Dose: 10 ml Insulin Aspart (Novolog) 5 unit SC TIDCC [facility] Last Admin: 12/06/18 13:57 Dose: 5 units Insulin Glargine (Lantus) 35 unit SC HS [facility] Last Admin: 12/05/18 22:24 Dose: 40 units Losartan Potassium (Cozaar) 100 mg PO DAILY [facility] Last Admin: 12/06/18 07:49 Dose: 100 mg Mupirocin (Bactroban Ointment) 0 gm TOP DAILY [facility] Last Admin: 12/05/18 09:35 Dose: Not Given Mupirocin (Bactroban Ointment) 1 gm TOP DAILY [facility] Last Admin: 12/06/18 09:51 Dose: 1 applic Oxycodone/Acetaminophen (Percocet 5/325 Mg Tab) 2 tab PO Q6H PRN PRN Reason: Pain, severe (8-10) Stop: 12/08/18 09:36 Last Admin: 12/05/18 22:23 Dose: 2 tab Rosuvastatin Calcium (Crestor) 20 mg PO HS [facility] Last Admin: 12/05/18 22:23 Dose: 20 mg Tamsulosin HCl (Flomax) 0.4 mg PO DAILY [facility] Last Admin: 12/06/18 09:50 Dose: 0.4 mg - Labs Labs: 12/06/18 07:13 12/06/18 07:13 PT 19.5 SECONDS (9.7-12.2) H 12/01/18 06:43 INR 1.8 12/01/18 06:43 APTT 36 SECONDS (21-34) H 12/01/18 06:43 - Constitutional Appears: Well, Non-toxic, No Acute Distress - Extremities Exam Extremities Exam: absent: Calf Tenderness Additional comments: Vasc: DP/PT pulses palpable 2/4. Temperature gradient warm to cool. CFT < 3 sec to all digits. improving +1 pitting edema noted to entirety of bilateral lower extremities. Mild bluish discoloration is noted to right foot lesser digits Derm: nail bed with resolved bleeding noted to the left hallux, maceration noted to the proximal nail folds of the hallux (less macerated today) , no malodor, minimal edema and erythema, no signs of infection. superficial ulceration noted to the dorsal medial aspect of the 2nd digit at the level of the PIPJ. No clinical signs of infection Neuro: protective and gross sensation diminished Ortho: mild-moderate tenderness to palpation of all lesser digits of right foot - Neurological Exam Neurological Exam: Alert, Awake, Oriented x3 - Psychiatric Exam Psychiatric exam: Normal Affect, Normal Mood Assessment and Plan - Assessment and Plan (Free Text) Assessment: 73 y/o male with s/p left nail avulsion secondary to trauma and left superficial 2nd digit ulceration- stable Plan: Patient seen and evaluated at bedside Afebrile, absent leukocytosis Discussed plan with Dr. Knight Left foot xrays ordered - as per report, non-displaced fracture of the proximal phalanx Nursing communication ordered for today- to cleanse left foot with saline solution and put a dry dsd and cling Cleansed saline, dressed with bactroban and dsd. May WBAT in surgical shoe No surgical intervention Patient stable from podiatry standpoint Will continue to follow patient while in house for local wound care Patient to f/u outpatient with Dr. Knight in his office within 1 week Discharge instructions from podiatry: Patient to cleanse site daily with soap and water, pat dry, and apply thin layer of Bactroban to big toe and 2nd toe Cover big toe and 2nd toe with gauze and cling Keep dressing clean, dry and intact Follow up with Dr. Knight in his office within 1 week Call his office for an appointment
[2018-12-06] MEDS ORDERED: Calcium Carbonate 500 mg Chewable Antacid Tab PO ONE (16:16)
[2018-12-06] MEDS: guaiFENesin DM 200 mg-20 mg/10 ml UD PO PRN (18:27)
[2018-12-06] MEDS: Oxycodone/Acetaminophen 5/325 mg Tab PO PRN (18:29)
[2018-12-06 18:30] VITALS: BP 146/82
--- NOTE | 2018-12-06 18:59 | CARD ---
APPROVED REPORT Date of service: 12/05/2018 EKG Measurement Heart [id number] <Conclusion> Sinus rhythm with 1st degree AV block with premature supraventricular complexes Left axis deviation Right bundle branch block Abnormal ECG
== END 2018-12-06 19:45 | disposition home or self-care (01) | DRG 871 ==
LOC: C.ER 05:41 → C.9E 09:23 → C.6T 13:53
PROVIDERS: ADMIT Internal Medicine Pulmonary Disease; ATTEND Internal Medicine Pulmonary Disease
PROC: 0HTRXZZ Resection of Toe Nail, External Approach (ICD-10-PCS; principal; 2018-12-01)
DX: A41.9 Sepsis, unspecified organism (principal); J18.9 Pneumonia, unspecified organism; I13.0 Hypertensive heart and chronic kidney disease with heart failure and stage 1 through stage 4 chronic kidney disease, or unspecified chronic kidney disease; J44.0 Chronic obstructive pulmonary disease with (acute) lower respiratory infection; I48.0 Paroxysmal atrial fibrillation; I25.10 Atherosclerotic heart disease of native coronary artery without angina pectoris; I50.9 Heart failure, unspecified; N18.2 Chronic kidney disease, stage 2 (mild); E11.22 Type 2 diabetes mellitus with diabetic chronic kidney disease; R26.81 Unsteadiness on feet; K21.9 Gastro-esophageal reflux disease without esophagitis; W01.119A Fall on same level from slipping, tripping and stumbling with subsequent striking against unspecified sharp object, initial encounter; G89.29 Other chronic pain; M54.5 Low back pain; S92.415B Nondisplaced fracture of proximal phalanx of left great toe, initial encounter for open fracture; I45.10 Unspecified right bundle-branch block; I44.4 Left anterior fascicular block; E11.621 Type 2 diabetes mellitus with foot ulcer; L97.529 Non-pressure chronic ulcer of other part of left foot with unspecified severity; I87.8 Other specified disorders of veins; S70.02XA Contusion of left hip, initial encounter